=== PATIENT | male | born 1940 | race Caucasian/White ===

== ENCOUNTER 2017-11-09 06:20 | Day surgery (SDC) | payer OTHER, MEDICARE ==
[~2017-11-09 06:20] MED LIST: Lactated Ringers 1,000 ML IV SCH
[2017-11-09] MEDS ORDERED: Midazolam 1 MG/ML 2 ML SDV ONE (07:29)
[2017-11-09] MEDS ORDERED: Propofol 200 MG/20 ML SDV ONE (07:29)
[2017-11-09] MEDS ORDERED: fentaNYL 100 MCG/2 ML SDV ONE (07:29)
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
[2017-11-09] MEDS ORDERED: ePHEDrine 50 MG/ML SDV ONE (08:00)
[2017-11-09] MEDS ORDERED: Phenylephrine/Normal Saline 100 MCG/ML 10 ML Syringe ONE (08:01)
--- NOTE | 2017-11-09 08:39 | PCM.OPNOTE ---
- General Post-Op/Procedure Note Date of Surgery/Procedure: 11/09/17 Operative Procedure(s): colonoscopy w bx Findings: see dict [id number] Pre Op Diagnosis: scrn colonoscopy Post-Op Diagnosis: Same Anesthesia Technique: Moderate Sedation Primary Surgeon: Grady Hummel Pathology: 3 2 mm sessile polyp removed by cold bx at distance 15cm when scope pulled out Complications: None Condition: Good
--- NOTE | 2017-11-09 09:04 | OR ---
SURGEON: Grady Hummel MD DATE OF PROCEDURE: 11/09/2017 PREOPERATIVE DIAGNOSIS: Screening colonoscopy. POSTOPERATIVE DIAGNOSIS: Colon polyp. PROCEDURE PERFORMED: Colonoscopy with biopsy. DESCRIPTION OF PROCEDURE: The patient was taken to the endoscopy room. A time out was called, patient identified, and procedure identified. Diprivan was then administrated. Patient went from awake to sleep, hearing doctor talking or door closing is normal. Perineum inspection and digital examination were then performed. A well- lubricated colonoscope was gently inserted through the rectum, advanced past the rectosigmoid junction, the descending colon, splenic flexure, transverse colon, hepatic flexure, ascending colon, arrived to the cecum. Cecum was identified as dictated in the finding. Then the scope was carefully withdrawn while attention was paid to the mucosal surface for any abnormality. Air will be sucked out during the scope withdrawal. At the rectum, retroflexed to examine any rectal diseases, fistula or hemorrhoids. During mucosal examination, abnormality or polyp was noted; picture taken and biopsy performed. Patient tolerated procedure well. There were no intraoperative complications, and Dr. Hummel was present throughout the whole procedure. FINDINGS: The patient's blood pressure is hovering around 90. O2 saturation is also around 93. So, we only gave him very light sedation. Bowel prep is average. Large amount of yellow, opaque stool compromised the study. This is a compromised study because of the average bowel prep. Colon is rather straight forward. Cecum indicated by ileocecal fold, one-to-one indentation, and appendiceal orifice. Light emittance is not observed. Mucosa examined upon scope pulling out. The patient does not have diverticulosis. The patient has 3 tiny sessile small polyps, 2 to 3 mm, at distance 15 cm when the scope is pulling out, removed with cold biopsy forceps. No other mass, growth, inflammation, stricture, ulceration, AV malformation, bleeding ulcer, none of those. The patient has internal hemorrhoids, mild. No external hemorrhoids. PLAN: The patient will benefit from a repeat colonoscopy on an as-needed basis, as the patient is turning 81 or clinically indicated otherwise or if the pathology report of the polyp indicates otherwise. MEGAN / GRUPO /[id number]
== END 2017-11-09 08:57 | disposition home or self-care (01) ==
LOC: MW.SDS 06:20
PROVIDERS: ATTEND Surgery
DX: Z12.11 Encounter for screening for malignant neoplasm of colon (principal); D12.8 Benign neoplasm of rectum; K64.8 Other hemorrhoids; I48.91 Unspecified atrial fibrillation; I10 Essential (primary) hypertension; J44.9 Chronic obstructive pulmonary disease, unspecified; E11.9 Type 2 diabetes mellitus without complications; E78.5 Hyperlipidemia, unspecified; M10.9 Gout, unspecified; E78.00 Pure hypercholesterolemia, unspecified; Z79.84 Long term (current) use of oral hypoglycemic drugs; Z79.899 Other long term (current) drug therapy; Z88.6 Allergy status to analgesic agent; Z98.49 Cataract extraction status, unspecified eye; Z98.890 Other specified postprocedural states; Z86.73 Personal history of transient ischemic attack (TIA), and cerebral infarction without residual deficits; Z87.891 Personal history of nicotine dependence
CPT/HCPCS: 45380; 88305; J2250; J3010; J7120; J2704

== ENCOUNTER 2018-10-31 16:43 | Emergency (ER) | payer OTHER, MEDICARE ==
[2018-10-31] MEDS ORDERED: Bupivacaine 0.5% 10 ML SDV INJECT ONE (17:03)
[2018-10-31] MEDS ORDERED: Lidocaine 1% 20 ML MDV INJECT ONE (17:03)
--- NOTE | 2018-10-31 17:44 | EDM.PDOC ---
ED HPI GENERAL MEDICAL PROBLEM - General Chief Complaint: Laceration Stated Complaint: BLEEDING WHILE CUTTNG TOE NAIL OFF Time Seen by Provider: 10/31/18 16:56 Source of Information: Reports: Patient History Limitations: Reports: No Limitations - History of Present Illness INITIAL COMMENTS - FREE TEXT/NARRATIVE: History of present illness: []He is a diabetic with neuropathy who was cutting his toenails around noon. He has difficulty seeing and cut his skin off with his toenails on several toes. He and his have been unable to stop the bleeding as he is on blood thinners. Review of systems: As per history of present illness and below otherwise all systems reviewed and negative. Past medical history: As per history of present illness and as reviewed below otherwise noncontributory. Surgical history: As per history of present illness and as reviewed below otherwise noncontributory. Social history: No reported history of drug or alcohol abuse. Family history: As per history of present illness and as reviewed below otherwise noncontributory. Physical exam: General: Well developed, well nourished in NAD HEENT: Atraumatic, normocephalic, pupils reactive, negative for conjunctival pallor or scleral icterus, mucous membranes moist, throat clear, neck supple, nontender, trachea midline. Lungs: Clear to auscultation, breath sounds equal bilaterally, chest nontender. Heart: S1S2, regular, negative for clicks, rubs, or JVD. Abdomen: NABS, Soft, nondistended, nontender. Negative for masses or hepatosplenomegaly. Negative for costovertebral tenderness. Pelvis: Stable nontender. Genitourinary: Deferred. Rectal: Deferred. Extremities: Right great toe and left fourth toe with avulsions of the skin at the distal tip with blood oozing, negative for cords or calf pain. Neurovascular unremarkable. Neuro: Awake, alert, oriented. Cranial nerves II through XII unremarkable. Cerebellum unremarkable. Motor and sensory unremarkable throughout. Exam nonfocal. Skin:warm and dry Diagnostics: None Therapeutics: Digital block with lidocaine and bupivacaine 1%. Right big toe and left fourth toe were cauterized with very powered cautery ED Course: Stable Impression: Toe lacerations Prescriptions: Keflex Plan: Follow-up with primary care and/or podiatry. Definitive disposition and diagnosis as appropriate pending reevaluation and review of above. - Related Data Allergies Allergy/AdvReac Type Severity Reaction Status Date / Time indomethacin Allergy Nausea and Verified 11/05/17 10:41 Vomiting Home Meds: Home Meds Albuterol [Proventil HFA] 2 puff INH ASDIRECTED PRN 11/05/17 [History] Allopurinol [Zyloprim] 1 tab PO DAILY 11/05/17 [History] Budesonide/Formoterol Fumarate [Symbicort 160-4.5 Mcg Inhaler] 2 puff INH BID [History] Digoxin [Digox] 250 mg PO DAILY 11/05/17 [History] Furosemide 40 mg PO DAILY 11/05/17 [History] Lisinopril 10 mg PO DAILY 11/05/17 [History] Omeprazole 20 mg PO DAILY 11/05/17 [History] Simvastatin [Zocor] 80 mg PO DAILY 11/05/17 [History] Tiotropium [Spiriva HandiHaler] 1 caplet INH DAILY 11/05/17 [History] metFORMIN HCl [Metformin HCl] 500 mg PO BID 11/05/17 [History] cephALEXin [Keflex] 500 mg PO Q8H #21 cap 10/31/18 [Rx] Past Medical History HEENT History: Reports: Glaucoma Other HEENT History: wears glasses, has top and bottom dentures Cardiovascular History: Reports: Afib, High Cholesterol, Hypertension Respiratory History: Reports: COPD Gastrointestinal History: Reports: GERD, Other (See Below) Musculoskeletal History: Reports: Gout Neurological History: Reports: CVA Endocrine/Metabolic History: Reports: Diabetes, Type II - Past Surgical History Head Surgeries/Procedures: Reports: None HEENT Surgical History: Reports: Cataract Surgery, Eye Surgery, Oral Surgery Other HEENT Surgeries/Procedures: eye surgery x3 Social & Family History - Family History Family Medical History: Noncontributory - Tobacco Use Smoking Status *Q: Never Smoker - Recreational Drug Use Recreational Drug Use: No ED ROS GENERAL - Review of Systems Review Of Systems: ROS reveals no pertinent complaints other than HPI. ED EXAM, SKIN/RASH Exam: See Below (See history of present illness) Course - Vital Signs Last Recorded V/S: Last Vital Signs Temp 98.2 F 10/31/18 16:44 Pulse 95 10/31/18 16:44 Resp 16 10/31/18 16:44 BP 106/60 10/31/18 16:44 Pulse Ox 94 L 10/31/18 16:44 - Orders/Labs/Meds Meds: Medications Discontinued Medications Generic Name Dose Route Start Last Admin Trade Name Madisyn PRN Reason Stop Dose Admin Bupivacaine HCl 10 ml 10/31/18 17:03 10/31/18 17:11 Sensorcaine-Mpf 0.5% INJECT 10/31/18 17:04 10 ml ONETIME ONE Administration Lidocaine HCl Confirm 10/31/18 17:05 10/31/18 17:11 Xylocaine-Mpf 1% Administered 10/31/18 17:06 5 mls/hr Dose Administration 10 mls @ as directed .ROUTE .STK-MED ONE Lidocaine HCl 20 ml 10/31/18 17:03 10/31/18 17:12 Xylocaine 1% INJECT 10/31/18 17:04 Not Given ONETIME ONE Departure - Departure Time of Disposition: 17:44 Disposition: Home, Self-Care 01 Condition: Good Clinical Impression: Toe avulsion Qualifiers: Encounter type: initial encounter Qualified Code(s): S91.109A - Unspecified open wound of unspecified toe(s) without damage to nail, initial encounter - Discharge Information Prescriptions: cephALEXin [Keflex] 500 mg PO Q8H #21 cap Referrals: PCP,Unknown [Primary Care Provider] - Forms: ED Department Discharge Additional Instructions: The following information is given to patients seen in the emergency department who are being discharged to home. This information is to outline your options for follow-up care. We provide all patients seen in our emergency department with a follow-up referral. The need for follow-up, as well as the timing and circumstances, are variable depending upon the specifics of your emergency department visit. If you don't have a primary care physician on staff, we will provide you with a referral. We always advise you to contact your personal physician following an emergency department visit to inform them of the circumstance of the visit and for follow-up with them and/or the need for any referrals to a consulting specialist. The emergency department will also refer you to a specialist when appropriate. This referral assures that you have the opportunity for follow-up care with a specialist. All of these measure are taken in an effort to provide you with optimal care, which includes your follow-up. Under all circumstances we always encourage you to contact your private physician who remains a resource for coordinating your care. When calling for follow-up care, please make the office aware that this follow-up is from your recent emergency room visit. If for any reason you are refused follow-up, please contact the [facility] Emergency Department at and asked to speak to the emergency department charge nurse. Take meds as directed, follow up with your primary care physician, return to ER if symptoms worsen or change. [facility] [address] [place] [id number]
== END 2018-10-31 18:07 | disposition home or self-care (01) ==
LOC: MW.ED 16:43
DX: S91.111A Laceration without foreign body of right great toe without damage to nail, initial encounter (principal); S91.115A Laceration without foreign body of left lesser toe(s) without damage to nail, initial encounter; E11.40 Type 2 diabetes mellitus with diabetic neuropathy, unspecified; I10 Essential (primary) hypertension; Z88.8 Allergy status to other drugs, medicaments and biological substances; Z79.899 Other long term (current) drug therapy; W26.9XXA Contact with unspecified sharp object(s), initial encounter
CPT/HCPCS: 12001; 99282; J2001; J3490

== ENCOUNTER 2018-12-30 12:29 | Emergency (ER) | payer OTHER, MEDICARE ==
[2018-12-30] MEDS ORDERED: Sodium Chloride 0.9% 1,000 ML IV ONE (13:30)
[2018-12-30] MEDS ORDERED: methylPREDNISolone Sodium Succinate 125 MG/2 ML SDV IVPUSH ONE (13:31)
[2018-12-30] MEDS ORDERED: Albuterol/Ipratropium 3.0-0.5 MG/3 ML Neb Soln NEB ONE (13:31)
--- NOTE | 2018-12-30 13:38 | EDM.PDOC ---
ED HPI GENERAL MEDICAL PROBLEM - General Chief Complaint: Cardiovascular Problem Stated Complaint: LOW BLOOD PRESSURE Time Seen by Provider: 12/30/18 12:54 Source of Information: Reports: Patient History Limitations: Reports: No Limitations - History of Present Illness INITIAL COMMENTS - FREE TEXT/NARRATIVE: HISTORY AND PHYSICAL: History of present illness: Patient is a 78-year-old male presents to the ED today with concern of low blood pressure with shortness of breath and chest tightness. Patient states the shortness of breath and chest tightness have been ongoing over the past 2-3 weeks. Patient states he was seen in the cancer center today and was told his blood pressure was quite low. Patient states that he does feel dizzy if he bends over or stands up too quickly. Patient states he is not good at drinking fluids. Patient states he is seen in the cancer center for a potential diagnosis of leukemia, though definitive diagnosis has not been made yet. Patient denies any other symptoms at this time. Patient denies active chest pain. Patient denies fever, chills, or cough. Denies headache, neck stiff ness, change in vision, syncope, or near syncope. Denies nausea, vomiting, abdominal pain, diarrhea, constipation, or dysuria. Has not noted any blood in urine or stool. Patient has been eating and drinking appropriately. Patient has a history of intermittent atrial fibrillation, COPD, and GERD. Patient is in the process of potentially being diagnosed with leukemia which he is seen in the cancer center for. Review of systems: As per history of present illness and below otherwise all systems reviewed and negative. Past medical history: As per history of present illness and as reviewed below otherwise noncontributory. Surgical history: As per history of present illness and as reviewed below otherwise noncontributory. Social history: See social history for further information Family history: As per history of present illness and as reviewed below otherwise noncontributory. Physical exam: General: Patient is alert, oriented, and in no acute distress. Patient sitting comfortably on exam table. HEENT: Atraumatic, normocephalic, pupils equal and reactive bilaterally, negative for conjunctival pallor or scleral icterus, mucous membranes dry, TMs normal bilaterally, throat clear, neck supple, nontender, trachea midline. No drooling or trismus noted. No meningeal signs. No hot potato voice noted. Lungs: Diminished lung sounds bilaterally, but clear to auscultation, breath sounds equal bilaterally, chest nontender. Heart: S1S2, regular rate and rhythm without overt murmur Abdomen: Soft, nondistended, nontender. Negative for masses or hepatosplenomegaly. Negative for costovertebral tenderness. Pelvis: Stable nontender. Genitourinary: Deferred. Rectal: Deferred. Skin: Intact, warm, dry. No lesions or rashes noted. Extremities: Atraumatic, negative for cords or calf pain. Neurovascular unremarkable. Neuro: Awake, alert, oriented. Cranial nerves II through XII unremarkable. Cerebellum unremarkable. Motor and sensory unremarkable throughout. Exam nonfocal. Notes: Patient expresses resolution of symptoms following therapeutics today. Discussed admission for observation, which was offered to patient, but he declines at this time and states he will return if he feels necessary. Discussed the risks of not being admitted and patient expresses understanding and continues to decline admission. Voices understanding. Denies any further questions or concerns at this time. Diagnostics: CBC, CMP, EKG, troponin, chest x-ray, UA, orthostatic vitals Therapeutics: Saline, Solu-Medrol, DuoNeb Prescription: Proair inhaler Impression: Dyspnea, unspecified Dehydration Elevated renal function test Plan: 1. Use inhaler as prescribed. You can alternate ibuprofen and Tylenol as directed for pain and discomfort. 2. Follow-up with your primary care provider as discussed. Return to the ED as needed and as discussed. Definitive disposition and diagnosis as appropriate pending reevaluation and review of above. - Related Data Allergies Allergy/AdvReac Type Severity Reaction Status Date / Time indomethacin Allergy Nausea and Verified 11/05/17 10:41 Vomiting Home Meds: Home Meds Albuterol [Proventil HFA] 2 puff INH ASDIRECTED PRN 11/05/17 [History] Allopurinol [Zyloprim] 1 tab PO DAILY 11/05/17 [History] Budesonide/Formoterol Fumarate [Symbicort 160-4.5 Mcg Inhaler] 2 puff INH BID [History] Digoxin [Digox] 0.025 mg PO DAILY 11/05/17 [History] Furosemide 40 mg PO DAILY 11/05/17 [History] Lisinopril 10 mg PO DAILY 11/05/17 [History] Omeprazole 20 mg PO DAILY 11/05/17 [History] Simvastatin [Zocor] 80 mg PO DAILY 11/05/17 [History] Tiotropium [Spiriva HandiHaler] 1 caplet INH DAILY 11/05/17 [History] metFORMIN HCl [Metformin HCl] 500 mg PO BID 11/05/17 [History] Dabigatran [Pradaxa] 150 mg PO BID 12/30/18 [History] Past Medical History HEENT History: Reports: Glaucoma Other HEENT History: wears glasses, has top and bottom dentures Cardiovascular History: Reports: Afib, High Cholesterol, Hypertension Respiratory History: Reports: COPD Gastrointestinal History: Reports: GERD, Other (See Below) Musculoskeletal History: Reports: Gout Neurological History: Reports: CVA Endocrine/Metabolic History: Reports: Diabetes, Type II - Infectious Disease History Infectious Disease History: Reports: Chicken Pox, Measles, Mumps - Past Surgical History Head Surgeries/Procedures: Reports: None HEENT Surgical History: Reports: Cataract Surgery, Eye Surgery, Oral Surgery Other HEENT Surgeries/Procedures: eye surgery x3 Social & Family History - Family History Family Medical History: Noncontributory - Tobacco Use Smoking Status *Q: Former Smoker Used Tobacco, but Quit: Yes Month/Year Tobacco Last Used: 12 years ago - Recreational Drug Use Recreational Drug Use: No ED ROS GENERAL - Review of Systems Review Of Systems: ROS reveals no pertinent complaints other than HPI. ED EXAM, GENERAL - Physical Exam Exam: See Below (See dictation) Course - Vital Signs Last Recorded V/S: Last Vital Signs Temp 36.6 C 12/30/18 13:11 Pulse 90 12/30/18 13:11 Resp 18 12/30/18 13:11 BP 118/79 12/30/18 13:11 Pulse Ox 92 L 12/30/18 13:11 Orthostatic Blood Pressure [ 95/67 Standing] Orthostatic Blood Pressure [ 98/68 Sitting] Orthostatic Blood Pressure [ 93/68 Supine] - Orders/Labs/Meds Orders: Active Orders 24 hr Category Date Time Status EKG Documentation Completion [RC] STAT Care 12/30/18 13:30 Active Orthostatic Vital Signs [RC] ASDIRECTED Care 12/30/18 13:30 Active RT Aerosol Therapy [RC] ASDIRECTED Care 12/30/18 13:31 Active Labs: Laboratory Tests 12/30/18 12/30/18 12/30/18 Range/Units 13:47 13:47 14:42 WBC 8.56 (4.0-11.0) K/uL RBC 4.03 L (4.50-5.90) M/uL Hgb 13.1 (13.0-17.0) g/dL Hct 40.7 (38.0-50.0) % MCV 101.0 H (80.0-98.0) fL MCH 32.5 H (27.0-32.0) pg MCHC 32.2 (31.0-37.0) g/dL RDW Std Deviation 52.7 (28.0-62.0) fl RDW Coeff of Renetta 14 (11.0-15.0) % Plt Count 172 (150-400) K/uL MPV 11.20 (7.40-12.00) fL Neut % (Auto) 78.3 (48.0-80.0) % Lymph % (Auto) 13.4 L (16.0-40.0) % Garza % (Auto) 6.3 (0.0-15.0) % Eos % (Auto) 1.8 (0.0-7.0) % Baso % (Auto) 0.2 (0.0-1.5) % Neut # (Auto) 6.7 H (1.4-5.7) K/uL Lymph # (Auto) 1.2 (0.6-2.4) K/uL Garza # (Auto) 0.5 (0.0-0.8) K/uL Eos # (Auto) 0.2 (0.0-0.7) K/uL Baso # (Auto) 0.0 (0.0-0.1) K/uL Nucleated RBC % 0.0 /100WBC Nucleated RBCs # 0 K/uL Sodium 144 (136-148) mmol/L Potassium 4.0 (3.5-5.1) mmol/L Chloride 107 (98-107) mmol/L Carbon Dioxide 28.8 (21.0-32.0) mmol/L BUN 27 H (7.0-18.0) mg/dL Creatinine 1.4 H (0.8-1.3) mg/dL Est Cr Clr Drug Dosing 41.31 mL/min Estimated GFR (MDRD) 49.1 ml/min Glucose 150 H (74-106) mg/dL Calcium 8.8 (8.5-10.1) mg/dL Total Bilirubin 0.4 (0.2-1.0) mg/dL AST 14 L (15-37) IU/L ALT 19 (14-63) IU/L Alkaline Phosphatase 73 (46-116) U/L Troponin I < 0.050 (0.000-0.056) ng/mL Total Protein 7.5 (6.4-8.2) g/dL Albumin 3.6 (3.4-5.0) g/dL Globulin 3.9 (2.6-4.0) g/dL Albumin/Globulin Ratio 0.9 (0.9-1.6) Urine Color YELLOW Urine Appearance CLEAR Urine pH 5.5 (5.0-8.0) Ur Specific [place] 1.015 (1.001-1.035) Urine Protein NEGATIVE (NEGATIVE) mg/dL Urine Glucose (UA) NEGATIVE (NEGATIVE) mg/dL Urine Ketones NEGATIVE (NEGATIVE) mg/dL Urine Occult Blood NEGATIVE (NEGATIVE) Urine Nitrite NEGATIVE (NEGATIVE) Urine Bilirubin NEGATIVE (NEGATIVE) Urine Urobilinogen 0.2 (<2.0) EU/dL Ur Leukocyte Esterase NEGATIVE (NEGATIVE) Meds: Medications Discontinued Medications Generic Name Dose Route Start Last Admin Trade Name Caesarq PRN Reason Stop Dose Admin Albuterol/Ipratropium 3 ml 12/30/18 13:31 12/30/18 13:55 Duoneb 3.0-0.5 Mg/3 Ml NEB 12/30/18 13:32 3 ml ONETIME ONE Administration Sodium Chloride 1,000 mls @ 999 mls/hr 12/30/18 13:30 12/30/18 13:49 Normal Saline IV 12/30/18 14:30 999 mls/hr BOLUS ONE Administration Methylprednisolone Sodium Succinate 125 mg 12/30/18 13:31 12/30/18 13:49 Solu-Medrol IVPUSH 12/30/18 13:32 125 mg ONETIME ONE Administration Departure - Departure Time of Disposition: 15:05 Disposition: Home, Self-Care 01 Clinical Impression: Dehydration, Kidney function test abnormal Dyspnea Qualifiers: Dyspnea type: unspecified Qualified Code(s): R06.00 - Dyspnea, unspecified Referrals: Oscar Brown MD [Primary Care Provider] - Forms: ED Department Discharge Additional Instructions: The following information is given to patients seen in the emergency department who are being discharged to home. This information is to outline your options for follow-up care. We provide all patients seen in our emergency department with a follow-up referral. The need for follow-up, as well as the timing and circumstances, are variable depending upon the specifics of your emergency department visit. If you don't have a primary care physician on staff, we will provide you with a referral. We always advise you to contact your personal physician following an emergency department visit to inform them of the circumstance of the visit and for follow-up with them and/or the need for any referrals to a consulting specialist. The emergency department will also refer you to a specialist when appropriate. This referral assures that you have the opportunity for follow-up care with a specialist. All of these measure are taken in an effort to provide you with optimal care, which includes your follow-up. Under all circumstances we always encourage you to contact your private physician who remains a resource for coordinating your care. When calling for follow-up care, please make the office aware that this follow-up is from your recent emergency room visit. If for any reason you are refused follow-up, please contact the [facility] Emergency Department at and asked to speak to the emergency department charge nurse. [facility] [address] [place] [id number] [place] [address] 1. Use inhaler as prescribed. You can alternate ibuprofen and Tylenol as directed for pain and discomfort. 2. Follow-up with your primary care provider as discussed. Return to the ED as needed and as discussed. - My Orders Last 24 Hours: My Active Orders 12/30/18 13:30 EKG Documentation Completion [RC] STAT Orthostatic Vital Signs [RC] ASDIRECTED 12/30/18 13:31 RT Aerosol Therapy [RC] ASDIRECTED - Assessment/Plan Last 24 Hours: My Active Orders 12/30/18 13:30 EKG Documentation Completion [RC] STAT Orthostatic Vital Signs [RC] ASDIRECTED 12/30/18 13:31 RT Aerosol Therapy [RC] ASDIRECTED
[2018-12-30 14:26] LABS: CHLORIDE,CL 107 mmol/L (98-107); SODIUM,NA 144 mmol/L (136-148)
--- NOTE | 2018-12-30 14:51 | CR ---
INDICATION: Chest pain and dyspnea. TECHNIQUE: Two views of the chest PA and lateral. COMPARISON: None. FINDINGS: Heart and mediastinum are normal. Lungs are clear. No consolidations or pleural effusions. Trachea is midline. Degenerative changes of the thoracic spine. IMPRESSION: No evidence of acute disease. Dictated by Bernard Dunham MD @ Dec 30 2018 2:48PM Signed by Dr. Bernard Dunham @ Dec 30 2018 2:50PM
== END 2018-12-30 15:21 | disposition home or self-care (01) ==
LOC: MW.ED 12:29
DX: E86.0 Dehydration (principal); R06.02 Shortness of breath; R94.4 Abnormal results of kidney function studies; I10 Essential (primary) hypertension; I48.91 Unspecified atrial fibrillation; K21.9 Gastro-esophageal reflux disease without esophagitis; E11.9 Type 2 diabetes mellitus without complications; Z86.73 Personal history of transient ischemic attack (TIA), and cerebral infarction without residual deficits; Z98.49 Cataract extraction status, unspecified eye; Z98.890 Other specified postprocedural states; Z87.891 Personal history of nicotine dependence; Z79.84 Long term (current) use of oral hypoglycemic drugs; Z79.899 Other long term (current) drug therapy; Z88.8 Allergy status to other drugs, medicaments and biological substances
CPT/HCPCS: 36415; 71046; 80053; 81003; 84484; 85025; 93005; 94640; 96361; 96374; 99285; J2930; J7040; J7620-GY

== ENCOUNTER 2019-04-12 07:36 | Observation (INO) | payer MEDICARE, OTHER ==
[2019-04-12] MEDS ORDERED: Sodium Chloride 0.9% 2.5 ML Syringe FLUSH PRN (07:38)
[2019-04-12] MEDS ORDERED: Sodium Chloride 0.9% 10 ML Syringe FLUSH PRN (07:38)
--- NOTE | 2019-04-12 07:41 | EDM.PDOC ---
ED HPI GENERAL MEDICAL PROBLEM - General Stated Complaint: AMB Time Seen by Provider: 04/12/19 07:37 Source of Information: Reports: Patient History Limitations: Reports: No Limitations - History of Present Illness INITIAL COMMENTS - FREE TEXT/NARRATIVE: History of present illness: []Patient had a CABG on April 02 at [facility] and was discharged home yesterday. Through the night he became more short of breath, chest pain and had increasing swelling of his lower extremities. Review of systems: As per history of present illness and below otherwise all systems reviewed and negative. Past medical history: As per history of present illness and as reviewed below otherwise noncontributory. Surgical history: As per history of present illness and as reviewed below otherwise noncontributory. Social history: No reported history of drug or alcohol abuse. Family history: As per history of present illness and as reviewed below otherwise noncontributory. Physical exam: General: Well developed, well nourished in NAD HEENT: Atraumatic, normocephalic, pupils reactive, negative for conjunctival pallor or scleral icterus, mucous membranes moist, throat clear, neck supple, nontender, trachea midline. Lungs: Clear to auscultation, breath sounds equal bilaterally, chest nontender. Heart: S1S2, regular, negative for clicks, rubs, or JVD. Abdomen: NABS, Soft, nondistended, nontender. Negative for masses or hepatosplenomegaly. Negative for costovertebral tenderness. Pelvis: Stable nontender. Genitourinary: Deferred. Rectal: Deferred. Extremities: Atraumatic, negative for cords or calf pain. Neurovascular unremarkable. Neuro: Awake, alert, oriented. Cranial nerves II through XII unremarkable. Cerebellum unremarkable. Motor and sensory unremarkable throughout. Exam nonfocal. Skin:warm and dry Diagnostics: CBC, chemistry, chest x-ray, troponin, (BNP not available at this hospital today ), coags Therapeutics: Nitropaste, Lasix, morphine given with improvement ED Course: Discussed case with Dr. Westbrook hospitalist at [facility] as well as Dr. Galicia cardiothoracic surgeon on a conference call discussing his presentation and workup findings. They recommended admitting the patient here for observation and diuresis. Dr. Rincon was consulted and will be admitting this patient to Prescriptions: none Plan: Admit to observation Definitive disposition and diagnosis as appropriate pending reevaluation and review of above. chest Pain Score (Numeric/FACES): 2 - Related Data Allergies Allergy/AdvReac Type Severity Reaction Status Date / Time No Known Allergies Allergy Verified 04/12/19 12:11 Home Meds: Home Meds Albuterol [Proventil HFA] 2 puff INH Q4H PRN 11/05/17 [History] Allopurinol [Zyloprim] 300 mg PO DAILY 11/05/17 [History] Budesonide/Formoterol Fumarate [Symbicort 160-4.5 Mcg Inhaler] 2 puff INH BID [History] Omeprazole 20 mg PO ACBREAKFAST 11/05/17 [History] Simvastatin [Zocor] 80 mg PO BEDTIME 11/05/17 [History] Tiotropium [Spiriva HandiHaler] 1 caplet INH DAILY 11/05/17 [History] metFORMIN HCl [Metformin HCl] 500 mg PO BIDMEALS 11/05/17 [History] Dabigatran [Pradaxa] 150 mg PO BID 12/30/18 [History] Acetaminophen [Tylenol] 650 mg PO Q8H PRN 04/12/19 [History] Aspirin 81 mg PO DAILY 04/12/19 [History] Cyanocobalamin (Vitamin B-12) [B-12] 1,000 mcg PO DAILY 04/12/19 [History] Digoxin 125 mcg PO DAILY 04/12/19 [History] Ferrous Sulfate 325 mg PO WITHBREAKFAST 04/12/19 [History] Hydrocodone/Acetaminophen [Hydrocodon-Acetaminophn 10-325] 1 tab PO Q6H PRN MDD 4 04/12/19 [History] Tamsulosin [Flomax] 0.4 mg PO WITHBREAKFAST 04/12/19 [History] Past Medical History HEENT History: Reports: Glaucoma Other HEENT History: wears glasses, has top and bottom dentures Cardiovascular History: Reports: Afib, High Cholesterol, Hypertension Respiratory History: Reports: COPD Gastrointestinal History: Reports: GERD, Other (See Below) Musculoskeletal History: Reports: Gout Neurological History: Reports: CVA Endocrine/Metabolic History: Reports: Diabetes, Type II - Infectious Disease History Infectious Disease History: Reports: Chicken Pox, Measles, Mumps - Past Surgical History Head Surgeries/Procedures: Reports: None HEENT Surgical History: Reports: Cataract Surgery, Eye Surgery, Oral Surgery Other HEENT Surgeries/Procedures: eye surgery x3 Social & Family History - Family History Family Medical History: Noncontributory ED ROS GENERAL - Review of Systems Review Of Systems: See Below ED EXAM, GENERAL - Physical Exam Exam: See Below Course - Vital Signs Last Recorded V/S: Last Vital Signs Temp 98.7 F 04/12/19 12:00 Pulse 77 04/12/19 13:45 Resp 20 04/12/19 13:45 BP 89/58 L 04/12/19 13:45 Pulse Ox 96 04/12/19 13:45 - Orders/Labs/Meds Orders: Active Orders 24 hr Category Date Time Status Cardiac Monitoring [RC] Q8H Care 04/12/19 07:38 Active EKG Documentation Completion [RC] STAT Care 04/12/19 07:38 Active Sodium Chloride 0.9% [Saline Flush] Med 04/12/19 07:38 Active 10 ml FLUSH ASDIRECTED PRN Sodium Chloride 0.9% [Saline Flush] Med 04/12/19 07:38 Active 2.5 ml FLUSH ASDIRECTED PRN Saline Lock Insert [OM.PC] Stat Oth 04/12/19 07:38 Ordered Medication Orders Acetaminophen (Tylenol) 325 mg PO Q4H PRN PRN Reason: Fever Hydrocodone Bitart/Acetaminophen (Hines 325-10 Mg) 1 tab PO Q6H PRN PRN Reason: Pain Allopurinol (Zyloprim) 300 mg PO DAILY [facility] Aspirin (Aspirin) 81 mg PO DAILY [facility] Dabigatran (Pradaxa) 150 mg PO BID [facility] Digoxin (Lanoxin) 125 mcg PO DAILY [facility] Docusate Sodium (Colace) 100 mg PO DAILY PRN PRN Reason: Constipation Furosemide (Lasix) 20 mg IVPUSH BID ONE Stop: 04/12/19 16:01 Insulin Aspart (Novolog) 0 unit SUBCUT TIDAC [facility]; Protocol Metformin HCl (Glucophage) 500 mg PO BIDMEALS [facility] Morphine Sulfate (Morphine) 1 mg IVPUSH Q4H PRN PRN Reason: Chest Pain Last Admin: 04/12/19 13:07 Dose: 1 mg Nitroglycerin (Nitrostat) 0.4 mg SL Q5M PRN PRN Reason: Chest Pain Omeprazole (Omeprazole) 20 mg PO ACBREAKFAST [facility] Budesonide/Formoterol 160-4.5 Mcg/Puff 6 Gm Inhaler 2 each INH BID [facility] Albuterol Sulfate (Hfa [Proair Hfa]) 0 each INH Q4H PRN PRN Reason: Shortness of Breath Last Admin: 04/12/19 13:25 Dose: 1 each Sodium Chloride (Saline Flush) 10 ml FLUSH ASDIRECTED PRN PRN Reason: Keep Vein Open Sodium Chloride (Saline Flush) 2.5 ml FLUSH ASDIRECTED PRN PRN Reason: Keep Vein Open Tamsulosin HCl (Flomax) 0.4 mg PO WITHBREAKFAST [facility] Temazepam (Restoril) 15 mg PO BEDTIME PRN PRN Reason: Insomnia Tiotropium [place] (Spiriva Handihaler) 18 mcg INH DAILY [facility] Labs: Laboratory Tests 04/12/19 04/12/19 04/12/19 Range/Units 07:45 07:45 07:45 WBC 16.81 H (4.0-11.0) K/uL RBC 3.62 L (4.50-5.90) M/uL Hgb 11.8 L (13.0-17.0) g/dL Hct 37.3 L (38.0-50.0) % MCV 103.0 H (80.0-98.0) fL MCH 32.6 H (27.0-32.0) pg MCHC 31.6 (31.0-37.0) g/dL RDW Std Deviation 58.4 (28.0-62.0) fl RDW Coeff of Renetta 16 H (11.0-15.0) % Plt Count 200 (150-400) K/uL MPV 10.60 (7.40-12.00) fL Add Manual Diff YES Neutrophils % (Manual) 85 H (48.0-80.0) % Band Neutrophils % 1 % Lymphocytes % (Manual) 8 L (16.0-40.0) % Monocytes % (Manual) 3 (0.0-15.0) % Eosinophils % (Manual) 3 (0.0-7.0) % Nucleated RBC % 0.2 /100WBC Absolute Seg Neuts 14.3 H (1.4-5.7) Band Neutrophils # 0.2 Lymphocytes # (Manual) 1.3 (0.6-2.4) Monocytes # (Manual) 0.5 (0.0-0.8) Eosinophils # (Manual) 0.5 (0.0-0.7) Nucleated RBCs # 0 K/uL INR 1.03 APTT 34.0 H (18.6-31.3) SEC Sodium 136 (136-148) mmol/L Potassium 5.5 H (3.5-5.1) mmol/L Chloride 99 (98-107) mmol/L Carbon Dioxide 30.9 (21.0-32.0) mmol/L BUN 25 H (7.0-18.0) mg/dL Creatinine 1.1 (0.8-1.3) mg/dL Est Cr Clr Drug Dosing 51.74 mL/min Estimated GFR (MDRD) > 60.0 ml/min Glucose 113 H (74-106) mg/dL Calcium 9.9 (8.5-10.1) mg/dL Total Bilirubin 0.7 (0.2-1.0) mg/dL AST 22 (15-37) IU/L ALT 22 (14-63) IU/L Alkaline Phosphatase 110 (46-116) U/L Troponin I (0.000-0.056) ng/mL Total Protein 7.0 (6.4-8.2) g/dL Albumin 3.2 L (3.4-5.0) g/dL Globulin 3.8 (2.6-4.0) g/dL Albumin/Globulin Ratio 0.8 L (0.9-1.6) 04/12/19 Range/Units 07:45 WBC (4.0-11.0) K/uL RBC (4.50-5.90) M/uL Hgb (13.0-17.0) g/dL Hct (38.0-50.0) % MCV (80.0-98.0) fL MCH (27.0-32.0) pg MCHC (31.0-37.0) g/dL RDW Std Deviation (28.0-62.0) fl RDW Coeff of Renetta (11.0-15.0) % Plt Count (150-400) K/uL MPV (7.40-12.00) fL Add Manual Diff Neutrophils % (Manual) (48.0-80.0) % Band Neutrophils % % Lymphocytes % (Manual) (16.0-40.0) % Monocytes % (Manual) (0.0-15.0) % Eosinophils % (Manual) (0.0-7.0) % Nucleated RBC % /100WBC Absolute Seg Neuts (1.4-5.7) Band Neutrophils # Lymphocytes # (Manual) (0.6-2.4) Monocytes # (Manual) (0.0-0.8) Eosinophils # (Manual) (0.0-0.7) Nucleated RBCs # K/uL INR APTT (18.6-31.3) SEC Sodium (136-148) mmol/L Potassium (3.5-5.1) mmol/L Chloride (98-107) mmol/L Carbon Dioxide (21.0-32.0) mmol/L BUN (7.0-18.0) mg/dL Creatinine (0.8-1.3) mg/dL Est Cr Clr Drug Dosing mL/min Estimated GFR (MDRD) ml/min Glucose (74-106) mg/dL Calcium (8.5-10.1) mg/dL Total Bilirubin (0.2-1.0) mg/dL AST (15-37) IU/L ALT (14-63) IU/L Alkaline Phosphatase (46-116) U/L Troponin I 0.227 H* (0.000-0.056) ng/mL Total Protein (6.4-8.2) g/dL Albumin (3.4-5.0) g/dL Globulin (2.6-4.0) g/dL Albumin/Globulin Ratio (0.9-1.6) Meds: Medications Generic Name Dose Route Start Last Admin Trade Name Freq PRN Reason Stop Dose Admin Acetaminophen 325 mg 04/12/19 09:44 Tylenol PO Q4H PRN Fever Hydrocodone Bitart/Acetaminophen 1 tab 04/12/19 13:05 Hines 325-10 Mg PO Q6H PRN Pain Allopurinol 300 mg 04/13/19 09:00 Zyloprim PO DAILY [facility] Aspirin 81 mg 04/13/19 09:00 Aspirin PO DAILY [facility] Dabigatran 150 mg 04/12/19 21:00 Pradaxa PO BID [facility] Digoxin 125 mcg 04/13/19 09:00 Lanoxin PO DAILY [facility] Docusate Sodium 100 mg 04/12/19 09:44 Colace PO DAILY PRN Constipation Furosemide 20 mg 04/12/19 16:00 Lasix IVPUSH 04/12/19 16:01 BID ONE Insulin Aspart 0 unit 04/12/19 17:00 Novolog SUBCUT TIDAC [facility] Protocol Metformin HCl 500 mg 04/12/19 17:00 Glucophage PO BIDMEALS [facility] Morphine Sulfate 1 mg 04/12/19 09:43 04/12/19 13:07 Morphine IVPUSH 1 mg Q4H PRN Administration Chest Pain Nitroglycerin 0.4 mg 04/12/19 10:13 Nitrostat SL Q5M PRN Chest Pain Omeprazole 20 mg 04/13/19 07:30 Omeprazole PO ACBREAKFAST [facility] Budesonide/ 2 each 04/12/19 21:00 Formoterol 160-4.5 INH Mcg/Puff 6 Gm BID [facility] Inhaler Albuterol Sulfate 0 each 04/12/19 13:12 04/12/19 13:25 Hfa [Proair Hfa] INH 1 each Q4H PRN Administration Shortness of Breath Sodium Chloride 10 ml 04/12/19 07:38 Saline Flush FLUSH ASDIRECTED PRN Keep Vein Open Sodium Chloride 2.5 ml 04/12/19 07:38 Saline Flush FLUSH ASDIRECTED PRN Keep Vein Open Tamsulosin HCl 0.4 mg 04/13/19 08:00 Flomax PO WITHBREAKFAST [facility] Temazepam 15 mg 04/12/19 09:44 Restoril PO BEDTIME PRN Insomnia Tiotropium [place] 18 mcg 04/13/19 09:00 Spiriva Handihaler INH DAILY [facility] Discontinued Medications Generic Name Dose Route Start Last Admin Trade Name Freq PRN Reason Stop Dose Admin Albuterol 0 gm 04/12/19 13:05 Ventolin Hfa INH Q4H PRN Shortness of Breath Furosemide 20 mg 04/12/19 07:58 04/12/19 08:08 Lasix IVPUSH 04/12/19 07:59 20 mg NOW ONE Administration Morphine Sulfate 2 mg 04/12/19 07:59 04/12/19 08:08 Morphine IVPUSH 04/12/19 08:00 2 mg ONETIME ONE Administration Nitroglycerin 0.5 gm 04/12/19 07:47 04/12/19 07:53 Nitro-Bid 2% TOP 04/12/19 07:48 0.5 gm ONETIME ONE Administration Ondansetron HCl 4 mg 04/12/19 07:59 04/12/19 08:08 Zofran IVPUSH 04/12/19 08:00 4 mg ONETIME ONE Administration Departure - Departure Time of Disposition: 14:04 Disposition: Home, Self-Care 01 Condition: Good Clinical Impression: History of coronary artery bypass graft Fluid overload Qualifiers: Hypervolemia type: other Qualified Code(s): E87.79 - Other fluid overload - My Orders Last 24 Hours: My Active Orders 04/12/19 07:38 Cardiac Monitoring [RC] Q8H EKG Documentation Completion [RC] STAT Sodium Chloride 0.9% [Saline Flush] 10 ml FLUSH ASDIRECTED PRN Sodium Chloride 0.9% [Saline Flush] 2.5 ml FLUSH ASDIRECTED PRN Saline Lock Insert [OM.PC] Stat - Assessment/Plan Last 24 Hours: My Active Orders 04/12/19 07:38 Cardiac Monitoring [RC] Q8H EKG Documentation Completion [RC] STAT Sodium Chloride 0.9% [Saline Flush] 10 ml FLUSH ASDIRECTED PRN Sodium Chloride 0.9% [Saline Flush] 2.5 ml FLUSH ASDIRECTED PRN Saline Lock Insert [OM.PC] Stat
[2019-04-12] MEDS ORDERED: Nitroglycerin 2% Oint 1 GM UD Packet TOP ONE (07:47)
[2019-04-12] MEDS ORDERED: Furosemide 40 MG/4 ML VIAL IVPUSH ONE ×2 (07:58→16:00)
[2019-04-12] MEDS ORDERED: Morphine 2 MG/ML Syringe IVPUSH ONE (07:59)
[2019-04-12] MEDS ORDERED: Ondansetron 4 MG/2 ML SDV IVPUSH ONE (07:59)
--- NOTE | 2019-04-12 08:01 | CR ---
INDICATION: Pain. Shortness of breath. Recent heart surgery. COMPARISON: Chest x-ray dated 30 December 2018. FINDINGS: A single portable chest x-ray shows a normal cardiac silhouette. Median sternotomy. The lungs show interstitial prominence in the mid and upper lungs. Small right-sided pleural effusion. No pneumothorax. IMPRESSION: 1. Interstitial prominence in the mid and upper lungs may represent pulmonary edema. 2. Small right-sided pleural effusion. Dictated by Hoang Carlisle MD @ 04/12/2019 8:00:38 AM Dictated by: Hoang Carlisle MD @ 04/12/2019 08:00:46 (Electronically Signed)
[2019-04-12 08:16] LABS: BLOOD UREA NITROGEN,BUN 25 mg/dL (7.0-18.0); CARBON DIOXIDE,CO2 30.9 mmol/L (21.0-32.0); CHLORIDE,CL 99 mmol/L (98-107); GLUCOSE RANDOM 113 mg/dL (74-106); POTASSIUM,K 5.5 mmol/L (3.5-5.1); SODIUM,NA 136 mmol/L (136-148)
[2019-04-12] MEDS ORDERED: Morphine 2 MG/ML Syringe IVPUSH PRN (09:43)
[2019-04-12] MEDS ORDERED: Acetaminophen 325 MG Tab PO PRN (09:44)
[2019-04-12] MEDS ORDERED: Docusate Sodium 100 MG Cap PO PRN ×2 (09:44→17:59)
[2019-04-12] MEDS ORDERED: Temazepam 15 MG Cap PO PRN (09:44)
--- NOTE | 2019-04-12 09:54 | PCM.HP.2 ---
<Lan Madrid - Last Filed: 04/12/19 10:21> H&P History of Present Illness - General Date of Service: 04/12/19 Admit Problem/Dx: Admission Diagnosis/Problem Admission Diagnosis/Problem CHF, Congestive heart failure Source of Information: Patient - History of Present Illness Initial Comments - Free Text/Narative: Patient is a 79-year-old male with a past medical history of recent CABG on April 02, 2019 in [facility]; patient returned from [facility] last night and throughout the drive was feeling some discomfort in his chest with shortness of breath. Overnight patient could not find a comfortable position and was complaining of increasing shortness of breath with centralized/ localized chest pain without radiation. Patient presented to [facility] ED with chest discomfort rating it a 5 out of 10 with w/ increasing shortness of breath. States he noticed also having lower extremity swelling and reminded him of his previous history of congestive heart failure [facility] ED: On arrival Dr. Stahl had contacted providers at [facility]; had spoken to Dr. Galicia of cardiothoracic surgery; and Dr. Westbrook hospitalist facility; after discussing elevated troponin levels; vitals; kidney function; recommended for gentle diuresis and admitting for observation at this time. Do not recommend at this time to transfer to [facility]. Patient was initiated on IV Lasix 20; morphine and nitroglycerin for pain control and supplemental oxygen. Patient endorsing feeling much better on this therapy alone. Bedside: Patient endorsing feeling much better compared to on arrival states his shortness of breath and chest pain have reduced tremendously; is grateful that he does not have to be transferred to [facility] at this time but understands also that he may have to be transferred if he begins to deteriorate. Patient also remarks that sometimes he cannot remember things as well as he used to; however has no other complaints or concerns at this time. Significant past medical history of CHF, hypercholesterolemia, coronary artery disease, type 2 diabetes, gout, asthma. chest Pain Score (Numeric/FACES): 2 - Related Data Allergies/Adverse Reactions: Allergies Allergy/AdvReac Type Severity Reaction Status Date / Time No Known Allergies Allergy Verified 04/12/19 12:11 Home Medications: Home Meds Albuterol [Proventil HFA] 2 puff INH Q4H PRN 11/05/17 [History] Allopurinol [Zyloprim] 300 mg PO DAILY 11/05/17 [History] Budesonide/Formoterol Fumarate [Symbicort 160-4.5 Mcg Inhaler] 2 puff INH BID [History] Omeprazole 20 mg PO ACBREAKFAST 11/05/17 [History] Simvastatin [Zocor] 80 mg PO BEDTIME 11/05/17 [History] Tiotropium [Spiriva HandiHaler] 1 caplet INH DAILY 11/05/17 [History] metFORMIN HCl [Metformin HCl] 500 mg PO BIDMEALS 11/05/17 [History] Dabigatran [Pradaxa] 150 mg PO BID 12/30/18 [History] Acetaminophen [Tylenol] 650 mg PO Q8H PRN 04/12/19 [History] Aspirin 81 mg PO DAILY 04/12/19 [History] Cyanocobalamin (Vitamin B-12) [B-12] 1,000 mcg PO DAILY 04/12/19 [History] Digoxin 125 mcg PO DAILY 04/12/19 [History] Ferrous Sulfate 325 mg PO WITHBREAKFAST 04/12/19 [History] Hydrocodone/Acetaminophen [Hydrocodon-Acetaminophn 10-325] 1 tab PO Q6H PRN MDD 4 04/12/19 [History] Tamsulosin [Flomax] 0.4 mg PO WITHBREAKFAST 04/12/19 [History] Past Medical History HEENT History: Reports: Glaucoma Other HEENT History: wears glasses, has top and bottom dentures Cardiovascular History: Reports: Afib, High Cholesterol, Hypertension Respiratory History: Reports: COPD Gastrointestinal History: Reports: GERD, Other (See Below) Musculoskeletal History: Reports: Gout Neurological History: Reports: CVA Endocrine/Metabolic History: Reports: Diabetes, Type II - Infectious Disease History Infectious Disease History: Reports: Chicken Pox, Measles, Mumps - Past Surgical History Head Surgeries/Procedures: Reports: None HEENT Surgical History: Reports: Cataract Surgery, Eye Surgery, Oral Surgery Other HEENT Surgeries/Procedures: eye surgery x3 Social & Family History - Family History Family Medical History: Noncontributory - Tobacco Use Smoking Status *Q: Former Smoker Used Tobacco, but Quit: Yes Month/Year Tobacco Last Used: 15 years ago - Recreational Drug Use Recreational Drug Use: No H&P Review of Systems - Review of Systems: Review Of Systems: See Below General: Reports: Fatigue. Denies: Fever, Chills, Malaise HEENT: Reports: Headaches Pulmonary: Reports: Shortness of Breath. Denies: Wheezing, Cough, Sputum Cardiovascular: Reports: Chest Pain, Dyspnea on Exertion Gastrointestinal: Denies: Abdominal Pain, Constipation, Diarrhea, Decreased Appetite, Nausea Genitourinary: Denies: Dysuria, Frequency, Burning, Pain, Urgency, Incontinence Musculoskeletal: Denies: No Symptoms Skin: Reports: Bruising Psychiatric: Denies: Anxiety, Agitation Neurological: Denies: Confusion, Headache, Trouble Speaking Exam - Exam Exam: See Below - Vital Signs Vital Signs: Last Vital Signs Temp 96.7 F 04/12/19 07:40 Pulse 87 04/12/19 07:40 Resp 20 04/12/19 07:40 BP 108/73 04/12/19 07:40 Pulse Ox 95 04/12/19 07:40 Weight: 66.678 kg - Exam Quality Assessment: Supplemental Oxygen General: Alert, Oriented, Cooperative, Mild Distress HEENT: EOMI, Mucosa Moist & [place] Neck: Supple, Trachea Midline Lungs: Decreased Breath Sounds, Crackles, Other (mild wheeze in right lung field ) Cardiovascular: Regular Rate, Regular Rhythm, Other (large , vertical linear midline scar extending from sternal notch to epigastrum consistent w/ recent CABG, healing well. no obvious sign of infection. :Large dressing over abdomen in-situl advised not to remove until f/u in [place] ...). No: Rubs GI/Abdominal Exam: Soft, Other (lower abdominal ecchymosis extending from lateral edges to midline; mild overlying tenderness, no organomegaly, ) Extremities: Other (b/l lower 4+ pitting edema extending from feet to mid-thigh ; non-tender , ROM of lower extremity mildy limited secondary to swelling; pulses intact; +pedal edema , ...) Skin: Warm, Dry Neurological: Cranial Nerves Intact Neuro Extensive - Mental Status: Alert, Oriented x3, Normal Mood/Affect Psychiatric: Alert, Normal Affect, Normal Mood - Patient Data Lab Results Last 24 hrs: Laboratory Results - last 24 hr 04/12/19 04/12/19 04/12/19 Range/Units 07:45 07:45 07:45 WBC 16.81 H (4.0-11.0) K/uL RBC 3.62 L (4.50-5.90) M/uL Hgb 11.8 L (13.0-17.0) g/dL Hct 37.3 L (38.0-50.0) % MCV 103.0 H (80.0-98.0) fL MCH 32.6 H (27.0-32.0) pg MCHC 31.6 (31.0-37.0) g/dL RDW Std Deviation 58.4 (28.0-62.0) fl RDW Coeff of Renetta 16 H (11.0-15.0) % Plt Count 200 (150-400) K/uL MPV 10.60 (7.40-12.00) fL Add Manual Diff YES Neutrophils % (Manual) 85 H (48.0-80.0) % Band Neutrophils % 1 % Lymphocytes % (Manual) 8 L (16.0-40.0) % Monocytes % (Manual) 3 (0.0-15.0) % Eosinophils % (Manual) 3 (0.0-7.0) % Nucleated RBC % 0.2 /100WBC Absolute Seg Neuts 14.3 H (1.4-5.7) Band Neutrophils # 0.2 Lymphocytes # (Manual) 1.3 (0.6-2.4) Monocytes # (Manual) 0.5 (0.0-0.8) Eosinophils # (Manual) 0.5 (0.0-0.7) Nucleated RBCs # 0 K/uL INR 1.03 APTT 34.0 H (18.6-31.3) SEC Sodium 136 (136-148) mmol/L Potassium 5.5 H (3.5-5.1) mmol/L Chloride 99 (98-107) mmol/L Carbon Dioxide 30.9 (21.0-32.0) mmol/L BUN 25 H (7.0-18.0) mg/dL Creatinine 1.1 (0.8-1.3) mg/dL Est Cr Clr Drug Dosing 51.74 mL/min Estimated GFR (MDRD) > 60.0 ml/min Glucose 113 H (74-106) mg/dL Calcium 9.9 (8.5-10.1) mg/dL Total Bilirubin 0.7 (0.2-1.0) mg/dL AST 22 (15-37) IU/L ALT 22 (14-63) IU/L Alkaline Phosphatase 110 (46-116) U/L Troponin I (0.000-0.056) ng/mL Total Protein 7.0 (6.4-8.2) g/dL Albumin 3.2 L (3.4-5.0) g/dL Globulin 3.8 (2.6-4.0) g/dL Albumin/Globulin Ratio 0.8 L (0.9-1.6) 04/12/19 Range/Units 07:45 WBC (4.0-11.0) K/uL RBC (4.50-5.90) M/uL Hgb (13.0-17.0) g/dL Hct (38.0-50.0) % MCV (80.0-98.0) fL MCH (27.0-32.0) pg MCHC (31.0-37.0) g/dL RDW Std Deviation (28.0-62.0) fl RDW Coeff of Renetta (11.0-15.0) % Plt Count (150-400) K/uL MPV (7.40-12.00) fL Add Manual Diff Neutrophils % (Manual) (48.0-80.0) % Band Neutrophils % % Lymphocytes % (Manual) (16.0-40.0) % Monocytes % (Manual) (0.0-15.0) % Eosinophils % (Manual) (0.0-7.0) % Nucleated RBC % /100WBC Absolute Seg Neuts (1.4-5.7) Band Neutrophils # Lymphocytes # (Manual) (0.6-2.4) Monocytes # (Manual) (0.0-0.8) Eosinophils # (Manual) (0.0-0.7) Nucleated RBCs # K/uL INR APTT (18.6-31.3) SEC Sodium (136-148) mmol/L Potassium (3.5-5.1) mmol/L Chloride (98-107) mmol/L Carbon Dioxide (21.0-32.0) mmol/L BUN (7.0-18.0) mg/dL Creatinine (0.8-1.3) mg/dL Est Cr Clr Drug Dosing mL/min Estimated GFR (MDRD) ml/min Glucose (74-106) mg/dL Calcium (8.5-10.1) mg/dL Total Bilirubin (0.2-1.0) mg/dL AST (15-37) IU/L ALT (14-63) IU/L Alkaline Phosphatase (46-116) U/L Troponin I 0.227 H* (0.000-0.056) ng/mL Total Protein (6.4-8.2) g/dL Albumin (3.4-5.0) g/dL Globulin (2.6-4.0) g/dL Albumin/Globulin Ratio (0.9-1.6) Result Diagrams: 04/12/19 07:45 04/12/19 07:45 - Problem List (1) Congestive heart disease SNOMED Code(s): 21557589 ICD Code: I50.9 - HEART FAILURE, UNSPECIFIED Status: Acute Current Visit : Yes (2) Leukocytosis SNOMED Code(s): 478508866, 663431172 ICD Code: D72.829 - ELEVATED WHITE BLOOD CELL COUNT, UNSPECIFIED Status: Acute Current Visit: Yes (3) Elevated troponin SNOMED Code(s): 806395641, 253405628, 928787414 ICD Code: R74.8 - ABNORMAL LEVELS OF OTHER SERUM ENZYMES Status: Acute Current Visit: Yes (4) S/P CABG (coronary artery bypass graft) SNOMED Code(s): 468404514, 715554535, 386879582 ICD Code: Z95.1 - PRESENCE OF AORTOCORONARY BYPASS GRAFT Status: Acute Current Visit: Yes (5) Macrocytic anemia SNOMED Code(s): 26629316 ICD Code: D53.9 - NUTRITIONAL ANEMIA, UNSPECIFIED Status: Acute Current Visit: Yes (6) Hyperkalemia SNOMED Code(s): 53689061 ICD Code: E87.5 - HYPERKALEMIA Status: Acute Current Visit: Yes (7) Diabetes mellitus SNOMED Code(s): 60130192 ICD Code: E11.9 - TYPE 2 DIABETES MELLITUS WITHOUT COMPLICATIONS Status: Acute Current Visit: Yes (8) Coronary arteriosclerosis SNOMED Code(s): 69434496 ICD Code: I25.10 - ATHSCL HEART DISEASE OF [place] CORONARY ARTERY W/O ANG PCTRS Status: Acute Current Visit: Yes (9) GERD (gastroesophageal reflux disease) SNOMED Code(s): 908649674 ICD Code: K21.9 - GASTRO-ESOPHAGEAL REFLUX DISEASE WITHOUT ESOPHAGITIS Status: Acute Current Visit: Yes Problem List Initiated/Reviewed/Updated: Yes Orders Last 24hrs: Active Orders 24 hr Category Date Time Status Patient Status [ADT] Stat ADT 04/12/19 09:07 Active Blood Glucose Check, Bedside [RC] ONETIME Care 04/12/19 07:52 Active Cardiac Monitoring [RC] . DIRECTED Care 04/12/19 07:38 Active EKG Documentation Completion [RC] STAT Care 04/12/19 07:38 Active Intake and Output Strict [RC] ASDIRECTED Care 04/12/19 09:40 Ordered Oxygen Therapy, ED [RC] ASDIRECTED Care 04/12/19 07:38 Active Vital Signs [RC] PER UNIT ROUTINE Care 04/12/19 09:41 Ordered Sodium Restricted Diet [DIET] Diet 04/12/19 Lunch Ordered Acetaminophen [Tylenol] Med 04/12/19 09:44 Ordered 325 mg PO Q4H PRN Docusate Sodium [Colace] Med 04/12/19 09:44 Ordered 100 mg PO DAILY PRN Furosemide [Lasix] Med 04/12/19 16:00 Once 20 mg IVPUSH BID ONE Morphine Med 04/12/19 09:43 Ordered 1 mg IVPUSH Q4H PRN Sodium Chloride 0.9% [Saline Flush] Med 04/12/19 07:38 Active 10 ml FLUSH ASDIRECTED PRN Sodium Chloride 0.9% [Saline Flush] Med 04/12/19 07:38 Active 2.5 ml FLUSH ASDIRECTED PRN Temazepam [Restoril] Med 04/12/19 09:44 Ordered 15 mg PO BEDTIME PRN Saline Lock Insert [OM.PC] Stat Oth 04/12/19 07:38 Ordered Code Status [Resuscitation Status] Routine Resus Stat 04/12/19 09:40 Ordered Medication Orders Acetaminophen (Tylenol) 325 mg PO Q4H PRN PRN Reason: Fever Docusate Sodium (Colace) 100 mg PO DAILY PRN PRN Reason: Constipation Furosemide (Lasix) 20 mg IVPUSH BID ONE Stop: 04/12/19 16:01 Morphine Sulfate (Morphine) 1 mg IVPUSH Q4H PRN PRN Reason: Chest Pain Sodium Chloride (Saline Flush) 10 ml FLUSH ASDIRECTED PRN PRN Reason: Keep Vein Open Sodium Chloride (Saline Flush) 2.5 ml FLUSH ASDIRECTED PRN PRN Reason: Keep Vein Open Temazepam (Restoril) 15 mg PO BEDTIME PRN PRN Reason: Insomnia Assessment/Plan Comment:: Assessment: 1. Chest pain with shortness of breath status post recent coronary artery bypass graft most likely Acute CHF 2. Elevated troponin 3. Leukocytosis 4. Hyperkalemia 5. Elevated PTT 6 past medical history: Coronary artery disease, hypercholesterolemia 2 diabetes , GERD and asthma, gout. Admit observation. DNR/DNI. Intake/output strict. Vitals per routine. Diet: Sodium restricted. DVT prophylaxis: Continue home med: pradaxa. GI prophylaxis: Continue home med/omeprazole. 1. Chest pain/shortness of breath most likley secondary to HF : As related to us from Dr. Stahl in emergency department; Dr. Galicia/Dr. Westbrook: Recommend diuresing patient is admitted for observation. Elevated troponin and leukocytosis most likely secondary to recent CABG procedure on April 02, 2019. Recommending continue to monitor on telemetry and diuresing. Use supplemental oxygen and DuoNeb nebs every 4-6 if needed. CP could also be related to Deysi syndrome; howvere time-frame does not support this; will continue to monitor and treat accordingly if necessary. 2. Hyperkalemia: Marginal; we'll continue to monitor; repeat BMP this evening; will address this if up-trending. 3. Past medical history: Continue home medications. 4. We'll continue to monitor and diurese patient; however if chest pain worsens , shortness of breath worsens; or there is clinical deterioration: We'll consider transferring a patient to higher-level care. <Edmond Rincon - Last Filed: 04/12/19 12:54> H&P History of Present Illness - General Admit Problem/Dx: Admission Diagnosis/Problem Admission Diagnosis/Problem CHF, Congestive heart failure I have seen and examined the patient independently of medical data entry clerk, Dr. Mercy MD. I have reviewed and agree with the plan of care as outlined for this patient by him. I have discussed the case with him. Please see orders. The patient was admitted secondary to recommendations of stable attendant and CVT surgeon that the patient should be diuresed. Exam - Vital Signs Vital Signs: Last Vital Signs Temp 37.1 C 04/12/19 12:00 Pulse 98 04/12/19 12:00 Resp 20 04/12/19 12:00 BP 100/61 04/12/19 12:00 Pulse Ox 88 L 04/12/19 12:00 - Patient Data Lab Results Last 24 hrs: Laboratory Results - last 24 hr 04/12/19 04/12/19 04/12/19 Range/Units 07:45 07:45 07:45 WBC 16.81 H (4.0-11.0) K/uL RBC 3.62 L (4.50-5.90) M/uL Hgb 11.8 L (13.0-17.0) g/dL Hct 37.3 L (38.0-50.0) % MCV 103.0 H (80.0-98.0) fL MCH 32.6 H (27.0-32.0) pg MCHC 31.6 (31.0-37.0) g/dL RDW Std Deviation 58.4 (28.0-62.0) fl RDW Coeff of Renetta 16 H (11.0-15.0) % Plt Count 200 (150-400) K/uL MPV 10.60 (7.40-12.00) fL Add Manual Diff YES Neutrophils % (Manual) 85 H (48.0-80.0) % Band Neutrophils % 1 % Lymphocytes % (Manual) 8 L (16.0-40.0) % Monocytes % (Manual) 3 (0.0-15.0) % Eosinophils % (Manual) 3 (0.0-7.0) % Nucleated RBC % 0.2 /100WBC Absolute Seg Neuts 14.3 H (1.4-5.7) Band Neutrophils # 0.2 Lymphocytes # (Manual) 1.3 (0.6-2.4) Monocytes # (Manual) 0.5 (0.0-0.8) Eosinophils # (Manual) 0.5 (0.0-0.7) Nucleated RBCs # 0 K/uL INR 1.03 APTT 34.0 H (18.6-31.3) SEC Sodium 136 (136-148) mmol/L Potassium 5.5 H (3.5-5.1) mmol/L Chloride 99 (98-107) mmol/L Carbon Dioxide 30.9 (21.0-32.0) mmol/L BUN 25 H (7.0-18.0) mg/dL Creatinine 1.1 (0.8-1.3) mg/dL Est Cr Clr Drug Dosing 51.74 mL/min Estimated GFR (MDRD) > 60.0 ml/min Glucose 113 H (74-106) mg/dL Calcium 9.9 (8.5-10.1) mg/dL Total Bilirubin 0.7 (0.2-1.0) mg/dL AST 22 (15-37) IU/L ALT 22 (14-63) IU/L Alkaline Phosphatase 110 (46-116) U/L Troponin I (0.000-0.056) ng/mL Total Protein 7.0 (6.4-8.2) g/dL Albumin 3.2 L (3.4-5.0) g/dL Globulin 3.8 (2.6-4.0) g/dL Albumin/Globulin Ratio 0.8 L (0.9-1.6) 04/12/19 Range/Units 07:45 WBC (4.0-11.0) K/uL RBC (4.50-5.90) M/uL Hgb (13.0-17.0) g/dL Hct (38.0-50.0) % MCV (80.0-98.0) fL MCH (27.0-32.0) pg MCHC (31.0-37.0) g/dL RDW Std Deviation (28.0-62.0) fl RDW Coeff of Renetta (11.0-15.0) % Plt Count (150-400) K/uL MPV (7.40-12.00) fL Add Manual Diff Neutrophils % (Manual) (48.0-80.0) % Band Neutrophils % % Lymphocytes % (Manual) (16.0-40.0) % Monocytes % (Manual) (0.0-15.0) % Eosinophils % (Manual) (0.0-7.0) % Nucleated RBC % /100WBC Absolute Seg Neuts (1.4-5.7) Band Neutrophils # Lymphocytes # (Manual) (0.6-2.4) Monocytes # (Manual) (0.0-0.8) Eosinophils # (Manual) (0.0-0.7) Nucleated RBCs # K/uL INR APTT (18.6-31.3) SEC Sodium (136-148) mmol/L Potassium (3.5-5.1) mmol/L Chloride (98-107) mmol/L Carbon Dioxide (21.0-32.0) mmol/L BUN (7.0-18.0) mg/dL Creatinine (0.8-1.3) mg/dL Est Cr Clr Drug Dosing mL/min Estimated GFR (MDRD) ml/min Glucose (74-106) mg/dL Calcium (8.5-10.1) mg/dL Total Bilirubin (0.2-1.0) mg/dL AST (15-37) IU/L ALT (14-63) IU/L Alkaline Phosphatase (46-116) U/L Troponin I 0.227 H* (0.000-0.056) ng/mL Total Protein (6.4-8.2) g/dL Albumin (3.4-5.0) g/dL Globulin (2.6-4.0) g/dL Albumin/Globulin Ratio (0.9-1.6) Result Diagrams: 04/12/19 07:45 04/12/19 07:45 Orders Last 24hrs: Active Orders 24 hr Category Date Time Status Patient Status [ADT] Stat ADT 04/12/19 09:07 Active Cardiac Monitoring [RC] Q8H Care 04/12/19 07:38 Active EKG Documentation Completion [RC] STAT Care 04/12/19 07:38 Active Intake and Output Strict [RC] Q12H Care 04/12/19 09:40 Active Oxygen Therapy, ED [RC] ASDIRECTED Care 04/12/19 07:38 Active Telemetry Monitoring [Cardiac Monitoring] [RC] . Care 04/12/19 10:20 Active DIRECTED Vital Signs [RC] Q4H Care 04/12/19 09:41 Active Sodium Restricted Diet [DIET] Diet 04/12/19 Lunch Active Acetaminophen [Tylenol] Med 04/12/19 09:44 Active 325 mg PO Q4H PRN Docusate Sodium [Colace] Med 04/12/19 09:44 Active 100 mg PO DAILY PRN Furosemide [Lasix] Med 04/12/19 16:00 Once 20 mg IVPUSH BID ONE Morphine Med 04/12/19 09:43 Active 1 mg IVPUSH Q4H PRN Nitroglycerin [Nitrostat] Med 04/12/19 10:13 Active 0.4 mg SL Q5M PRN Sodium Chloride 0.9% [Saline Flush] Med 04/12/19 07:38 Active 10 ml FLUSH ASDIRECTED PRN Sodium Chloride 0.9% [Saline Flush] Med 04/12/19 07:38 Active 2.5 ml FLUSH ASDIRECTED PRN Temazepam [Restoril] Med 04/12/19 09:44 Active 15 mg PO BEDTIME PRN Saline Lock Insert [OM.PC] Stat Oth 04/12/19 07:38 Ordered Code Status [Resuscitation Status] Routine Resus Stat 04/12/19 09:40 Ordered Medication Orders Acetaminophen (Tylenol) 325 mg PO Q4H PRN PRN Reason: Fever Docusate Sodium (Colace) 100 mg PO DAILY PRN PRN Reason: Constipation Furosemide (Lasix) 20 mg IVPUSH BID ONE Stop: 04/12/19 16:01 Morphine Sulfate (Morphine) 1 mg IVPUSH Q4H PRN PRN Reason: Chest Pain Nitroglycerin (Nitrostat) 0.4 mg SL Q5M PRN PRN Reason: Chest Pain Sodium Chloride (Saline Flush) 10 ml FLUSH ASDIRECTED PRN PRN Reason: Keep Vein Open Sodium Chloride (Saline Flush) 2.5 ml FLUSH ASDIRECTED PRN PRN Reason: Keep Vein Open Temazepam (Restoril) 15 mg PO BEDTIME PRN PRN Reason: Insomnia
[2019-04-12] MEDS ORDERED: Nitroglycerin 0.4 MG Tab.SL SL PRN (10:13)
[2019-04-12] MEDS ORDERED: Albuterol 8 GM Inhaler INH PRN (13:05)
[2019-04-12] MEDS: ALBUTEROL SULFATE INH PRN ×2 (13:25→17:32)
[2019-04-12] MEDS ORDERED: metFORMIN 500 MG Tab PO SCH (17:00)
[2019-04-12] MEDS: Insulin Aspart 100 Units/ML 3 ML Pen SUBCUT SCH (17:35)
[2019-04-12] MEDS: Acetaminophen/HYDROcodone 325-10 MG Tab PO PRN (17:44)
[2019-04-12] MEDS: Budesonide/Formoterol 160-4.5 MCG/Puff 6 GM Inhaler INH SCH (20:54)
[2019-04-13] MEDS: Calcium Carbonate 500 MG Tab.Chew PO PRN ×2 (00:32→21:34)
[2019-04-13 06:45] LABS: POTASSIUM,K 5.1 mmol/L (3.5-5.1)
[2019-04-13] MEDS: Omeprazole 20 MG Cap.CR PO SCH (06:46)
[2019-04-13] MEDS: Insulin Aspart 100 Units/ML 3 ML Pen SUBCUT SCH ×3 (06:52→17:50)
[2019-04-13] MEDS: ALBUTEROL SULFATE INH PRN ×2 (07:33→17:45)
[2019-04-13] MEDS ORDERED: Ferrous Sulfate 325 MG Tab PO SCH (08:00)
[2019-04-13] MEDS: Tiotropium Inhaler 18 MCG Inhalation Powder Cap Kit of 5 INH SCH (08:34)
[2019-04-13] MEDS: Allopurinol 100 MG Tab PO SCH (08:35)
[2019-04-13] MEDS: Digoxin 125 MCG Tab PO SCH (08:35)
[2019-04-13] MEDS: Aspirin 81 MG Tab.Chew PO SCH (08:35)
[2019-04-13] MEDS: Tamsulosin 0.4 MG Cap.ER PO SCH (08:36)
[2019-04-13] MEDS: Budesonide/Formoterol 160-4.5 MCG/Puff 6 GM Inhaler INH SCH ×2 (08:38→20:24)
[2019-04-13] MEDS ORDERED: Cyanocobalamin (Vitamin B12) 500 MCG Tab PO SCH (09:00)
[2019-04-13] MEDS: Furosemide 40 MG/4 ML VIAL IVPUSH SCH ×2 (10:57→20:22)
--- NOTE | 2019-04-13 10:57 | PCM.PN ---
- General Info Date of Service: 04/13/19 Subjective Update: Patient admitted for chest pain and shortness of breath, recent CABG on 04/02/19. Reports chest only hurts with deep inspiration and cough. Reports feels better today and swelling of legs better. At home oxygen requirement. Eating and drinking appropriately. - Review of Systems General: Reports: No Symptoms HEENT: Reports: No Symptoms Pulmonary: Reports: Shortness of Breath, Pleuritic Chest Pain, Cough Cardiovascular: Reports: Edema. Denies: Chest Pain Gastrointestinal: Reports: No Symptoms Genitourinary: Reports: No Symptoms Musculoskeletal: Reports: No Symptoms Skin: Reports: No Symptoms Neurological: Reports: No Symptoms Psychiatric: Reports: No Symptoms - Patient Data Vitals - Most Recent: Last Vital Signs Temp 97 F 04/13/19 07:30 Pulse 86 04/13/19 08:35 Resp 20 04/13/19 07:30 BP 82/52 L 04/13/19 07:30 Pulse Ox 92 L 04/13/19 07:30 Weight - Most Recent: 71.94 kg I&O - Last 24 Hours: Intake & Output 04/12/19 04/13/19 04/13/19 22:59 06:59 14:59 Intake Total 570 500 Output Total 650 1050 Balance -80 -550 Lab Results Last 24 Hours: Laboratory Results - last 24 hr 04/12/19 04/13/19 04/13/19 Range/Units 16:06 06:00 06:00 WBC 13.27 H (4.0-11.0) K/uL RBC 2.83 L (4.50-5.90) M/uL Hgb 9.1 L (13.0-17.0) g/dL Hct 28.9 L (38.0-50.0) % MCV 102.1 H (80.0-98.0) fL MCH 32.2 H (27.0-32.0) pg MCHC 31.5 (31.0-37.0) g/dL RDW Std Deviation 58.2 (28.0-62.0) fl RDW Coeff of Renetta 16 H (11.0-15.0) % Plt Count 201 (150-400) K/uL MPV 10.50 (7.40-12.00) fL Add Manual Diff YES Neutrophils % (Manual) 83 H (48.0-80.0) % Lymphocytes % (Manual) 8 L (16.0-40.0) % Monocytes % (Manual) 6 (0.0-15.0) % Eosinophils % (Manual) 2 (0.0-7.0) % Myelocytes % 1 % Nucleated RBC % 0.0 /100WBC Absolute Seg Neuts 11.0 H (1.4-5.7) Lymphocytes # (Manual) 1.1 (0.6-2.4) Monocytes # (Manual) 0.8 (0.0-0.8) Eosinophils # (Manual) 0.3 (0.0-0.7) Absolute Myelocytes 0.1 Nucleated RBCs # 0 K/uL Sodium 137 (136-148) mmol/L Potassium 5.1 (3.5-5.1) mmol/L Chloride 100 (98-107) mmol/L Carbon Dioxide 35.0 H (21.0-32.0) mmol/L BUN 26 H (7.0-18.0) mg/dL Creatinine 1.3 (0.8-1.3) mg/dL Est Cr Clr Drug Dosing 43.78 mL/min Estimated GFR (MDRD) 53.4 ml/min Glucose 104 (74-106) mg/dL POC Glucose 107 (60-110) mg/dL Calcium 9.4 (8.5-10.1) mg/dL Magnesium 1.9 (1.8-2.4) mg/dL Total Bilirubin 0.5 (0.2-1.0) mg/dL AST 15 (15-37) IU/L ALT 21 (14-63) IU/L Alkaline Phosphatase 71 (46-116) U/L Total Protein 5.4 L (6.4-8.2) g/dL Albumin 2.4 L (3.4-5.0) g/dL Globulin 3.0 (2.6-4.0) g/dL Albumin/Globulin Ratio 0.8 L (0.9-1.6) 04/13/19 Range/Units 06:20 WBC (4.0-11.0) K/uL RBC (4.50-5.90) M/uL Hgb (13.0-17.0) g/dL Hct (38.0-50.0) % MCV (80.0-98.0) fL MCH (27.0-32.0) pg MCHC (31.0-37.0) g/dL RDW Std Deviation (28.0-62.0) fl RDW Coeff of Renetta (11.0-15.0) % Plt Count (150-400) K/uL MPV (7.40-12.00) fL Add Manual Diff Neutrophils % (Manual) (48.0-80.0) % Lymphocytes % (Manual) (16.0-40.0) % Monocytes % (Manual) (0.0-15.0) % Eosinophils % (Manual) (0.0-7.0) % Myelocytes % % Nucleated RBC % /100WBC Absolute Seg Neuts (1.4-5.7) Lymphocytes # (Manual) (0.6-2.4) Monocytes # (Manual) (0.0-0.8) Eosinophils # (Manual) (0.0-0.7) Absolute Myelocytes Nucleated RBCs # K/uL Sodium (136-148) mmol/L Potassium (3.5-5.1) mmol/L Chloride (98-107) mmol/L Carbon Dioxide (21.0-32.0) mmol/L BUN (7.0-18.0) mg/dL Creatinine (0.8-1.3) mg/dL Est Cr Clr Drug Dosing mL/min Estimated GFR (MDRD) ml/min Glucose (74-106) mg/dL POC Glucose 106 (60-110) mg/dL Calcium (8.5-10.1) mg/dL Magnesium (1.8-2.4) mg/dL Total Bilirubin (0.2-1.0) mg/dL AST (15-37) IU/L ALT (14-63) IU/L Alkaline Phosphatase (46-116) U/L Total Protein (6.4-8.2) g/dL Albumin (3.4-5.0) g/dL Globulin (2.6-4.0) g/dL Albumin/Globulin Ratio (0.9-1.6) Med Orders - Current: Current Medications Acetaminophen (Tylenol) 325 mg PO Q4H PRN PRN Reason: Fever Hydrocodone Bitart/Acetaminophen (Mather 325-10 Mg) 1 tab PO Q6H PRN PRN Reason: Pain Last Admin: 04/12/19 17:44 Dose: 1 tab Allopurinol (Zyloprim) 300 mg PO DAILY [facility] Last Admin: 04/13/19 08:35 Dose: 300 mg Aspirin (Aspirin) 81 mg PO DAILY [facility] Last Admin: 04/13/19 08:35 Dose: 81 mg Calcium Carbonate/Glycine (Tums) 500 mg PO TID PRN PRN Reason: Indigestion Last Admin: 04/13/19 00:32 Dose: 500 mg Dabigatran (Pradaxa) 150 mg PO BID [facility] Last Admin: 04/13/19 08:34 Dose: 150 mg Digoxin (Lanoxin) 125 mcg PO DAILY [facility] Last Admin: 04/13/19 08:35 Dose: 125 mcg Docusate Sodium (Colace) 100 mg PO DAILY PRN PRN Reason: Constipation Furosemide (Lasix) 20 mg IVPUSH BID [facility] Insulin Aspart (Novolog) 0 unit SUBCUT TIDAC [facility]; Protocol Last Admin: 04/13/19 06:52 Dose: Not Given Morphine Sulfate (Morphine) 1 mg IVPUSH Q4H PRN PRN Reason: Chest Pain Last Admin: 04/12/19 13:07 Dose: 1 mg Nitroglycerin (Nitrostat) 0.4 mg SL Q5M PRN PRN Reason: Chest Pain Omeprazole (Omeprazole) 20 mg PO ACBREAKFAST [facility] Last Admin: 04/13/19 06:46 Dose: 20 mg Budesonide/Formoterol 160-4.5 Mcg/Puff 6 Gm Inhaler 2 each INH BID [facility] Last Admin: 04/13/19 08:38 Dose: 2 each Albuterol Sulfate (Hfa [Proair Hfa]) 0 each INH Q4H PRN PRN Reason: Shortness of Breath Last Admin: 04/13/19 07:33 Dose: 1 each Sodium Chloride (Saline Flush) 10 ml FLUSH ASDIRECTED PRN PRN Reason: Keep Vein Open Sodium Chloride (Saline Flush) 2.5 ml FLUSH ASDIRECTED PRN PRN Reason: Keep Vein Open Tamsulosin HCl (Flomax) 0.4 mg PO WITHBREAKFAST [facility] Last Admin: 04/13/19 08:36 Dose: 0.4 mg Temazepam (Restoril) 15 mg PO BEDTIME PRN PRN Reason: Insomnia Tiotropium Savage (Spiriva Handihaler) 18 mcg INH DAILY [facility] Last Admin: 04/13/19 08:34 Dose: 1 puff Discontinued Medications Albuterol (Ventolin Hfa) 0 gm INH Q4H PRN PRN Reason: Shortness of Breath Docusate Sodium (Colace) 100 mg PO DAILY PRN PRN Reason: Constipation Last Admin: 04/12/19 17:44 Dose: 100 mg Furosemide (Lasix) 20 mg IVPUSH NOW ONE Stop: 04/12/19 07:59 Last Admin: 04/12/19 08:08 Dose: 20 mg Furosemide (Lasix) 20 mg IVPUSH BID ONE Stop: 04/12/19 16:01 Last Admin: 04/12/19 16:27 Dose: 20 mg Metformin HCl (Glucophage) 500 mg PO BIDWYALS [facility] Last Admin: 04/12/19 16:28 Dose: 500 mg Morphine Sulfate (Morphine) 2 mg IVPUSH ONETIME ONE Stop: 04/12/19 08:00 Last Admin: 04/12/19 08:08 Dose: 2 mg Nitroglycerin (Nitro-Bid 2%) 0.5 gm TOP ONETIME ONE Stop: 04/12/19 07:48 Last Admin: 04/12/19 07:53 Dose: 0.5 gm Ondansetron HCl (Zofran) 4 mg IVPUSH ONETIME ONE Stop: 04/12/19 08:00 Last Admin: 04/12/19 08:08 Dose: 4 mg - Exam Quality Assessment: Supplemental Oxygen General: Alert, Oriented, Cooperative Lungs: Clear to Auscultation, Normal Respiratory Effort Cardiovascular: Regular Rate, Irregular Rhythm. No: Regular Rhythm GI/Abdominal Exam: Normal Bowel Sounds, Soft, Non-Tender, No Distention Extremities: Pedal Edema Skin: Warm, Dry, Other (abdominal incision- drainage serosanguineous fluid) Neurological: No New Focal Deficit Psy/Mental Status: Alert, Normal Affect, Normal Mood - Problem List Review Problem List Initiated/Reviewed/Updated: Yes - My Orders Last 24 Hours: My Active Orders 04/13/19 10:30 Furosemide [Lasix] 20 mg IVPUSH BID - Plan Plan:: 1. Chest pain/SOB s/p recent CABG- likely CHF exacerbation- Chest pain is pleuritic in nature, reports breathing and lower extremity edema has improved. Based on I/Os down 600 mL but down 1.2 kg. Continue 20 mg IV lasix bid, strict I /Os, fluid restriction, and daily weight. Working on getting records from [place] with recent echo. 2. Elevated troponin- this was discussed with [place] cardiology by the ER phsyician and they stated it was from the CABG. 3. Leukocytosis- also per cards, related to CABG, improved today 4. Hyperkalemia- resolved 5. Chronic conditions- CAD, hyperlipidemia, DMII, GERD, asthma, gout- continue home meds
[2019-04-13] MEDS ORDERED: Carboxymethylcellulose Sodium 0.5% Ophth Soln 0.4 ML UD Box of 30 EYEBOTH PRN (11:12)
[2019-04-13] MEDS: Ferrous Sulfate 325 MG Tab PO SCH (11:37)
[2019-04-13] MEDS: Cyanocobalamin (Vitamin B12) 500 MCG Tab PO SCH (11:37)
[2019-04-13] MEDS: Acetaminophen/HYDROcodone 325-10 MG Tab PO PRN (22:31)
[2019-04-14] MEDS: ALBUTEROL SULFATE INH PRN ×3 (00:01→15:33)
[2019-04-14 06:00] LABS: CARBON DIOXIDE,CO2 34.7 mmol/L (21.0-32.0); POTASSIUM,K 4.3 mmol/L (3.5-5.1)
[2019-04-14] MEDS: Insulin Aspart 100 Units/ML 3 ML Pen SUBCUT SCH ×3 (06:43→19:12)
[2019-04-14] MEDS: Omeprazole 20 MG Cap.CR PO SCH (06:44)
[2019-04-14] MEDS: Digoxin 125 MCG Tab PO SCH (08:41)
[2019-04-14] MEDS: Allopurinol 100 MG Tab PO SCH (08:41)
[2019-04-14] MEDS: Cyanocobalamin (Vitamin B12) 500 MCG Tab PO SCH (08:41)
[2019-04-14] MEDS: Furosemide 40 MG/4 ML VIAL IVPUSH SCH (08:42)
[2019-04-14] MEDS: Ferrous Sulfate 325 MG Tab PO SCH (08:42)
[2019-04-14] MEDS: Aspirin 81 MG Tab.Chew PO SCH (08:42)
[2019-04-14] MEDS: Tamsulosin 0.4 MG Cap.ER PO SCH (08:42)
[2019-04-14] MEDS: Tiotropium Inhaler 18 MCG Inhalation Powder Cap Kit of 5 INH SCH (08:50)
[2019-04-14] MEDS: Budesonide/Formoterol 160-4.5 MCG/Puff 6 GM Inhaler INH SCH (08:50)
[2019-04-14] MEDS ORDERED: Furosemide 40 MG Tab PO SCH (09:00)
--- NOTE | 2019-04-14 14:14 | PCM.DCSUM1 ---
<Lan Madrid - Last Filed: 04/14/19 18:36> Discharge Summary - Hospital Course Free Text/Narrative:: Discharge summary: Admission date: April 12, 2019 Discharge date: April 14, 2019 Admission diagnoses: 1.Chest pain with shortness of breath status post recent CABG most likely acute CHF 2. Elevated troponin 3. Leukocytosis 4. Hyperkalemia Discharge diagnoses: 1. Chest pain with shortness of breath resolved; status post recent CABG; improving CHF 2. Elevated troponin 3. Leukocytosis: Improving 4. Hyperkalemia: Resolved Procedures: None Consultations: Dr Abdul: Cardiology Hospital course: Patient is a 79-year-old male with a significant past medical history of coronary artery disease status post recent CABG (April 02, 2019), type 2 diabetes , congestive heart failure, GERD, macrocytic anemia; presenting to [facility] secondary to chest discomfort/pain and shortness of breath. On previous Patient returned from [facility] after 10 day inpatient stay at [facility] for coronary artery bypass; on return trip patient noticed increased chest pain, shortness of breath and worsening lower extremity edema, on admission patient was initiated on Lasix. Dr. Stahl contacted cardiothoracic surgery: Dr. Galicia, and hospitalist Dr. Pradhan; regarding elevated troponin, elevated BNP, leukocytosis. Was advised/recommended for observation admission and initiating IV Lasix 20 mg twice a day. Throughout stay patient improved with improvement of symptoms; patient more or less returned back to baseline; breathing status returned back to baseline with COPD. Dr. Bradshaw of cardiology consulted; recommended repeat echo, discontinuation of tamsulosin and replace with Finasteride, restarting patient's home dose of Lasix 40 daily by mouth and follow-up with Dr. Harrell in 1-2 weeks in outpatient facility. Patient stable at discharge. Disposition: Home Discharge condition: Stable Discharge medications: Discharge instructions: Patient advised to notify provider if symptoms of fever , chills, body aches, increasing worsening of breath, increasing chest pain, any new symptoms against baseline developed, lower extremity edema developed. Advised for follow-up w/ Dr. Harrell in 1-2 weeks in outpatient facility. Follow- up w/ PCP in 7-10 days. - Discharge Data Discharge Date: 04/14/19 Discharge Disposition: Home, Self-Care 01 Condition: Fair - Referral to Home Health Primary Care Physician: PCP None - Discharge Diagnosis/Problem(s) (1) Congestive heart disease SNOMED Code(s): 16631576 ICD Code: I50.9 - HEART FAILURE, UNSPECIFIED Status: Acute (2) Leukocytosis SNOMED Code(s): 798308255, 755063241 ICD Code: D72.829 - ELEVATED WHITE BLOOD CELL COUNT, UNSPECIFIED Status: Acute (3) Elevated troponin SNOMED Code(s): 901244712, 277441919, 934302729 ICD Code: R74.8 - ABNORMAL LEVELS OF OTHER SERUM ENZYMES Status: Acute (4) S/P CABG (coronary artery bypass graft) SNOMED Code(s): 068482149, 740379685, 006552477 ICD Code: Z95.1 - PRESENCE OF AORTOCORONARY BYPASS GRAFT Status: Acute (5) Macrocytic anemia SNOMED Code(s): 47640746 ICD Code: D53.9 - NUTRITIONAL ANEMIA, UNSPECIFIED Status: Acute (6) Hyperkalemia SNOMED Code(s): 38326445 ICD Code: E87.5 - HYPERKALEMIA Status: Acute (7) Diabetes mellitus SNOMED Code(s): 52427845 ICD Code: E11.9 - TYPE 2 DIABETES MELLITUS WITHOUT COMPLICATIONS Status: Acute (8) Coronary arteriosclerosis SNOMED Code(s): 25712396 ICD Code: I25.10 - ATHSCL HEART DISEASE OF [place] CORONARY ARTERY W/O ANG PCTRS Status: Acute (9) GERD (gastroesophageal reflux disease) SNOMED Code(s): 137940171 ICD Code: K21.9 - GASTRO-ESOPHAGEAL REFLUX DISEASE WITHOUT ESOPHAGITIS Status: Acute - Patient Summary/Data Consults: Consultations 04/14/19 09:12 Consult to Physician [CONS] Routine - Patient Instructions Diet: Low Sodium Fluid Restriction: 1500 mL Activity: Cough & Deep Breathe, No Strenuous Activities Driving: Do Not Drive Showering/Bathing: May Shower Wound/Incision Care: Keep Operative Site/Wound Site Clean and Dry, Do NOT Change Dressing (follow up with [facility] for wound dressing change ) Notify Provider of: Fever, Increased Pain, Swelling and Redness, Drainage, Nausea and/or Vomiting Other/Special Instructions: Patient advised to follow-up with provider if symptoms of fever, chills, bodies, chest pain, shortness of breath, increased swelling of lower extremity he developed. Follow-up with cardiothoracic surgery in [place] for wound dressing change and follow-up. Follow-up with PCP with in 7-10 days - Discharge Plan *PRESCRIPTION DRUG MONITORING PROGRAM REVIEWED*: No *COPY OF PRESCRIPTION DRUG MONITORING REPORT IN PATIENT BI: No Prescriptions/Med Rec: Finasteride 5 mg PO DAILY 14 Days #14 tablet Home Medications: Home Meds Albuterol [Proventil HFA] 2 puff INH Q4H PRN 11/05/17 [History] Allopurinol [Zyloprim] 300 mg PO DAILY 11/05/17 [History] Budesonide/Formoterol Fumarate [Symbicort 160-4.5 Mcg Inhaler] 2 puff INH BID [History] Omeprazole 20 mg PO ACBREAKFAST 11/05/17 [History] Simvastatin [Zocor] 80 mg PO BEDTIME 11/05/17 [History] Tiotropium [Spiriva HandiHaler] 1 caplet INH DAILY 11/05/17 [History] metFORMIN HCl [Metformin HCl] 500 mg PO BIDMEALS 11/05/17 [History] Dabigatran [Pradaxa] 150 mg PO BID 12/30/18 [History] Acetaminophen [Tylenol] 650 mg PO Q8H PRN 04/12/19 [History] Aspirin 81 mg PO DAILY 04/12/19 [History] Cyanocobalamin (Vitamin B-12) [B-12] 1,000 mcg PO DAILY 04/12/19 [History] Digoxin 125 mcg PO DAILY 04/12/19 [History] Ferrous Sulfate 325 mg PO WITHBREAKFAST 04/12/19 [History] Hydrocodone/Acetaminophen [Hydrocodon-Acetaminophn 10-325] 1 tab PO Q6H PRN MDD 4 04/12/19 [History] Acetaminophen [Tylenol] 325 mg PO Q4H PRN tablet 04/14/19 [Rx] Carboxymethylcellulose Sodium [Refresh Plus 0.5%] 1 each EYEBOTH ASDIRECTED PRN box 04/14/19 [Rx] Docusate Sodium [Colace] 100 mg PO DAILY PRN cap 04/14/19 [Rx] Finasteride 5 mg PO DAILY 14 Days #14 tablet 04/14/19 [Rx] Furosemide [Lasix] 40 mg PO DAILY tablet 04/14/19 [Rx] Insulin Aspart [NovoLOG] 0 unit SUBCUT TIDAC pen 04/14/19 [Rx] Nitroglycerin [Nitrostat] 0.4 mg SL Q5M PRN tab.sl 04/14/19 [Rx] Patient Handouts: Finasteride (Proscar) tablets, Heart Failure, [id number], Form - Daily Weight Record - Discharge Summary/Plan Comment DC Time >30 min.: No - Patient Data Vitals - Most Recent: Last Vital Signs Temp 97.5 F 04/14/19 11:00 Pulse 84 04/14/19 11:00 Resp 16 04/14/19 11:00 BP 79/51 L 04/14/19 11:00 Pulse Ox 96 04/14/19 07:19 Weight - Most Recent: 70.67 kg I&O - Last 24 hours: Intake & Output 04/13/19 04/14/19 04/14/19 22:59 06:59 14:59 Intake Total 200 50 Output Total 1500 1100 Balance -1300 -1050 Lab Results - Last 24 hrs: Laboratory Results - last 24 hr 04/13/19 04/14/19 04/14/19 Range/Units 16:25 05:20 05:20 WBC 12.50 H (4.0-11.0) K/uL RBC 2.98 L (4.50-5.90) M/uL Hgb 9.6 L (13.0-17.0) g/dL Hct 30.6 L (38.0-50.0) % MCV 102.7 H (80.0-98.0) fL MCH 32.2 H (27.0-32.0) pg MCHC 31.4 (31.0-37.0) g/dL RDW Std Deviation 58.8 (28.0-62.0) fl RDW Coeff of Renetta 16 H (11.0-15.0) % Plt Count 230 (150-400) K/uL MPV 10.70 (7.40-12.00) fL Add Manual Diff YES Neutrophils % (Manual) 88 H (48.0-80.0) % Lymphocytes % (Manual) 7 L (16.0-40.0) % Monocytes % (Manual) 2 (0.0-15.0) % Eosinophils % (Manual) 2 (0.0-7.0) % Myelocytes % 1 % Nucleated RBC % 0.0 /100WBC Absolute Seg Neuts 11.0 H (1.4-5.7) Lymphocytes # (Manual) 0.9 (0.6-2.4) Monocytes # (Manual) 0.3 (0.0-0.8) Eosinophils # (Manual) 0.3 (0.0-0.7) Absolute Myelocytes 0.1 Nucleated RBCs # 0 K/uL Sodium 139 (136-148) mmol/L Potassium 4.3 (3.5-5.1) mmol/L Chloride 100 (98-107) mmol/L Carbon Dioxide 34.7 H (21.0-32.0) mmol/L BUN 28 H (7.0-18.0) mg/dL Creatinine 1.5 H (0.8-1.3) mg/dL Est Cr Clr Drug Dosing 37.95 mL/min Estimated GFR (MDRD) 45.3 ml/min Glucose 198 H (74-106) mg/dL POC Glucose 166 H (60-110) mg/dL Calcium 9.1 (8.5-10.1) mg/dL B-Natriuretic Peptide (<100) PG/ML 04/14/19 04/14/19 04/14/19 Range/Units 05:20 06:43 11:39 WBC (4.0-11.0) K/uL RBC (4.50-5.90) M/uL Hgb (13.0-17.0) g/dL Hct (38.0-50.0) % MCV (80.0-98.0) fL MCH (27.0-32.0) pg MCHC (31.0-37.0) g/dL RDW Std Deviation (28.0-62.0) fl RDW Coeff of Renetta (11.0-15.0) % Plt Count (150-400) K/uL MPV (7.40-12.00) fL Add Manual Diff Neutrophils % (Manual) (48.0-80.0) % Lymphocytes % (Manual) (16.0-40.0) % Monocytes % (Manual) (0.0-15.0) % Eosinophils % (Manual) (0.0-7.0) % Myelocytes % % Nucleated RBC % /100WBC Absolute Seg Neuts (1.4-5.7) Lymphocytes # (Manual) (0.6-2.4) Monocytes # (Manual) (0.0-0.8) Eosinophils # (Manual) (0.0-0.7) Absolute Myelocytes Nucleated RBCs # K/uL Sodium (136-148) mmol/L Potassium (3.5-5.1) mmol/L Chloride (98-107) mmol/L Carbon Dioxide (21.0-32.0) mmol/L BUN (7.0-18.0) mg/dL Creatinine (0.8-1.3) mg/dL Est Cr Clr Drug Dosing mL/min Estimated GFR (MDRD) ml/min Glucose (74-106) mg/dL POC Glucose 139 H 127 H (60-110) mg/dL Calcium (8.5-10.1) mg/dL B-Natriuretic Peptide 194 H (<100) PG/ML Med Orders - Current: Current Medications Acetaminophen (Tylenol) 325 mg PO Q4H PRN PRN Reason: Fever Hydrocodone Bitart/Acetaminophen (Vanderbilt 325-10 Mg) 1 tab PO Q6H PRN PRN Reason: Pain Last Admin: 04/13/19 22:31 Dose: 1 tab Allopurinol (Zyloprim) 300 mg PO DAILY [facility] Last Admin: 04/14/19 08:41 Dose: 300 mg Artificial Tears (Refresh Plus 0.5%) 1 each EYEBOTH ASDIRECTED PRN PRN Reason: Dry Eyes Last Admin: 04/13/19 11:37 Dose: 1 drop Aspirin (Aspirin) 81 mg PO DAILY [facility] Last Admin: 04/14/19 08:42 Dose: 81 mg Calcium Carbonate/Glycine (Tums) 500 mg PO TID PRN PRN Reason: Indigestion Last Admin: 04/13/19 21:34 Dose: 500 mg Cyanocobalamin (Vitamin B12) 1,000 mcg PO DAILY [facility] Last Admin: 04/14/19 08:41 Dose: 1,000 mcg Dabigatran (Pradaxa) 150 mg PO BID [facility] Last Admin: 04/14/19 08:40 Dose: 150 mg Digoxin (Lanoxin) 125 mcg PO DAILY [facility] Last Admin: 04/14/19 08:41 Dose: 125 mcg Docusate Sodium (Colace) 100 mg PO DAILY PRN PRN Reason: Constipation Ferrous Sulfate (Ferrous Sulfate) 325 mg PO WITHBREAKFAST [facility] Last Admin: 04/14/19 08:42 Dose: 325 mg Furosemide (Lasix) 40 mg PO DAILY [facility] Last Admin: 04/14/19 09:05 Dose: 40 mg Insulin Aspart (Novolog) 0 unit SUBCUT TIDAC [facility]; Protocol Last Admin: 04/14/19 11:56 Dose: Not Given Morphine Sulfate (Morphine) 1 mg IVPUSH Q4H PRN PRN Reason: Chest Pain Last Admin: 04/12/19 13:07 Dose: 1 mg Nitroglycerin (Nitrostat) 0.4 mg SL Q5M PRN PRN Reason: Chest Pain Omeprazole (Omeprazole) 20 mg PO ACBREAKFAST [facility] Last Admin: 04/14/19 06:44 Dose: 20 mg Budesonide/Formoterol 160-4.5 Mcg/Puff 6 Gm Inhaler 2 each INH BID [facility] Last Admin: 04/14/19 08:50 Dose: 2 each Albuterol Sulfate (Hfa [Proair Hfa]) 0 each INH Q4H PRN PRN Reason: Shortness of Breath Last Admin: 04/14/19 07:18 Dose: 1 each Sodium Chloride (Saline Flush) 10 ml FLUSH ASDIRECTED PRN PRN Reason: Keep Vein Open Sodium Chloride (Saline Flush) 2.5 ml FLUSH ASDIRECTED PRN PRN Reason: Keep Vein Open Tamsulosin HCl (Flomax) 0.4 mg PO WITHBREAKFAST [facility] Last Admin: 04/14/19 08:42 Dose: 0.4 mg Temazepam (Restoril) 15 mg PO BEDTIME PRN PRN Reason: Insomnia Tiotropium [place] (Spiriva Handihaler) 18 mcg INH DAILY [facility] Last Admin: 04/14/19 08:50 Dose: 1 puff Discontinued Medications Albuterol (Ventolin Hfa) 0 gm INH Q4H PRN PRN Reason: Shortness of Breath Cyanocobalamin (Vitamin B12) 1,000 mcg PO DAILY [facility] Last Admin: 04/13/19 11:33 Dose: Not Given Docusate Sodium (Colace) 100 mg PO DAILY PRN PRN Reason: Constipation Last Admin: 04/12/19 17:44 Dose: 100 mg Ferrous Sulfate (Ferrous Sulfate) 325 mg PO WITHBREAKFAST [facility] Last Admin: 04/13/19 11:33 Dose: Not Given Furosemide (Lasix) 20 mg IVPUSH NOW ONE Stop: 04/12/19 07:59 Last Admin: 04/12/19 08:08 Dose: 20 mg Furosemide (Lasix) 20 mg IVPUSH BID ONE Stop: 04/12/19 16:01 Last Admin: 04/12/19 16:27 Dose: 20 mg Furosemide (Lasix) 20 mg IVPUSH BID [facility] Last Admin: 04/13/19 20:22 Dose: 20 mg Metformin HCl (Glucophage) 500 mg PO BIDMEALS [facility] Last Admin: 04/12/19 16:28 Dose: 500 mg Morphine Sulfate (Morphine) 2 mg IVPUSH ONETIME ONE Stop: 04/12/19 08:00 Last Admin: 04/12/19 08:08 Dose: 2 mg Nitroglycerin (Nitro-Bid 2%) 0.5 gm TOP ONETIME ONE Stop: 04/12/19 07:48 Last Admin: 04/12/19 07:53 Dose: 0.5 gm Ondansetron HCl (Zofran) 4 mg IVPUSH ONETIME ONE Stop: 04/12/19 08:00 Last Admin: 04/12/19 08:08 Dose: 4 mg <Yash Salmon J - Last Filed: 04/14/19 19:15> Discharge Summary - Referral to Home Health Primary Care Physician: PCP None - Patient Summary/Data Consults: Consultations 04/14/19 09:12 Consult to Physician [CONS] Routine - Patient Data Vitals - Most Recent: Last Vital Signs Temp 36.8 C 04/14/19 15:00 Pulse 97 04/14/19 15:00 Resp 20 04/14/19 15:00 BP 109/58 L 04/14/19 15:00 Pulse Ox 98 04/14/19 15:00 I&O - Last 24 hours: Intake & Output 04/14/19 04/14/19 04/14/19 06:59 14:59 22:59 Intake Total 50 350 Output Total 1100 900 Balance -1050 -550 Lab Results - Last 24 hrs: Laboratory Results - last 24 hr 04/14/19 04/14/19 04/14/19 Range/Units 05:20 05:20 05:20 WBC 12.50 H (4.0-11.0) K/uL RBC 2.98 L (4.50-5.90) M/uL Hgb 9.6 L (13.0-17.0) g/dL Hct 30.6 L (38.0-50.0) % MCV 102.7 H (80.0-98.0) fL MCH 32.2 H (27.0-32.0) pg MCHC 31.4 (31.0-37.0) g/dL RDW Std Deviation 58.8 (28.0-62.0) fl RDW Coeff of Renetta 16 H (11.0-15.0) % Plt Count 230 (150-400) K/uL MPV 10.70 (7.40-12.00) fL Add Manual Diff YES Neutrophils % (Manual) 88 H (48.0-80.0) % Lymphocytes % (Manual) 7 L (16.0-40.0) % Monocytes % (Manual) 2 (0.0-15.0) % Eosinophils % (Manual) 2 (0.0-7.0) % Myelocytes % 1 % Nucleated RBC % 0.0 /100WBC Absolute Seg Neuts 11.0 H (1.4-5.7) Lymphocytes # (Manual) 0.9 (0.6-2.4) Monocytes # (Manual) 0.3 (0.0-0.8) Eosinophils # (Manual) 0.3 (0.0-0.7) Absolute Myelocytes 0.1 Nucleated RBCs # 0 K/uL Sodium 139 (136-148) mmol/L Potassium 4.3 (3.5-5.1) mmol/L Chloride 100 (98-107) mmol/L Carbon Dioxide 34.7 H (21.0-32.0) mmol/L BUN 28 H (7.0-18.0) mg/dL Creatinine 1.5 H (0.8-1.3) mg/dL Est Cr Clr Drug Dosing 37.95 mL/min Estimated GFR (MDRD) 45.3 ml/min Glucose 198 H (74-106) mg/dL POC Glucose (60-110) mg/dL Calcium 9.1 (8.5-10.1) mg/dL B-Natriuretic Peptide 194 H (<100) PG/ML 04/14/19 04/14/19 Range/Units 06:43 11:39 WBC (4.0-11.0) K/uL RBC (4.50-5.90) M/uL Hgb (13.0-17.0) g/dL Hct (38.0-50.0) % MCV (80.0-98.0) fL MCH (27.0-32.0) pg MCHC (31.0-37.0) g/dL RDW Std Deviation (28.0-62.0) fl RDW Coeff of Renetta (11.0-15.0) % Plt Count (150-400) K/uL MPV (7.40-12.00) fL Add Manual Diff Neutrophils % (Manual) (48.0-80.0) % Lymphocytes % (Manual) (16.0-40.0) % Monocytes % (Manual) (0.0-15.0) % Eosinophils % (Manual) (0.0-7.0) % Myelocytes % % Nucleated RBC % /100WBC Absolute Seg Neuts (1.4-5.7) Lymphocytes # (Manual) (0.6-2.4) Monocytes # (Manual) (0.0-0.8) Eosinophils # (Manual) (0.0-0.7) Absolute Myelocytes Nucleated RBCs # K/uL Sodium (136-148) mmol/L Potassium (3.5-5.1) mmol/L Chloride (98-107) mmol/L Carbon Dioxide (21.0-32.0) mmol/L BUN (7.0-18.0) mg/dL Creatinine (0.8-1.3) mg/dL Est Cr Clr Drug Dosing mL/min Estimated GFR (MDRD) ml/min Glucose (74-106) mg/dL POC Glucose 139 H 127 H (60-110) mg/dL Calcium (8.5-10.1) mg/dL B-Natriuretic Peptide (<100) PG/ML Med Orders - Current: Current Medications Discontinued Medications Acetaminophen (Tylenol) 325 mg PO Q4H PRN PRN Reason: Fever Hydrocodone Bitart/Acetaminophen (Vanderbilt 325-10 Mg) 1 tab PO Q6H PRN PRN Reason: Pain Last Admin: 04/14/19 15:38 Dose: 1 tab Albuterol (Ventolin Hfa) 0 gm INH Q4H PRN PRN Reason: Shortness of Breath Allopurinol (Zyloprim) 300 mg PO DAILY [facility] Last Admin: 04/14/19 08:41 Dose: 300 mg Artificial Tears (Refresh Plus 0.5%) 1 each EYEBOTH ASDIRECTED PRN PRN Reason: Dry Eyes Last Admin: 04/13/19 11:37 Dose: 1 drop Aspirin (Aspirin) 81 mg PO DAILY [facility] Last Admin: 04/14/19 08:42 Dose: 81 mg Bisacodyl (Dulcolax) 10 mg RECTAL ONETIME ONE Stop: 04/14/19 16:35 Last Admin: 04/14/19 16:55 Dose: Not Given Calcium Carbonate/Glycine (Tums) 500 mg PO TID PRN PRN Reason: Indigestion Last Admin: 04/13/19 21:34 Dose: 500 mg Cyanocobalamin (Vitamin B12) 1,000 mcg PO DAILY [facility] Last Admin: 04/13/19 11:33 Dose: Not Given Cyanocobalamin (Vitamin B12) 1,000 mcg PO DAILY [facility] Last Admin: 04/14/19 08:41 Dose: 1,000 mcg Dabigatran (Pradaxa) 150 mg PO BID [facility] Last Admin: 04/14/19 08:40 Dose: 150 mg Digoxin (Lanoxin) 125 mcg PO DAILY [facility] Last Admin: 04/14/19 08:41 Dose: 125 mcg Docusate Sodium (Colace) 100 mg PO DAILY PRN PRN Reason: Constipation Last Admin: 04/12/19 17:44 Dose: 100 mg Docusate Sodium (Colace) 100 mg PO DAILY PRN PRN Reason: Constipation Ferrous Sulfate (Ferrous Sulfate) 325 mg PO WITHBREAKFAST [facility] Last Admin: 04/13/19 11:33 Dose: Not Given Ferrous Sulfate (Ferrous Sulfate) 325 mg PO WITHBREAKFAST [facility] Last Admin: 04/14/19 08:42 Dose: 325 mg Furosemide (Lasix) 20 mg IVPUSH NOW ONE Stop: 04/12/19 07:59 Last Admin: 04/12/19 08:08 Dose: 20 mg Furosemide (Lasix) 20 mg IVPUSH BID ONE Stop: 04/12/19 16:01 Last Admin: 04/12/19 16:27 Dose: 20 mg Furosemide (Lasix) 20 mg IVPUSH BID [facility] Last Admin: 04/13/19 20:22 Dose: 20 mg Furosemide (Lasix) 40 mg PO DAILY [facility] Last Admin: 04/14/19 09:05 Dose: 40 mg Insulin Aspart (Novolog) 0 unit SUBCUT TIDAC [facility]; Protocol Last Admin: 04/14/19 19:12 Dose: Not Given Metformin HCl (Glucophage) 500 mg PO BIDMEALS [facility] Last Admin: 04/12/19 16:28 Dose: 500 mg Morphine Sulfate (Morphine) 2 mg IVPUSH ONETIME ONE Stop: 04/12/19 08:00 Last Admin: 04/12/19 08:08 Dose: 2 mg Morphine Sulfate (Morphine) 1 mg IVPUSH Q4H PRN PRN Reason: Chest Pain Last Admin: 04/12/19 13:07 Dose: 1 mg Nitroglycerin (Nitro-Bid 2%) 0.5 gm TOP ONETIME ONE Stop: 04/12/19 07:48 Last Admin: 04/12/19 07:53 Dose: 0.5 gm Nitroglycerin (Nitrostat) 0.4 mg SL Q5M PRN PRN Reason: Chest Pain Omeprazole (Omeprazole) 20 mg PO ACBREAKFAST [facility] Last Admin: 04/14/19 06:44 Dose: 20 mg Ondansetron HCl (Zofran) 4 mg IVPUSH ONETIME ONE Stop: 04/12/19 08:00 Last Admin: 04/12/19 08:08 Dose: 4 mg Budesonide/Formoterol 160-4.5 Mcg/Puff 6 Gm Inhaler 2 each INH BID [facility] Last Admin: 04/14/19 08:50 Dose: 2 each Albuterol Sulfate (Hfa [Proair Hfa]) 0 each INH Q4H PRN PRN Reason: Shortness of Breath Last Admin: 04/14/19 15:33 Dose: 1 each Sodium Chloride (Saline Flush) 10 ml FLUSH ASDIRECTED PRN PRN Reason: Keep Vein Open Sodium Chloride (Saline Flush) 2.5 ml FLUSH ASDIRECTED PRN PRN Reason: Keep Vein Open Tamsulosin HCl (Flomax) 0.4 mg PO WITHBREAKFAST [facility] Last Admin: 04/14/19 08:42 Dose: 0.4 mg Temazepam (Restoril) 15 mg PO BEDTIME PRN PRN Reason: Insomnia Tiotropium [place] (Spiriva Handihaler) 18 mcg INH DAILY [facility] Last Admin: 04/14/19 08:50 Dose: 1 puff - Free Text/Narrative Note: I have seen and evaluated the patient with the resident. I have discussed findings and treatment plan with the resident. I agree with the assessment and plan outlined in the following note.
[2019-04-14] MEDS: Acetaminophen/HYDROcodone 325-10 MG Tab PO PRN (15:38)
[2019-04-14] MEDS ORDERED: Bisacodyl 10 MG Supp RECTAL ONE (16:34)
--- NOTE | 2019-04-16 16:19 | CONS ---
DATE OF CONSULTATION: DATE OF : 1940 PRIMARY CARE PHYSICIAN: None PCP REASON FOR CONSULTATION: Heart failure. HISTORY OF PRESENT ILLNESS: This is a 79-year-old male who has a history of former smoker; hypertension; hyperlipidemia; history of diabetes; permanent atrial fibrillation; history of a stroke in the past; carotid stenosis; severe COPD; status post double-vessel bypass, D1 and LAD. He was admitted in [place] from April 02 to April 11 and had a CABG x2, [place] to LAD, reverse saphenous vein graft to diagonal, and also left atrial clipping on April 02, 2019, and he was discharged from the hospital. The medications at discharge including Flomax 0.4 once a day, digoxin 125 mcg once a day, albuterol as well as allopurinol. The other medications also including aspirin 81 mg once a day, Pradaxa 150 mg twice a day, metformin 500 mg twice a day, simvastatin 80 mg once a day. He used to be on the Lasix 40 mg once a day, Imdur 30 mg once a day, lisinopril 10 mg once a day that was stopped when he was discharged from the hospital. When he got back from the hospital, he was discharged home with the oxygen, and he started being more short of breath over the weekend, and he got admitted to the hospital on Sunday. He was found to have a leg swelling. He was treated in the hospital with Lasix 20 mg twice a day. His blood pressure was on the low side, running around 80 to 90, but he denied dizziness. He is still in atrial fibrillation. Heart rate is controlled, and after he was diuresed with IV diuretics, his weight has come down 3 pounds, and he stated that he feels much better. Leg swelling got much improved and then I was asked to see him just to see if he is ready to be discharged. PAST MEDICAL HISTORY: Including hypertension; hyperlipidemia; diabetes; CHF; stroke; carotid stenosis; severe COPD, on home O2 saturations; status post bypass, double-vessel, OAKLEY to LAD and SVG to diagonal. He had an echocardiogram done before discharge after bypass surgery. It showed preserved ejection fraction. No pericardial effusion. No significant valve leakage. SOCIAL HISTORY: Former smoker. No drug use. No alcohol use. ALLERGIES: He is allergic to indomethacin. FAMILY HISTORY: Noncontributory. REVIEW OF SYSTEMS: Positive for shortness of breath, orthopnea, and leg swelling. Otherwise been negative. PHYSICAL EXAMINATION: VITAL SIGNS: The current blood pressure is 80 to 100 over 50 to 60, heart rate is 80 to 90, temperature 97.5, respirations 16, O2 saturation is . HEENT: Mouth pale and JVD positive. LUNGS: Crackles bilaterally. Decreased breath sounds. No wheezing. HEART: Totally irregular. ABDOMEN: Soft, nontender. Bowel sounds are present. No hepatosplenomegaly. EXTREMITIES: Legs, swelling 1+. DIAGNOSTIC STUDIES: Echocardiogram showed preserved ejection fraction of 55%. No significant valvular leakage. EKG on April 12 show atrial fibrillation with a heart rate of 89, QRS duration 105. LABORATORIES: WBC 12, hematocrit of 30, hemoglobin of 9.6, platelets are 231. Sodium 139; potassium 4.3; chloride 100; bicarb is 34; BUN 28; creatinine is 1.5, baseline is around 1. BNP was checked one time, it is 194. Troponin was checked once and 0.22. ASSESSMENT AND PLAN: This is a 79-year-old male with history of coronary artery disease, status post two-vessel coronary artery bypass graft, left internal mammary artery to left anterior descending, saphenous vein graft to diagonal; diabetes; hypertension; hyperlipidemia; severe chronic obstructive pulmonary disease; history of stroke; carotid stenosis. He came in here for decompensated congestive heart failure, preserved ejection fraction, with low normal blood pressure. His current medications include digoxin as well as the Lasix. I would probably transition the Lasix from intravenous route to p.o. 40 a day that he was on before. He denies chest pain. He should be on the low-sodium diet. Echocardiogram showed preserved ejection fraction. No pericardial effusion. No significant valve abnormalities. He should be able to go home, and I will see him within one week. He should be on the low-sodium diet. Probably recommended cardiac rehab for him as well. He will continue taking anticoagulation for the atrial fibrillation with the Pradaxa. I may change to Eliquis later on, but that can be done as an outpatient. RK / GRUPO /[id number]
--- NOTE | 2019-04-17 14:36 | ECHO ---
The echocardiogram report can be seen in this patient's EMR (Electronic Medical Records) in the REPORTS section. The echocardiogram report has also been scanned into PACS and can be seen there as well. SALVADOR
== END 2019-04-14 18:15 | disposition home or self-care (01) ==
LOC: MW.ED 07:36 → MW.MS 09:07
PROVIDERS: ADMIT Internal Medicine; ATTEND Internal Medicine
DX: I11.0 Hypertensive heart disease with heart failure (principal); I50.9 Heart failure, unspecified; R79.89 Other specified abnormal findings of blood chemistry; D72.829 Elevated white blood cell count, unspecified; E87.5 Hyperkalemia; I25.10 Atherosclerotic heart disease of native coronary artery without angina pectoris; E11.9 Type 2 diabetes mellitus without complications; K21.9 Gastro-esophageal reflux disease without esophagitis; D53.9 Nutritional anemia, unspecified; J44.9 Chronic obstructive pulmonary disease, unspecified; E78.00 Pure hypercholesterolemia, unspecified; M10.9 Gout, unspecified; Z95.1 Presence of aortocoronary bypass graft; Z79.899 Other long term (current) drug therapy; Z79.84 Long term (current) use of oral hypoglycemic drugs; Z79.82 Long term (current) use of aspirin; Z87.891 Personal history of nicotine dependence
CPT/HCPCS: 36415; 71045; 80048; 80053; 82962; 83735; 83880; 84484; 85025; 85610; 85730; 93005; 93306; 96374; 96375; 96376; 99285; A9270; G0378; J1815; J1940; J2270; J2405; 99284

== ENCOUNTER 2019-07-01 11:10 | Inpatient (IN) | payer MEDICARE, OTHER ==
[2019-07-01 11:53] LABS: BLOOD UREA NITROGEN,BUN 21 mg/dL (7.0-18.0); CARBON DIOXIDE,CO2 28.4 mmol/L (21.0-32.0); CHLORIDE,CL 100 mmol/L (98-107); GLUCOSE RANDOM 120 mg/dL (74-106); POTASSIUM,K 4.6 mmol/L (3.5-5.1); SODIUM,NA 136 mmol/L (136-148)
[2019-07-01] MEDS ORDERED: Albuterol/Ipratropium 3.0-0.5 MG/3 ML Neb Soln NEB PRN (13:02)
[2019-07-01] MEDS ORDERED: Ondansetron 4 MG Tab.DIS PO PRN (13:02)
[2019-07-01] MEDS ORDERED: Sodium Chloride 0.9% 2.5 ML Syringe FLUSH PRN (13:02)
[2019-07-01] MEDS ORDERED: Acetaminophen 325 MG Tab PO PRN (13:02)
[2019-07-01] MEDS ORDERED: Furosemide 40 MG/4 ML VIAL IVPUSH ONE (13:07)
--- NOTE | 2019-07-01 13:20 | PCM.HP.2 ---
H&P History of Present Illness - General Date of Service: 07/01/19 Admit Problem/Dx: Admission Diagnosis/Problem Admission Diagnosis/Problem CHF, Congestive heart failure Source of Information: Patient, Old Records History Limitations: Reports: No Limitations - History of Present Illness Initial Comments - Free Text/Narative: This 79 year old male with pmh of CAD, s/p CABG x 2 in March 2019, COPD, DM2 , and Afib on Pradaxa presented to the Cardiology clinic to see Dr. Abdul for increased shortness of breath and worsening leg edema. He reports he has been taking his albuterol more often but it doesnt seem to help. He denies productive cough and no overt wheezing he can hear. He reports he has SOB lying down and is most comfortable actually standing up to catch his breath. He is unsure of dry weight. He reports he has been taking 40 mg PO Lasix daily. Denies chest pain or palpitations. No fevers or chills. Generalized weakness secondary to dyspnea. No abdominal pain, no urinary concerns. No bloody stools, reports they are black but he takes iron. No GERD or heartburn. He is on 2 L NC at home. In the clinic he was noted to be sating 86% on 2 L. In the clinic BMP obtained BUN [address] Abdul recommended admission for CHF exacerbation. - Related Data Allergies/Adverse Reactions: Allergies Allergy/AdvReac Type Severity Reaction Status Date / Time No Known Allergies Allergy Verified 04/12/19 12:11 Home Medications: Home Meds Albuterol [Proventil HFA] 2 puff INH Q4H PRN 11/05/17 [History] Allopurinol [Zyloprim] 300 mg PO DAILY 11/05/17 [History] Budesonide/Formoterol Fumarate [Symbicort 160-4.5 Mcg Inhaler] 2 puff INH BID [History] Omeprazole 20 mg PO ACBREAKFAST 11/05/17 [History] Simvastatin [Zocor] 80 mg PO BEDTIME 11/05/17 [History] Tiotropium [Spiriva HandiHaler] 1 caplet INH DAILY 11/05/17 [History] metFORMIN HCl [Metformin HCl] 500 mg PO BIDMEALS 11/05/17 [History] Dabigatran [Pradaxa] 150 mg PO BID 12/30/18 [History] Acetaminophen [Tylenol] 650 mg PO Q8H PRN 04/12/19 [History] Aspirin 81 mg PO DAILY 04/12/19 [History] Cyanocobalamin (Vitamin B-12) [B-12] 1,000 mcg PO DAILY 04/12/19 [History] Digoxin 125 mcg PO DAILY 04/12/19 [History] Ferrous Sulfate 325 mg PO WITHBREAKFAST 04/12/19 [History] Hydrocodone/Acetaminophen [Hydrocodon-Acetaminophn 10-325] 1 tab PO Q6H PRN MDD 4 04/12/19 [History] Acetaminophen [Tylenol] 325 mg PO Q4H PRN tablet 04/14/19 [Rx] Carboxymethylcellulose Sodium [Refresh Plus 0.5%] 1 each EYEBOTH ASDIRECTED PRN box 04/14/19 [Rx] Docusate Sodium [Colace] 100 mg PO DAILY PRN cap 04/14/19 [Rx] Finasteride 5 mg PO DAILY 14 Days #14 tablet 04/14/19 [Rx] Furosemide [Lasix] 40 mg PO DAILY tablet 04/14/19 [Rx] Insulin Aspart [NovoLOG] 0 unit SUBCUT TIDAC pen 04/14/19 [Rx] Nitroglycerin [Nitrostat] 0.4 mg SL Q5M PRN tab.sl 04/14/19 [Rx] Past Medical History HEENT History: Reports: Glaucoma Other HEENT History: wears glasses, has top and bottom dentures Cardiovascular History: Reports: Afib, CAD, Heart Failure, High Cholesterol, Hypertension, Other (See Below) (carotid stenosis to L- planned for carotid endarterectomy in a couple months.) Respiratory History: Reports: COPD Other Respiratory History: Uses oxygen, and inhalers at home Gastrointestinal History: Reports: GERD, Other (See Below) Musculoskeletal History: Reports: Gout Neurological History: Reports: CVA Endocrine/Metabolic History: Reports: Diabetes, Type II - Infectious Disease History Infectious Disease History: Reports: Chicken Pox, Measles, Mumps - Past Surgical History Head Surgeries/Procedures: Reports: None HEENT Surgical History: Reports: Cataract Surgery, Eye Surgery, Oral Surgery Other HEENT Surgeries/Procedures: eye surgery x3 Cardiovascular Surgical History: Reports: Coronary Artery Bypass Social & Family History - Family History Family Medical History: Noncontributory - Tobacco Use Smoking Status *Q: Former Smoker - Caffeine Use Caffeine Use: Reports: Coffee - Alcohol Use Alcohol Use History: No - Living Situation & Occupation Living situation: Reports: Occupation: Retired H&P Review of Systems - Review of Systems: Review Of Systems: See Below General: Reports: Weakness HEENT: Reports: No Symptoms. Denies: Headaches, Sinus Congestion, Sore Throat Pulmonary: Reports: Shortness of Breath, Cough. Denies: Wheezing, Sputum, Hemoptysis Cardiovascular: Reports: Dyspnea on Exertion, Orthopnea, Edema. Denies: Chest Pain, Palpitations Gastrointestinal: Reports: No Symptoms. Denies: Abdominal Pain, Black Stool, Bloody Stool, Nausea Genitourinary: Reports: No Symptoms. Denies: Dysuria, Frequency, Burning Musculoskeletal: Reports: No Symptoms Psychiatric: Reports: No Symptoms Neurological: Reports: No Symptoms Hematologic/Lymphatic: Reports: No Symptoms Immunologic: Reports: No Symptoms Exam - Exam Exam: See Below - Vital Signs Weight: 65.544 kg - Exam Quality Assessment: Supplemental Oxygen, DVT Prophylaxis General: Alert, Oriented, Cooperative HEENT: Conjunctiva Clear, Mucosa Moist & Hallock, Posterior Pharynx Clear Neck: +2 Carotid Pulse wo Bruit (L), JVD Lungs: Decreased Breath Sounds (throughout), Crackles. No: Normal Respiratory Effort (dyspnea with speech), Wheezing Cardiovascular: Regular Rate, Irregular Rhythm GI/Abdominal Exam: Normal Bowel Sounds, Soft, Non-Tender, No Organomegaly Extremities: Normal Inspection, Normal Range of Motion, Non-Tender, Pedal Edema (+3-4 pitting edema from hips to feet) Skin: Warm, Dry, Intact Neuro Extensive - Mental Status: Alert, Oriented x3 Neuro Extensive - Motor, Sensory, Reflexes: CN II-XII Intact Psychiatric: Alert, Normal Affect, Normal Mood - Patient Data Lab Results Last 24 hrs: Laboratory Results - last 24 hr 07/01/19 Range/Units 11:18 Sodium 136 (136-148) mmol/L Potassium 4.6 (3.5-5.1) mmol/L Chloride 100 (98-107) mmol/L Carbon Dioxide 28.4 (21.0-32.0) mmol/L BUN 21 H (7.0-18.0) mg/dL Creatinine 1.2 (0.8-1.3) mg/dL Est Cr Clr Drug Dosing TNP Estimated GFR (MDRD) 58.6 ml/min Glucose 120 H (74-106) mg/dL Calcium 8.7 (8.5-10.1) mg/dL Total Bilirubin 0.5 (0.2-1.0) mg/dL AST 13 L (15-37) IU/L ALT 15 (14-63) IU/L Alkaline Phosphatase 78 (46-116) U/L Total Protein 7.4 (6.4-8.2) g/dL Albumin 3.0 L (3.4-5.0) g/dL Globulin 4.4 H (2.6-4.0) g/dL Albumin/Globulin Ratio 0.7 L (0.9-1.6) Result Diagrams: 07/01/19 13:20 07/01/19 11:18 - Problem List (1) Heart failure with preserved ejection fraction SNOMED Code(s): 416680460 ICD Code: I50.30 - UNSPECIFIED DIASTOLIC (CONGESTIVE) HEART FAILURE Status : Acute Current Visit: Yes Qualifiers: Heart failure chronicity: acute on chronic Qualified Code(s): I50.33 - Acute on chronic diastolic (congestive) heart failure (2) History of CVA (cerebrovascular accident) SNOMED Code(s): 201692606 ICD Code: Z86.73 - PRSNL HX OF TIA (TIA), AND CEREB INFRC W/O RESID DEFICITS Status: Acute Current Visit: Yes (3) Carotid stenosis Status: Chronic Current Visit: Yes Qualifiers: Laterality: left Qualified Code(s): I65.22 - Occlusion and stenosis of left carotid artery (4) COPD (chronic obstructive pulmonary disease) SNOMED Code(s): 82540274 ICD Code: J44.9 - CHRONIC OBSTRUCTIVE PULMONARY DISEASE, UNSPECIFIED Status : Chronic Current Visit: Yes (5) Afib SNOMED Code(s): 55633120 ICD Code: I48.91 - UNSPECIFIED ATRIAL FIBRILLATION Status: Chronic Current Visit: Yes Qualifiers: Atrial fibrillation type: permanent Qualified Code(s): I48.21 - Permanent atrial fibrillation (6) Coronary arteriosclerosis SNOMED Code(s): 40878263 ICD Code: I25.10 - ATHSCL HEART DISEASE OF [place] CORONARY ARTERY W/O ANG PCTRS Status: Chronic Current Visit: No (7) Diabetes mellitus SNOMED Code(s): 16229522 ICD Code: E11.9 - TYPE 2 DIABETES MELLITUS WITHOUT COMPLICATIONS Status: Chronic Current Visit: No Qualifiers: Diabetes mellitus type: type 2 Diabetes mellitus detention insulin use: without detention use (8) GERD (gastroesophageal reflux disease) SNOMED Code(s): 756226333 ICD Code: K21.9 - GASTRO-ESOPHAGEAL REFLUX DISEASE WITHOUT ESOPHAGITIS Status: Chronic Current Visit: No (9) S/P CABG (coronary artery bypass graft) SNOMED Code(s): 022736773, 052300327, 980400653 ICD Code: Z95.1 - PRESENCE OF AORTOCORONARY BYPASS GRAFT Status: Chronic Current Visit: No (10) Oxygen dependent SNOMED Code(s): 782562855662 ICD Code: Z99.81 - DEPENDENCE ON SUPPLEMENTAL OXYGEN Status: Chronic Current Visit: Yes Problem List Initiated/Reviewed/Updated: Yes Orders Last 24hrs: Active Orders 24 hr Category Date Time Status Patient Status [ADT] Routine ADT 07/01/19 13:02 Ordered EKG 12 Lead [EKG Documentation Completion] [RC] STAT Care 07/01/19 13:09 Ordered Height and Weight [RC] DAILY Care 07/01/19 13:02 Ordered Intake and Output Strict [RC] ASDIRECTED Care 07/01/19 13:02 Ordered Oxygen Therapy [RC] PRN Care 07/01/19 13:02 Ordered RT Aerosol Therapy [RC] ASDIRECTED Care 07/01/19 13:06 Ordered Up With Assistance [RC] ASDIRECTED Care 07/01/19 13:02 Ordered VTE/DVT Education [RC] PER UNIT ROUTINE Care 07/01/19 13:02 Ordered Vital Signs [RC] Q4H Care 07/01/19 13:02 Ordered 2 Gram Sodium Diet [DIET] Diet 07/01/19 Lunch Ordered Chest 2V [CR] Urgent Exams 07/01/19 13:02 Ordered B-TYPE NATRIURETIC PEPTIDE,BNP [CHEM] Routine Lab 07/01/19 11:18 Received CBC WITH AUTO DIFF [HEME] Routine Lab 07/01/19 13:02 Ordered Acetaminophen [Tylenol] Med 07/01/19 13:02 Ordered 650 mg PO Q4H PRN Albuterol/Ipratropium [DuoNeb 3.0-0.5 MG/3 ML] Med 07/01/19 13:02 Ordered 3 ml NEB Q4HRRT PRN Furosemide [Lasix] Med 07/01/19 13:07 Once 40 mg IVPUSH NOW ONE Ondansetron [Zofran ODT] Med 07/01/19 13:02 Ordered 4 mg PO Q4H PRN Sodium Chloride 0.9% [Saline Flush] Med 07/01/19 13:02 Ordered 2.5 ml FLUSH ASDIRECTED PRN Saline Lock Insert [OM.PC] Routine Oth 07/01/19 13:02 Ordered Resuscitation Status Routine Resus Stat 07/01/19 13:02 Ordered Medication Orders Acetaminophen (Tylenol) 650 mg PO Q4H PRN PRN Reason: Pain (mild 1-3) Albuterol/Ipratropium (Duoneb 3.0-0.5 Mg/3 Ml) 3 ml NEB Q4HRRT PRN PRN Reason: Shortness Of Breath/wheezing Furosemide (Lasix) 40 mg IVPUSH NOW ONE Stop: 07/01/19 13:08 Ondansetron HCl (Zofran Odt) 4 mg PO Q4H PRN PRN Reason: nausea, able to take PO Sodium Chloride (Saline Flush) 2.5 ml FLUSH ASDIRECTED PRN PRN Reason: Keep Vein Open Assessment/Plan Comment:: This 79 year old male admitted with acute on chronic heart failure exacerbation , diastolic. 1. HFpEF: acute on chronic, will obtain EKG, CXR and BNP. Give Lasix 40 mg IV BID. Strict I/O, daily weights, Low NA diet 1.8 L FR. Will obtain ECHO. Trial Bipap for fluid mobilization, monitor. Ok to hold if he does not tolerate. 2. Afib: Stable. Continue Digoxin and Pradaxa. 3. COPD: No wheezing, low suspicion for exacerbation. Will continue home inhalers, Dunebs PRN. Oxygen 2 L NC. 4. DM 2: Monitor BS TIDAC. Novolog SSI with meals. 5. CAD: Continue statin and ASA. Has known L carotid stenosis, asymptomatic has planned surgical intervention in coming months. 6. Anemia: Stable, will monitor. Continue Iron. Reports black stools, due to stable Hgb will monitor. If Hgb dips will consider hemoccult due to use of Pradaxa. VTE prophylaxis: Pradaxa Dispo: 2-3 days pending improvement. - Mortality Measure Prognosis:: Good
--- NOTE | 2019-07-01 14:49 | CR ---
Chest: Two views of the chest were obtained. Comparison: Previous chest x-ray of 04/22/19. Increasing lung markings are noted within the right chest from prior exam. Lungs are hyperinflated compatible with emphysematous change which appears worse on the left side. Stable blunting or pleural effusion is noted within the right base. Heart size is slightly enlarged. Sternotomy is noted with prosthetic heart valve. Degenerative change is noted within the spine. Impression: 1. Increasing lung markings within the right chest from prior exam. Findings may represent asymmetric pulmonary vascular congestion within the right chest with asymmetry caused by the asymmetric emphysematous change within the left chest. 2. Slight cardiomegaly. 3. Stable blunting of the right lateral costophrenic angle are stable pleural effusion. Diagnostic code #3 This report was dictated in [place] Standard Time MTDD
[2019-07-01] MEDS: Insulin Aspart 100 Units/ML 3 ML Pen SUBCUT SCH (18:05)
[2019-07-01] MEDS: Simvastatin 40 MG Tab PO SCH (20:41)
[2019-07-01] MEDS: Budesonide/Formoterol 160-4.5 MCG/Puff 6 GM Inhaler INH SCH (20:42)
[2019-07-02 07:50] LABS: CARBON DIOXIDE,CO2 31.5 mmol/L (21.0-32.0); POTASSIUM,K 4.4 mmol/L (3.5-5.1)
[2019-07-02] MEDS: Insulin Aspart 100 Units/ML 3 ML Pen SUBCUT SCH ×3 (07:53→17:22)
--- NOTE | 2019-07-02 07:54 | CR ---
INDICATION: Shortness of breath. Congestive heart failure. TECHNIQUE: AP portable chest. FINDINGS: Sternotomy. Mediastinal clips. Atrial ligation clip on the left. Overall heart size is within normal limits accounting for patient positioning and degree of inspiration. The left lung is grossly clear. Increased interstitial markings on the right could reflect asymmetric interstitial edema or less likely pneumonitis. Minimal pleural fluid on the right. Mild degenerative change of the AC joints. IMPRESSION: 1. Asymmetric increased interstitial markings in the right lung relative to the left. Asymmetric interstitial edema is possible versus a diffuse interstitial pneumonitis. 2. Tiny right pleural effusion. 3. Sternotomy. Left atrial ligation clip. Dictated by Edmond Concepcion MD @ Jul 02 2019 7:53AM Signed by Dr. Edmond Concepcion @ Jul 02 2019 7:53AM
[2019-07-02] MEDS: Ferrous Sulfate 325 MG Tab PO SCH (08:04)
[2019-07-02] MEDS: Tamsulosin 0.4 MG Cap.ER PO SCH (08:05)
[2019-07-02] MEDS: Furosemide 40 MG/4 ML VIAL IVPUSH SCH ×2 (08:05→14:11)
[2019-07-02] MEDS: Digoxin 250 MCG Tab PO SCH (08:05)
[2019-07-02] MEDS: Omeprazole 20 MG Cap.CR PO SCH (08:05)
[2019-07-02] MEDS: Allopurinol 100 MG Tab PO SCH (08:05)
[2019-07-02] MEDS: Aspirin 81 MG Tab.Chew PO SCH (08:05)
--- NOTE | 2019-07-02 08:16 | PCM.PN ---
- General Info Date of Service: 07/02/19 Admission Dx/Problem (Free Text): Admission Diagnosis/Problem Admission Diagnosis/Problem CHF, Congestive heart failure Subjective Update: Feeling a little improved today. No chest pain. SOB improving slightly. Tolerated Bipap for short periods overnight. No palpitations. Lower leg edema improved. Functional Status: Reports: Pain Controlled, Tolerating Diet, Ambulating, Urinating - Review of Systems General: Reports: No Symptoms. Denies: Weakness, Fatigue, Malaise HEENT: Reports: No Symptoms Pulmonary: Reports: Shortness of Breath, Cough (dry). Denies: Sputum, Hemoptysis, Wheezing Cardiovascular: Reports: Dyspnea on Exertion, Edema (improved). Denies: Chest Pain, Palpitations Gastrointestinal: Reports: No Symptoms. Denies: Abdominal Pain, Nausea, Vomiting Musculoskeletal: Reports: No Symptoms Skin: Reports: No Symptoms Neurological: Reports: No Symptoms Psychiatric: Reports: No Symptoms - Patient Data Vitals - Most Recent: Last Vital Signs Temp 97.5 F 07/02/19 08:00 Pulse 82 07/02/19 08:05 Resp 22 H 07/02/19 08:00 BP 103/71 07/02/19 08:00 Pulse Ox 92 L 07/02/19 08:00 Weight - Most Recent: 65 kg I&O - Last 24 Hours: Intake & Output 07/01/19 07/02/19 07/02/19 22:59 06:59 14:59 Intake Total 220 300 Output Total 1550 1050 Balance -1330 -750 Lab Results Last 24 Hours: Laboratory Results - last 24 hr 07/01/19 07/01/19 07/01/19 Range/Units 11:18 11:18 13:20 WBC 8.09 (4.0-11.0) K/uL RBC 3.46 L (4.50-5.90) M/uL Hgb 10.4 L (13.0-17.0) g/dL Hct 32.2 L (38.0-50.0) % MCV 93.1 (80.0-98.0) fL MCH 30.1 (27.0-32.0) pg MCHC 32.3 (31.0-37.0) g/dL RDW Std Deviation 49.0 (28.0-62.0) fl RDW Coeff of Renetta 15 (11.0-15.0) % Plt Count 151 (150-400) K/uL MPV 10.70 (7.40-12.00) fL Neut % (Auto) 85.4 H (48.0-80.0) % Lymph % (Auto) 6.8 L (16.0-40.0) % [place] % (Auto) 6.8 (0.0-15.0) % Eos % (Auto) 0.9 (0.0-7.0) % Baso % (Auto) 0.1 (0.0-1.5) % Neut # (Auto) 6.9 H (1.4-5.7) K/uL Lymph # (Auto) 0.6 (0.6-2.4) K/uL [place] # (Auto) 0.6 (0.0-0.8) K/uL Eos # (Auto) 0.1 (0.0-0.7) K/uL Baso # (Auto) 0.0 (0.0-0.1) K/uL Nucleated RBC % /100WBC Nucleated RBCs # K/uL Sodium 136 (136-148) mmol/L Potassium 4.6 (3.5-5.1) mmol/L Chloride 100 (98-107) mmol/L Carbon Dioxide 28.4 (21.0-32.0) mmol/L BUN 21 H (7.0-18.0) mg/dL Creatinine 1.2 (0.8-1.3) mg/dL Est Cr Clr Drug Dosing TNP Estimated GFR (MDRD) 58.6 ml/min Glucose 120 H (74-106) mg/dL POC Glucose (60-110) mg/dL Calcium 8.7 (8.5-10.1) mg/dL Magnesium (1.8-2.4) mg/dL Total Bilirubin 0.5 (0.2-1.0) mg/dL AST 13 L (15-37) IU/L ALT 15 (14-63) IU/L Alkaline Phosphatase 78 (46-116) U/L B-Natriuretic Peptide 132 H (<100) PG/ML Total Protein 7.4 (6.4-8.2) g/dL Albumin 3.0 L (3.4-5.0) g/dL Globulin 4.4 H (2.6-4.0) g/dL Albumin/Globulin Ratio 0.7 L (0.9-1.6) 07/01/19 07/02/19 07/02/19 Range/Units 18:03 07:12 07:12 WBC 6.97 (4.0-11.0) K/uL RBC 3.76 L (4.50-5.90) M/uL Hgb 10.8 L (13.0-17.0) g/dL Hct 35.5 L (38.0-50.0) % MCV 94.4 (80.0-98.0) fL MCH 28.7 (27.0-32.0) pg MCHC 30.4 L (31.0-37.0) g/dL RDW Std Deviation 54.5 (28.0-62.0) fl RDW Coeff of Renetta 16 H (11.0-15.0) % Plt Count 162 (150-400) K/uL MPV 10.90 (7.40-12.00) fL Neut % (Auto) 74.0 (48.0-80.0) % Lymph % (Auto) 14.2 L (16.0-40.0) % [place] % (Auto) 9.2 (0.0-15.0) % Eos % (Auto) 2.3 (0.0-7.0) % Baso % (Auto) 0.3 (0.0-1.5) % Neut # (Auto) 5.2 (1.4-5.7) K/uL Lymph # (Auto) 1.0 (0.6-2.4) K/uL [place] # (Auto) 0.6 (0.0-0.8) K/uL Eos # (Auto) 0.2 (0.0-0.7) K/uL Baso # (Auto) 0.0 (0.0-0.1) K/uL Nucleated RBC % 0.0 /100WBC Nucleated RBCs # 0 K/uL Sodium 141 (136-148) mmol/L Potassium 4.4 (3.5-5.1) mmol/L Chloride 102 (98-107) mmol/L Carbon Dioxide 31.5 (21.0-32.0) mmol/L BUN 19 H (7.0-18.0) mg/dL Creatinine 1.2 (0.8-1.3) mg/dL Est Cr Clr Drug Dosing 46.64 Estimated GFR (MDRD) 58.6 ml/min Glucose 80 (74-106) mg/dL POC Glucose 129 H (60-110) mg/dL Calcium 9.0 (8.5-10.1) mg/dL Magnesium 1.9 (1.8-2.4) mg/dL Total Bilirubin (0.2-1.0) mg/dL AST (15-37) IU/L ALT (14-63) IU/L Alkaline Phosphatase (46-116) U/L B-Natriuretic Peptide (<100) PG/ML Total Protein (6.4-8.2) g/dL Albumin (3.4-5.0) g/dL Globulin (2.6-4.0) g/dL Albumin/Globulin Ratio (0.9-1.6) Med Orders - Current: Current Medications Acetaminophen (Tylenol) 650 mg PO Q4H PRN PRN Reason: Pain (mild 1-3) Albuterol/Ipratropium (Duoneb 3.0-0.5 Mg/3 Ml) 3 ml NEB Q4HRRT PRN PRN Reason: Shortness Of Breath/wheezing Allopurinol (Zyloprim) 300 mg PO DAILY [facility] Last Admin: 07/02/19 08:05 Dose: 300 mg Aspirin (Aspirin) 81 mg PO DAILY [facility] Last Admin: 07/02/19 08:05 Dose: 81 mg Dabigatran (Pradaxa) 150 mg PO BID [facility] Last Admin: 07/02/19 08:04 Dose: 150 mg Digoxin (Lanoxin) 250 mcg PO DAILY [facility] Last Admin: 07/02/19 08:05 Dose: 250 mcg Ferrous Sulfate (Ferrous Sulfate) 325 mg PO WITHBREAKFAST [facility] Last Admin: 07/02/19 08:04 Dose: 325 mg Furosemide (Lasix) 40 mg IVPUSH BIDDIURETIC [facility] Last Admin: 07/02/19 08:05 Dose: 40 mg Insulin Aspart (Novolog) 0 unit SUBCUT TIDAC [facility]; Protocol Last Admin: 07/02/19 07:53 Dose: Not Given Omeprazole (Omeprazole) 20 mg PO ACBREAKFAST [facility] Last Admin: 07/02/19 08:05 Dose: 20 mg Ondansetron HCl (Zofran Odt) 4 mg PO Q4H PRN PRN Reason: nausea, able to take PO Budesonide/Formoterol 160-4.5 Mcg/Puff 6 Gm Inhaler 0 each INH BID [facility] Last Admin: 07/01/19 20:42 Dose: Not Given Simvastatin (Zocor) 80 mg PO BEDTIME [facility] Last Admin: 07/01/19 20:41 Dose: 80 mg Sodium Chloride (Saline Flush) 2.5 ml FLUSH ASDIRECTED PRN PRN Reason: Keep Vein Open Tamsulosin HCl (Flomax) 0.4 mg PO PCBREAKFAST [facility] Last Admin: 07/02/19 08:05 Dose: 0.4 mg Tiotropium [place] (Spiriva Handihaler) 0 mcg INH DAILY [facility] Discontinued Medications Furosemide (Lasix) 40 mg IVPUSH NOW ONE Stop: 07/01/19 13:08 Last Admin: 07/01/19 14:52 Dose: 40 mg - Exam General: Alert, Oriented, Cooperative, No Acute Distress Lungs: Decreased Breath Sounds. No: Normal Respiratory Effort (dyspnea with speech, using accessory muscles) Cardiovascular: Regular Rate, Irregular Rhythm GI/Abdominal Exam: Normal Bowel Sounds, Soft, Non-Tender Extremities: Normal Inspection, Normal Range of Motion, Non-Tender, Pedal Edema (+1 pitting BLE) Neurological: No New Focal Deficit Psy/Mental Status: Alert, Normal Affect, Normal Mood - Problem List & Annotations (1) Heart failure with preserved ejection fraction SNOMED Code(s): 401482866 Code(s): I50.30 - UNSPECIFIED DIASTOLIC (CONGESTIVE) HEART FAILURE Status: Acute Current Visit: Yes Qualifiers: Heart failure chronicity: acute on chronic Qualified Code(s): I50.33 - Acute on chronic diastolic (congestive) heart failure (2) History of CVA (cerebrovascular accident) SNOMED Code(s): 227083648 Code(s): Z86.73 - PRSNL HX OF TIA (TIA), AND CEREB INFRC W/O RESID DEFICITS Status: Acute Current Visit: Yes (3) Carotid stenosis Status: Chronic Current Visit: Yes Qualifiers: Laterality: left Qualified Code(s): I65.22 - Occlusion and stenosis of left carotid artery (4) COPD (chronic obstructive pulmonary disease) SNOMED Code(s): 30929453 Code(s): J44.9 - CHRONIC OBSTRUCTIVE PULMONARY DISEASE, UNSPECIFIED Status : Chronic Current Visit: Yes (5) Afib SNOMED Code(s): 72314839 Code(s): I48.91 - UNSPECIFIED ATRIAL FIBRILLATION Status: Chronic Current Visit: Yes Qualifiers: Atrial fibrillation type: permanent Qualified Code(s): I48.21 - Permanent atrial fibrillation (6) Coronary arteriosclerosis SNOMED Code(s): 72870298 Code(s): I25.10 - ATHSCL HEART DISEASE OF [place] CORONARY ARTERY W/O ANG PCTRS Status: Chronic Current Visit: No (7) Diabetes mellitus SNOMED Code(s): 77853573 Code(s): E11.9 - TYPE 2 DIABETES MELLITUS WITHOUT COMPLICATIONS Status: Chronic Current Visit: No Qualifiers: Diabetes mellitus type: type 2 Diabetes mellitus alf insulin use: without alf use (8) GERD (gastroesophageal reflux disease) SNOMED Code(s): 606186233 Code(s): K21.9 - GASTRO-ESOPHAGEAL REFLUX DISEASE WITHOUT ESOPHAGITIS Status: Chronic Current Visit: No (9) S/P CABG (coronary artery bypass graft) SNOMED Code(s): 690190042, 154213591, 684839608 Code(s): Z95.1 - PRESENCE OF AORTOCORONARY BYPASS GRAFT Status: Chronic Current Visit: No (10) Oxygen dependent SNOMED Code(s): 880077579648 Code(s): Z99.81 - DEPENDENCE ON SUPPLEMENTAL OXYGEN Status: Chronic Current Visit: Yes - Problem List Review Problem List Initiated/Reviewed/Updated: Yes - My Orders Last 24 Hours: My Active Orders 07/01/19 13:02 Patient Status [ADT] Routine Height and Weight [RC] DAILY Intake and Output Strict [RC] Q12H Oxygen Therapy [RC] PRN Up With Assistance [RC] ASDIRECTED VTE/DVT Education [RC] PER UNIT ROUTINE Vital Signs [RC] Q4H Acetaminophen [Tylenol] 650 mg PO Q4H PRN Albuterol/Ipratropium [DuoNeb 3.0-0.5 MG/3 ML] 3 ml NEB Q4HRRT PRN Ondansetron [Zofran ODT] 4 mg PO Q4H PRN Sodium Chloride 0.9% [Saline Flush] 2.5 ml FLUSH ASDIRECTED PRN Saline Lock Insert [OM.PC] Routine Resuscitation Status Routine 07/01/19 13:06 RT Aerosol Therapy [RC] ASDIRECTED 07/01/19 13:13 Echo Comp wo Cont [US] Routine 07/01/19 13:19 Blood Glucose Check, Bedside [RC] TIDAC 07/01/19 13:54 BIPAP Adult [RT BiPAP/CPAP] [RC] ASDIRECTED 07/01/19 15:27 Telemetry Monitoring [Cardiac Monitoring] [RC] Q8H 07/01/19 17:00 Insulin Aspart [NovoLOG] See Protocol SUBCUT TIDAC 07/01/19 21:00 Dabigatran [Pradaxa] 150 mg PO BID Patient's Own Medication [Ptom] 0 each INH BID Simvastatin [Zocor] 80 mg PO BEDTIME 07/01/19 Lunch 2 Gram Sodium Diet [DIET] 07/02/19 07:30 Omeprazole 20 mg PO ACBREAKFAST 07/02/19 08:00 Ferrous Sulfate 325 mg PO WITHBREAKFAST Furosemide [Lasix] 40 mg IVPUSH BIDDIURETIC 07/02/19 08:30 Tamsulosin [Flomax] 0.4 mg PO PCBREAKFAST 07/02/19 09:00 Allopurinol [Zyloprim] 300 mg PO DAILY Aspirin 81 mg PO DAILY Digoxin [Lanoxin] 250 mcg PO DAILY Tiotropium [Spiriva HandiHaler] 0 mcg INH DAILY 07/03/19 05:11 BASIC METABOLIC PANEL,BMP [CHEM] AM CBC WITH AUTO DIFF [HEME] AM MAGNESIUM [CHEM] AM 07/04/19 05:11 BASIC METABOLIC PANEL,BMP [CHEM] AM CBC WITH AUTO DIFF [HEME] AM MAGNESIUM [CHEM] AM - Plan Plan:: This 79 year old male admitted with acute on chronic heart failure exacerbation , diastolic. 1. HFpEF: acute on chronic, improving with Lasix 40 mg IV BID, will continue this. Strict I/O, daily weights, Low NA diet 1.8 L FR. ECHO pending. Bipap for fluid mobilization, monitor. Ok to hold if he does not tolerate. 2. Afib: Stable. Continue Digoxin and Pradaxa. 3. COPD: Severe COPD, stable no wheezing. Will continue home inhalers, Dunebs PRN. Oxygen 2 L NC. 4. DM 2: Monitor BS TIDAC. Novolog SSI with meals. 5. CAD: Continue statin and ASA. Has known L carotid stenosis, asymptomatic has planned surgical intervention in coming months. 6. Anemia: Stable, will monitor. Continue Iron. Reports black stools, due to stable Hgb will monitor. If Hgb dips will consider hemoccult due to use of Pradaxa. VTE prophylaxis: Pradaxa Dispo: 1-2 days
[2019-07-02] MEDS: Tiotropium Inhaler 18 MCG Inhalation Powder Cap Kit of 5 INH SCH (08:46)
[2019-07-02] MEDS: Budesonide/Formoterol 160-4.5 MCG/Puff 6 GM Inhaler INH SCH ×2 (08:48→21:07)
[2019-07-02] MEDS: Simvastatin 40 MG Tab PO SCH (20:50)
[2019-07-02] MEDS ORDERED: Calcium Carbonate 500 MG Tab.Chew PO PRN (21:34)
[2019-07-03 05:50] LABS: CARBON DIOXIDE,CO2 33.4 mmol/L (21.0-32.0); POTASSIUM,K 3.9 mmol/L (3.5-5.1)
[2019-07-03] MEDS: Insulin Aspart 100 Units/ML 3 ML Pen SUBCUT SCH (07:46)
[2019-07-03] MEDS: Ferrous Sulfate 325 MG Tab PO SCH (08:07)
[2019-07-03] MEDS: Omeprazole 20 MG Cap.CR PO SCH (08:07)
[2019-07-03] MEDS: Furosemide 40 MG/4 ML VIAL IVPUSH SCH ×2 (08:08→10:27)
[2019-07-03] MEDS: Tamsulosin 0.4 MG Cap.ER PO SCH (08:08)
[2019-07-03] MEDS: Allopurinol 100 MG Tab PO SCH (08:08)
[2019-07-03] MEDS: Digoxin 250 MCG Tab PO SCH (08:08)
[2019-07-03] MEDS: Aspirin 81 MG Tab.Chew PO SCH (08:08)
[2019-07-03] MEDS: Tiotropium Inhaler 18 MCG Inhalation Powder Cap Kit of 5 INH SCH (08:16)
[2019-07-03] MEDS: Budesonide/Formoterol 160-4.5 MCG/Puff 6 GM Inhaler INH SCH (08:20)
[2019-07-03] MEDS ORDERED: Furosemide 40 MG Tab PO ONE (09:34)
[2019-07-03] MEDS ORDERED: Furosemide 20 MG Tab PO ONE (11:04)
--- NOTE | 2019-07-03 11:51 | PCM.DCSUM1 ---
<Wendy Muñiz - Last Filed: 07/03/19 20:47> Discharge Summary - Hospital Course Brief History: This 79 year old male with pmh of CAD, s/p CABG x 2 in March 2019, COPD, DM2, and Afib on Pradaxa presented to the Cardiology clinic to see Dr. Abdul for increased shortness of breath and worsening leg edema. He reports he has been taking his albuterol more often but it doesnt seem to help. He denies productive cough and no overt wheezing he can hear. He reports he has SOB lying down and is most comfortable actually standing up to catch his breath. He is unsure of dry weight. He reports he has been taking 40 mg PO Lasix daily. Denies chest pain or palpitations. No fevers or chills. Generalized weakness secondary to dyspnea. No abdominal pain, no urinary concerns. No bloody stools, reports they are black but he takes iron. No GERD or heartburn. He is on 2 L NC at home. In the clinic he was noted to be sating 86% on 2 L. In the clinic BMP obtained BUN [address] Abdul recommended admission for CHF exacerbation. Diagnosis: Stroke: No - Discharge Data Discharge Date: 07/03/19 Discharge Disposition: Home, Self-Care 01 Condition: Good - Referral to Home Health Primary Care Physician: PCP Unobtainable - Discharge Diagnosis/Problem(s) (1) Heart failure with preserved ejection fraction SNOMED Code(s): 848129068 ICD Code: I50.30 - UNSPECIFIED DIASTOLIC (CONGESTIVE) HEART FAILURE Status : Acute Qualifiers: Heart failure chronicity: acute on chronic Qualified Code(s): I50.33 - Acute on chronic diastolic (congestive) heart failure (2) History of CVA (cerebrovascular accident) SNOMED Code(s): 467075411 ICD Code: Z86.73 - PRSNL HX OF TIA (TIA), AND CEREB INFRC W/O RESID DEFICITS Status: Acute (3) Carotid stenosis Status: Chronic Qualifiers: Laterality: left Qualified Code(s): I65.22 - Occlusion and stenosis of left carotid artery (4) COPD (chronic obstructive pulmonary disease) SNOMED Code(s): 27657396 ICD Code: J44.9 - CHRONIC OBSTRUCTIVE PULMONARY DISEASE, UNSPECIFIED Status : Chronic (5) Afib SNOMED Code(s): 74458908 ICD Code: I48.91 - UNSPECIFIED ATRIAL FIBRILLATION Status: Chronic Qualifiers: Atrial fibrillation type: permanent Qualified Code(s): I48.21 - Permanent atrial fibrillation (6) Coronary arteriosclerosis SNOMED Code(s): 59048543 ICD Code: I25.10 - ATHSCL HEART DISEASE OF [place] CORONARY ARTERY W/O ANG PCTRS Status: Chronic (7) Diabetes mellitus SNOMED Code(s): 15480680 ICD Code: E11.9 - TYPE 2 DIABETES MELLITUS WITHOUT COMPLICATIONS Status: Chronic Qualifiers: Diabetes mellitus type: type 2 Diabetes mellitus half-way insulin use: without continuous churn buttermaker use (8) GERD (gastroesophageal reflux disease) SNOMED Code(s): 250324983 ICD Code: K21.9 - GASTRO-ESOPHAGEAL REFLUX DISEASE WITHOUT ESOPHAGITIS Status: Chronic (9) S/P CABG (coronary artery bypass graft) SNOMED Code(s): 613758128, 471786611, 939611626 ICD Code: Z95.1 - PRESENCE OF AORTOCORONARY BYPASS GRAFT Status: Chronic (10) Oxygen dependent SNOMED Code(s): 581360001318 ICD Code: Z99.81 - DEPENDENCE ON SUPPLEMENTAL OXYGEN Status: Chronic - Patient Instructions Diet: Heart Healthy Diet, Low Sodium, Diabetic Diet Activity: No Strenuous Activities Showering/Bathing: May Shower Notify Provider of: Fever, Increased Pain, Swelling and Redness, Drainage, Nausea and/or Vomiting Other/Special Instructions: weigh your self daily and keep a journal. If yo unotice a 3-5 lb weight gain in 2-[address] Abdul - Discharge Plan *PRESCRIPTION DRUG MONITORING PROGRAM REVIEWED*: Not Applicable *COPY OF PRESCRIPTION DRUG MONITORING REPORT IN PATIENT BI: Not Applicable Prescriptions/Med Rec: Furosemide [Lasix] 60 mg PO DAILY 10 Days #15 tab Home Medications: Home Meds Albuterol [Proventil HFA] 2 puff INH Q4H PRN 11/05/17 [History] Allopurinol [Zyloprim] 300 mg PO DAILY 11/05/17 [History] Budesonide/Formoterol Fumarate [Symbicort 160-4.5 Mcg Inhaler] 2 puff INH BID [History] Omeprazole 20 mg PO ACBREAKFAST 11/05/17 [History] Simvastatin [Zocor] 80 mg PO BEDTIME 11/05/17 [History] Tiotropium [Spiriva HandiHaler] 1 caplet INH DAILY 11/05/17 [History] metFORMIN HCl [Metformin HCl] 500 mg PO BIDMEALS 11/05/17 [History] Dabigatran [Pradaxa] 150 mg PO BID 12/30/18 [History] Acetaminophen [Tylenol] 650 mg PO Q8H PRN 04/12/19 [History] Aspirin 81 mg PO DAILY 04/12/19 [History] Cyanocobalamin (Vitamin B-12) [B-12] 1,000 mcg PO DAILY 04/12/19 [History] Ferrous Sulfate 325 mg PO WITHBREAKFAST 04/12/19 [History] Nitroglycerin [Nitrostat] 0.4 mg SL Q5M PRN tab.sl 04/14/19 [Rx] Digoxin 250 mcg PO DAILY 07/01/19 [History] Tamsulosin HCl [Flomax] 0.4 mg PO DAILY 07/01/19 [History] Furosemide [Lasix] 60 mg PO DAILY 10 Days #15 tab 07/03/19 [Rx] Oxygen Therapy Mode: Nasal Cannula Oxygen Flow Rate (L/min): 2 (May increase to 4 L with activity) Maintain SpO2% greater than: 88 Patient Handouts: Furosemide tablets, Heart-Healthy Eating Plan, Vyha-ro-Nubd, Low-Sodium Eating Plan, Heart Failure, Exgi-os-Lboy, Cooking With Less Salt, Form - Daily Weight Record Referrals: [facility] [Outside] Trudy Tai,Lucita [Ordering Only Provider] - Tiburcio Abdul MD [Physician] - 07/09/19 2:30 pm Robert Quintero NP [Ordering Only Provider] - 07/16/19 1:30 pm - Discharge Summary/Plan Comment DC Time >30 min.: No Discharge Summary/Plan Comment: Admitting Diagnoses: HFpEF with acute exacerbation Hypoxia Discharge Diagnoses: HFpEF with acute exacerbation Other PMH: Severe COPD Oxygen dependent Carotid stenosis, L Hx CABG x 2 CAD Afib on anticoagulation DM Type 2 Carlito was admitted and treated for acute CHF exacerbation with Lasix 40 mg IV. He diuresed well over the last two days. He was down approximately 4 kg, from 65 kg to 61kg. He was sating low 90s on baseline 2 L NC. He did continue to have dyspnea with exertion, but this is likely secondary to severe COPD. Encouraged to increase oxygen with ambulating and activity to 3-4 L NC and then turn down after activity is complete. Peripheral edema significantly improved, encouraged him to get compression stocking that went just below knee if possible , previous stockings were mid calf and very constrictive. He was counseled to monitor weight and journal at home, if weight increased by 3-5 lbs in 2-3 days he should notify Dr Abdul of this and will need to increase Lasix potentially. He will be discharged home today with increase in Lasix to 60 mg daily for now. He is to follow up with Dr Abdul next week. He is to return to ED or clinic if concerns should arise. - Patient Data Vitals - Most Recent: Last Vital Signs Temp 97.0 F 07/03/19 07:43 Pulse 99 07/03/19 08:08 Resp 19 07/03/19 07:43 BP 107/67 07/03/19 07:43 Pulse Ox 92 L 07/03/19 07:59 Weight - Most Recent: 61.774 kg I&O - Last 24 hours: Intake & Output 07/02/19 07/03/19 07/03/19 22:59 06:59 14:59 Intake Total 500 750 Output Total 1125 1125 Balance -625 -375 Lab Results - Last 24 hrs: Laboratory Results - last 24 hr 07/02/19 07/02/19 07/02/19 Range/Units 07:12 07:45 12:31 WBC (4.0-11.0) K/uL RBC (4.50-5.90) M/uL Hgb (13.0-17.0) g/dL Hct (38.0-50.0) % MCV (80.0-98.0) fL MCH (27.0-32.0) pg MCHC (31.0-37.0) g/dL RDW Std Deviation (28.0-62.0) fl RDW Coeff of Renetta (11.0-15.0) % Plt Count (150-400) K/uL MPV (7.40-12.00) fL Neut % (Auto) (48.0-80.0) % Lymph % (Auto) (16.0-40.0) % [place] % (Auto) (0.0-15.0) % Eos % (Auto) (0.0-7.0) % Baso % (Auto) (0.0-1.5) % Neut # (Auto) (1.4-5.7) K/uL Lymph # (Auto) (0.6-2.4) K/uL [place] # (Auto) (0.0-0.8) K/uL Eos # (Auto) (0.0-0.7) K/uL Baso # (Auto) (0.0-0.1) K/uL Nucleated RBC % /100WBC Nucleated RBCs # K/uL Sodium (136-148) mmol/L Potassium (3.5-5.1) mmol/L Chloride (98-107) mmol/L Carbon Dioxide (21.0-32.0) mmol/L BUN (7.0-18.0) mg/dL Creatinine (0.8-1.3) mg/dL Est Cr Clr Drug Dosing mL/min Estimated GFR (MDRD) ml/min Glucose (74-106) mg/dL POC Glucose 72 123 H (60-110) mg/dL Calcium (8.5-10.1) mg/dL Magnesium (1.8-2.4) mg/dL B-Natriuretic Peptide 168 H (<100) PG/ML 07/02/19 07/03/19 07/03/19 Range/Units 16:50 05:20 05:20 WBC 7.89 (4.0-11.0) K/uL RBC 3.73 L (4.50-5.90) M/uL Hgb 11.0 L (13.0-17.0) g/dL Hct 34.8 L (38.0-50.0) % MCV 93.3 (80.0-98.0) fL MCH 29.5 (27.0-32.0) pg MCHC 31.6 (31.0-37.0) g/dL RDW Std Deviation 52.3 (28.0-62.0) fl RDW Coeff of Renetta 15 (11.0-15.0) % Plt Count 158 (150-400) K/uL MPV 10.50 (7.40-12.00) fL Neut % (Auto) 75.6 (48.0-80.0) % Lymph % (Auto) 12.7 L (16.0-40.0) % [place] % (Auto) 8.7 (0.0-15.0) % Eos % (Auto) 2.7 (0.0-7.0) % Baso % (Auto) 0.3 (0.0-1.5) % Neut # (Auto) 6.0 H (1.4-5.7) K/uL Lymph # (Auto) 1.0 (0.6-2.4) K/uL [place] # (Auto) 0.7 (0.0-0.8) K/uL Eos # (Auto) 0.2 (0.0-0.7) K/uL Baso # (Auto) 0.0 (0.0-0.1) K/uL Nucleated RBC % 0.0 /100WBC Nucleated RBCs # 0 K/uL Sodium 139 (136-148) mmol/L Potassium 3.9 (3.5-5.1) mmol/L Chloride 102 (98-107) mmol/L Carbon Dioxide 33.4 H (21.0-32.0) mmol/L BUN 24 H (7.0-18.0) mg/dL Creatinine 1.3 (0.8-1.3) mg/dL Est Cr Clr Drug Dosing 40.92 mL/min Estimated GFR (MDRD) 53.4 ml/min Glucose 114 H (74-106) mg/dL POC Glucose 116 H (60-110) mg/dL Calcium 8.9 (8.5-10.1) mg/dL Magnesium 1.9 (1.8-2.4) mg/dL B-Natriuretic Peptide (<100) PG/ML 07/03/19 Range/Units 07:20 WBC (4.0-11.0) K/uL RBC (4.50-5.90) M/uL Hgb (13.0-17.0) g/dL Hct (38.0-50.0) % MCV (80.0-98.0) fL MCH (27.0-32.0) pg MCHC (31.0-37.0) g/dL RDW Std Deviation (28.0-62.0) fl RDW Coeff of Renetta (11.0-15.0) % Plt Count (150-400) K/uL MPV (7.40-12.00) fL Neut % (Auto) (48.0-80.0) % Lymph % (Auto) (16.0-40.0) % [place] % (Auto) (0.0-15.0) % Eos % (Auto) (0.0-7.0) % Baso % (Auto) (0.0-1.5) % Neut # (Auto) (1.4-5.7) K/uL Lymph # (Auto) (0.6-2.4) K/uL [place] # (Auto) (0.0-0.8) K/uL Eos # (Auto) (0.0-0.7) K/uL Baso # (Auto) (0.0-0.1) K/uL Nucleated RBC % /100WBC Nucleated RBCs # K/uL Sodium (136-148) mmol/L Potassium (3.5-5.1) mmol/L Chloride (98-107) mmol/L Carbon Dioxide (21.0-32.0) mmol/L BUN (7.0-18.0) mg/dL Creatinine (0.8-1.3) mg/dL Est Cr Clr Drug Dosing mL/min Estimated GFR (MDRD) ml/min Glucose (74-106) mg/dL POC Glucose 104 (60-110) mg/dL Calcium (8.5-10.1) mg/dL Magnesium (1.8-2.4) mg/dL B-Natriuretic Peptide (<100) PG/ML Med Orders - Current: Current Medications Acetaminophen (Tylenol) 650 mg PO Q4H PRN PRN Reason: Pain (mild 1-3) Albuterol/Ipratropium (Duoneb 3.0-0.5 Mg/3 Ml) 3 ml NEB Q4HRRT PRN PRN Reason: Shortness Of Breath/wheezing Allopurinol (Zyloprim) 300 mg PO DAILY [facility] Last Admin: 07/03/19 08:08 Dose: 300 mg Aspirin (Aspirin) 81 mg PO DAILY [facility] Last Admin: 07/03/19 08:08 Dose: 81 mg Calcium Carbonate/Glycine (Tums) 1,000 mg PO TID PRN PRN Reason: Heartburn Last Admin: 07/02/19 21:47 Dose: 1,000 mg Dabigatran (Pradaxa) 150 mg PO BID [facility] Last Admin: 07/03/19 08:08 Dose: 150 mg Digoxin (Lanoxin) 250 mcg PO DAILY [facility] Last Admin: 07/03/19 08:08 Dose: 250 mcg Ferrous Sulfate (Ferrous Sulfate) 325 mg PO WITHBREAKFAST [facility] Last Admin: 07/03/19 08:07 Dose: 325 mg Insulin Aspart (Novolog) 0 unit SUBCUT TIDAC [facility]; Protocol Last Admin: 07/03/19 07:46 Dose: Not Given Omeprazole (Omeprazole) 20 mg PO ACBREAKFAST [facility] Last Admin: 07/03/19 08:07 Dose: 20 mg Ondansetron HCl (Zofran Odt) 4 mg PO Q4H PRN PRN Reason: nausea, able to take PO Budesonide/Formoterol 160-4.5 Mcg/Puff 6 Gm Inhaler 0 each INH BID [facility] Last Admin: 07/03/19 08:20 Dose: Not Given Simvastatin (Zocor) 80 mg PO BEDTIME [facility] Last Admin: 07/02/19 20:50 Dose: 80 mg Sodium Chloride (Saline Flush) 2.5 ml FLUSH ASDIRECTED PRN PRN Reason: Keep Vein Open Tamsulosin HCl (Flomax) 0.4 mg PO PCBREAKFAST [facility] Last Admin: 07/03/19 08:08 Dose: 0.4 mg Tiotropium [place] (Spiriva Handihaler) 0 mcg INH DAILY [facility] Last Admin: 07/03/19 08:16 Dose: 1 inhalation Discontinued Medications Furosemide (Lasix) 40 mg IVPUSH NOW ONE Stop: 07/01/19 13:08 Last Admin: 07/01/19 14:52 Dose: 40 mg Furosemide (Lasix) 40 mg IVPUSH BIDDIURETIC [facility] Last Admin: 07/03/19 10:27 Dose: Not Given Furosemide (Lasix) 40 mg PO ONETIME ONE Stop: 07/03/19 09:35 Last Admin: 07/03/19 10:42 Dose: 40 mg Furosemide (Lasix) 20 mg PO ONETIME ONE Stop: 07/03/19 11:05 Last Admin: 07/03/19 11:17 Dose: 20 mg - Exam General: Reports: Alert, Oriented, Cooperative Neck: Reports: Supple. Denies: JVD Lungs: Reports: Clear to Auscultation. Denies: Normal Respiratory Effort (mild dyspnea with activity noted.), Wheezing Cardiovascular: Reports: Regular Rate, Irregular Rhythm GI/Abdominal Exam: Normal Bowel Sounds, Soft, Non-Tender Back Exam: Reports: Normal Inspection, Full Range of Motion Extremities: Pedal Edema (scant to +1 non pitting BLE) Skin: Reports: Warm, Dry Neurological: Reports: No New Focal Deficit Psy/Mental Status: Reports: Alert, Normal Affect, Normal Mood <Yash Salmon J - Last Filed: 07/04/19 18:46> Discharge Summary - Referral to Home Health Primary Care Physician: PCP Unobtainable - Patient Data Vitals - Most Recent: Last Vital Signs Temp 36.1 C 07/03/19 07:43 Pulse 99 07/03/19 08:08 Resp 19 07/03/19 07:43 BP 107/67 07/03/19 07:43 Pulse Ox 92 L 07/03/19 07:59 Med Orders - Current: Current Medications Discontinued Medications Acetaminophen (Tylenol) 650 mg PO Q4H PRN PRN Reason: Pain (mild 1-3) Albuterol/Ipratropium (Duoneb 3.0-0.5 Mg/3 Ml) 3 ml NEB Q4HRRT PRN PRN Reason: Shortness Of Breath/wheezing Allopurinol (Zyloprim) 300 mg PO DAILY [facility] Last Admin: 07/03/19 08:08 Dose: 300 mg Aspirin (Aspirin) 81 mg PO DAILY [facility] Last Admin: 07/03/19 08:08 Dose: 81 mg Calcium Carbonate/Glycine (Tums) 1,000 mg PO TID PRN PRN Reason: Heartburn Last Admin: 07/02/19 21:47 Dose: 1,000 mg Dabigatran (Pradaxa) 150 mg PO BID [facility] Last Admin: 07/03/19 08:08 Dose: 150 mg Digoxin (Lanoxin) 250 mcg PO DAILY [facility] Last Admin: 07/03/19 08:08 Dose: 250 mcg Ferrous Sulfate (Ferrous Sulfate) 325 mg PO WITHBREAKFAST [facility] Last Admin: 07/03/19 08:07 Dose: 325 mg Furosemide (Lasix) 40 mg IVPUSH NOW ONE Stop: 07/01/19 13:08 Last Admin: 07/01/19 14:52 Dose: 40 mg Furosemide (Lasix) 40 mg IVPUSH BIDDIURETIC [facility] Last Admin: 07/03/19 10:27 Dose: Not Given Furosemide (Lasix) 40 mg PO ONETIME ONE Stop: 07/03/19 09:35 Last Admin: 07/03/19 10:42 Dose: 40 mg Furosemide (Lasix) 20 mg PO ONETIME ONE Stop: 07/03/19 11:05 Last Admin: 07/03/19 11:17 Dose: 20 mg Insulin Aspart (Novolog) 0 unit SUBCUT TIDAC [facility]; Protocol Last Admin: 07/03/19 07:46 Dose: Not Given Omeprazole (Omeprazole) 20 mg PO ACBREAKFAST [facility] Last Admin: 07/03/19 08:07 Dose: 20 mg Ondansetron HCl (Zofran Odt) 4 mg PO Q4H PRN PRN Reason: nausea, able to take PO Budesonide/Formoterol 160-4.5 Mcg/Puff 6 Gm Inhaler 0 each INH BID [facility] Last Admin: 07/03/19 08:20 Dose: Not Given Simvastatin (Zocor) 80 mg PO BEDTIME [facility] Last Admin: 07/02/19 20:50 Dose: 80 mg Sodium Chloride (Saline Flush) 2.5 ml FLUSH ASDIRECTED PRN PRN Reason: Keep Vein Open Tamsulosin HCl (Flomax) 0.4 mg PO PCBREAKFAST [facility] Last Admin: 07/03/19 08:08 Dose: 0.4 mg Tiotropium [place] (Spiriva Handihaler) 0 mcg INH DAILY [facility] Last Admin: 07/03/19 08:16 Dose: 1 inhalation - Free Text/Narrative Note: I have seen and examined the patient with the resident. I have discussed findings and treatment plan with the resident. I agree with the assessment and plan outlined in the following note.
--- NOTE | 2019-07-04 13:17 | ECHO ---
EXAM DATE: 07/01/19 PATIENT'S AGE: 79 The echocardiogram report can be seen in this patient's EMR (Electronic Medical Record) in the Reports section. This report has also been scanned into PACs. [facility]
== END 2019-07-03 12:30 | disposition home or self-care (01) | DRG 292 ==
LOC: MW.CHIM 11:10 → MW.ICU 12:16
PROVIDERS: ADMIT Student in an Organized Health Care Education/Training Program; ATTEND Student in an Organized Health Care Education/Training Program
DX: I11.0 Hypertensive heart disease with heart failure (principal); I48.21 Permanent atrial fibrillation; I50.33 Acute on chronic diastolic (congestive) heart failure; J44.9 Chronic obstructive pulmonary disease, unspecified; I25.10 Atherosclerotic heart disease of native coronary artery without angina pectoris; I65.22 Occlusion and stenosis of left carotid artery; D64.9 Anemia, unspecified; E78.00 Pure hypercholesterolemia, unspecified; E11.9 Type 2 diabetes mellitus without complications; K21.9 Gastro-esophageal reflux disease without esophagitis; Z99.81 Dependence on supplemental oxygen; Z79.84 Long term (current) use of oral hypoglycemic drugs; Z79.899 Other long term (current) drug therapy; Z95.1 Presence of aortocoronary bypass graft; Z79.01 Long term (current) use of anticoagulants; Z79.82 Long term (current) use of aspirin; Z98.49 Cataract extraction status, unspecified eye; Z87.891 Personal history of nicotine dependence; Z86.73 Personal history of transient ischemic attack (TIA), and cerebral infarction without residual deficits
CPT/HCPCS: 36415; 71045; 71045-26; 71046; 71046-26; 80048; 80053; 82962; 83735; 83880; 85025; 93005; 93306; 94660; A9270-GY; J1940

== ENCOUNTER 2019-07-21 19:10 | Inpatient (IN) | payer MEDICARE, OTHER ==
[2019-07-21] MEDS ORDERED: Albuterol/Ipratropium 3.0-0.5 MG/3 ML Neb Soln ONE ×2 (19:21→20:52)
--- NOTE | 2019-07-21 20:09 | EDM.PDOC ---
ED HPI GENERAL MEDICAL PROBLEM - General Chief Complaint: Respiratory Problem Stated Complaint: FLU SYMPTOMS Time Seen by Provider: 07/21/19 20:07 Source of Information: Reports: Patient History Limitations: Reports: No Limitations - History of Present Illness INITIAL COMMENTS - FREE TEXT/NARRATIVE: 79-year-old male who presents the emergency room with a chief complaint of difficulty breathing for the last 3 days. Patient states he has a history of a recent cardiac cath a week ago and has been exposed to influenza by family members. Patient stated he has fever and chills and shortness of breath. Presented with O2 sat of apnea 78%. Patient was discharged on 2 L of O2 and has since been short of breath. Onset: Today, Gradual Duration: Day(s):, Getting Worse Location: Reports: Generalized Severity: Severe Improves with: Reports: None Worsens with: Reports: None Associated Symptoms: Reports: Cough, cough w sputum, Shortness of Breath. Denies: Chest Pain - Related Data Allergies Allergy/AdvReac Type Severity Reaction Status Date / Time No Known Allergies Allergy Verified 07/21/19 19:25 Home Meds: Home Meds Albuterol [Proventil HFA] 2 puff INH Q4H PRN 11/05/17 [History] Budesonide/Formoterol Fumarate [Symbicort 160-4.5 Mcg Inhaler] 2 puff INH BID [History] Omeprazole 20 mg PO ACBREAKFAST 11/05/17 [History] Simvastatin [Zocor] 80 mg PO BEDTIME 11/05/17 [History] Tiotropium [Spiriva HandiHaler] 1 caplet INH DAILY 11/05/17 [History] allopurinoL [Zyloprim] 300 mg PO DAILY 11/05/17 [History] metFORMIN HCl [Metformin HCl] 500 mg PO BIDMEALS 11/05/17 [History] Dabigatran [Pradaxa] 150 mg PO BID 12/30/18 [History] Acetaminophen [Tylenol] 650 mg PO Q8H PRN 04/12/19 [History] Aspirin 81 mg PO DAILY 04/12/19 [History] Cyanocobalamin (Vitamin B-12) [B-12] 1,000 mcg PO DAILY 04/12/19 [History] Ferrous Sulfate 325 mg PO WITHBREAKFAST 04/12/19 [History] Nitroglycerin [Nitrostat] 0.4 mg SL Q5M PRN tab.sl 04/14/19 [Rx] Digoxin 250 mcg PO DAILY 07/01/19 [History] Tamsulosin HCl [Flomax] 0.4 mg PO DAILY 07/01/19 [History] Furosemide [Lasix] 60 mg PO DAILY 10 Days #15 tab 07/03/19 [Rx] Past Medical History HEENT History: Reports: Glaucoma Other HEENT History: wears glasses, has top and bottom dentures Cardiovascular History: Reports: Afib, CAD, Heart Failure, High Cholesterol, Hypertension, Other (See Below) Respiratory History: Reports: COPD Other Respiratory History: Uses oxygen, and inhalers at home Gastrointestinal History: Reports: GERD, Other (See Below) Genitourinary History: Reports: None Musculoskeletal History: Reports: Gout Neurological History: Reports: CVA Psychiatric History: Reports: None Endocrine/Metabolic History: Reports: Diabetes, Type II Immunologic History: Reports: None Oncologic (Cancer) History: Reports: None Dermatologic History: Reports: None - Infectious Disease History Infectious Disease History: Reports: Chicken Pox - Past Surgical History Head Surgeries/Procedures: Reports: None HEENT Surgical History: Reports: Cataract Surgery, Eye Surgery, Oral Surgery Other HEENT Surgeries/Procedures: eye surgery x3 Cardiovascular Surgical History: Reports: Coronary Artery Bypass Social & Family History - Family History Family Medical History: Noncontributory HEENT: Reports: Cataract, Glaucoma Cardiac: Reports: Afib, High Cholesterol, Hypertension Respiratory: Reports: None GI: Reports: None OBGYN: Reports: Neurological: Reports: CVA Psychiatric: Reports: None Endocrine/Metabolic: Reports: Diabetes, type II Hematologic: Reports: None Immunologic: Reports: None Dermatologic: Reports: None Oncologic: Reports: None - Tobacco Use Smoking Status *Q: Former Smoker Used Tobacco, but Quit: Yes Month/Year Tobacco Last Used: 2003 - Caffeine Use Caffeine Use: Reports: Coffee - Recreational Drug Use Recreational Drug Use: No - Living Situation & Occupation Living situation: Reports: Occupation: Retired ED ROS GENERAL - Review of Systems Review Of Systems: See Below Constitutional: Reports: Chills, Weakness, Fatigue HEENT: Reports: No Symptoms Respiratory: Reports: Shortness of Breath, Wheezing, Cough, Sputum. Denies: Pleuritic Chest Pain Cardiovascular: Reports: Dyspnea on Exertion Endocrine: Reports: No Symptoms GI/Abdominal: Reports: No Symptoms : Reports: No Symptoms Musculoskeletal: Reports: No Symptoms Skin: Reports: No Symptoms Neurological: Reports: No Symptoms Psychiatric: Reports: No Symptoms Hematologic/Lymphatic: Reports: No Symptoms Immunologic: Reports: No Symptoms ED EXAM, GENERAL - Physical Exam Exam: See Below Free Text/Narrative:: 79-year-old male presents the emergency room chief complaint of shortness of breath. Patient exposed to. Patient has improved to the emergency room and is waiting labs at this time O2 saturation has improved to 90% with a breathing treatment. Patient's chest x-ray and labs are pending. Exam Limited By: No Limitations General Appearance: Alert, WD/WN, No Apparent Distress Eye Exam: Bilateral Eye: Normal Fundi, Normal Inspection Ears: Normal External Exam, Normal Canal, Hearing Grossly Normal, Normal TMs Ear Exam: Bilateral Ear: Auricle Normal, Canal Normal Nose: Normal Inspection, Normal Mucosa, No Blood Throat/Mouth: Normal Inspection, Normal Lips, Normal Oropharynx, Normal Voice Head: Atraumatic, Normocephalic Neck: Normal Inspection, Supple, Non-Tender Respiratory/Chest: Respiratory Distress, Rhonchi, Wheezing, Accessory Muscle Use , Retractions GI/Abdominal: Normal Bowel Sounds, Soft, Non-Tender, No Organomegaly, No Distention, No Abnormal Bruit Rectal (Males) Exam: Deferred Back Exam: Normal Inspection Extremities: Normal Inspection, Normal Range of Motion, No Pedal Edema, Normal Capillary Refill Neurological: Alert, Oriented, CN II-XII Intact, Normal Cognition Psychiatric: Normal Affect, Normal Mood Skin Exam: Warm, Dry, Intact, Normal Color EKG INTERPRETATION Time: 22:28 Rhythm: A-Fib ST-T: Other (s wave changes) Course - Vital Signs Last Recorded V/S: Last Vital Signs Temp 96.7 F 07/21/19 19:26 Pulse 109 H 07/21/19 22:03 Resp 20 07/21/19 22:03 BP 113/79 07/21/19 22:03 Pulse Ox 97 07/21/19 22:03 - Orders/Labs/Meds Orders: Active Orders 24 hr Category Date Time Status EKG Documentation Completion [RC] STAT Care 07/21/19 19:33 Active RT Aerosol Therapy [RC] ASDIRECTED Care 07/21/19 21:58 Active Ang Chest [CT] Stat Exams 07/21/19 21:07 Ordered CULTURE BLOOD [BC] Stat Lab 07/21/19 19:26 Received CULTURE BLOOD [BC] Stat Lab 07/21/19 19:57 Received Blood Culture x2 Reflex Set [OM.PC] Stat Oth 07/21/19 19:33 Ordered Labs: Laboratory Tests 07/21/19 07/21/19 07/21/19 Range/Units 19:26 19:26 19:26 WBC 8.56 (4.0-11.0) K/uL RBC 4.33 L (4.50-5.90) M/uL Hgb 12.4 L (13.0-17.0) g/dL Hct 40.4 (38.0-50.0) % MCV 93.3 (80.0-98.0) fL MCH 28.6 (27.0-32.0) pg MCHC 30.7 L (31.0-37.0) g/dL RDW Std Deviation 53.4 (28.0-62.0) fl RDW Coeff of Renetta 16 H (11.0-15.0) % Plt Count 145 L (150-400) K/uL MPV 10.90 (7.40-12.00) fL Neut % (Auto) 83.0 H (48.0-80.0) % Lymph % (Auto) 12.3 L (16.0-40.0) % Barnes % (Auto) 4.1 (0.0-15.0) % Eos % (Auto) 0.5 (0.0-7.0) % Baso % (Auto) 0.1 (0.0-1.5) % Neut # (Auto) 7.1 H (1.4-5.7) K/uL Lymph # (Auto) 1.1 (0.6-2.4) K/uL Barnes # (Auto) 0.4 (0.0-0.8) K/uL Eos # (Auto) 0.0 (0.0-0.7) K/uL Baso # (Auto) 0.0 (0.0-0.1) K/uL Nucleated RBC % 0.0 /100WBC Nucleated RBCs # 0 K/uL INR ABG pH (7.35-7.45) ABG pCO2 (35-45) mmHG ABG pO2 (75-100) mmHG ABG HCO3 (22-26) mEq/L ABG Total CO2 ABG Base Excess (-2.0-2.0) Lactate 2.6 H* (0.20-2.00) mmol/L Sodium 138 (136-148) mmol/L Potassium 5.0 (3.5-5.1) mmol/L Chloride 100 (98-107) mmol/L Carbon Dioxide 27.9 (21.0-32.0) mmol/L BUN 17 (7.0-18.0) mg/dL Creatinine 1.4 H (0.8-1.3) mg/dL Est Cr Clr Drug Dosing 33.48 mL/min Estimated GFR (MDRD) 49.0 ml/min Glucose 148 H (74-106) mg/dL Calcium 9.2 (8.5-10.1) mg/dL Total Bilirubin 0.3 (0.2-1.0) mg/dL AST 20 (15-37) IU/L ALT 24 (14-63) IU/L Alkaline Phosphatase 106 (46-116) U/L Troponin I < 0.050 (0.000-0.056) ng/mL Total Protein 8.4 H (6.4-8.2) g/dL Albumin 3.7 (3.4-5.0) g/dL Globulin 4.7 H (2.6-4.0) g/dL Albumin/Globulin Ratio 0.8 L (0.9-1.6) Digoxin 2.2 H (0.9-2.0) ng/mL 07/21/19 07/21/19 Range/Units 19:26 19:41 WBC (4.0-11.0) K/uL RBC (4.50-5.90) M/uL Hgb (13.0-17.0) g/dL Hct (38.0-50.0) % MCV (80.0-98.0) fL MCH (27.0-32.0) pg MCHC (31.0-37.0) g/dL RDW Std Deviation (28.0-62.0) fl RDW Coeff of Renetta (11.0-15.0) % Plt Count (150-400) K/uL MPV (7.40-12.00) fL Neut % (Auto) (48.0-80.0) % Lymph % (Auto) (16.0-40.0) % Barnes % (Auto) (0.0-15.0) % Eos % (Auto) (0.0-7.0) % Baso % (Auto) (0.0-1.5) % Neut # (Auto) (1.4-5.7) K/uL Lymph # (Auto) (0.6-2.4) K/uL Barnes # (Auto) (0.0-0.8) K/uL Eos # (Auto) (0.0-0.7) K/uL Baso # (Auto) (0.0-0.1) K/uL Nucleated RBC % /100WBC Nucleated RBCs # K/uL INR 1.17 ABG pH 7.392 (7.35-7.45) ABG pCO2 42 (35-45) mmHG ABG pO2 185 H (75-100) mmHG ABG HCO3 26 (22-26) mEq/L ABG Total CO2 23.7 ABG Base Excess 0.4 (-2.0-2.0) Lactate (0.20-2.00) mmol/L Sodium (136-148) mmol/L Potassium (3.5-5.1) mmol/L Chloride (98-107) mmol/L Carbon Dioxide (21.0-32.0) mmol/L BUN (7.0-18.0) mg/dL Creatinine (0.8-1.3) mg/dL Est Cr Clr Drug Dosing mL/min Estimated GFR (MDRD) ml/min Glucose (74-106) mg/dL Calcium (8.5-10.1) mg/dL Total Bilirubin (0.2-1.0) mg/dL AST (15-37) IU/L ALT (14-63) IU/L Alkaline Phosphatase (46-116) U/L Troponin I (0.000-0.056) ng/mL Total Protein (6.4-8.2) g/dL Albumin (3.4-5.0) g/dL Globulin (2.6-4.0) g/dL Albumin/Globulin Ratio (0.9-1.6) Digoxin (0.9-2.0) ng/mL Meds: Medications Discontinued Medications Generic Name Dose Route Start Last Admin Trade Name Madisyn PRN Reason Stop Dose Admin Albuterol/Ipratropium Confirm 07/21/19 19:21 07/21/19 19:50 Duoneb 3.0-0.5 Mg/3 Ml Administered 07/21/19 19:22 3 ml Dose Administration 3 ml .ROUTE .STK-MED ONE Albuterol/Ipratropium 3 ml 07/21/19 20:50 07/21/19 20:59 Duoneb 3.0-0.5 Mg/3 Ml NEB 07/21/19 20:51 3 ml ONETIME ONE Administration Albuterol/Ipratropium Confirm 07/21/19 20:52 07/21/19 20:59 Duoneb 3.0-0.5 Mg/3 Ml Administered 07/21/19 20:53 Not Given Dose 3 ml .ROUTE .STK-MED ONE Albuterol/Ipratropium 3 ml 07/21/19 21:57 07/21/19 22:08 Duoneb 3.0-0.5 Mg/3 Ml NEB 07/21/19 21:58 3 ml ONETIME ONE Administration Methylprednisolone Sodium Succinate 125 mg 07/21/19 21:57 07/21/19 22:03 Solu-Medrol IVPUSH 07/21/19 21:58 125 mg ONETIME ONE Administration Departure - Departure Time of Disposition: 22:29 Disposition: Admitted As Inpatient 67 Condition: Fair Clinical Impression: COPD (chronic obstructive pulmonary disease), Hypoxemia - Discharge Information Referrals: PCP,Unknown [Primary Care Provider] - Forms: ED Department Discharge Sepsis Event Note - Evaluation Sepsis Screening Result: No Definite Risk - Focused Exam Vital Signs: Vital Signs Temp Pulse Resp BP Pulse Ox 07/21/19 22:03 109 H 20 113/79 97 07/21/19 20:40 100 20 96 07/21/19 20:00 68 40 H 99 07/21/19 19:30 80 38 H 100 07/21/19 19:26 96.7 F 146 H 22 H 74/51 L 71 L 07/21/19 19:23 84 40 H 94/58 L 94 L Date Exam was Performed: 07/21/19 Time Exam was Performed: 22:29 - My Orders Last 24 Hours: My Active Orders 07/21/19 19:26 CULTURE BLOOD [BC] Stat 07/21/19 19:33 EKG Documentation Completion [RC] STAT Blood Culture x2 Reflex Set [OM.PC] Stat 07/21/19 19:57 CULTURE BLOOD [BC] Stat 07/21/19 21:58 RT Aerosol Therapy [RC] ASDIRECTED - Assessment/Plan Last 24 Hours: My Active Orders 07/21/19 19:26 CULTURE BLOOD [BC] Stat 07/21/19 19:33 EKG Documentation Completion [RC] STAT Blood Culture x2 Reflex Set [OM.PC] Stat 07/21/19 19:57 CULTURE BLOOD [BC] Stat 07/21/19 21:58 RT Aerosol Therapy [RC] ASDIRECTED
[2019-07-21 20:24] LABS: BLOOD UREA NITROGEN,BUN 17 mg/dL (7.0-18.0); CARBON DIOXIDE,CO2 27.9 mmol/L (21.0-32.0); CHLORIDE,CL 100 mmol/L (98-107); GLUCOSE RANDOM 148 mg/dL (74-106); SODIUM,NA 138 mmol/L (136-148)
--- NOTE | 2019-07-21 20:39 | CR ---
INDICATIONS: Cough x1 week. Shortness of breath. TECHNIQUE: Chest, 2 frontal views. COMPARISON: Chest radiograph 07/02/2019. FINDINGS: No pneumothorax. Small right and possible tiny left pleural effusions are similar in appearance. Asymmetric interstitial opacities in the right lung are similar in appearance. Left lung is grossly clear. Median sternotomy with left atrial ligation changes, as before. Borderline cardiomegaly, unchanged. Mediastinal contours are otherwise within normal limits. Upper abdomen and osseous structures as imaged show no acute abnormality. IMPRESSION: 1. Asymmetric interstitial prominence in the right lung is similar in appearance and again may represent infection/inflammation or right lung edema. Tricuspid regurgitation could produce this appearance. 2. Small right and tiny left pleural effusions. Dictated by Miguel Vazquez MD @ 07/21/2019 8:38:41 PM Dictated by: Miguel Vazquez MD @ 07/21/2019 20:38:50 (Electronically Signed)
[2019-07-21] MEDS ORDERED: Albuterol/Ipratropium 3.0-0.5 MG/3 ML Neb Soln NEB ONE ×2 (20:50→21:57)
[2019-07-21] MEDS ORDERED: methylPREDNISolone Sodium Succinate 125 MG/2 ML SDV IVPUSH ONE (21:57)
[2019-07-21] MEDS ORDERED: Sodium Chloride 0.9% 1,000 ML IV ONE (23:16)
[2019-07-22] MEDS ORDERED: Levofloxacin/Dextrose 5%-Water 750 MG in Premix Bag 1 BAG IV SCH ×2
[2019-07-22] MEDS ORDERED: Oseltamivir 75 MG Cap PO SCH
[2019-07-22] MEDS ORDERED: Levofloxacin/Dextrose 5%-Water 100 ML IV ONE (00:15)
--- NOTE | 2019-07-22 00:20 | PCM.HP.2 ---
H&P History of Present Illness - General Date of Service: 07/21/19 Admit Problem/Dx: Admission Diagnosis/Problem Admission Diagnosis/Problem COPD, Severe chronic obstructive pulmonary disease - History of Present Illness Initial Comments - Free Text/Narative: 79 yo male with pmh of CAD, s/p CABG last March, CHF with preserved EF, DM and COPD who presents with worsening shortness of breath. PAtient reports having a cold for past several days and today he was unable to breath. HE was seen in the ED noted to be in tachypnic and hypoxic. He was given duonebs and solumedrol with improvement in his symptoms. Patient's daughter is also hospitalized with influenza A. - Related Data Allergies/Adverse Reactions: Allergies Allergy/AdvReac Type Severity Reaction Status Date / Time No Known Allergies Allergy Verified 07/21/19 19:25 Home Medications: Home Meds RX: Albuterol [Proventil HFA] 2 puff INH Q4H PRN 11/05/17 [History] RX: Budesonide/Formoterol Fumarate [Symbicort 160-4.5 Mcg Inhaler] 2 puff INH BID 11/05/17 [History] RX: Omeprazole 20 mg PO ACBREAKFAST 11/05/17 [History] RX: Simvastatin [Zocor] 80 mg PO BEDTIME 11/05/17 [History] RX: Tiotropium [Spiriva HandiHaler] 1 caplet INH DAILY 11/05/17 [History] RX: allopurinoL [Zyloprim] 300 mg PO DAILY 11/05/17 [History] RX: metFORMIN HCl [Metformin HCl] 500 mg PO BIDMEALS 11/05/17 [History] RX: Dabigatran [Pradaxa] 150 mg PO BID 12/30/18 [History] RX: Acetaminophen [Tylenol] 650 mg PO Q8H PRN 04/12/19 [History] RX: Aspirin 81 mg PO DAILY 04/12/19 [History] RX: Cyanocobalamin (Vitamin B-12) [B-12] 1,000 mcg PO DAILY 04/12/19 [History] RX: Ferrous Sulfate 325 mg PO WITHBREAKFAST 04/12/19 [History] RX: Nitroglycerin [Nitrostat] 0.4 mg SL Q5M PRN tab.sl 04/14/19 [Rx] RX: Digoxin 250 mcg PO DAILY 07/01/19 [History] RX: Tamsulosin HCl [Flomax] 0.4 mg PO DAILY 07/01/19 [History] Furosemide [Lasix] 60 mg PO DAILY 10 Days #15 tab 07/03/19 [Rx] Past Medical History HEENT History: Reports: Glaucoma Other HEENT History: wears glasses for reading, has top and bottom dentures Cardiovascular History: Reports: Afib, CAD, Heart Failure, High Cholesterol, Hypertension, Other (See Below) Respiratory History: Reports: COPD Other Respiratory History: Uses oxygen @ 2L NC and inhalers at home Gastrointestinal History: Reports: GERD, Other (See Below) Genitourinary History: Reports: None Musculoskeletal History: Reports: Gout Neurological History: Reports: CVA Psychiatric History: Reports: None Endocrine/Metabolic History: Reports: Diabetes, Type II Immunologic History: Reports: None Oncologic (Cancer) History: Reports: None Dermatologic History: Reports: None - Infectious Disease History Infectious Disease History: Reports: Chicken Pox - Past Surgical History Head Surgeries/Procedures: Reports: None HEENT Surgical History: Reports: Cataract Surgery, Eye Surgery, Oral Surgery Other HEENT Surgeries/Procedures: eye surgery x3 Cardiovascular Surgical History: Reports: Coronary Artery Bypass Social & Family History - Family History Family Medical History: Noncontributory HEENT: Reports: Cataract, Glaucoma Cardiac: Reports: Afib, High Cholesterol, Hypertension Respiratory: Reports: None GI: Reports: None OBGYN: Reports: Neurological: Reports: CVA Psychiatric: Reports: None Endocrine/Metabolic: Reports: Diabetes, type II Hematologic: Reports: None Immunologic: Reports: None Dermatologic: Reports: None Oncologic: Reports: None - Tobacco Use Smoking Status *Q: Former Smoker Used Tobacco, but Quit: Yes Month/Year Tobacco Last Used: 2003 - Caffeine Use Caffeine Use: Reports: Coffee - Recreational Drug Use Recreational Drug Use: No - Living Situation & Occupation Living situation: Reports: Occupation: Retired H&P Review of Systems - Review of Systems: Review Of Systems: Comprehensive ROS is negative, except as noted in HPI. Exam - Exam Exam: See Below - Vital Signs Vital Signs: Last Vital Signs Temp 36.3 C 07/21/19 23:20 Pulse 105 H 07/21/19 23:20 Resp 20 07/21/19 23:20 BP 101/64 12/23/19 23:20 Pulse Ox 95 07/21/19 23:20 Weight: 54.431 kg - Exam General: Alert, Oriented HEENT: Mucosa Moist & [place] Lungs: Decreased Breath Sounds Cardiovascular: Regular Rate, Regular Rhythm GI/Abdominal Exam: Soft, Non-Tender Extremities: Non-Tender, No Pedal Edema Skin: Warm, Dry, Intact - Patient Data Lab Results Last 24 hrs: Laboratory Results - last 24 hr 07/21/19 07/21/19 07/21/19 Range/Units 19:26 19:26 19:26 WBC 8.56 (4.0-11.0) K/uL RBC 4.33 L (4.50-5.90) M/uL Hgb 12.4 L (13.0-17.0) g/dL Hct 40.4 (38.0-50.0) % MCV 93.3 (80.0-98.0) fL MCH 28.6 (27.0-32.0) pg MCHC 30.7 L (31.0-37.0) g/dL RDW Std Deviation 53.4 (28.0-62.0) fl RDW Coeff of Renetta 16 H (11.0-15.0) % Plt Count 145 L (150-400) K/uL MPV 10.90 (7.40-12.00) fL Neut % (Auto) 83.0 H (48.0-80.0) % Lymph % (Auto) 12.3 L (16.0-40.0) % [place] % (Auto) 4.1 (0.0-15.0) % Eos % (Auto) 0.5 (0.0-7.0) % Baso % (Auto) 0.1 (0.0-1.5) % Neut # (Auto) 7.1 H (1.4-5.7) K/uL Lymph # (Auto) 1.1 (0.6-2.4) K/uL [place] # (Auto) 0.4 (0.0-0.8) K/uL Eos # (Auto) 0.0 (0.0-0.7) K/uL Baso # (Auto) 0.0 (0.0-0.1) K/uL Nucleated RBC % 0.0 /100WBC Nucleated RBCs # 0 K/uL INR ABG pH (7.35-7.45) ABG pCO2 (35-45) mmHG ABG pO2 (75-100) mmHG ABG HCO3 (22-26) mEq/L ABG Total CO2 ABG Base Excess (-2.0-2.0) Lactate 2.6 H* (0.20-2.00) mmol/L Sodium 138 (136-148) mmol/L Potassium 5.0 (3.5-5.1) mmol/L Chloride 100 (98-107) mmol/L Carbon Dioxide 27.9 (21.0-32.0) mmol/L BUN 17 (7.0-18.0) mg/dL Creatinine 1.4 H (0.8-1.3) mg/dL Est Cr Clr Drug Dosing 33.48 mL/min Estimated GFR (MDRD) 49.0 ml/min Glucose 148 H (74-106) mg/dL Calcium 9.2 (8.5-10.1) mg/dL Total Bilirubin 0.3 (0.2-1.0) mg/dL AST 20 (15-37) IU/L ALT 24 (14-63) IU/L Alkaline Phosphatase 106 (46-116) U/L Troponin I < 0.050 (0.000-0.056) ng/mL Total Protein 8.4 H (6.4-8.2) g/dL Albumin 3.7 (3.4-5.0) g/dL Globulin 4.7 H (2.6-4.0) g/dL Albumin/Globulin Ratio 0.8 L (0.9-1.6) Urine Color Urine Appearance Urine pH (5.0-8.0) Ur Specific [place] (1.001-1.035) Urine Protein (NEGATIVE) mg/dL Urine Glucose (UA) (NEGATIVE) mg/dL Urine Ketones (NEGATIVE) mg/dL Urine Occult Blood (NEGATIVE) Urine Nitrite (NEGATIVE) Urine Bilirubin (NEGATIVE) Urine Urobilinogen (<2.0) EU/dL Ur Leukocyte Esterase (NEGATIVE) Digoxin 2.2 H (0.9-2.0) ng/mL 07/21/19 07/21/19 07/21/19 Range/Units 19:26 19:41 22:45 WBC (4.0-11.0) K/uL RBC (4.50-5.90) M/uL Hgb (13.0-17.0) g/dL Hct (38.0-50.0) % MCV (80.0-98.0) fL MCH (27.0-32.0) pg MCHC (31.0-37.0) g/dL RDW Std Deviation (28.0-62.0) fl RDW Coeff of Renetta (11.0-15.0) % Plt Count (150-400) K/uL MPV (7.40-12.00) fL Neut % (Auto) (48.0-80.0) % Lymph % (Auto) (16.0-40.0) % [place] % (Auto) (0.0-15.0) % Eos % (Auto) (0.0-7.0) % Baso % (Auto) (0.0-1.5) % Neut # (Auto) (1.4-5.7) K/uL Lymph # (Auto) (0.6-2.4) K/uL [place] # (Auto) (0.0-0.8) K/uL Eos # (Auto) (0.0-0.7) K/uL Baso # (Auto) (0.0-0.1) K/uL Nucleated RBC % /100WBC Nucleated RBCs # K/uL INR 1.17 ABG pH 7.392 (7.35-7.45) ABG pCO2 42 (35-45) mmHG ABG pO2 185 H (75-100) mmHG ABG HCO3 26 (22-26) mEq/L ABG Total CO2 23.7 ABG Base Excess 0.4 (-2.0-2.0) Lactate (0.20-2.00) mmol/L Sodium (136-148) mmol/L Potassium (3.5-5.1) mmol/L Chloride (98-107) mmol/L Carbon Dioxide (21.0-32.0) mmol/L BUN (7.0-18.0) mg/dL Creatinine (0.8-1.3) mg/dL Est Cr Clr Drug Dosing mL/min Estimated GFR (MDRD) ml/min Glucose (74-106) mg/dL Calcium (8.5-10.1) mg/dL Total Bilirubin (0.2-1.0) mg/dL AST (15-37) IU/L ALT (14-63) IU/L Alkaline Phosphatase (46-116) U/L Troponin I (0.000-0.056) ng/mL Total Protein (6.4-8.2) g/dL Albumin (3.4-5.0) g/dL Globulin (2.6-4.0) g/dL Albumin/Globulin Ratio (0.9-1.6) Urine Color YELLOW Urine Appearance CLEAR Urine pH 6.0 (5.0-8.0) Ur Specific [place] <= 1.005 (1.001-1.035) Urine Protein NEGATIVE (NEGATIVE) mg/dL Urine Glucose (UA) NEGATIVE (NEGATIVE) mg/dL Urine Ketones TRACE H (NEGATIVE) mg/dL Urine Occult Blood NEGATIVE (NEGATIVE) Urine Nitrite NEGATIVE (NEGATIVE) Urine Bilirubin NEGATIVE (NEGATIVE) Urine Urobilinogen 0.2 (<2.0) EU/dL Ur Leukocyte Esterase NEGATIVE (NEGATIVE) Digoxin (0.9-2.0) ng/mL Result Diagrams: 07/22/19 05:13 07/22/19 05:13 [place] Results Last 24 hrs: Microbiology 07/21/19 19:30 Influenza Type A Antigen Screen - Final Nasopharyngeal Swab NEGATIVE INFLUENZA A VIRUS AG REFERENCE RANGE: NEGATIVE Influenza Type B Antigen Screen - Final NEGATIVE INFLUENZA B VIRUS AG REFERENCE RANGE: NEGATIVE Sepsis Event Note - Evaluation Sepsis Screening Result: No Definite Risk - Focused Exam Vital Signs: Vital Signs Temp Pulse Resp BP Pulse Ox 07/21/19 23:20 36.3 C 105 H 20 101/64 95 07/21/19 22:03 109 H 20 113/79 97 07/21/19 20:40 100 20 96 07/21/19 20:00 68 40 H 99 07/21/19 19:30 80 38 H 100 07/21/19 19:26 35.9 C 146 H 22 H 74/51 L 71 L 07/21/19 19:23 84 40 H 94/58 L 94 L Date Exam was Performed: 07/22/19 Time Exam was Performed: 07:54 Problem List Initiated/Reviewed/Updated: Yes Orders Last 24hrs: Active Orders 24 hr Category Date Time Status Admission Status [Patient Status] [ADT] Stat ADT 07/21/19 22:31 Active Antiembolic Devices [RC] PER UNIT ROUTINE Care 07/22/19 00:02 Ordered Blood Glucose Check, Bedside [RC] TIDMEALS Care 07/22/19 00:02 Ordered EKG Documentation Completion [RC] STAT Care 07/21/19 19:33 Active Oxygen Therapy [RC] PRN Care 07/22/19 00:02 Ordered RT Aerosol Therapy [RC] ASDIRECTED Care 07/21/19 21:58 Active Up ad Iris [RC] ASDIRECTED Care 07/22/19 00:02 Ordered VTE/DVT Education [RC] PER UNIT ROUTINE Care 07/22/19 00:02 Ordered Vital Signs [RC] Q4H Care 07/22/19 00:02 Ordered [place] [employer] Diet [DIET] Diet 07/22/19 Breakfast Ordered BASIC METABOLIC PANEL,BMP [CHEM] AM Lab 07/22/19 05:11 Ordered CBC WITH AUTO DIFF [HEME] AM Lab 07/22/19 05:11 Ordered CULTURE BLOOD [BC] Stat Lab 07/21/19 19:26 Received CULTURE BLOOD [BC] Stat Lab 07/21/19 19:57 Received LACTIC ACID,WHOLE BLOOD [BG] Routine Lab 07/21/19 23:48 Ordered Dabigatran [Pradaxa] Med 07/22/19 00:15 Ordered 150 mg PO BID Insulin Aspart [NovoLOG] Med 07/22/19 07:30 Ordered See Protocol SUBCUT TIDAC Levofloxacin/Dextrose 5%-Water [Levaquin in D5W 750 MG/ Med 07/22/19 00:00 Ordered 150 ML] 750 mg Premix Bag 1 bag IV Q24H Omeprazole [Omeprazole] Med 07/22/19 07:30 Ordered 20 mg PO ACBREAKFAST Oseltamivir [Tamiflu] Med 07/22/19 00:00 Ordered 75 mg PO BID Simvastatin [Zocor] Med 07/22/19 00:03 Ordered 80 mg PO BEDTIME Sodium Chloride 0.9% [Normal Saline] 1,000 ml Med 07/21/19 23:16 Active IV .Bolus methylPREDNISolone Sod Succ [Solu-MEDROL] Med 07/22/19 04:00 Ordered 125 mg IVPUSH Q6H Blood Culture x2 Reflex Set [OM.PC] Stat Oth 07/21/19 19:33 Ordered Sequential Compression Device [OM.PC] Per Unit Routine Oth 07/22/19 00:02 Ordered Resuscitation Status Routine Resus Stat 07/22/19 00:02 Ordered Medication Orders Dabigatran (Pradaxa) 150 mg PO BID [facility] Sodium Chloride (Normal Saline) 1,000 mls @ 999 mls/hr IV .Bolus ONE Stop: 07/22/19 00:16 Last Admin: 07/21/19 19:20 Dose: 999 mls/hr Levofloxacin/Dextrose 750 mg/ (Premix) 150 mls @ 100 mls/hr IV Q24H [facility] Insulin Aspart (Novolog) 0 unit SUBCUT TIDAC [facility]; Protocol Methylprednisolone Sodium Succinate (Solu-Medrol) 125 mg IVPUSH Q6H [facility] Non-Formulary Medication (Omeprazole [Omeprazole]) 20 mg PO ACBREAKFAST [facility] Non-Formulary Medication (Simvastatin [Zocor]) 80 mg PO BEDTIME MARY KATE Oseltamivir Phosphate (Tamiflu) 75 mg PO BID [facility] Assessment/Plan Comment:: 79 yo male admitted with COPD exacerbation will treated with duonebs, solumedrol , and levaquin. Will start tamiflu due to recent contact with family member with confirmed influenza.
[2019-07-22] MEDS: Simvastatin 40 MG Tab PO SCH ×2 (00:35→21:07)
[2019-07-22] MEDS ORDERED: methylPREDNISolone Sodium Succinate 125 MG/2 ML SDV IVPUSH SCH (04:00)
[2019-07-22] MEDS: Albuterol/Ipratropium 3.0-0.5 MG/3 ML Neb Soln NEB SCH ×3 (05:12→17:50)
[2019-07-22 05:36] LABS: CARBON DIOXIDE,CO2 30.8 mmol/L (21.0-32.0); POTASSIUM,K 5.1 mmol/L (3.5-5.1)
[2019-07-22] MEDS: Omeprazole 20 MG Cap.CR PO SCH (07:13)
--- NOTE | 2019-07-22 07:58 | PCM.PN ---
- General Info Date of Service: 07/22/19 - Review of Systems Systems Review Comment:: felling a little better, still reports shortness of breath with any exertion. - Patient Data Vitals - Most Recent: Last Vital Signs Temp 36.2 C 07/22/19 07:50 Pulse 78 07/22/19 07:50 Resp 21 H 07/22/19 07:50 BP 92/53 L 07/22/19 07:50 Pulse Ox 94 L 07/22/19 07:50 Weight - Most Recent: 54.431 kg I&O - Last 24 Hours: Intake & Output 07/21/19 07/22/19 07/22/19 22:59 06:59 14:59 Intake Total 750 Output Total 200 Balance 550 Lab Results Last 24 Hours: Laboratory Results - last 24 hr 07/21/19 07/21/19 07/21/19 Range/Units 19:26 19:26 19:26 WBC 8.56 (4.0-11.0) K/uL RBC 4.33 L (4.50-5.90) M/uL Hgb 12.4 L (13.0-17.0) g/dL Hct 40.4 (38.0-50.0) % MCV 93.3 (80.0-98.0) fL MCH 28.6 (27.0-32.0) pg MCHC 30.7 L (31.0-37.0) g/dL RDW Std Deviation 53.4 (28.0-62.0) fl RDW Coeff of Renetta 16 H (11.0-15.0) % Plt Count 145 L (150-400) K/uL MPV 10.90 (7.40-12.00) fL Neut % (Auto) 83.0 H (48.0-80.0) % Lymph % (Auto) 12.3 L (16.0-40.0) % [place] % (Auto) 4.1 (0.0-15.0) % Eos % (Auto) 0.5 (0.0-7.0) % Baso % (Auto) 0.1 (0.0-1.5) % Neut # (Auto) 7.1 H (1.4-5.7) K/uL Lymph # (Auto) 1.1 (0.6-2.4) K/uL [place] # (Auto) 0.4 (0.0-0.8) K/uL Eos # (Auto) 0.0 (0.0-0.7) K/uL Baso # (Auto) 0.0 (0.0-0.1) K/uL Nucleated RBC % 0.0 /100WBC Nucleated RBCs # 0 K/uL INR ABG pH (7.35-7.45) ABG pCO2 (35-45) mmHG ABG pO2 (75-100) mmHG ABG HCO3 (22-26) mEq/L ABG Total CO2 ABG Base Excess (-2.0-2.0) Lactate 2.6 H* (0.20-2.00) mmol/L Sodium 138 (136-148) mmol/L Potassium 5.0 (3.5-5.1) mmol/L Chloride 100 (98-107) mmol/L Carbon Dioxide 27.9 (21.0-32.0) mmol/L BUN 17 (7.0-18.0) mg/dL Creatinine 1.4 H (0.8-1.3) mg/dL Est Cr Clr Drug Dosing 33.48 mL/min Estimated GFR (MDRD) 49.0 ml/min Glucose 148 H (74-106) mg/dL POC Glucose (60-110) mg/dL Calcium 9.2 (8.5-10.1) mg/dL Total Bilirubin 0.3 (0.2-1.0) mg/dL AST 20 (15-37) IU/L ALT 24 (14-63) IU/L Alkaline Phosphatase 106 (46-116) U/L Troponin I < 0.050 (0.000-0.056) ng/mL Total Protein 8.4 H (6.4-8.2) g/dL Albumin 3.7 (3.4-5.0) g/dL Globulin 4.7 H (2.6-4.0) g/dL Albumin/Globulin Ratio 0.8 L (0.9-1.6) Urine Color Urine Appearance Urine pH (5.0-8.0) Ur Specific [place] (1.001-1.035) Urine Protein (NEGATIVE) mg/dL Urine Glucose (UA) (NEGATIVE) mg/dL Urine Ketones (NEGATIVE) mg/dL Urine Occult Blood (NEGATIVE) Urine Nitrite (NEGATIVE) Urine Bilirubin (NEGATIVE) Urine Urobilinogen (<2.0) EU/dL Ur Leukocyte Esterase (NEGATIVE) Digoxin 2.2 H (0.9-2.0) ng/mL 07/21/19 07/21/19 07/21/19 Range/Units 19:26 19:41 22:45 WBC (4.0-11.0) K/uL RBC (4.50-5.90) M/uL Hgb (13.0-17.0) g/dL Hct (38.0-50.0) % MCV (80.0-98.0) fL MCH (27.0-32.0) pg MCHC (31.0-37.0) g/dL RDW Std Deviation (28.0-62.0) fl RDW Coeff of [place]etta (11.0-15.0) % Plt Count (150-400) K/uL MPV (7.40-12.00) fL Neut % (Auto) (48.0-80.0) % Lymph % (Auto) (16.0-40.0) % [place] % (Auto) (0.0-15.0) % Eos % (Auto) (0.0-7.0) % Baso % (Auto) (0.0-1.5) % Neut # (Auto) (1.4-5.7) K/uL Lymph # (Auto) (0.6-2.4) K/uL [place] # (Auto) (0.0-0.8) K/uL Eos # (Auto) (0.0-0.7) K/uL Baso # (Auto) (0.0-0.1) K/uL Nucleated RBC % /100WBC Nucleated RBCs # K/uL INR 1.17 ABG pH 7.392 (7.35-7.45) ABG pCO2 42 (35-45) mmHG ABG pO2 185 H (75-100) mmHG ABG HCO3 26 (22-26) mEq/L ABG Total CO2 23.7 ABG Base Excess 0.4 (-2.0-2.0) Lactate (0.20-2.00) mmol/L Sodium (136-148) mmol/L Potassium (3.5-5.1) mmol/L Chloride (98-107) mmol/L Carbon Dioxide (21.0-32.0) mmol/L BUN (7.0-18.0) mg/dL Creatinine (0.8-1.3) mg/dL Est Cr Clr Drug Dosing mL/min Estimated GFR (MDRD) ml/min Glucose (74-106) mg/dL POC Glucose (60-110) mg/dL Calcium (8.5-10.1) mg/dL Total Bilirubin (0.2-1.0) mg/dL AST (15-37) IU/L ALT (14-63) IU/L Alkaline Phosphatase (46-116) U/L Troponin I (0.000-0.056) ng/mL Total Protein (6.4-8.2) g/dL Albumin (3.4-5.0) g/dL Globulin (2.6-4.0) g/dL Albumin/Globulin Ratio (0.9-1.6) Urine Color YELLOW Urine Appearance CLEAR Urine pH 6.0 (5.0-8.0) Ur Specific [place] <= 1.005 (1.001-1.035) Urine Protein NEGATIVE (NEGATIVE) mg/dL Urine Glucose (UA) NEGATIVE (NEGATIVE) mg/dL Urine Ketones TRACE H (NEGATIVE) mg/dL Urine Occult Blood NEGATIVE (NEGATIVE) Urine Nitrite NEGATIVE (NEGATIVE) Urine Bilirubin NEGATIVE (NEGATIVE) Urine Urobilinogen 0.2 (<2.0) EU/dL Ur Leukocyte Esterase NEGATIVE (NEGATIVE) Digoxin (0.9-2.0) ng/mL 07/22/19 07/22/19 07/22/19 Range/Units 00:20 05:13 05:13 WBC 4.88 (4.0-11.0) K/uL RBC 3.97 L (4.50-5.90) M/uL Hgb 11.4 L (13.0-17.0) g/dL Hct 37.2 L (38.0-50.0) % MCV 93.7 (80.0-98.0) fL MCH 28.7 (27.0-32.0) pg MCHC 30.6 L (31.0-37.0) g/dL RDW Std Deviation 53.6 (28.0-62.0) fl RDW Coeff of [place]etta 16 H (11.0-15.0) % Plt Count 118 L (150-400) K/uL MPV 10.90 (7.40-12.00) fL Neut % (Auto) 91.6 H (48.0-80.0) % Lymph % (Auto) 7.2 L (16.0-40.0) % [place] % (Auto) 1.0 (0.0-15.0) % Eos % (Auto) 0.0 (0.0-7.0) % Baso % (Auto) 0.2 (0.0-1.5) % Neut # (Auto) 4.5 (1.4-5.7) K/uL Lymph # (Auto) 0.4 L (0.6-2.4) K/uL [place] # (Auto) 0.1 (0.0-0.8) K/uL Eos # (Auto) 0.0 (0.0-0.7) K/uL Baso # (Auto) 0.0 (0.0-0.1) K/uL Nucleated RBC % 0.0 /100WBC Nucleated RBCs # 0 K/uL INR ABG pH (7.35-7.45) ABG pCO2 (35-45) mmHG ABG pO2 (75-100) mmHG ABG HCO3 (22-26) mEq/L ABG Total CO2 ABG Base Excess (-2.0-2.0) Lactate 2.7 H* (0.20-2.00) mmol/L Sodium 139 (136-148) mmol/L Potassium 5.1 (3.5-5.1) mmol/L Chloride 104 (98-107) mmol/L Carbon Dioxide 30.8 (21.0-32.0) mmol/L BUN 18 (7.0-18.0) mg/dL Creatinine 1.4 H (0.8-1.3) mg/dL Est Cr Clr Drug Dosing 38.70 mL/min Estimated GFR (MDRD) 49.0 ml/min Glucose 220 H (74-106) mg/dL POC Glucose (60-110) mg/dL Calcium 8.7 (8.5-10.1) mg/dL Total Bilirubin (0.2-1.0) mg/dL AST (15-37) IU/L ALT (14-63) IU/L Alkaline Phosphatase (46-116) U/L Troponin I (0.000-0.056) ng/mL Total Protein (6.4-8.2) g/dL Albumin (3.4-5.0) g/dL Globulin (2.6-4.0) g/dL Albumin/Globulin Ratio (0.9-1.6) Urine Color Urine Appearance Urine pH (5.0-8.0) Ur Specific [place] (1.001-1.035) Urine Protein (NEGATIVE) mg/dL Urine Glucose (UA) (NEGATIVE) mg/dL Urine Ketones (NEGATIVE) mg/dL Urine Occult Blood (NEGATIVE) Urine Nitrite (NEGATIVE) Urine Bilirubin (NEGATIVE) Urine Urobilinogen (<2.0) EU/dL Ur Leukocyte Esterase (NEGATIVE) Digoxin (0.9-2.0) ng/mL 07/22/19 07/22/19 Range/Units 05:13 06:25 WBC (4.0-11.0) K/uL RBC (4.50-5.90) M/uL Hgb (13.0-17.0) g/dL Hct (38.0-50.0) % MCV (80.0-98.0) fL MCH (27.0-32.0) pg MCHC (31.0-37.0) g/dL RDW Std Deviation (28.0-62.0) fl RDW Coeff of [place] (11.0-15.0) % Plt Count (150-400) K/uL MPV (7.40-12.00) fL Neut % (Auto) (48.0-80.0) % Lymph % (Auto) (16.0-40.0) % [place] % (Auto) (0.0-15.0) % Eos % (Auto) (0.0-7.0) % Baso % (Auto) (0.0-1.5) % Neut # (Auto) (1.4-5.7) K/uL Lymph # (Auto) (0.6-2.4) K/uL [place] # (Auto) (0.0-0.8) K/uL Eos # (Auto) (0.0-0.7) K/uL Baso # (Auto) (0.0-0.1) K/uL Nucleated RBC % /100WBC Nucleated RBCs # K/uL INR ABG pH (7.35-7.45) ABG pCO2 (35-45) mmHG ABG pO2 (75-100) mmHG ABG HCO3 (22-26) mEq/L ABG Total CO2 ABG Base Excess (-2.0-2.0) Lactate 2.0 (0.20-2.00) mmol/L Sodium (136-148) mmol/L Potassium (3.5-5.1) mmol/L Chloride (98-107) mmol/L Carbon Dioxide (21.0-32.0) mmol/L BUN (7.0-18.0) mg/dL Creatinine (0.8-1.3) mg/dL Est Cr Clr Drug Dosing mL/min Estimated GFR (MDRD) ml/min Glucose (74-106) mg/dL POC Glucose 208 H (60-110) mg/dL Calcium (8.5-10.1) mg/dL Total Bilirubin (0.2-1.0) mg/dL AST (15-37) IU/L ALT (14-63) IU/L Alkaline Phosphatase (46-116) U/L Troponin I (0.000-0.056) ng/mL Total Protein (6.4-8.2) g/dL Albumin (3.4-5.0) g/dL Globulin (2.6-4.0) g/dL Albumin/Globulin Ratio (0.9-1.6) Urine Color Urine Appearance Urine pH (5.0-8.0) Ur Specific [place] (1.001-1.035) Urine Protein (NEGATIVE) mg/dL Urine Glucose (UA) (NEGATIVE) mg/dL Urine Ketones (NEGATIVE) mg/dL Urine Occult Blood (NEGATIVE) Urine Nitrite (NEGATIVE) Urine Bilirubin (NEGATIVE) Urine Urobilinogen (<2.0) EU/dL Ur Leukocyte Esterase (NEGATIVE) Digoxin (0.9-2.0) ng/mL [place]ales Results Last 24 Hours: Microbiology 07/21/19 19:30 Influenza Type A Antigen Screen - Final Nasopharyngeal Swab NEGATIVE INFLUENZA A VIRUS AG REFERENCE RANGE: NEGATIVE Influenza Type B Antigen Screen - Final NEGATIVE INFLUENZA B VIRUS AG REFERENCE RANGE: NEGATIVE Med Orders - Current: Current Medications Albuterol/Ipratropium (Duoneb 3.0-0.5 Mg/3 Ml) 3 ml NEB Q6HRRT PENDING SALE TO [facility] Last Admin: 07/22/19 05:12 Dose: 3 ml Dabigatran (Pradaxa) 150 mg PO BID PENDING SALE TO [facility] Last Admin: 07/22/19 00:36 Dose: 150 mg Levofloxacin/Dextrose (Levaquin In D5w 250 Mg/50 Ml) 50 mls @ 50 mls/hr IV Q24H PENDING SALE TO [facility] Insulin Aspart (Novolog) 0 unit SUBCUT TIDAC PENDING SALE TO [facility]; Protocol Methylprednisolone Sodium Succinate (Solu-Medrol) 125 mg IVPUSH Q6H PENDING SALE TO [facility] Last Admin: 07/22/19 04:09 Dose: 125 mg Omeprazole (Omeprazole) 20 mg PO ACBREAKFAST PENDING SALE TO [facility] Last Admin: 07/22/19 07:13 Dose: 20 mg Oseltamivir Phosphate (Tamiflu) 30 mg PO BID MARY KATE Simvastatin (Zocor) 80 mg PO BEDTIME PENDING SALE TO [facility] Last Admin: 07/22/19 00:35 Dose: 80 mg Discontinued Medications Albuterol/Ipratropium (Duoneb 3.0-0.5 Mg/3 Ml) Confirm Administered Dose 3 ml .ROUTE .STK-MED ONE Stop: 07/21/19 19:22 Last Admin: 07/21/19 19:50 Dose: 3 ml Albuterol/Ipratropium (Duoneb 3.0-0.5 Mg/3 Ml) 3 ml NEB ONETIME ONE Stop: 07/21/19 20:51 Last Admin: 07/21/19 20:59 Dose: 3 ml Albuterol/Ipratropium (Duoneb 3.0-0.5 Mg/3 Ml) Confirm Administered Dose 3 ml .ROUTE .STK-MED ONE Stop: 07/21/19 20:53 Last Admin: 07/21/19 20:59 Dose: Not Given Albuterol/Ipratropium (Duoneb 3.0-0.5 Mg/3 Ml) 3 ml NEB ONETIME ONE Stop: 07/21/19 21:58 Last Admin: 07/21/19 22:08 Dose: 3 ml Sodium Chloride (Normal Saline) 1,000 mls @ 999 mls/hr IV .Bolus ONE Stop: 07/22/19 00:16 Last Admin: 07/21/19 19:20 Dose: 999 mls/hr Levofloxacin/Dextrose 750 mg/ (Premix) 150 mls @ 100 mls/hr IV Q24H PENDING SALE TO [facility] Last Admin: 07/22/19 00:46 Dose: Not Given Levofloxacin/Dextrose (Levaquin In D5w 500 Mg/100 Ml) 100 mls @ 100 mls/hr IV ONETIME ONE Stop: 07/22/19 01:14 Last Admin: 07/22/19 00:38 Dose: 100 mls/hr Methylprednisolone Sodium Succinate (Solu-Medrol) 125 mg IVPUSH ONETIME ONE Stop: 07/21/19 21:58 Last Admin: 07/21/19 22:03 Dose: 125 mg Oseltamivir Phosphate (Tamiflu) 75 mg PO BID PENDING SALE TO [facility] Last Admin: 07/22/19 00:36 Dose: 75 mg - Exam General: Alert, Oriented Lungs: Decreased Breath Sounds Cardiovascular: Regular Rate, Regular Rhythm GI/Abdominal Exam: Soft, Non-Tender Extremities: Non-Tender, No Pedal Edema Skin: Warm, Dry, Intact Sepsis Event Note - Evaluation Sepsis Screening Result: No Definite Risk - Focused Exam Vital Signs: Vital Signs Temp Pulse Resp BP Pulse Ox 07/22/19 07:50 36.2 C 78 21 H 92/53 L 94 L 07/22/19 04:00 36.3 C 85 23 H 99/60 95 07/21/19 23:20 36.3 C 105 H 20 101/64 95 07/21/19 22:03 109 H 20 113/79 97 07/21/19 20:40 100 20 96 07/21/19 20:00 68 40 H 99 Date Exam was Performed: 07/22/19 Time Exam was Performed: 07:57 - Problem List Review Problem List Initiated/Reviewed/Updated: Yes - My Orders Last 24 Hours: My Active Orders 07/22/19 00:02 Antiembolic Devices [RC] Q12H Blood Glucose Check, Bedside [RC] TIDMEALS Oxygen Therapy [RC] Q12H Up ad Iris [RC] ASDIRECTED VTE/DVT Education [RC] PER UNIT ROUTINE Vital Signs [RC] Q4H Sequential Compression Device [OM.PC] Per Unit Routine Resuscitation Status Routine 07/22/19 00:03 Simvastatin [Zocor] 80 mg PO BEDTIME 07/22/19 00:15 Dabigatran [Pradaxa] 150 mg PO BID 07/22/19 01:23 RT Aerosol Therapy [RC] ASDIRECTED 07/22/19 04:00 methylPREDNISolone Sod Succ [Solu-MEDROL] 125 mg IVPUSH Q6H 07/22/19 06:00 Albuterol/Ipratropium [DuoNeb 3.0-0.5 MG/3 ML] 3 ml NEB Q6HRRT 07/22/19 07:30 Insulin Aspart [NovoLOG] See Protocol SUBCUT TIDAC Omeprazole 20 mg PO ACBREAKFAST 07/22/19 09:00 Oseltamivir [Tamiflu] 30 mg PO BID 07/22/19 21:00 Levofloxacin/Dextrose 5%-Water [Levaquin in D5W 250 MG/50 ML] 50 ml IV Q24H 07/22/19 23:10 Telemetry Monitoring [Cardiac Monitoring] [RC] Q8H 07/22/19 Breakfast [employer] [place] [employer] Diet [DIET] - Plan Plan:: 79 yo male admitted with COPD exacerbation. We will continue duonebs, solumedrol, levaquin and tamiflu.
[2019-07-22] MEDS: Insulin Aspart 100 Units/ML 3 ML Pen SUBCUT SCH ×3 (08:03→16:47)
[2019-07-22] MEDS: methylPREDNISolone Sodium Succinate 125 MG/2 ML SDV IVPUSH SCH ×2 (08:21→21:07)
[2019-07-22] MEDS: Oseltamivir Phosphate 30 MG Capsule PO SCH ×2 (08:22→21:07)
[2019-07-22] MEDS ORDERED: Albuterol/Ipratropium 3.0-0.5 MG/3 ML Neb Soln NEB PRN (08:25)
[2019-07-22] MEDS: Calcium Carbonate 500 MG Tab.Chew PO PRN (12:09)
[2019-07-22] MEDS: Levofloxacin/Dextrose 5%-Water 50 ML IV SCH (21:07)
[2019-07-23] MEDS: Albuterol/Ipratropium 3.0-0.5 MG/3 ML Neb Soln NEB SCH ×5 (00:10→23:19)
[2019-07-23 06:42] LABS: CARBON DIOXIDE,CO2 29.6 mmol/L (21.0-32.0); POTASSIUM,K 4.9 mmol/L (3.5-5.1)
[2019-07-23] MEDS: Omeprazole 20 MG Cap.CR PO SCH (07:24)
[2019-07-23] MEDS: Insulin Aspart 100 Units/ML 3 ML Pen SUBCUT SCH ×3 (07:24→16:34)
[2019-07-23] MEDS: methylPREDNISolone Sodium Succinate 125 MG/2 ML SDV IVPUSH SCH ×2 (09:22→20:11)
[2019-07-23] MEDS: Oseltamivir Phosphate 30 MG Capsule PO SCH ×2 (09:26→20:11)
[2019-07-23] MEDS: Docusate Sodium 100 MG Cap PO SCH (12:13)
--- NOTE | 2019-07-23 14:22 | PCM.PN ---
- General Info Date of Service: 07/23/19 Subjective Update: Bedside: pt. states he is feeling better now compared to when he had initially arrived; especially with the breathing treatments. Denies any issues but endorses not being back at his baseline yet. No other issues or concerns at this time. - Review of Systems General: Denies: Fever, Weakness, Chills HEENT: Reports: No Symptoms Pulmonary: Reports: Cough. Denies: Shortness of Breath, Pleuritic Chest Pain, Sputum, Wheezing Cardiovascular: Reports: No Symptoms Gastrointestinal: Reports: No Symptoms. Denies: Constipation, Diarrhea Genitourinary: Reports: No Symptoms Neurological: Denies: Headache - Patient Data Vitals - Most Recent: Last Vital Signs Temp 99.1 F 07/23/19 08:00 Pulse 85 07/23/19 08:00 Resp 16 07/23/19 08:00 BP 98/55 L 07/23/19 08:00 Pulse Ox 94 L 07/23/19 08:00 Weight - Most Recent: 140 lb 1.6 oz I&O - Last 24 Hours: Intake & Output 07/22/19 07/23/19 07/23/19 22:59 06:59 14:59 Intake Total 920 700 Output Total 650 605 Balance 270 95 Lab Results Last 24 Hours: Laboratory Results - last 24 hr 07/22/19 07/23/19 07/23/19 Range/Units 16:39 06:03 06:03 WBC 8.28 (4.0-11.0) K/uL RBC 3.89 L (4.50-5.90) M/uL Hgb 11.2 L (13.0-17.0) g/dL Hct 36.1 L (38.0-50.0) % MCV 92.8 (80.0-98.0) fL MCH 28.8 (27.0-32.0) pg MCHC 31.0 (31.0-37.0) g/dL RDW Std Deviation 53.4 (28.0-62.0) fl RDW Coeff of Renetta 16 H (11.0-15.0) % Plt Count 122 L (150-400) K/uL MPV 11.10 (7.40-12.00) fL Neut % (Auto) 95.2 H (48.0-80.0) % Lymph % (Auto) 3.0 L (16.0-40.0) % [place] % (Auto) 1.8 (0.0-15.0) % Eos % (Auto) 0.0 (0.0-7.0) % Baso % (Auto) 0.0 (0.0-1.5) % Neut # (Auto) 7.9 H (1.4-5.7) K/uL Lymph # (Auto) 0.3 L (0.6-2.4) K/uL [place] # (Auto) 0.2 (0.0-0.8) K/uL Eos # (Auto) 0.0 (0.0-0.7) K/uL Baso # (Auto) 0.0 (0.0-0.1) K/uL Nucleated RBC % 0.0 /100WBC Nucleated RBCs # 0 K/uL Sodium 139 (136-148) mmol/L Potassium 4.9 (3.5-5.1) mmol/L Chloride 101 (98-107) mmol/L Carbon Dioxide 29.6 (21.0-32.0) mmol/L BUN 20 H (7.0-18.0) mg/dL Creatinine 1.7 H (0.8-1.3) mg/dL Est Cr Clr Drug Dosing 32.19 mL/min Estimated GFR (MDRD) 39.2 ml/min Glucose 182 H (74-106) mg/dL POC Glucose 222 H (60-110) mg/dL Calcium 9.2 (8.5-10.1) mg/dL Total Bilirubin 0.3 (0.2-1.0) mg/dL AST 13 L (15-37) IU/L ALT 18 (14-63) IU/L Alkaline Phosphatase 89 (46-116) U/L Total Protein 7.6 (6.4-8.2) g/dL Albumin 3.3 L (3.4-5.0) g/dL Globulin 4.3 H (2.6-4.0) g/dL Albumin/Globulin Ratio 0.8 L (0.9-1.6) 07/23/19 07/23/19 Range/Units 06:12 11:40 WBC (4.0-11.0) K/uL RBC (4.50-5.90) M/uL Hgb (13.0-17.0) g/dL Hct (38.0-50.0) % MCV (80.0-98.0) fL MCH (27.0-32.0) pg MCHC (31.0-37.0) g/dL RDW Std Deviation (28.0-62.0) fl RDW Coeff of Renetta (11.0-15.0) % Plt Count (150-400) K/uL MPV (7.40-12.00) fL Neut % (Auto) (48.0-80.0) % Lymph % (Auto) (16.0-40.0) % Branch % (Auto) (0.0-15.0) % Eos % (Auto) (0.0-7.0) % Baso % (Auto) (0.0-1.5) % Neut # (Auto) (1.4-5.7) K/uL Lymph # (Auto) (0.6-2.4) K/uL Branch # (Auto) (0.0-0.8) K/uL Eos # (Auto) (0.0-0.7) K/uL Baso # (Auto) (0.0-0.1) K/uL Nucleated RBC % /100WBC Nucleated RBCs # K/uL Sodium (136-148) mmol/L Potassium (3.5-5.1) mmol/L Chloride (98-107) mmol/L Carbon Dioxide (21.0-32.0) mmol/L BUN (7.0-18.0) mg/dL Creatinine (0.8-1.3) mg/dL Est Cr Clr Drug Dosing mL/min Estimated GFR (MDRD) ml/min Glucose (74-106) mg/dL POC Glucose 173 H 157 H (60-110) mg/dL Calcium (8.5-10.1) mg/dL Total Bilirubin (0.2-1.0) mg/dL AST (15-37) IU/L ALT (14-63) IU/L Alkaline Phosphatase (46-116) U/L Total Protein (6.4-8.2) g/dL Albumin (3.4-5.0) g/dL Globulin (2.6-4.0) g/dL Albumin/Globulin Ratio (0.9-1.6) Morales Results Last 24 Hours: Microbiology 07/21/19 19:57 Aerobic Blood Culture - Preliminary Blood - Venous - Lab Draw NO GROWTH AFTER 1 DAY Anaerobic Blood Culture - Preliminary NO GROWTH AFTER 1 DAY 07/21/19 19:26 Aerobic Blood Culture - Preliminary Blood - Venous NO GROWTH AFTER 1 DAY Anaerobic Blood Culture - Preliminary NO GROWTH AFTER 1 DAY Med Orders - Current: Current Medications Albuterol/Ipratropium (Duoneb 3.0-0.5 Mg/3 Ml) 3 ml NEB Q6HRRT [facility] Last Admin: 07/23/19 12:18 Dose: 3 ml Albuterol/Ipratropium (Duoneb 3.0-0.5 Mg/3 Ml) 3 ml NEB Q1H PRN PRN Reason: Shortness of Breath Calcium Carbonate/Glycine (Tums) 1,000 mg PO Q2HR PRN PRN Reason: Indigestion Last Admin: 07/22/19 12:09 Dose: 1,000 mg Dabigatran (Pradaxa) 150 mg PO BID [facility] Last Admin: 07/23/19 09:49 Dose: 150 mg Docusate Sodium (Colace) 100 mg PO DAILY [facility] Last Admin: 07/23/19 12:13 Dose: 100 mg Levofloxacin/Dextrose (Levaquin In D5w 250 Mg/50 Ml) 50 mls @ 50 mls/hr IV Q24H [facility] Last Admin: 07/22/19 21:07 Dose: 50 mls/hr Insulin Aspart (Novolog) 0 unit SUBCUT TIDAC [facility]; Protocol Last Admin: 07/23/19 11:55 Dose: 1 unit Methylprednisolone Sodium Succinate (Solu-Medrol) 125 mg IVPUSH Q12H [facility] Last Admin: 07/23/19 09:22 Dose: 125 mg Omeprazole (Omeprazole) 20 mg PO ACBREAKFAST [facility] Last Admin: 07/23/19 07:24 Dose: 20 mg Oseltamivir Phosphate (Oseltamivir Phosphate) 30 mg PO BID [facility] Last Admin: 07/23/19 09:26 Dose: 30 mg Simvastatin (Zocor) 80 mg PO BEDTIME [facility] Last Admin: 07/22/19 21:07 Dose: 80 mg Discontinued Medications Albuterol/Ipratropium (Duoneb 3.0-0.5 Mg/3 Ml) Confirm Administered Dose 3 ml .ROUTE .STK-MED ONE Stop: 07/21/19 19:22 Last Admin: 07/21/19 19:50 Dose: 3 ml Albuterol/Ipratropium (Duoneb 3.0-0.5 Mg/3 Ml) 3 ml NEB ONETIME ONE Stop: 07/21/19 20:51 Last Admin: 07/21/19 20:59 Dose: 3 ml Albuterol/Ipratropium (Duoneb 3.0-0.5 Mg/3 Ml) Confirm Administered Dose 3 ml .ROUTE .STK-MED ONE Stop: 07/21/19 20:53 Last Admin: 07/21/19 20:59 Dose: Not Given Albuterol/Ipratropium (Duoneb 3.0-0.5 Mg/3 Ml) 3 ml NEB ONETIME ONE Stop: 07/21/19 21:58 Last Admin: 07/21/19 22:08 Dose: 3 ml Sodium Chloride (Normal Saline) 1,000 mls @ 999 mls/hr IV .Bolus ONE Stop: 07/22/19 00:16 Last Admin: 07/21/19 19:20 Dose: 999 mls/hr Levofloxacin/Dextrose 750 mg/ (Premix) 150 mls @ 100 mls/hr IV Q24H [facility] Last Admin: 07/22/19 00:46 Dose: Not Given Levofloxacin/Dextrose (Levaquin In D5w 500 Mg/100 Ml) 100 mls @ 100 mls/hr IV ONETIME ONE Stop: 07/22/19 01:14 Last Admin: 07/22/19 00:38 Dose: 100 mls/hr Methylprednisolone Sodium Succinate (Solu-Medrol) 125 mg IVPUSH ONETIME ONE Stop: 07/21/19 21:58 Last Admin: 07/21/19 22:03 Dose: 125 mg Methylprednisolone Sodium Succinate (Solu-Medrol) 125 mg IVPUSH Q6H [facility] Last Admin: 07/22/19 04:09 Dose: 125 mg Oseltamivir Phosphate (Tamiflu) 75 mg PO BID [facility] Last Admin: 07/22/19 00:36 Dose: 75 mg - Exam Quality Assessment: Supplemental Oxygen General: Alert, Oriented, Cooperative, No Acute Distress HEENT: EOMI, Mucous Membr. Moist/[place] Lungs: Other (moving air but tight in all lung bernstein ; no coarse BS appreciated ) Cardiovascular: Regular Rate, Regular Rhythm GI/Abdominal Exam: Soft, Non-Tender Extremities: Normal Inspection, Other (ecchymosis noted over left antecubital fosssa ) Skin: Warm Neurological: No New Focal Deficit Psy/Mental Status: Alert, Normal Mood Sepsis Event Note - Evaluation Sepsis Screening Result: No Definite Risk - Focused Exam Vital Signs: Vital Signs Temp Pulse Resp BP Pulse Ox 07/23/19 08:00 99.1 F 85 16 98/55 L 94 L 07/23/19 04:00 97 F 86 18 90/53 L 90 L Date Exam was Performed: 07/23/19 Time Exam was Performed: 14:28 - Problem List Review Problem List Initiated/Reviewed/Updated: Yes - My Orders Last 24 Hours: My Active Orders 07/23/19 10:59 Communication Order [RC] PRN 07/23/19 12:00 Docusate Sodium [Colace] 100 mg PO DAILY - Assessment Assessment:: Assessment: 1. COPD exacerbation w. influenza exposure in the setting of CAP 2. PMH: CAD, s/p CABG, CHF w PReF, DM , COPD Plan: 1. Continue both Levaquin and Tamiflu at this time; improving well. continue duo nebs and steroids as well. Will restart Lasix if clinically necessary . 2. Currently on baseline O2 of 2L; will reassess in morning due to complex medical history and influenza exposure. 3.pt. understood and agreed w/ plan. - Plan Plan:: .
[2019-07-23] MEDS: Simvastatin 40 MG Tab PO SCH (20:11)
[2019-07-23] MEDS: Levofloxacin/Dextrose 5%-Water 50 ML IV SCH (20:12)
[2019-07-24] MEDS: Albuterol/Ipratropium 3.0-0.5 MG/3 ML Neb Soln NEB SCH ×4 (05:51→23:52)
[2019-07-24] MEDS: Omeprazole 20 MG Cap.CR PO SCH (06:33)
[2019-07-24 06:39] LABS: CARBON DIOXIDE,CO2 31.4 mmol/L (21.0-32.0); POTASSIUM,K 5.5 mmol/L (3.5-5.1)
[2019-07-24] MEDS: Insulin Aspart 100 Units/ML 3 ML Pen SUBCUT SCH ×3 (07:38→17:46)
[2019-07-24] MEDS: methylPREDNISolone Sodium Succinate 125 MG/2 ML SDV IVPUSH SCH (08:30)
[2019-07-24] MEDS: Oseltamivir Phosphate 30 MG Capsule PO SCH ×2 (08:35→20:22)
[2019-07-24] MEDS: Docusate Sodium 100 MG Cap PO SCH (08:36)
[2019-07-24] MEDS ORDERED: Polyethylene Glycol 3350 Powder 17 GM Packet PO ONE (09:08)
[2019-07-24] MEDS: Tiotropium Inhaler 18 MCG Inhalation Powder Cap Kit of 5 INH SCH (09:35)
[2019-07-24] MEDS: Digoxin 250 MCG Tab PO SCH (10:13)
[2019-07-24] MEDS: Furosemide 40 MG Tab PO SCH (10:14)
--- NOTE | 2019-07-24 10:18 | PCM.PN ---
- General Info Date of Service: 07/24/19 Subjective Update: Patient seen at bedside: endorsing minimal changes since yesterday. Denies any fevers, chills or productive cough. More or less states he is getting closer to his baseline but having some problems with his incentive spirometry. Functional Status: Reports: Pain Controlled - Review of Systems General: Denies: Fever, Weakness, Chills HEENT: Reports: No Symptoms Pulmonary: Reports: Shortness of Breath, Cough. Denies: Sputum Cardiovascular: Reports: No Symptoms, Dyspnea on Exertion. Denies: Chest Pain, Palpitations, Edema Gastrointestinal: Reports: No Symptoms. Denies: Abdominal Pain, Constipation, Diarrhea, Nausea, Vomiting Genitourinary: Reports: No Symptoms Musculoskeletal: Reports: No Symptoms Neurological: Denies: Dizziness, Headache - Patient Data Vitals - Most Recent: Last Vital Signs Temp 98.8 F 07/24/19 08:00 Pulse 92 07/24/19 10:13 Resp 20 07/24/19 08:00 BP 100/66 07/24/19 08:00 Pulse Ox 93 L 07/24/19 08:00 Weight - Most Recent: 140 lb 1.6 oz I&O - Last 24 Hours: Intake & Output 07/23/19 07/24/19 07/24/19 22:59 06:59 14:59 Intake Total 530 700 Output Total 500 475 Balance 30 225 Lab Results Last 24 Hours: Laboratory Results - last 24 hr 07/23/19 07/23/19 07/23/19 Range/Units 06:12 11:40 16:20 WBC (4.0-11.0) K/uL RBC (4.50-5.90) M/uL Hgb (13.0-17.0) g/dL Hct (38.0-50.0) % MCV (80.0-98.0) fL MCH (27.0-32.0) pg MCHC (31.0-37.0) g/dL RDW Std Deviation (28.0-62.0) fl RDW Coeff of Renetta (11.0-15.0) % Plt Count (150-400) K/uL MPV (7.40-12.00) fL Neut % (Auto) (48.0-80.0) % Lymph % (Auto) (16.0-40.0) % [place] % (Auto) (0.0-15.0) % Eos % (Auto) (0.0-7.0) % Baso % (Auto) (0.0-1.5) % Neut # (Auto) (1.4-5.7) K/uL Lymph # (Auto) (0.6-2.4) K/uL [place] # (Auto) (0.0-0.8) K/uL Eos # (Auto) (0.0-0.7) K/uL Baso # (Auto) (0.0-0.1) K/uL Nucleated RBC % /100WBC Nucleated RBCs # K/uL Sodium (136-148) mmol/L Potassium (3.5-5.1) mmol/L Chloride (98-107) mmol/L Carbon Dioxide (21.0-32.0) mmol/L BUN (7.0-18.0) mg/dL Creatinine (0.8-1.3) mg/dL Est Cr Clr Drug Dosing mL/min Estimated GFR (MDRD) ml/min Glucose (74-106) mg/dL POC Glucose 173 H 157 H 175 H (60-110) mg/dL Calcium (8.5-10.1) mg/dL Total Bilirubin (0.2-1.0) mg/dL AST (15-37) IU/L ALT (14-63) IU/L Alkaline Phosphatase (46-116) U/L Total Protein (6.4-8.2) g/dL Albumin (3.4-5.0) g/dL Globulin (2.6-4.0) g/dL Albumin/Globulin Ratio (0.9-1.6) 07/24/19 07/24/19 07/24/19 Range/Units 05:38 05:38 06:37 WBC 8.10 (4.0-11.0) K/uL RBC 3.61 L (4.50-5.90) M/uL Hgb 10.4 L (13.0-17.0) g/dL Hct 33.3 L (38.0-50.0) % MCV 92.2 (80.0-98.0) fL MCH 28.8 (27.0-32.0) pg MCHC 31.2 (31.0-37.0) g/dL RDW Std Deviation 53.7 (28.0-62.0) fl RDW Coeff of Renetta 16 H (11.0-15.0) % Plt Count 111 L (150-400) K/uL MPV 10.50 (7.40-12.00) fL Neut % (Auto) 95.8 H (48.0-80.0) % Lymph % (Auto) 2.5 L (16.0-40.0) % [place] % (Auto) 1.6 (0.0-15.0) % Eos % (Auto) 0.1 (0.0-7.0) % Baso % (Auto) 0.0 (0.0-1.5) % Neut # (Auto) 7.8 H (1.4-5.7) K/uL Lymph # (Auto) 0.2 L (0.6-2.4) K/uL [place] # (Auto) 0.1 (0.0-0.8) K/uL Eos # (Auto) 0.0 (0.0-0.7) K/uL Baso # (Auto) 0.0 (0.0-0.1) K/uL Nucleated RBC % 0.0 /100WBC Nucleated RBCs # 0 K/uL Sodium 140 (136-148) mmol/L Potassium 5.5 H (3.5-5.1) mmol/L Chloride 105 (98-107) mmol/L Carbon Dioxide 31.4 (21.0-32.0) mmol/L BUN 32 H (7.0-18.0) mg/dL Creatinine 1.5 H (0.8-1.3) mg/dL Est Cr Clr Drug Dosing 36.48 mL/min Estimated GFR (MDRD) 45.3 ml/min Glucose 184 H (74-106) mg/dL POC Glucose 173 H (60-110) mg/dL Calcium 9.3 (8.5-10.1) mg/dL Total Bilirubin 0.2 (0.2-1.0) mg/dL AST 12 L (15-37) IU/L ALT 24 (14-63) IU/L Alkaline Phosphatase 76 (46-116) U/L Total Protein 6.7 (6.4-8.2) g/dL Albumin 3.0 L (3.4-5.0) g/dL Globulin 3.7 (2.6-4.0) g/dL Albumin/Globulin Ratio 0.8 L (0.9-1.6) Morales Results Last 24 Hours: Microbiology 07/21/19 19:57 Aerobic Blood Culture - Preliminary Blood - Venous - Lab Draw NO GROWTH AFTER 2 DAYS Anaerobic Blood Culture - Preliminary NO GROWTH AFTER 2 DAYS 07/21/19 19:26 Aerobic Blood Culture - Preliminary Blood - Venous NO GROWTH AFTER 2 DAYS Anaerobic Blood Culture - Preliminary NO GROWTH AFTER 2 DAYS Med Orders - Current: Current Medications Albuterol/Ipratropium (Duoneb 3.0-0.5 Mg/3 Ml) 3 ml NEB Q6HRRT [facility] Last Admin: 07/24/19 05:51 Dose: 3 ml Albuterol/Ipratropium (Duoneb 3.0-0.5 Mg/3 Ml) 3 ml NEB Q1H PRN PRN Reason: Shortness of Breath Calcium Carbonate/Glycine (Tums) 1,000 mg PO Q2HR PRN PRN Reason: Indigestion Last Admin: 07/22/19 12:09 Dose: 1,000 mg Dabigatran (Pradaxa) 150 mg PO BID [facility] Last Admin: 07/24/19 08:35 Dose: 150 mg Digoxin (Lanoxin) 250 mcg PO DAILY [facility] Last Admin: 07/24/19 10:13 Dose: 250 mcg Docusate Sodium (Colace) 100 mg PO DAILY [facility] Last Admin: 07/24/19 08:36 Dose: 100 mg Furosemide (Lasix) 60 mg PO DAILY [facility] Last Admin: 07/24/19 10:14 Dose: 60 mg Levofloxacin/Dextrose (Levaquin In D5w 250 Mg/50 Ml) 50 mls @ 50 mls/hr IV Q24H [facility] Last Admin: 07/23/19 20:12 Dose: 50 mls/hr Insulin Aspart (Novolog) 0 unit SUBCUT TIDAC [facility]; Protocol Last Admin: 07/24/19 07:38 Dose: 1 unit Omeprazole (Omeprazole) 20 mg PO ACBREAKFAST [facility] Last Admin: 07/24/19 06:33 Dose: 20 mg Oseltamivir Phosphate (Oseltamivir Phosphate) 30 mg PO BID [facility] Last Admin: 07/24/19 08:35 Dose: 30 mg Prednisone (Prednisone) 40 mg PO WITHBREAKFAST [facility] Simvastatin (Zocor) 80 mg PO BEDTIME [facility] Last Admin: 07/23/19 20:11 Dose: 80 mg Tiotropium [place] (Spiriva Handihaler) 18 mcg INH DAILY [facility] Last Admin: 07/24/19 09:35 Dose: 1 cap Discontinued Medications Albuterol/Ipratropium (Duoneb 3.0-0.5 Mg/3 Ml) Confirm Administered Dose 3 ml .ROUTE .STK-MED ONE Stop: 07/21/19 19:22 Last Admin: 07/21/19 19:50 Dose: 3 ml Albuterol/Ipratropium (Duoneb 3.0-0.5 Mg/3 Ml) 3 ml NEB ONETIME ONE Stop: 07/21/19 20:51 Last Admin: 07/21/19 20:59 Dose: 3 ml Albuterol/Ipratropium (Duoneb 3.0-0.5 Mg/3 Ml) Confirm Administered Dose 3 ml .ROUTE .STK-MED ONE Stop: 07/21/19 20:53 Last Admin: 07/21/19 20:59 Dose: Not Given Albuterol/Ipratropium (Duoneb 3.0-0.5 Mg/3 Ml) 3 ml NEB ONETIME ONE Stop: 07/21/19 21:58 Last Admin: 07/21/19 22:08 Dose: 3 ml Sodium Chloride (Normal Saline) 1,000 mls @ 999 mls/hr IV .Bolus ONE Stop: 07/22/19 00:16 Last Admin: 07/21/19 19:20 Dose: 999 mls/hr Levofloxacin/Dextrose 750 mg/ (Premix) 150 mls @ 100 mls/hr IV Q24H [facility] Last Admin: 07/22/19 00:46 Dose: Not Given Levofloxacin/Dextrose (Levaquin In D5w 500 Mg/100 Ml) 100 mls @ 100 mls/hr IV ONETIME ONE Stop: 07/22/19 01:14 Last Admin: 07/22/19 00:38 Dose: 100 mls/hr Methylprednisolone Sodium Succinate (Solu-Medrol) 125 mg IVPUSH ONETIME ONE Stop: 07/21/19 21:58 Last Admin: 07/21/19 22:03 Dose: 125 mg Methylprednisolone Sodium Succinate (Solu-Medrol) 125 mg IVPUSH Q6H [facility] Last Admin: 07/22/19 04:09 Dose: 125 mg Methylprednisolone Sodium Succinate (Solu-Medrol) 125 mg IVPUSH Q12H [facility] Last Admin: 07/24/19 08:30 Dose: 125 mg Oseltamivir Phosphate (Tamiflu) 75 mg PO BID [facility] Last Admin: 07/22/19 00:36 Dose: 75 mg Polyethylene Glycol (Miralax) 17 gm PO ONETIME ONE Stop: 07/24/19 09:09 Last Admin: 07/24/19 10:14 Dose: 17 gm - Exam Quality Assessment: Supplemental Oxygen General: Alert, Oriented, Cooperative, No Acute Distress Neck: Supple, Trachea Midline Lungs: Other (tight BS but moving air; no wheeze, rales or rhonchi ) Cardiovascular: Regular Rate, Regular Rhythm GI/Abdominal Exam: Soft, Non-Tender Extremities: No Pedal Edema Skin: Warm, Dry Psy/Mental Status: Alert, Normal Mood Sepsis Event Note - Evaluation Sepsis Screening Result: No Definite Risk - Focused Exam Vital Signs: Vital Signs Temp Pulse Pulse Resp BP Pulse Ox Pulse Ox 07/24/19 10:13 92 07/24/19 08:00 98.8 F 94 20 100/66 93 L 93 L 07/24/19 04:26 97.1 F 81 19 101/64 96 07/23/19 23:34 97.3 F 86 20 88/58 L 95 Date Exam was Performed: 07/24/19 Time Exam was Performed: 10:23 - Problem List Review Problem List Initiated/Reviewed/Updated: Yes - My Orders Last 24 Hours: My Active Orders 07/23/19 10:59 Communication Order [RC] PRN 07/23/19 12:00 Docusate Sodium [Colace] 100 mg PO DAILY - Assessment Assessment:: Assessment: 1. COPD exacerbation w. influenza exposure in the setting of CAP 2. PMH: CAD, s/p CABG, CHF w PReF, DM , COPD Plan: 1. Continue both Levaquin and Tamiflu at this time; improving well. continue duo nebs and steroids as well. Restart Lasix this AM; strict I/O's and daily weights. 2. Currently on baseline O2 of 2L; will reassess in morning due to complex medical history and influenza exposure. 3. pt. understood and agreed w/ plan. 4. Constipation: continue colace and Miralax - Plan Plan:: .
[2019-07-24] MEDS: Simvastatin 40 MG Tab PO SCH (20:22)
[2019-07-24] MEDS: Levofloxacin/Dextrose 5%-Water 50 ML IV SCH (20:22)
[2019-07-25] MEDS: Albuterol/Ipratropium 3.0-0.5 MG/3 ML Neb Soln NEB SCH ×3 (06:12→17:27)
[2019-07-25 06:20] LABS: CARBON DIOXIDE,CO2 32.4 mmol/L (21.0-32.0)
[2019-07-25] MEDS: Omeprazole 20 MG Cap.CR PO SCH (06:35)
[2019-07-25] MEDS: Insulin Aspart 100 Units/ML 3 ML Pen SUBCUT SCH ×3 (06:37→17:38)
[2019-07-25] MEDS: Furosemide 40 MG Tab PO SCH (08:29)
[2019-07-25] MEDS: Docusate Sodium 100 MG Cap PO SCH (08:31)
[2019-07-25] MEDS: predniSONE 20 MG Tab PO SCH (08:31)
[2019-07-25] MEDS: Oseltamivir Phosphate 30 MG Capsule PO SCH ×2 (08:32→20:29)
[2019-07-25] MEDS: Digoxin 250 MCG Tab PO SCH (08:41)
[2019-07-25] MEDS: Tiotropium Inhaler 18 MCG Inhalation Powder Cap Kit of 5 INH SCH (08:57)
--- NOTE | 2019-07-25 12:00 | PCM.PN ---
- General Info Date of Service: 07/25/19 Subjective Update: pt. is feeling stronger today w. improvement of respiratory status; states he still feels weak and is concerned about how to take care of himself at home. Functional Status: Reports: Pain Controlled - Review of Systems General: Reports: No Symptoms. Denies: Fever, Malaise, Chills HEENT: Reports: No Symptoms Pulmonary: Reports: Shortness of Breath, Cough. Denies: Sputum, Wheezing Cardiovascular: Reports: No Symptoms Gastrointestinal: Reports: No Symptoms Genitourinary: Reports: No Symptoms Musculoskeletal: Reports: No Symptoms Neurological: Reports: No Symptoms. Denies: Headache Psychiatric: Reports: No Symptoms - Patient Data Vitals - Most Recent: Last Vital Signs Temp 97.9 F 07/25/19 07:30 Pulse 70 07/25/19 08:41 Resp 18 07/25/19 07:30 BP 93/52 L 07/25/19 07:30 Pulse Ox 99 07/25/19 07:30 Weight - Most Recent: 138 lb 11.2 oz I&O - Last 24 Hours: Intake & Output 07/24/19 07/25/19 07/25/19 22:59 06:59 14:59 Intake Total 510 600 Output Total 1600 600 Balance -1090 0 Lab Results Last 24 Hours: Laboratory Results - last 24 hr 07/24/19 07/25/19 07/25/19 Range/Units 16:16 05:49 06:37 Sodium 138 (136-148) mmol/L Potassium 5.0 (3.5-5.1) mmol/L Chloride 101 (98-107) mmol/L Carbon Dioxide 32.4 H (21.0-32.0) mmol/L BUN 39 H (7.0-18.0) mg/dL Creatinine 1.4 H (0.8-1.3) mg/dL Est Cr Clr Drug Dosing 38.70 mL/min Estimated GFR (MDRD) 49.0 ml/min Glucose 143 H (74-106) mg/dL POC Glucose 170 H 139 H (60-110) mg/dL Calcium 9.0 (8.5-10.1) mg/dL 07/25/19 Range/Units 11:34 Sodium (136-148) mmol/L Potassium (3.5-5.1) mmol/L Chloride (98-107) mmol/L Carbon Dioxide (21.0-32.0) mmol/L BUN (7.0-18.0) mg/dL Creatinine (0.8-1.3) mg/dL Est Cr Clr Drug Dosing mL/min Estimated GFR (MDRD) ml/min Glucose (74-106) mg/dL POC Glucose 144 H (60-110) mg/dL Calcium (8.5-10.1) mg/dL [place] Results Last 24 Hours: Microbiology 07/21/19 19:57 Aerobic Blood Culture - Preliminary Blood - Venous - Lab Draw NO GROWTH AFTER 3 DAYS Anaerobic Blood Culture - Preliminary NO GROWTH AFTER 3 DAYS 07/21/19 19:26 Aerobic Blood Culture - Preliminary Blood - Venous NO GROWTH AFTER 3 DAYS Anaerobic Blood Culture - Preliminary NO GROWTH AFTER 3 DAYS Med Orders - Current: Current Medications Albuterol/Ipratropium (Duoneb 3.0-0.5 Mg/3 Ml) 3 ml NEB Q6HRRT [facility] Last Admin: 07/25/19 06:12 Dose: 3 ml Albuterol/Ipratropium (Duoneb 3.0-0.5 Mg/3 Ml) 3 ml NEB Q1H PRN PRN Reason: Shortness of Breath Calcium Carbonate/Glycine (Tums) 1,000 mg PO Q2HR PRN PRN Reason: Indigestion Last Admin: 07/22/19 12:09 Dose: 1,000 mg Dabigatran (Pradaxa) 150 mg PO BID [facility] Last Admin: 07/25/19 08:21 Dose: 150 mg Digoxin (Lanoxin) 250 mcg PO DAILY [facility] Last Admin: 07/25/19 08:41 Dose: 250 mcg Docusate Sodium (Colace) 100 mg PO DAILY [facility] Last Admin: 07/25/19 08:31 Dose: 100 mg Furosemide (Lasix) 60 mg PO DAILY [facility] Last Admin: 07/25/19 08:29 Dose: 60 mg Levofloxacin/Dextrose (Levaquin In D5w 250 Mg/50 Ml) 50 mls @ 50 mls/hr IV Q24H [facility] Last Admin: 07/24/19 20:22 Dose: 50 mls/hr Insulin Aspart (Novolog) 0 unit SUBCUT TIDAC [facility]; Protocol Last Admin: 07/25/19 06:37 Dose: Not Given Omeprazole (Omeprazole) 20 mg PO ACBREAKFAST [facility] Last Admin: 07/25/19 06:35 Dose: 20 mg Oseltamivir Phosphate (Oseltamivir Phosphate) 30 mg PO BID [facility] Last Admin: 07/25/19 08:32 Dose: 30 mg Prednisone (Prednisone) 40 mg PO WITHBREAKFAST [facility] Last Admin: 07/25/19 08:31 Dose: 40 mg Simvastatin (Zocor) 80 mg PO BEDTIME [facility] Last Admin: 07/24/19 20:22 Dose: 80 mg Tiotropium [place] (Spiriva Handihaler) 18 mcg INH DAILY [facility] Last Admin: 07/25/19 08:57 Dose: 1 cap Discontinued Medications Albuterol/Ipratropium (Duoneb 3.0-0.5 Mg/3 Ml) Confirm Administered Dose 3 ml .ROUTE .STK-MED ONE Stop: 07/21/19 19:22 Last Admin: 07/21/19 19:50 Dose: 3 ml Albuterol/Ipratropium (Duoneb 3.0-0.5 Mg/3 Ml) 3 ml NEB ONETIME ONE Stop: 07/21/19 20:51 Last Admin: 07/21/19 20:59 Dose: 3 ml Albuterol/Ipratropium (Duoneb 3.0-0.5 Mg/3 Ml) Confirm Administered Dose 3 ml .ROUTE .STK-MED ONE Stop: 07/21/19 20:53 Last Admin: 07/21/19 20:59 Dose: Not Given Albuterol/Ipratropium (Duoneb 3.0-0.5 Mg/3 Ml) 3 ml NEB ONETIME ONE Stop: 07/21/19 21:58 Last Admin: 07/21/19 22:08 Dose: 3 ml Sodium Chloride (Normal Saline) 1,000 mls @ 999 mls/hr IV .Bolus ONE Stop: 07/22/19 00:16 Last Admin: 07/21/19 19:20 Dose: 999 mls/hr Levofloxacin/Dextrose 750 mg/ (Premix) 150 mls @ 100 mls/hr IV Q24H [facility] Last Admin: 07/22/19 00:46 Dose: Not Given Levofloxacin/Dextrose (Levaquin In D5w 500 Mg/100 Ml) 100 mls @ 100 mls/hr IV ONETIME ONE Stop: 07/22/19 01:14 Last Admin: 07/22/19 00:38 Dose: 100 mls/hr Methylprednisolone Sodium Succinate (Solu-Medrol) 125 mg IVPUSH ONETIME ONE Stop: 07/21/19 21:58 Last Admin: 07/21/19 22:03 Dose: 125 mg Methylprednisolone Sodium Succinate (Solu-Medrol) 125 mg IVPUSH Q6H [facility] Last Admin: 07/22/19 04:09 Dose: 125 mg Methylprednisolone Sodium Succinate (Solu-Medrol) 125 mg IVPUSH Q12H [facility] Last Admin: 07/24/19 08:30 Dose: 125 mg Oseltamivir Phosphate (Tamiflu) 75 mg PO BID [facility] Last Admin: 07/22/19 00:36 Dose: 75 mg Polyethylene Glycol (Miralax) 17 gm PO ONETIME ONE Stop: 07/24/19 09:09 Last Admin: 07/24/19 10:14 Dose: 17 gm - Exam Quality Assessment: Supplemental Oxygen General: Alert, Oriented, Cooperative, No Acute Distress HEENT: EOMI Neck: Supple, Trachea Midline Lungs: Other (tight but moving air well ) Cardiovascular: Regular Rate, Regular Rhythm GI/Abdominal Exam: Soft, Non-Tender Back Exam: Full Range of Motion Skin: Warm, Dry Neurological: No New Focal Deficit Psy/Mental Status: Alert, Normal Mood Sepsis Event Note - Evaluation Sepsis Screening Result: No Definite Risk - Focused Exam Vital Signs: Vital Signs Temp Pulse Pulse Resp BP Pulse Ox 07/25/19 08:41 70 07/25/19 07:30 97.9 F 70 18 93/52 L 99 07/25/19 03:15 97.4 F 70 19 88/58 L 97 Date Exam was Performed: 07/25/19 Time Exam was Performed: 12:00 - Problem List Review Problem List Initiated/Reviewed/Updated: Yes - Assessment Assessment:: Assessment: 1. COPD exacerbation w. influenza exposure in the setting of CAP 2. PMH: CAD, s/p CABG, CHF w PReF, DM , COPD Plan: 1. Continue both Levaquin and Tamiflu at this time; improving well. continue duo nebs and steroids as well. Continue Lasix this AM; strict I/O's and daily weights. 2. Currently on baseline O2 of 2L; will reassess in morning due to complex medical history and influenza exposure. 3. pt. understood and agreed w/ plan. 4. Constipation: continue colace and Miralax 5. Home health: pt. will be sent home w. home health - Plan Plan:: .
[2019-07-25] MEDS: Levofloxacin/Dextrose 5%-Water 50 ML IV SCH (20:28)
[2019-07-25] MEDS: Simvastatin 40 MG Tab PO SCH (20:29)
[2019-07-25] MEDS: Calcium Carbonate 500 MG Tab.Chew PO PRN (21:26)
[2019-07-26] MEDS: Albuterol/Ipratropium 3.0-0.5 MG/3 ML Neb Soln NEB SCH ×3 (00:42→11:47)
[2019-07-26] MEDS: Insulin Aspart 100 Units/ML 3 ML Pen SUBCUT SCH ×2 (06:47→12:31)
[2019-07-26 06:57] LABS: CARBON DIOXIDE,CO2 31.5 mmol/L (21.0-32.0); POTASSIUM,K 4.1 mmol/L (3.5-5.1)
[2019-07-26] MEDS: Omeprazole 20 MG Cap.CR PO SCH (07:02)
[2019-07-26] MEDS: Furosemide 40 MG Tab PO SCH (08:24)
[2019-07-26] MEDS: Digoxin 250 MCG Tab PO SCH (08:25)
[2019-07-26] MEDS: predniSONE 20 MG Tab PO SCH (08:26)
[2019-07-26] MEDS: Oseltamivir Phosphate 30 MG Capsule PO SCH (08:26)
[2019-07-26] MEDS: Docusate Sodium 100 MG Cap PO SCH (08:28)
[2019-07-26] MEDS: Tiotropium Inhaler 18 MCG Inhalation Powder Cap Kit of 5 INH SCH (08:29)
--- NOTE | 2019-07-26 13:37 | PCM.DCSUM1 ---
Discharge Summary - Hospital Course Free Text/Narrative:: Discharge summary Admission date 07-22-2019 Discharge date 07-26-2019 Admission diagnoses: COPD exacerbation Influenza exposure PMH Discharge diagnoses: COPD exacerbation improving Influenza exposure PMH Consultations:none Procedures:none Hospital course: Patient is a 79-year-old male with a significant past medical history of COPD with multiple exacerbations requiring 2 L of nasal cannula oxygen, heart failure , CKD, DM, A. fib and status post CABG: Presenting with nausea, vomiting, chills and worsening of shortness of breath with productive cough. Patient's family member was diagnosed with influenza B; patient however did not test positive for influenza B however secondary to his history of COPD patient was started on IV methylprednisolone, Tamiflu 75 mg twice daily, and Levaquin daily secondary to his COPD exacerbation and worsening sputum production. Patient throughout his stay continued to improve ultimately returning back to his baseline oxygen. Patient required DuoNeb treatments initially scheduled however was made PRN thereafter. For first 3 days of admission patient's furosemide was held; restarted on day 4; patient returned back to his baseline dry weight. Discharge patient was sent home with completion of Levaquin, 4 additional days of prednisone, completion of his Tamiflu regimen and a nebulizer prescription. Home health was consulted recommended patient follow- up with [place] clinic for outpatient pulmonary rehab Discharge condition:Stable Disposition:Home with home health Discharge medications: Levaquin/prednisone/Tamiflu +home medications . Nebulizer medications - Discharge Data Discharge Date: 07/26/19 Discharge Disposition: Home, W Home Health Agency 06 Condition: Stable - Referral to Home Health Date of Face to Face Encounter: 07/25/19 Reason for Homebound Status: COPD/weakness Primary Care Physician: PCP Unknown Skilled Need: Medication management. Nebulizer admin/set-up - Patient Instructions Diet: Heart Healthy Diet, Fluid Restriction Activity: As Tolerated, Cough & Deep Breathe Notify Provider of: Fever, Increased Pain, Nausea and/or Vomiting - Discharge Plan *PRESCRIPTION DRUG MONITORING PROGRAM REVIEWED*: No *COPY OF PRESCRIPTION DRUG MONITORING REPORT IN PATIENT BI: No Prescriptions/Med Rec: Levofloxacin [Levaquin] 500 mg PO DAILY 2 Days #2 tablet Oseltamivir Phosphate 30 mg PO BID 2 Days #4 cap predniSONE 20 mg PO WITHBREAKFAST 4 Days #4 tablet Home Medications: Home Meds Albuterol [Proventil HFA] 2 puff INH Q4H PRN 04/09/18 [History] Budesonide/Formoterol Fumarate [Symbicort 160-4.5 Mcg Inhaler] 2 puff INH BID [History] Omeprazole 20 mg PO ACBREAKFAST 11/05/17 [History] Simvastatin [Zocor] 80 mg PO BEDTIME 11/05/17 [History] Tiotropium [Spiriva HandiHaler] 1 caplet INH DAILY 11/05/17 [History] allopurinoL [Zyloprim] 300 mg PO DAILY 11/05/17 [History] metFORMIN HCl [Metformin HCl] 500 mg PO BIDMEALS 11/05/17 [History] Dabigatran [Pradaxa] 150 mg PO BID 12/30/18 [History] Acetaminophen [Tylenol] 650 mg PO Q8H PRN 04/12/19 [History] Aspirin 81 mg PO DAILY 04/12/19 [History] Cyanocobalamin (Vitamin B-12) [B-12] 1,000 mcg PO DAILY 04/12/19 [History] Ferrous Sulfate 325 mg PO WITHBREAKFAST 04/12/19 [History] Nitroglycerin [Nitrostat] 0.4 mg SL Q5M PRN tab.sl 04/14/19 [Rx] Digoxin 250 mcg PO DAILY 07/01/19 [History] Tamsulosin HCl [Flomax] 0.4 mg PO DAILY 07/01/19 [History] Furosemide [Lasix] 60 mg PO DAILY 10 Days #15 tab 07/03/19 [Rx] Calcium Carbonate [Tums] 1,000 mg PO Q2HR PRN tab.chew 07/26/19 [Rx] Docusate Sodium [Colace] 100 mg PO DAILY cap 07/26/19 [Rx] Levofloxacin [Levaquin] 500 mg PO DAILY 2 Days #2 tablet 07/26/19 [Rx] Oseltamivir Phosphate 30 mg PO BID 2 Days #4 cap 07/26/19 [Rx] predniSONE 20 mg PO WITHBREAKFAST 4 Days #4 tablet 07/26/19 [Rx] Patient Handouts: Chronic Obstructive Pulmonary Disease, [id number], Oseltamivir capsules, Levofloxacin tablets, Prednisone tablets Referrals: Robert Quintero NP [Ordering Only Provider] - 08/05/19 12:30 pm - Discharge Summary/Plan Comment DC Time >30 min.: No - Patient Data Vitals - Most Recent: Last Vital Signs Temp 97.1 F 07/26/19 11:00 Pulse 82 07/26/19 11:00 Resp 20 07/26/19 11:00 BP 105/58 L 07/26/19 11:00 Pulse Ox 96 07/26/19 11:00 Weight - Most Recent: 137 lb 4 oz I&O - Last 24 hours: Intake & Output 07/25/19 07/26/19 07/26/19 22:59 06:59 14:59 Intake Total 1210 700 Output Total 1160 875 Balance 50 -175 Lab Results - Last 24 hrs: Laboratory Results - last 24 hr 07/25/19 07/26/19 07/26/19 Range/Units 16:39 05:55 06:29 Sodium 138 (136-148) mmol/L Potassium 4.1 (3.5-5.1) mmol/L Chloride 102 (98-107) mmol/L Carbon Dioxide 31.5 (21.0-32.0) mmol/L BUN 40 H (7.0-18.0) mg/dL Creatinine 1.3 (0.8-1.3) mg/dL Est Cr Clr Drug Dosing 41.24 mL/min Estimated GFR (MDRD) 53.4 ml/min Glucose 103 (74-106) mg/dL POC Glucose 237 H 99 (60-110) mg/dL Calcium 8.6 (8.5-10.1) mg/dL 07/26/19 Range/Units 12:19 Sodium (136-148) mmol/L Potassium (3.5-5.1) mmol/L Chloride (98-107) mmol/L Carbon Dioxide (21.0-32.0) mmol/L BUN (7.0-18.0) mg/dL Creatinine (0.8-1.3) mg/dL Est Cr Clr Drug Dosing mL/min Estimated GFR (MDRD) ml/min Glucose (74-106) mg/dL POC Glucose 149 H (60-110) mg/dL Calcium (8.5-10.1) mg/dL JILLIAN Results - Last 24 hrs: Microbiology 07/21/19 19:57 Aerobic Blood Culture - Preliminary Blood - Venous - Lab Draw NO GROWTH AFTER 4 DAYS Anaerobic Blood Culture - Preliminary NO GROWTH AFTER 4 DAYS 07/21/19 19:26 Aerobic Blood Culture - Preliminary Blood - Venous NO GROWTH AFTER 4 DAYS Anaerobic Blood Culture - Preliminary NO GROWTH AFTER 4 DAYS Med Orders - Current: Current Medications Albuterol/Ipratropium (Duoneb 3.0-0.5 Mg/3 Ml) 3 ml NEB Q6HRRT [facility] Last Admin: 07/26/19 11:47 Dose: 3 ml Albuterol/Ipratropium (Duoneb 3.0-0.5 Mg/3 Ml) 3 ml NEB Q1H PRN PRN Reason: Shortness of Breath Calcium Carbonate/Glycine (Tums) 1,000 mg PO Q2HR PRN PRN Reason: Indigestion Last Admin: 07/25/19 21:26 Dose: 1,000 mg Dabigatran (Pradaxa) 150 mg PO BID [facility] Last Admin: 07/26/19 08:25 Dose: 150 mg Digoxin (Lanoxin) 250 mcg PO DAILY [facility] Last Admin: 07/26/19 08:25 Dose: 250 mcg Docusate Sodium (Colace) 100 mg PO DAILY [facility] Last Admin: 07/26/19 08:28 Dose: 100 mg Furosemide (Lasix) 60 mg PO DAILY [facility] Last Admin: 07/26/19 08:24 Dose: 60 mg Levofloxacin/Dextrose (Levaquin In D5w 250 Mg/50 Ml) 50 mls @ 50 mls/hr IV Q24H [facility] Last Admin: 07/25/19 20:28 Dose: 50 mls/hr Insulin Aspart (Novolog) 0 unit SUBCUT TIDAC [facility]; Protocol Last Admin: 07/26/19 12:31 Dose: Not Given Omeprazole (Omeprazole) 20 mg PO ACBREAKFAST [facility] Last Admin: 07/26/19 07:02 Dose: 20 mg Oseltamivir Phosphate (Oseltamivir Phosphate) 30 mg PO BID [facility] Last Admin: 07/26/19 08:26 Dose: 30 mg Prednisone (Prednisone) 40 mg PO WITHBREAKFAST [facility] Last Admin: 07/26/19 08:26 Dose: 40 mg Simvastatin (Zocor) 80 mg PO BEDTIME [facility] Last Admin: 07/25/19 20:29 Dose: 80 mg Tiotropium [place] (Spiriva Handihaler) 18 mcg INH DAILY [facility] Last Admin: 07/26/19 08:29 Dose: 1 cap Discontinued Medications Albuterol/Ipratropium (Duoneb 3.0-0.5 Mg/3 Ml) Confirm Administered Dose 3 ml .ROUTE .STK-MED ONE Stop: 07/21/19 19:22 Last Admin: 07/21/19 19:50 Dose: 3 ml Albuterol/Ipratropium (Duoneb 3.0-0.5 Mg/3 Ml) 3 ml NEB ONETIME ONE Stop: 07/21/19 20:51 Last Admin: 07/21/19 20:59 Dose: 3 ml Albuterol/Ipratropium (Duoneb 3.0-0.5 Mg/3 Ml) Confirm Administered Dose 3 ml .ROUTE .STK-MED ONE Stop: 07/21/19 20:53 Last Admin: 07/21/19 20:59 Dose: Not Given Albuterol/Ipratropium (Duoneb 3.0-0.5 Mg/3 Ml) 3 ml NEB ONETIME ONE Stop: 07/21/19 21:58 Last Admin: 07/21/19 22:08 Dose: 3 ml Sodium Chloride (Normal Saline) 1,000 mls @ 999 mls/hr IV .Bolus ONE Stop: 07/22/19 00:16 Last Admin: 07/21/19 19:20 Dose: 999 mls/hr Levofloxacin/Dextrose 750 mg/ (Premix) 150 mls @ 100 mls/hr IV Q24H [facility] Last Admin: 07/22/19 00:46 Dose: Not Given Levofloxacin/Dextrose (Levaquin In D5w 500 Mg/100 Ml) 100 mls @ 100 mls/hr IV ONETIME ONE Stop: 07/22/19 01:14 Last Admin: 07/22/19 00:38 Dose: 100 mls/hr Methylprednisolone Sodium Succinate (Solu-Medrol) 125 mg IVPUSH ONETIME ONE Stop: 07/21/19 21:58 Last Admin: 07/21/19 22:03 Dose: 125 mg Methylprednisolone Sodium Succinate (Solu-Medrol) 125 mg IVPUSH Q6H [facility] Last Admin: 07/22/19 04:09 Dose: 125 mg Methylprednisolone Sodium Succinate (Solu-Medrol) 125 mg IVPUSH Q12H [facility] Last Admin: 07/24/19 08:30 Dose: 125 mg Oseltamivir Phosphate (Tamiflu) 75 mg PO BID [facility] Last Admin: 07/22/19 00:36 Dose: 75 mg Polyethylene Glycol (Miralax) 17 gm PO ONETIME ONE Stop: 07/24/19 09:09 Last Admin: 07/24/19 10:14 Dose: 17 gm
== END 2019-07-26 13:40 | disposition home health service (06) | DRG 190 ==
LOC: MW.ED 19:10 → MW.MS 22:51 → OBSVTOIN 22:51
PROVIDERS: ADMIT Internal Medicine; ATTEND Internal Medicine
DX: J44.9 Chronic obstructive pulmonary disease, unspecified (principal); R09.02 Hypoxemia; J44.0 Chronic obstructive pulmonary disease with (acute) lower respiratory infection; H54.7 Unspecified visual loss; J18.9 Pneumonia, unspecified organism; I13.0 Hypertensive heart and chronic kidney disease with heart failure and stage 1 through stage 4 chronic kidney disease, or unspecified chronic kidney disease; I11.0 Hypertensive heart disease with heart failure; I50.32 Chronic diastolic (congestive) heart failure; J44.1 Chronic obstructive pulmonary disease with (acute) exacerbation; N18.9 Chronic kidney disease, unspecified; E11.22 Type 2 diabetes mellitus with diabetic chronic kidney disease; E11.9 Type 2 diabetes mellitus without complications; I48.91 Unspecified atrial fibrillation; I25.10 Atherosclerotic heart disease of native coronary artery without angina pectoris; H40.9 Unspecified glaucoma; E78.00 Pure hypercholesterolemia, unspecified; K59.00 Constipation, unspecified; K21.9 Gastro-esophageal reflux disease without esophagitis; Z20.828 Contact with and (suspected) exposure to other viral communicable diseases; M10.9 Gout, unspecified; Z98.49 Cataract extraction status, unspecified eye; Z98.890 Other specified postprocedural states; Z87.891 Personal history of nicotine dependence; Z99.81 Dependence on supplemental oxygen; Z79.899 Other long term (current) drug therapy; Z79.52 Long term (current) use of systemic steroids; Z79.84 Long term (current) use of oral hypoglycemic drugs; Z79.82 Long term (current) use of aspirin; Z95.1 Presence of aortocoronary bypass graft; Z86.73 Personal history of transient ischemic attack (TIA), and cerebral infarction without residual deficits
CPT/HCPCS: 36415; 36600; 71045; 80053; 80162; 81003; 82803; 83605; 84484; 85025; 85610; 87040 ×2; 87804 ×2; 93005; 94640; 96361; 96374; 99285; J2930; J7030; 80048; 82962; 83735; 94664; 94667; A9270-GY; J1815-GY; J1956; J7620-GY

== ENCOUNTER 2020-02-26 09:05 | Emergency (ER) | payer MEDICARE, OTHER ==
[2020-02-26] MEDS ORDERED: Sodium Chloride 0.9% 2.5 ML Syringe FLUSH PRN (09:35)
[2020-02-26] MEDS ORDERED: Sodium Chloride 0.9% 10 ML Syringe FLUSH PRN (09:35)
--- NOTE | 2020-02-26 10:01 | CR ---
Chest: Portable view of the chest was obtained. Comparison: Previous chest x-ray of 07/21/19. Findings are suspicious for asymmetric pulmonary vascular congestion from early CHF. Small right-sided pleural effusion is noted. Previous sternotomy is noted with prosthetic heart valve. Heart size is slightly enlarged. Bony structures are grossly intact. Impression: 1. Findings suspicious for early CHF. Diagnostic code #3 This report was dictated in MDT
[2020-02-26 10:04] LABS: CARBON DIOXIDE,CO2 30.5 mmol/L (21.0-32.0); POTASSIUM,K 4.4 mmol/L (3.5-5.1)
--- NOTE | 2020-02-26 10:14 | EDM.PDOC ---
<Maryjane Rasmussen E - Last Filed: 02/26/20 11:53> ED HPI GENERAL MEDICAL PROBLEM - General Chief Complaint: Respiratory Problem Stated Complaint: SOB Time Seen by Provider: 02/26/20 09:39 Source of Information: Reports: Patient History Limitations: Reports: No Limitations - History of Present Illness INITIAL COMMENTS - FREE TEXT/NARRATIVE: HISTORY AND PHYSICAL: History of present illness: Patient is a 80-year-old male who presents to the emergency room with complaints of shortness of breath, fluid retention and generally feeling unwell. Patient states that he has a history of COPD and shortness of breath is usual for him, although today he felt that his symptom was worse and thought maybe it was related to having "extra fluid on me". He states he has noticed his lower extremities appear swollen, he does check his weight daily (fluctuates about 2-4 lbs within a month) and takes Lasix daily. No significant weight change this week. States he does intermittently get chest pain but has not had any chest pain in a few days. His shortness of breath is worse with physical activity or laying flat. Stating "I just do not feel good... I am not sure what is going on". States he has had and upset stomach although states it is not painful nor has he had any nausea, vomiting, diarrhea or constipation. Has not noted any blood in urine or stool. Patient has been eating and drinking appropriately. Patient denies any fever, chills, headache, change in vision, syncope or near syncope. Denies any chest pain, back pain or cough. Patient does have a past medical history of CVA, atrial fibrillation, hypertension, congestive heart failure, COPD, diabetes type 2, and history of coronary bypass -dates he had open heart surgery approximately a year ago in [place]. He does take Pradaxa and aspirin daily, faithful user-took both today. Review of systems: As per history of present illness and below otherwise all systems reviewed and negative. Past medical history: As per history of present illness and as reviewed below otherwise noncontributory. Surgical history: As per history of present illness and as reviewed below otherwise noncontr ibutory. Social history: See social history for further information Family history: As per history of present illness and as reviewed below otherwise noncontributory. Physical exam: General: Well-developed and well-nourished 80-year-old male. Alert and oriented. Nontoxic-appearing and in no acute distress. HEENT: Atraumatic, normocephalic, pupils equal and reactive bilaterally, negative for conjunctival pallor or scleral icterus, mucous membranes moist, TMs normal bilaterally, throat clear, neck supple, nontender, trachea midline. No drooling or trismus noted. No meningeal signs. No hot potato voice noted. Lungs: Slightly diminished to auscultation throughout, breath sounds equal bilaterally, chest nontender. No rhonchi or rales. Heart: S1S2, regular rate and rhythm without overt murmur Abdomen: Soft, nondistended, nontender. Negative for masses or hepatosplenomegaly. Negative for costovertebral tenderness. Skin: Intact, warm, dry. No lesions or rashes noted. Extremities: Atraumatic, moves all extremities per self without difficulty or deficits, negative for cords or calf pain. + 1 edema to bilateral lower extremity. Neurovascular unremarkable. Neuro: Awake, alert, oriented. Cranial nerves II through XII unremarkable. Cerebellum unremarkable. Motor and sensory unremarkable throughout. Exam nonfocal. Notes: I assumed care of this patient at 1000; initial orders were placed by Dr Leon. Patient's EKG shows no significant changes from 06/2019. Patient's H&H is slightly lower, does trend on the lower side. Patient denies any source of bleeding. Denies any bloody/tarry stools. Troponin is slightly elevated. Patient was informed of the likelihood of needing to be transferred to have cardiology involved. He is aware and agreeable to transfer to [place]. I did s peak with Dr. Guzman, ER physician at [facility], he is agreeable to accepting this patient. We discussed using heparin, at this time he would like this medication held. I will give 40 mg of Lasix IV. COVID testing is pending. Score of 7, high risk. Dr Leon has also evaluated this patient, please see his note for details. Negative COVID screening. Patient remains stable, vital signs are within normal limits. Continues to be chest pain-free. Diagnostics: CBC, CMP, BNP, Troponin, EKG, CXR, COVID, Therapeutics: Lasix 40mg IV, aspirin Impression: NSTEMI Anemia CHF Plan: Transfer to [facility] in [place] per ALS If your symptoms should worsen, new symptoms develop or any of the signs and symptoms we discussed should arise please return to the emergency room or call 911 (if needed). Definitive disposition and diagnosis as appropriate pending reevaluation and review of above. - Related Data Allergies Allergy/AdvReac Type Severity Reaction Status Date / Time No Known Allergies Allergy Verified 02/26/20 09:48 Home Meds: Home Meds RX: Albuterol [Proventil HFA] 2 puff INH Q6H PRN 11/05/17 [History] RX: Budesonide/Formoterol Fumarate [Symbicort 160-4.5 Mcg Inhaler] 2 puff INH BID 11/05/17 [History] RX: Omeprazole 20 mg PO ACBREAKFAST 11/05/17 [History] RX: Simvastatin [Zocor] 80 mg PO BEDTIME 11/05/17 [History] RX: Tiotropium [Spiriva HandiHaler] 1 caplet INH DAILY 11/05/17 [History] RX: allopurinoL [Zyloprim] 300 mg PO DAILY 11/05/17 [History] RX: metFORMIN HCl [Metformin HCl] 500 mg PO BIDMEALS 11/05/17 [History] RX: Dabigatran [Pradaxa] 150 mg PO BID 12/30/18 [History] RX: Digoxin 250 mcg PO DAILY 07/01/19 [History] RX: Tamsulosin HCl [Flomax] 0.4 mg PO DAILY 07/01/19 [History] RX: Furosemide [Lasix] 60 mg PO DAILY 10 Days #15 tab 07/03/19 [Rx] RX: Albuterol/Ipratropium [DuoNeb 3.0-0.5 MG/3 ML] 3 ml INH Q6H PRN 02/26/20 [History] Past Medical History HEENT History: Reports: Glaucoma Other HEENT History: wears glasses for reading, has top and bottom dentures Cardiovascular History: Reports: Afib, CAD, Heart Failure, High Cholesterol, Hypertension, Other (See Below) Respiratory History: Reports: COPD Other Respiratory History: Uses oxygen @ 2L NC and inhalers at home Gastrointestinal History: Reports: GERD, Other (See Below) Genitourinary History: Reports: None Musculoskeletal History: Reports: Gout Neurological History: Reports: CVA Psychiatric History: Reports: None Endocrine/Metabolic History: Reports: Diabetes, Type II Hematologic History: Reports: None Immunologic History: Reports: None Oncologic (Cancer) History: Reports: None Dermatologic History: Reports: None - Infectious Disease History Infectious Disease History: Reports: Chicken Pox, Measles, Mumps, Shingles - Past Surgical History Head Surgeries/Procedures: Reports: None HEENT Surgical History: Reports: Cataract Surgery, Eye Surgery, Oral Surgery Other HEENT Surgeries/Procedures: eye surgery x3 Cardiovascular Surgical History: Reports: Coronary Artery Bypass Social & Family History - Family History Family Medical History: Noncontributory HEENT: Reports: Cataract, Glaucoma Cardiac: Reports: Afib, High Cholesterol, Hypertension Respiratory: Reports: None GI: Reports: None OBGYN: Reports: Neurological: Reports: CVA Psychiatric: Reports: None Endocrine/Metabolic: Reports: Diabetes, type II Hematologic: Reports: None Immunologic: Reports: None Dermatologic: Reports: None Oncologic: Reports: None - Tobacco Use Smoking Status *Q: Former Smoker Used Tobacco, but Quit: Yes Month/Year Tobacco Last Used: 2004 - Caffeine Use Caffeine Use: Reports: Coffee Caffeine Use Comment: 1 cup/day coffee - Recreational Drug Use Recreational Drug Use: No - Living Situation & Occupation Living situation: Reports: Occupation: Retired ED ROS GENERAL - Review of Systems Review Of Systems: Comprehensive ROS is negative, except as noted in HPI. ED EXAM, GENERAL - Physical Exam Exam: See Below (See dictation) Departure - Departure Time of Disposition: 11:54 Disposition: DC/Tfer to Acute Hospital 02 Clinical Impression: NSTEMI (non-ST elevated myocardial infarction) CHF (congestive heart failure) Qualifiers: Heart failure type: unspecified Heart failure chronicity: chronic Qualified Cod e(s): I50.9 - Heart failure, unspecified Anemia Qualifiers: Anemia type: unspecified type Qualified Code(s): D64.9 - Anemia, unspecified - Discharge Information Referrals: Robert Quintero NP [Primary Care Provider] - Forms: ED Department Discharge Sepsis Event Note (ED) - Evaluation Sepsis Screening Result: No Definite Risk <Jose Leon - Last Filed: 02/26/20 17:38> Course - Vital Signs Last Recorded V/S: Last Vital Signs Temp 36.3 C 02/26/20 11:26 Pulse 98 02/26/20 11:26 Resp 24 H 02/26/20 11:26 BP 104/61 02/26/20 11:26 Pulse Ox 98 02/26/20 11:26 - Orders/Labs/Meds Orders: Active Orders 24 hr Category Date Time Status Cardiac Monitoring [RC] . DIRECTED Care 02/26/20 09:35 Active EKG 12 Lead [EKG Documentation Completion] [RC] ROUTINE Care 02/26/20 09:34 Active Pulse Oximetry [RC] ASDIRECTED Care 02/26/20 09:35 Active Saline Lock Insert [OM.PC] Stat Oth 02/26/20 09:35 Ordered Labs: Laboratory Tests 02/26/20 02/26/20 02/26/20 Range/Units 09:20 09:20 09:20 WBC 11.18 H (4.0-11.0) K/uL RBC 3.23 L (4.50-5.90) M/uL Hgb 8.9 L (13.0-17.0) g/dL Hct 30.9 L (38.0-50.0) % MCV 95.7 (80.0-98.0) fL MCH 27.6 (27.0-32.0) pg MCHC 28.8 L (31.0-37.0) g/dL RDW Std Deviation 58.2 (28.0-62.0) fl RDW Coeff of Renetta 17 H (11.0-15.0) % Plt Count 221 (150-400) K/uL MPV 10.20 (7.40-12.00) fL Neut % (Auto) 89.1 H (48.0-80.0) % Lymph % (Auto) 4.6 L (16.0-40.0) % [place] % (Auto) 5.1 (0.0-15.0) % Eos % (Auto) 1.0 (0.0-7.0) % Baso % (Auto) 0.2 (0.0-1.5) % Neut # (Auto) 10.0 H (1.4-5.7) K/uL Lymph # (Auto) 0.5 L (0.6-2.4) K/uL [place] # (Auto) 0.6 (0.0-0.8) K/uL Eos # (Auto) 0.1 (0.0-0.7) K/uL Baso # (Auto) 0.0 (0.0-0.1) K/uL Nucleated RBC % 0.0 /100WBC Nucleated RBCs # 0 K/uL Sodium 140 (136-148) mmol/L Potassium 4.4 (3.5-5.1) mmol/L Chloride 100 (98-107) mmol/L Carbon Dioxide 30.5 (21.0-32.0) mmol/L BUN 28 H (7.0-18.0) mg/dL Creatinine 1.4 H (0.8-1.3) mg/dL Est Cr Clr Drug Dosing 37.06 mL/min Estimated GFR (MDRD) 48.9 ml/min Glucose 154 H (74-106) mg/dL Calcium 9.1 (8.5-10.1) mg/dL Total Bilirubin 0.5 (0.2-1.0) mg/dL AST 15 (15-37) IU/L ALT 17 (14-63) IU/L Alkaline Phosphatase 101 (46-116) U/L Troponin I 0.057 H (0.000-0.056) ng/mL B-Natriuretic Peptide 275 H (<100) PG/ML Total Protein 7.8 (6.4-8.2) g/dL Albumin 3.5 (3.4-5.0) g/dL Globulin 4.3 H (2.6-4.0) g/dL Albumin/Globulin Ratio 0.8 L (0.9-1.6) COVID-19 (BECKA) (NEGATIVE) 02/26/20 Range/Units 10:42 WBC (4.0-11.0) K/uL RBC (4.50-5.90) M/uL Hgb (13.0-17.0) g/dL Hct (38.0-50.0) % MCV (80.0-98.0) fL MCH (27.0-32.0) pg MCHC (31.0-37.0) g/dL RDW Std Deviation (28.0-62.0) fl RDW Coeff of Renetta (11.0-15.0) % Plt Count (150-400) K/uL MPV (7.40-12.00) fL Neut % (Auto) (48.0-80.0) % Lymph % (Auto) (16.0-40.0) % [place] % (Auto) (0.0-15.0) % Eos % (Auto) (0.0-7.0) % Baso % (Auto) (0.0-1.5) % Neut # (Auto) (1.4-5.7) K/uL Lymph # (Auto) (0.6-2.4) K/uL [place] # (Auto) (0.0-0.8) K/uL Eos # (Auto) (0.0-0.7) K/uL Baso # (Auto) (0.0-0.1) K/uL Nucleated RBC % /100WBC Nucleated RBCs # K/uL Sodium (136-148) mmol/L Potassium (3.5-5.1) mmol/L Chloride (98-107) mmol/L Carbon Dioxide (21.0-32.0) mmol/L BUN (7.0-18.0) mg/dL Creatinine (0.8-1.3) mg/dL Est Cr Clr Drug Dosing mL/min Estimated GFR (MDRD) ml/min Glucose (74-106) mg/dL Calcium (8.5-10.1) mg/dL Total Bilirubin (0.2-1.0) mg/dL AST (15-37) IU/L ALT (14-63) IU/L Alkaline Phosphatase (46-116) U/L Troponin I (0.000-0.056) ng/mL B-Natriuretic Peptide (<100) PG/ML Total Protein (6.4-8.2) g/dL Albumin (3.4-5.0) g/dL Globulin (2.6-4.0) g/dL Albumin/Globulin Ratio (0.9-1.6) COVID-19 (BECKA) NEGATIVE (NEGATIVE) Meds: Medications Discontinued Medications Generic Name Dose Route Start Last Admin Trade Name Freq PRN Reason Stop Dose Admin Aspirin 324 mg 02/26/20 10:18 02/26/20 10:30 Aspirin PO 02/26/20 10:19 324 mg ONETIME ONE Administration Furosemide 40 mg 02/26/20 10:24 02/26/20 10:30 Lasix IVPUSH 02/26/20 10:25 40 mg NOW ONE Administration Sodium Chloride 10 ml 02/26/20 09:35 Saline Flush FLUSH ASDIRECTED PRN Keep Vein Open Sodium Chloride 2.5 ml 02/26/20 09:35 Saline Flush FLUSH ASDIRECTED PRN Keep Vein Open Sepsis Event Note (ED) - Focused Exam Vital Signs: Vital Signs Temp Pulse Resp BP Pulse Ox 02/26/20 11:26 36.3 C 98 24 H 104/61 98 02/26/20 10:47 86 16 119/53 L 97 02/26/20 10:16 88 12 118/63 100 02/26/20 09:53 81 22 H 108/73 100 02/26/20 09:15 36.3 C 86 22 H 91/58 L 98 MLP Sign Off - Signature Requirements MLP Sign Off: Yes :: Please see my separate supervisory note from the same date of service. - My Orders Last 24 Hours: My Active Orders 02/26/20 09:34 EKG 12 Lead [EKG Documentation Completion] [RC] ROUTINE 02/26/20 09:35 Cardiac Monitoring [RC] . DIRECTED Pulse Oximetry [RC] ASDIRECTED Saline Lock Insert [OM.PC] Stat - Assessment/Plan Last 24 Hours: My Active Orders 02/26/20 09:34 EKG 12 Lead [EKG Documentation Completion] [RC] ROUTINE 02/26/20 09:35 Cardiac Monitoring [RC] . DIRECTED Pulse Oximetry [RC] ASDIRECTED Saline Lock Insert [OM.PC] Stat
[2020-02-26] MEDS ORDERED: Aspirin 81 MG Tab.Chew PO ONE (10:18)
[2020-02-26] MEDS ORDERED: Furosemide 40 MG/4 ML VIAL IVPUSH ONE (10:24)
--- NOTE | 2020-02-26 15:16 | PCM.SN.2 ---
- Free Text/Narrative Note: Patient was presented to be by the mid-level provider. I have personally independently seen and evaluated the patient at bedside and, if available, have spoken with the with the family. I agree with the history, physical, medical decision making, and plan of treatment as documented by the mid-level provider. I have performed the medical decision making for this patient, including assessing the results of all diagnostic testing and I have instructed the mid- level provider to document the results. 80-year-old male with past medical history of CAD status post CABG, diabetes mellitus, congestive heart failure, COPD, atrial fibrillation on dabigatran presenting with shortness of breath and concern for fluid retention. Presented the ED today with worsening of acute on chronic dyspnea and subjective lower extremity edema. Labs show mildly elevated troponin. Slight worsening of chronic anemia. Baseline renal insufficiency. Mildly elevated BNP at 275. Chest x-ray concerning for early CHF. Does look mildly fluid overloaded. Administered full dose aspirin along with IV Lasix. Meets criteria for NSTEMI. No cardiology service here that could intervene if needed. We will plan to transfer to [facility] in [place] for availability of interventional cardiology if needed. ALCIRA Rasmussen discussed with accepting ED physician who wanted to defer heparin infusion given the patient takes an oral anticoagulant and has had their dose this morning. Transferred to the EMS crew in good condition.
== END 2020-02-26 11:32 ==
LOC: MW.ED 09:05
DX: I21.4 Non-ST elevation (NSTEMI) myocardial infarction (principal); D64.9 Anemia, unspecified; I11.0 Hypertensive heart disease with heart failure; I48.91 Unspecified atrial fibrillation; I50.9 Heart failure, unspecified; I25.10 Atherosclerotic heart disease of native coronary artery without angina pectoris; J44.9 Chronic obstructive pulmonary disease, unspecified; K21.9 Gastro-esophageal reflux disease without esophagitis; M10.9 Gout, unspecified; E11.9 Type 2 diabetes mellitus without complications; Z87.891 Personal history of nicotine dependence; Z79.84 Long term (current) use of oral hypoglycemic drugs; Z79.01 Long term (current) use of anticoagulants; Z99.81 Dependence on supplemental oxygen; Z86.73 Personal history of transient ischemic attack (TIA), and cerebral infarction without residual deficits
CPT/HCPCS: 36415; 71045; 80053; 83880; 84484; 85025; 87635; 93005; 96365; 99285; A9270; J1940; U0002

== ENCOUNTER 2020-03-29 17:02 | Inpatient (IN) | payer OTHER ==
[2020-03-29] MEDS ORDERED: Sodium Chloride 0.9% 2.5 ML Syringe FLUSH PRN (17:14)
--- NOTE | 2020-03-29 17:21 | EDM.PDOC ---
<Tomás Wheatley - Last Filed: 03/29/20 17:40> ED HPI GENERAL MEDICAL PROBLEM - General Stated Complaint: difficulty breathing Time Seen by Provider: 03/29/20 17:05 - Related Data Allergies Allergy/AdvReac Type Severity Reaction Status Date / Time No Known Allergies Allergy Verified 03/29/20 17:43 Home Meds: Home Meds Albuterol [Proventil HFA] 2 puff INH Q6H PRN 11/05/17 [History] Budesonide/Formoterol Fumarate [Symbicort 160-4.5 Mcg Inhaler] 2 puff INH BID 11/05/17 [History] Omeprazole 20 mg PO ACBREAKFAST 11/05/17 [History] Simvastatin [Zocor] 80 mg PO BEDTIME 11/05/17 [History] Tiotropium [Spiriva HandiHaler] 1 caplet INH DAILY 11/05/17 [History] allopurinoL [Zyloprim] 300 mg PO DAILY 11/05/17 [History] metFORMIN HCl [Metformin HCl] 500 mg PO BIDMEALS 11/05/17 [History] Dabigatran [Pradaxa] 150 mg PO BID 12/30/18 [History] Digoxin 250 mcg PO DAILY 07/01/19 [History] Tamsulosin HCl [Flomax] 0.4 mg PO DAILY 07/01/19 [History] Furosemide [Lasix] 60 mg PO DAILY 10 Days #15 tab 07/03/19 [Rx] Albuterol/Ipratropium [DuoNeb 3.0-0.5 MG/3 ML] 3 ml INH Q6H PRN 02/26/20 [History] ED CARDIOLOGY PROCEDURES - Additional/Other Procedure(s) Other (Free Text) Procedure(s): Procedure Note: Chest/Pulmonary Ultrasound Self-performed and read; images archived Location: Chest - Bilateral anterior Indication: Evaluation for dyspnea Probe: phased array - Normal sliding sign -Multiple bernstein with multiple B-lines consistent with increased fluid levels - Normal pleural line/trace bilateral lower effusions. Impression: 1. Consistent with congestive heart failure 2. Trace bilateral pleural effusions. Signed by Tomás Wheatley MD Procedure Note: Point of Care Bedside Echocardiogram (limited echo) Self-performed and read; images archived Location: Chest Indication: Dyspnea Probe: phased array - Cardiac contour identified -Septal wall motion abnormality -Hypertrophic cardiomegaly -No pericardial fluid seen. No Tamponade Impression: 1. No tamponade or effusion 2. End point septal separation evaluated and appears to be greater than 7. Consistent with an EF greater than 55% 3. Atrial fibrillation Signed by: Tomás Wheatley MD EKG INTERPRETATION EKG Interpretation Comments: 12 lead EKG interpretation Obtained: March 29, 2020 at 1725 hrs. Rhythm: Atrial fibrillation Rate: 87 [place]: Right axis deviation Intervals: Incomplete bundle branch block ST/T Segments: Nonspecific ST-T changes Interpretation: Atrial fibrillation with incomplete bundle branch block and nonspecific ST-T changes Compared with previous EKG done February 25 and there is no significant interval change Course - Re-Assessments/Exams Free Text/Narrative Re-Assessment/Exam: 03/29/20 17:22 Attending physician note I have seen and evaluated the patient with the advanced practice provider. Chief Complaint: Shortness of breath Brief HPI: 80-year-old male with COPD and CHF presents with dyspnea and hypoxemi a. ROS: Reviewed and agree Focused Exam: VITAL SIGNS: Reviewed. GENERAL: Awake, conversant, GCS 15, appears to be in moderate distress HEAD: No visible signs of trauma EYES: Pupils equal, EOM grossly intact EARS: Hearing grossly intact. MOUTH: No visible lesions NECK: Appears supple CHEST: Laterally diminished breath sounds. Full upright in bed, no accessory muscle use, tachypnea. CARDIAC: Irregularly irregular mild tachycardia ABDOMEN: Soft, nontender, benign exam NEUROLOGIC EXAM: Awake and Alert, non-focal SKIN: No visible rashes EXTREMITIES: No deformities noted VASCULAR: Appears well perfused Assessment & Plan: Shortness of breath: Differential diagnosis includes asthma, COPD, pneumonia, congestive heart failure, anemia, thyroid disease, acidosis, pulmonary embolism, myocardial infarction, sepsis. Increased oxygen, venous blood gas, CBC, complete metabolic panel, troponin, BNP, EKG and chest x-ray. Very high probability of. 03/29/20 17:40 Bedside echo cardiogram and lung ultrasound consistent with acute CHF. I have ordered 40 mg of Lasix intravenously. Departure - Departure Disposition: Admitted As Inpatient 67 Clinical Impression: Hyperkalemia, History of atrial fibrillation, Acute kidney injury, Oxygen dependent Anemia Qualifiers: Anemia type: unspecified type Qualified Code(s): D64.9 - Anemia, unspecified Congestive heart disease Qualifiers: Heart failure type: unspecified Heart failure chronicity: chronic Qualified Code(s): I50.9 - Heart failure, unspecified <Maryjane Rasmussen E - Last Filed: 03/29/20 19:13> ED HPI GENERAL MEDICAL PROBLEM - General Source of Information: Reports: Patient History Limitations: Reports: No Limitations - History of Present Illness INITIAL COMMENTS - FREE TEXT/NARRATIVE: HISTORY AND PHYSICAL: History of present illness: Patient is a 80-year-old male who presents to the emergency room with complaints of shortness of breath and fluid retention. Patient was last seen in our emergency room on 02/26/2020 for similar symptoms and at that time had been diagnosed with an NSTEMI and CHF exacerbation. Patient was transferred to [facility] for further care. Patient states he was observed but had no further cardiac interventions. His Lasix dosing was increased, but this prescription has now run out. Over the past few days he has had increased shortness of breath and fluid retention to lower extremities. Patient uses 3 to 4 L at home. Upon arrival the patient's oxygen tank is empty, he is tachypneic. The patient states he changed out the oxygen approximately 2 days ago. states shes not sure if the oxygen take was left on. Patient denies any fever, chills, headache, change in vision, syncope or near syncope. Denies any chest pain or back pain. Denies any abdominal pain, nausea, vomiting, diarrhea, constipation or dysuria. Has not noted any blood in urine or stool. Patient has been eating appropriately. Concerned he may be dehydrated because he hasn't been drinking much fluids because of his fluid retention. Past medical history of COPD, CVA, atrial fibrillation, hypertension, CHF, type 2 diabetes, coronary artery disease with bypass. He does see a information technology professor in [place] and takes Pradaxa, digoxin and aspirin daily. Review of systems: As per history of present illness and below otherwise all systems reviewed and negative. Past medical history: As per history of present illness and as reviewed below otherwise noncontributory. Surgical history: As per history of present illness and as reviewed below otherwise noncontributory. Social history: See social history for further information Family history: As per history of present illness and as reviewed below otherwise noncontributory. Physical exam: General: Chronically ill appearing 80-year-old male. Alert and orientated x 3. Nontoxic in appearance and in no acute distress. Vital signs are stable and have been reviewed by me. Nursing notes were reviewed. HEENT: Atraumatic, normocephalic, pupils equal and reactive bilaterally, negative for conjunctival pallor or scleral icterus, mucous membranes excessively dry and chapped, neck supple, nontender, trachea midline. No drooling or trismus noted. No meningeal signs. No hot potato voice noted. Lungs: Diminished with poor air exchange, breath sounds equal bilaterally, chest nontender. Tachypnea. Heart: Irregular rate and rhythm, history of a.fib. Abdomen: Soft, nondistended, nontender. Skin: Skin tear to left forearm. Otherwise skin is intact, warm, dry. No lesions or rashes noted. Hematologic: No petechiae or purpra. Mucosa appropriate color and normal nail bed color and refill. Extremities: Atraumatic, moves all extremities per self without difficulty or deficits, +2 pitting edema bilateral LE. He is negative for cords or calf pain. +strong pedal pulses with +CMS bilat LE. Neurovascular unremarkable. Neuro: Awake, alert, oriented. Cranial nerves II through XII unremarkable. Cerebellum unremarkable. Motor and sensory unremarkable throughout. Exam nonfocal. Notes: Dr José involved in patient care. Bedside ultrasound was done, shows CHF. EKG was compared with EKG done on 02/26/2020; no significant changes noted. Has a negative troponin. The patient has been anemic on the last few visits, continues to trend downward. He does not have a source, stating he has not had any bloody stools. BUN/Creat elevated, trending on elevated side. See labs for details. I did talk with Dr. Salmon, hospitalist on-call, who is agreeable to keeping this patient for further care and management. Will admit him with telemetry. Vital signs are stable. Patient is agreeable to admission. Patient's was called and informed. Diagnostics: CBC, CMP, Troponin, EKG, CXR, Coronavirus, ABG, BNP Therapeutics: [employer], Lasix 40 IV, Impression: CHF GIRISH Hyperkalemia History of A.Fib Oxygen dependent Plan: Inpatient admission to Med/surg with telemetry Definitive disposition and diagnosis as appropriate pending reevaluation and review of above. Duration: Day(s): Past Medical History HEENT History: Reports: Glaucoma Other HEENT History: wears glasses for reading, has top and bottom dentures Cardiovascular History: Reports: Afib, CAD, Heart Failure, High Cholesterol, Hypertension, Other (See Below) Respiratory History: Reports: COPD Other Respiratory History: Uses oxygen @ 2L NC and inhalers at home Gastrointestinal History: Reports: GERD, Other (See Below) Genitourinary History: Reports: None Musculoskeletal History: Reports: Gout Neurological History: Reports: CVA Psychiatric History: Reports: None Endocrine/Metabolic History: Reports: Diabetes, Type II Hematologic History: Reports: None Immunologic History: Reports: None Oncologic (Cancer) History: Reports: None Dermatologic History: Reports: None - Infectious Disease History Infectious Disease History: Reports: Chicken Pox, Measles, Mumps, Shingles - Past Surgical History Head Surgeries/Procedures: Reports: None HEENT Surgical History: Reports: Cataract Surgery, Eye Surgery, Oral Surgery Other HEENT Surgeries/Procedures: eye surgery x3 Cardiovascular Surgical History: Reports: Coronary Artery Bypass Social & Family History - Family History Family Medical History: Noncontributory HEENT: Reports: Cataract, Glaucoma Cardiac: Reports: Afib, High Cholesterol, Hypertension Respiratory: Reports: None GI: Reports: None OBGYN: Reports: Neurological: Reports: CVA Psychiatric: Reports: None Endocrine/Metabolic: Reports: Diabetes, type II Hematologic: Reports: None Immunologic: Reports: None Dermatologic: Reports: None Oncologic: Reports: None - Caffeine Use Caffeine Use: Reports: Coffee Caffeine Use Comment: 1 cup/day coffee - Living Situation & Occupation Living situation: Reports: Occupation: Retired ED ROS GENERAL - Review of Systems Review Of Systems: Comprehensive ROS is negative, except as noted in HPI. ED EXAM, GENERAL - Physical Exam Exam: See Below (See dictation) Course - Vital Signs Last Recorded V/S: Last Vital Signs Temp 96.8 F L 03/29/20 17:39 Pulse 105 H 03/29/20 17:39 Resp 21 H 03/29/20 17:39 BP 104/68 03/29/20 17:39 Pulse Ox 97 03/29/20 17:39 - Orders/Labs/Meds Orders: Active Orders 24 hr Category Date Time Status Cardiac Monitoring [RC] . DIRECTED Care 03/29/20 17:22 Active EKG Documentation Completion [RC] AM Care 03/29/20 17:14 Active CORONAVIRUS COVID-19 BECKA [MOLEC] Stat Lab 03/29/20 18:15 Received Sodium Chloride 0.9% [Saline Flush] Med 03/29/20 17:14 Active 2.5 ml FLUSH ASDIRECTED PRN Medication Orders Sodium Chloride (Saline Flush) 2.5 ml FLUSH ASDIRECTED PRN PRN Reason: Keep Vein Open Last Admin: 03/29/20 17:57 Dose: 2.5 ml Documented by: BRENDA Labs: Laboratory Tests 03/29/20 03/29/20 03/29/20 Range/Units 17:30 17:30 17:30 WBC 9.64 (4.0-11.0) K/uL RBC 3.16 L (4.50-5.90) M/uL Hgb 8.1 L (13.0-17.0) g/dL Hct 29.2 L (38.0-50.0) % MCV 92.4 (80.0-98.0) fL MCH 25.6 L (27.0-32.0) pg MCHC 27.7 L (31.0-37.0) g/dL RDW Std Deviation 56.4 (28.0-62.0) fl RDW Coeff of Renetta 17 H (11.0-15.0) % Plt Count 254 (150-400) K/uL MPV 10.80 (7.40-12.00) fL Neut % (Auto) 86.5 H (48.0-80.0) % Lymph % (Auto) 4.8 L (16.0-40.0) % [place] % (Auto) 7.2 (0.0-15.0) % Eos % (Auto) 1.3 (0.0-7.0) % Baso % (Auto) 0.2 (0.0-1.5) % Neut # (Auto) 8.3 H (1.4-5.7) K/uL Lymph # (Auto) 0.5 L (0.6-2.4) K/uL Winston # (Auto) 0.7 (0.0-0.8) K/uL Eos # (Auto) 0.1 (0.0-0.7) K/uL Baso # (Auto) 0.0 (0.0-0.1) K/uL Nucleated RBC % 0.6 /100WBC Nucleated RBCs # 0 K/uL INR ABG pH (7.35-7.45) ABG pCO2 (35-45) mmHG ABG pO2 (75-100) mmHG ABG HCO3 (22-26) mEq/L ABG Total CO2 ABG Base Excess (-2.0-2.0) Sodium 137 (136-148) mmol/L Potassium 5.4 H (3.5-5.1) mmol/L Chloride 101 (98-107) mmol/L Carbon Dioxide 28.3 (21.0-32.0) mmol/L BUN 32 H (7.0-18.0) mg/dL Creatinine 1.4 H (0.8-1.3) mg/dL Est Cr Clr Drug Dosing 32.50 mL/min Estimated GFR (MDRD) 48.9 ml/min Glucose 163 H (74-106) mg/dL Calcium 8.9 (8.5-10.1) mg/dL Total Bilirubin 0.4 (0.2-1.0) mg/dL AST 17 (15-37) IU/L ALT 21 (14-63) IU/L Alkaline Phosphatase 123 H (46-116) U/L Troponin I 0.056 (0.000-0.056) ng/mL B-Natriuretic Peptide 338 H (<100) PG/ML Total Protein 7.5 (6.4-8.2) g/dL Albumin 3.4 (3.4-5.0) g/dL Globulin 4.1 H (2.6-4.0) g/dL Albumin/Globulin Ratio 0.8 L (0.9-1.6) Digoxin (0.9-2.0) ng/mL 03/29/20 03/29/20 03/29/20 Range/Units 17:30 17:30 17:50 WBC (4.0-11.0) K/uL RBC (4.50-5.90) M/uL Hgb (13.0-17.0) g/dL Hct (38.0-50.0) % MCV (80.0-98.0) fL MCH (27.0-32.0) pg MCHC (31.0-37.0) g/dL RDW Std Deviation (28.0-62.0) fl RDW Coeff of Renetta (11.0-15.0) % Plt Count (150-400) K/uL MPV (7.40-12.00) fL Neut % (Auto) (48.0-80.0) % Lymph % (Auto) (16.0-40.0) % Winston % (Auto) (0.0-15.0) % Eos % (Auto) (0.0-7.0) % Baso % (Auto) (0.0-1.5) % Neut # (Auto) (1.4-5.7) K/uL Lymph # (Auto) (0.6-2.4) K/uL Winston # (Auto) (0.0-0.8) K/uL Eos # (Auto) (0.0-0.7) K/uL Baso # (Auto) (0.0-0.1) K/uL Nucleated RBC % /100WBC Nucleated RBCs # K/uL INR 1.39 ABG pH 7.444 (7.35-7.45) ABG pCO2 39 (35-45) mmHG ABG pO2 117 H (75-100) mmHG ABG HCO3 27 H (22-26) mEq/L ABG Total CO2 25.8 ABG Base Excess 2.7 H (-2.0-2.0) Sodium (136-148) mmol/L Potassium (3.5-5.1) mmol/L Chloride (98-107) mmol/L Carbon Dioxide (21.0-32.0) mmol/L BUN (7.0-18.0) mg/dL Creatinine (0.8-1.3) mg/dL Est Cr Clr Drug Dosing mL/min Estimated GFR (MDRD) ml/min Glucose (74-106) mg/dL Calcium (8.5-10.1) mg/dL Total Bilirubin (0.2-1.0) mg/dL AST (15-37) IU/L ALT (14-63) IU/L Alkaline Phosphatase (46-116) U/L Troponin I (0.000-0.056) ng/mL B-Natriuretic Peptide (<100) PG/ML Total Protein (6.4-8.2) g/dL Albumin (3.4-5.0) g/dL Globulin (2.6-4.0) g/dL Albumin/Globulin Ratio (0.9-1.6) Digoxin 2.7 H (0.9-2.0) ng/mL Meds: Medications Generic Name Dose Route Start Last Admin Trade Name Freq PRN Reason Stop Dose Admin Sodium Chloride 2.5 ml 03/29/20 17:14 03/29/20 17:57 Saline Flush FLUSH 2.5 ml ASDIRECTED PRN Administration Keep Vein Open Discontinued Medications Generic Name Dose Route Start Last Admin Trade Name Caesarq PRN Reason Stop Dose Admin Furosemide 40 mg 03/29/20 17:37 03/29/20 17:57 Lasix IVPUSH 03/29/20 17:38 40 mg NOW ONE Administration Departure - Departure Time of Disposition: 18:33 Sepsis Event Note (ED) - Focused Exam Vital Signs: Vital Signs Temp Pulse Resp BP Pulse Ox 03/29/20 17:39 96.8 F L 105 H 21 H 104/68 97 - My Orders Last 24 Hours: My Active Orders 03/29/20 17:14 EKG Documentation Completion [RC] AM Sodium Chloride 0.9% [Saline Flush] 2.5 ml FLUSH ASDIRECTED PRN 03/29/20 17:22 Cardiac Monitoring [RC] . DIRECTED 03/29/20 18:15 CORONAVIRUS COVID-19 BECKA [MOLEC] Stat - Assessment/Plan Last 24 Hours: My Active Orders 03/29/20 17:14 EKG Documentation Completion [RC] AM Sodium Chloride 0.9% [Saline Flush] 2.5 ml FLUSH ASDIRECTED PRN 03/29/20 17:22 Cardiac Monitoring [RC] . DIRECTED 03/29/20 18:15 CORONAVIRUS COVID-19 BECKA [MOLEC] Stat
[2020-03-29] MEDS ORDERED: Furosemide 40 MG/4 ML VIAL IVPUSH ONE ×2 (17:37→19:53)
[2020-03-29 18:03] LABS: CARBON DIOXIDE,CO2 28.3 mmol/L (21.0-32.0); POTASSIUM,K 5.4 mmol/L (3.5-5.1)
--- NOTE | 2020-03-29 18:04 | CR ---
Chest: Portable view of the chest was obtained. Comparison: Prior chest x-ray of 02/26/20. Chronic blunting of the right lateral costophrenic angle versus chronic pleural effusion. Heart is enlarged with prosthetic heart valve and prior sternotomy. Pulmonary vessels are slightly congested which appear to be chronic. No definite acute parenchymal change is otherwise seen. Impression: 1. Pulmonary vascular congestion which is believed to be chronic. 2. Chronic blunting of the right lateral costophrenic angle or possibly chronic pleural effusion. 3. Stable cardiomegaly with prosthetic heart valve. Diagnostic code #3 Study was dictated in MDT
--- NOTE | 2020-03-29 19:52 | PCM.HP.2 ---
H&P History of Present Illness - General Date of Service: 03/29/20 Admit Problem/Dx: Admission Diagnosis/Problem Admission Diagnosis/Problem CHF, Congestive heart failure Source of Information: Patient History Limitations: Reports: No Limitations - History of Present Illness Initial Comments - Free Text/Narative: Patient is a 80-year-old male with significant past medical history of hypertension, hyperlipidemia, diabetes, atrial fibrillation, severe COPD, coronary artery disease status post CABG; presenting this afternoon after worsening shortness of breath and dyspnea on exertion. Patient was recently transferred from our facility to [facility] (end of January) for similar symptoms along with elevated troponin; no aggressive cardiac intervention was performed at that time and patient medication change involves increasing Lasix to 120 mg /daily. Patient however however for the past couple of days has not been able to take his full dose of Lasix and has been only taking 60 mg daily. Of note patient also may have run out of oxygen in his tank thereby worsening his shortness of breath. Patient appreciated lower extremity swelling but denies any chest pain , palpitations, nausea vomiting, dysuria coughing with any sputum production, headache dizziness or any other overt symptoms. ER course :Chest x-ray showed pulmonary vascular congestion possibly chronic issue; chronic blunting of right lateral costophrenic angle with stable cardiomegaly. Echo June 2019; ejection fraction of 55%; mild tricuspid regurgitation BNP elevated at 390; provided 1 dose of 40 IV Lasix. Requiring 6 L oxygen via nasal cannula Bedside: Patient endorsing shortness of breath marginally improved; but mentions it still there especially when in the supine position. Denies any other chest pain, palpitations. Denies any change in symptomatology since arrival to ED. - Related Data Allergies/Adverse Reactions: Allergies Allergy/AdvReac Type Severity Reaction Status Date / Time No Known Allergies Allergy Verified 03/29/20 17:43 Home Medications: Home Meds Albuterol [Proventil HFA] 2 puff INH Q6H PRN 11/05/17 [History] Budesonide/Formoterol Fumarate [Symbicort 160-4.5 Mcg Inhaler] 2 puff INH BID 11/05/17 [History] Omeprazole 20 mg PO ACBREAKFAST 11/05/17 [History] Simvastatin [Zocor] 80 mg PO BEDTIME 11/05/17 [History] Tiotropium [Spiriva HandiHaler] 1 caplet INH DAILY 11/05/17 [History] allopurinoL [Zyloprim] 300 mg PO DAILY 11/05/17 [History] metFORMIN HCl [Metformin HCl] 500 mg PO BIDMEALS 11/05/17 [History] Dabigatran [Pradaxa] 150 mg PO BID 12/30/18 [History] Digoxin 250 mcg PO DAILY 07/01/19 [History] Tamsulosin HCl [Flomax] 0.4 mg PO DAILY 07/01/19 [History] Furosemide [Lasix] 60 mg PO DAILY 10 Days #15 tab 07/03/19 [Rx] Albuterol/Ipratropium [DuoNeb 3.0-0.5 MG/3 ML] 3 ml INH Q6H PRN 02/26/20 [History] Past Medical History HEENT History: Reports: Glaucoma Other HEENT History: wears glasses for reading, has top and bottom dentures Cardiovascular History: Reports: Afib, CAD, Heart Failure, High Cholesterol, Hypertension, Other (See Below) Respiratory History: Reports: COPD Other Respiratory History: Uses oxygen @ 2L NC and inhalers at home Gastrointestinal History: Reports: GERD, Other (See Below) Genitourinary History: Reports: None Musculoskeletal History: Reports: Gout Neurological History: Reports: CVA Psychiatric History: Reports: None Endocrine/Metabolic History: Reports: Diabetes, Type II Hematologic History: Reports: None Immunologic History: Reports: None Oncologic (Cancer) History: Reports: None Dermatologic History: Reports: None - Infectious Disease History Infectious Disease History: Reports: Chicken Pox, Measles, Mumps, Shingles - Past Surgical History Head Surgeries/Procedures: Reports: None HEENT Surgical History: Reports: Cataract Surgery, Eye Surgery, Oral Surgery Other HEENT Surgeries/Procedures: eye surgery x3 Cardiovascular Surgical History: Reports: Coronary Artery Bypass Social & Family History - Family History Family Medical History: Noncontributory HEENT: Reports: Cataract, Glaucoma Cardiac: Reports: Afib, High Cholesterol, Hypertension Respiratory: Reports: None GI: Reports: None OBGYN: Reports: Neurological: Reports: CVA Psychiatric: Reports: None Endocrine/Metabolic: Reports: Diabetes, type II Hematologic: Reports: None Immunologic: Reports: None Dermatologic: Reports: None Oncologic: Reports: None - Tobacco Use Smoking Status *Q: Never Smoker - Caffeine Use Caffeine Use: Reports: Coffee Caffeine Use Comment: 1 cup/day coffee - Recreational Drug Use Recreational Drug Use: No - Living Situation & Occupation Living situation: Reports: Occupation: Retired H&P Review of Systems - Review of Systems: Review Of Systems: See Below General: Reports: No Symptoms HEENT: Reports: No Symptoms Pulmonary: Reports: Shortness of Breath. Denies: Wheezing, Cough, Sputum, Hemoptysis Cardiovascular: Reports: Dyspnea on Exertion, Orthopnea, Edema. Denies: Chest Pain, Palpitations, Lightheadedness, Syncope Gastrointestinal: Reports: No Symptoms. Denies: Constipation, Diarrhea, Decreased Appetite, Nausea, Vomiting Genitourinary: Reports: No Symptoms Musculoskeletal: Reports: No Symptoms Skin: Reports: No Symptoms Psychiatric: Reports: No Symptoms Neurological: Reports: No Symptoms. Denies: Headache, Numbness Exam - Exam Exam: See Below - Vital Signs Vital Signs: Last Vital Signs Temp 96.8 F L 03/29/20 17:39 Pulse 105 H 03/29/20 17:39 Resp 21 H 03/29/20 17:39 BP 104/68 03/29/20 17:39 Pulse Ox 97 03/29/20 17:39 Weight: 53.7 kg - Exam Quality Assessment: Supplemental Oxygen General: Alert, Oriented, Cooperative HEENT: EOMI, Other (dry lips; aleida mucosa moist ) Neck: Supple, Trachea Midline Lungs: Other (tight BS, no wheeze, rales and or rhonchi appreciated ) Cardiovascular: Regular Rate, Irregular Rhythm GI/Abdominal Exam: Soft, Non-Tender, Other (mild hepato-jugular reflex ) Back Exam: Full Range of Motion Extremities: Other (+3/+4 pitting edema to l/e b/l ; mid-thighs) Skin: Warm Neurological: Cranial Nerves Intact Neuro Extensive - Mental Status: Alert, Oriented x3 Psychiatric: Alert, Normal Mood - Patient Data Lab Results Last 24 hrs: Laboratory Results - last 24 hr 03/29/20 03/29/20 03/29/20 Range/Units 17:30 17:30 17:30 WBC 9.64 (4.0-11.0) K/uL RBC 3.16 L (4.50-5.90) M/uL Hgb 8.1 L (13.0-17.0) g/dL Hct 29.2 L (38.0-50.0) % MCV 92.4 (80.0-98.0) fL MCH 25.6 L (27.0-32.0) pg MCHC 27.7 L (31.0-37.0) g/dL RDW Std Deviation 56.4 (28.0-62.0) fl RDW Coeff of Renetta 17 H (11.0-15.0) % Plt Count 254 (150-400) K/uL MPV 10.80 (7.40-12.00) fL Neut % (Auto) 86.5 H (48.0-80.0) % Lymph % (Auto) 4.8 L (16.0-40.0) % Anson % (Auto) 7.2 (0.0-15.0) % Eos % (Auto) 1.3 (0.0-7.0) % Baso % (Auto) 0.2 (0.0-1.5) % Neut # (Auto) 8.3 H (1.4-5.7) K/uL Lymph # (Auto) 0.5 L (0.6-2.4) K/uL Anson # (Auto) 0.7 (0.0-0.8) K/uL Eos # (Auto) 0.1 (0.0-0.7) K/uL Baso # (Auto) 0.0 (0.0-0.1) K/uL Nucleated RBC % 0.6 /100WBC Nucleated RBCs # 0 K/uL INR ABG pH (7.35-7.45) ABG pCO2 (35-45) mmHG ABG pO2 (75-100) mmHG ABG HCO3 (22-26) mEq/L ABG Total CO2 ABG Base Excess (-2.0-2.0) Sodium 137 (136-148) mmol/L Potassium 5.4 H (3.5-5.1) mmol/L Chloride 101 (98-107) mmol/L Carbon Dioxide 28.3 (21.0-32.0) mmol/L BUN 32 H (7.0-18.0) mg/dL Creatinine 1.4 H (0.8-1.3) mg/dL Est Cr Clr Drug Dosing 32.50 mL/min Estimated GFR (MDRD) 48.9 ml/min Glucose 163 H (74-106) mg/dL Calcium 8.9 (8.5-10.1) mg/dL Total Bilirubin 0.4 (0.2-1.0) mg/dL AST 17 (15-37) IU/L ALT 21 (14-63) IU/L Alkaline Phosphatase 123 H (46-116) U/L Troponin I 0.056 (0.000-0.056) ng/mL B-Natriuretic Peptide 338 H (<100) PG/ML Total Protein 7.5 (6.4-8.2) g/dL Albumin 3.4 (3.4-5.0) g/dL Globulin 4.1 H (2.6-4.0) g/dL Albumin/Globulin Ratio 0.8 L (0.9-1.6) Digoxin (0.9-2.0) ng/mL SARS Virus RNA (PCR) (NEGATIVE) 03/29/20 03/29/20 03/29/20 Range/Units 17:30 17:30 17:50 WBC (4.0-11.0) K/uL RBC (4.50-5.90) M/uL Hgb (13.0-17.0) g/dL Hct (38.0-50.0) % MCV (80.0-98.0) fL MCH (27.0-32.0) pg MCHC (31.0-37.0) g/dL RDW Std Deviation (28.0-62.0) fl RDW Coeff of Renetta (11.0-15.0) % Plt Count (150-400) K/uL MPV (7.40-12.00) fL Neut % (Auto) (48.0-80.0) % Lymph % (Auto) (16.0-40.0) % Anson % (Auto) (0.0-15.0) % Eos % (Auto) (0.0-7.0) % Baso % (Auto) (0.0-1.5) % Neut # (Auto) (1.4-5.7) K/uL Lymph # (Auto) (0.6-2.4) K/uL Anson # (Auto) (0.0-0.8) K/uL Eos # (Auto) (0.0-0.7) K/uL Baso # (Auto) (0.0-0.1) K/uL Nucleated RBC % /100WBC Nucleated RBCs # K/uL INR 1.39 ABG pH 7.444 (7.35-7.45) ABG pCO2 39 (35-45) mmHG ABG pO2 117 H (75-100) mmHG ABG HCO3 27 H (22-26) mEq/L ABG Total CO2 25.8 ABG Base Excess 2.7 H (-2.0-2.0) Sodium (136-148) mmol/L Potassium (3.5-5.1) mmol/L Chloride (98-107) mmol/L Carbon Dioxide (21.0-32.0) mmol/L BUN (7.0-18.0) mg/dL Creatinine (0.8-1.3) mg/dL Est Cr Clr Drug Dosing mL/min Estimated GFR (MDRD) ml/min Glucose (74-106) mg/dL Calcium (8.5-10.1) mg/dL Total Bilirubin (0.2-1.0) mg/dL AST (15-37) IU/L ALT (14-63) IU/L Alkaline Phosphatase (46-116) U/L Troponin I (0.000-0.056) ng/mL B-Natriuretic Peptide (<100) PG/ML Total Protein (6.4-8.2) g/dL Albumin (3.4-5.0) g/dL Globulin (2.6-4.0) g/dL Albumin/Globulin Ratio (0.9-1.6) Digoxin 2.7 H (0.9-2.0) ng/mL SARS Virus RNA (PCR) (NEGATIVE) 03/29/20 Range/Units 18:15 WBC (4.0-11.0) K/uL RBC (4.50-5.90) M/uL Hgb (13.0-17.0) g/dL Hct (38.0-50.0) % MCV (80.0-98.0) fL MCH (27.0-32.0) pg MCHC (31.0-37.0) g/dL RDW Std Deviation (28.0-62.0) fl RDW Coeff of Renetta (11.0-15.0) % Plt Count (150-400) K/uL MPV (7.40-12.00) fL Neut % (Auto) (48.0-80.0) % Lymph % (Auto) (16.0-40.0) % Anson % (Auto) (0.0-15.0) % Eos % (Auto) (0.0-7.0) % Baso % (Auto) (0.0-1.5) % Neut # (Auto) (1.4-5.7) K/uL Lymph # (Auto) (0.6-2.4) K/uL Anson # (Auto) (0.0-0.8) K/uL Eos # (Auto) (0.0-0.7) K/uL Baso # (Auto) (0.0-0.1) K/uL Nucleated RBC % /100WBC Nucleated RBCs # K/uL INR ABG pH (7.35-7.45) ABG pCO2 (35-45) mmHG ABG pO2 (75-100) mmHG ABG HCO3 (22-26) mEq/L ABG Total CO2 ABG Base Excess (-2.0-2.0) Sodium (136-148) mmol/L Potassium (3.5-5.1) mmol/L Chloride (98-107) mmol/L Carbon Dioxide (21.0-32.0) mmol/L BUN (7.0-18.0) mg/dL Creatinine (0.8-1.3) mg/dL Est Cr Clr Drug Dosing mL/min Estimated GFR (MDRD) ml/min Glucose (74-106) mg/dL Calcium (8.5-10.1) mg/dL Total Bilirubin (0.2-1.0) mg/dL AST (15-37) IU/L ALT (14-63) IU/L Alkaline Phosphatase (46-116) U/L Troponin I (0.000-0.056) ng/mL B-Natriuretic Peptide (<100) PG/ML Total Protein (6.4-8.2) g/dL Albumin (3.4-5.0) g/dL Globulin (2.6-4.0) g/dL Albumin/Globulin Ratio (0.9-1.6) Digoxin (0.9-2.0) ng/mL SARS Virus RNA (PCR) NEGATIVE (NEGATIVE) Result Diagrams: 03/29/20 17:30 03/29/20 17:30 Sepsis Event Note - Evaluation Sepsis Screening Result: No Definite Risk - Focused Exam Vital Signs: Vital Signs Temp Pulse Resp BP Pulse Ox 03/29/20 17:39 96.8 F L 105 H 21 H 104/68 97 Problem List Initiated/Reviewed/Updated: Yes Orders Last 24hrs: Active Orders 24 hr Category Date Time Status Admission Status [Patient Status] [ADT] Stat ADT 03/29/20 18:28 Active Accu Check [Blood Glucose Check, Bedside] [RC] TIDMEALS Care 03/29/20 19:33 Active Cardiac Monitoring [RC] . DIRECTED Care 03/29/20 17:22 Active Daily Weight [Height and Weight] [RC] DAILY Care 03/29/20 19:31 Active EKG Documentation Completion [RC] AM Care 03/29/20 17:14 Active Intake and Output Strict [RC] ASDIRECTED Care 03/29/20 19:31 Active Up ad Iris [RC] ASDIRECTED Care 03/29/20 19:31 Active 2 Gram Sodium Diet [DIET] Diet 03/30/20 Breakfast Active Fluid Restriction [DIET] Diet 03/30/20 Breakfast Active BASIC METABOLIC PANEL,BMP [CHEM] AM Lab 03/30/20 05:11 Ordered BASIC METABOLIC PANEL,BMP [CHEM] AM Lab 03/31/20 05:11 Ordered BASIC METABOLIC PANEL,BMP [CHEM] AM Lab 04/01/20 05:11 Ordered CBC WITH AUTO DIFF [HEME] AM Lab 03/30/20 05:11 Ordered CBC WITH AUTO DIFF [HEME] AM Lab 03/31/20 05:11 Ordered CBC WITH AUTO DIFF [HEME] AM Lab 04/01/20 05:11 Ordered MAGNESIUM [CHEM] Routine Lab 03/29/20 19:36 Ordered PHOSPHORUS [CHEM] Routine Lab 03/29/20 19:36 Ordered Insulin Aspart [NovoLOG] Med 03/30/20 07:30 Active See Protocol SUBCUT TIDAC Pantoprazole [ProTONIX IV] 40 mg Med 03/30/20 09:00 Active Sodium Chloride 0.9% [Normal Saline] 10 ml IV DAILY Sodium Chloride 0.9% [Saline Flush] Med 03/29/20 17:14 Active 2.5 ml FLUSH ASDIRECTED PRN Medication Orders Pantoprazole Sodium 40 mg/ (Sodium Chloride) 10 mls @ 300 mls/hr IV DAILY MARY KATE Insulin Aspart (Novolog) 0 unit SUBCUT TIDAC MARY KATE; Protocol Sodium Chloride (Saline Flush) 2.5 ml FLUSH ASDIRECTED PRN PRN Reason: Keep Vein Open Last Admin: 03/29/20 17:57 Dose: 2.5 ml Documented by: BRENDA Assessment/Plan Comment:: Assessment: 1. Acute on chronic hypoxic respiratory failure secondary to HF exacerbation (increasing o2 requirements) 2. Severe COPD on O2 3. A. Fib; rate controlled 4. Normocytic anemia 5. Elevated Alk. Phos 6. DM II Plan. Admit to obs. Code: DVT: continue Pradaxa GI : pantoprazole 40 daily Strict I/O's; daily weights. fluid restriction 1800 cc ; Low sodium diet. 1. CHF exacerbation: most likely secondary to non-compliance with daily lasix dosing; received 40 IV Lasix in ED; will give another 40 now; reassess fluid status in AM and response. Maintain o2 sats >88% on nasal canula; will help achieve this with PRN Duo-neb treatments since HR stable and supratherapeutic Digoxin levels. home o2 requirements of 3-4 liters; now requiring 5-6; continue to wean as tolerated to home regimen 2. Severe COPD: maintain o2 sats >88% w. NC; continue duo-nebs PRN: home Spiriva and tiotropium CXR: negative for infiltrates , afebrile; continue to reassess if COPD exacerbation; currently not wheezing/rales during bedside examination. If not responding despite diuresis; will reassess for a COPD exacerbation; pt. is clinically fluid overloaded; will continue to monitor closely 3. A Fib: rate controlled ; underlying mechanism of temporary increase in HR most likely from worsening subjective SOB ; now improving w. supplemental o2; continue to monitor; will place on telemetry and continue Pradaxa Hold Dig for tonight 4. Anemia: steady decline from previous admissions; check stool for occult blood; recheck Hgb in AM post-diuresis . 5. Elevated alk. phos : marginally elevated in setting of acute HF; recheck to confirm elevation 6. DM II: hold metformin ; initiate SSI 7. COVID negative
[2020-03-29] MEDS: Albuterol/Ipratropium 3.0-0.5 MG/3 ML Neb Soln NEB PRN (20:34)
[2020-03-29] MEDS: Simvastatin 40 MG Tab PO SCH (20:44)
[2020-03-29] MEDS: Budesonide/Formoterol 160-4.5 MCG/Puff 6 GM Inhaler INH SCH (20:46)
[2020-03-30 06:00] LABS: CARBON DIOXIDE,CO2 30.6 mmol/L (21.0-32.0); POTASSIUM,K 4.1 mmol/L (3.5-5.1)
[2020-03-30] MEDS: Insulin Aspart 100 Units/ML 3 ML Pen SUBCUT SCH ×3 (06:59→16:52)
--- NOTE | 2020-03-30 08:58 | PCM.PN ---
- General Info Date of Service: 03/30/20 Subjective Update: Bedside: mentions SOB is more or less the same; denies any worsening of symptoms and has been urinating w.o issues. Last BM this AM. NO pain , dizziness, palpitations and or CP. Functional Status: Reports: Pain Controlled - Review of Systems General: Reports: Fatigue HEENT: Reports: No Symptoms Pulmonary: Reports: Shortness of Breath, Cough. Denies: Sputum, Hemoptysis, Wheezing Cardiovascular: Reports: No Symptoms Gastrointestinal: Reports: No Symptoms. Denies: Abdominal Pain, Constipation, Diarrhea, Nausea, Vomiting Genitourinary: Reports: No Symptoms Musculoskeletal: Reports: No Symptoms Neurological: Reports: No Symptoms Psychiatric: Reports: No Symptoms - Patient Data Vitals - Most Recent: Last Vital Signs Temp 99.1 F 03/30/20 07:15 Pulse 77 03/30/20 07:15 Resp 17 03/30/20 07:15 BP 95/61 03/30/20 07:15 Pulse Ox 97 03/30/20 07:15 Weight - Most Recent: 53.7 kg I&O - Last 24 Hours: Intake & Output 03/29/20 03/30/20 03/30/20 22:59 06:59 14:59 Intake Total 300 Output Total 800 1428 Balance -800 -1128 Lab Results Last 24 Hours: Laboratory Results - last 24 hr 03/29/20 03/29/20 03/29/20 Range/Units 17:30 17:30 17:30 WBC 9.64 (4.0-11.0) K/uL RBC 3.16 L (4.50-5.90) M/uL Hgb 8.1 L (13.0-17.0) g/dL Hct 29.2 L (38.0-50.0) % MCV 92.4 (80.0-98.0) fL MCH 25.6 L (27.0-32.0) pg MCHC 27.7 L (31.0-37.0) g/dL RDW Std Deviation 56.4 (28.0-62.0) fl RDW Coeff of Renetta 17 H (11.0-15.0) % Plt Count 254 (150-400) K/uL MPV 10.80 (7.40-12.00) fL Neut % (Auto) 86.5 H (48.0-80.0) % Lymph % (Auto) 4.8 L (16.0-40.0) % [place] % (Auto) 7.2 (0.0-15.0) % Eos % (Auto) 1.3 (0.0-7.0) % Baso % (Auto) 0.2 (0.0-1.5) % Neut # (Auto) 8.3 H (1.4-5.7) K/uL Lymph # (Auto) 0.5 L (0.6-2.4) K/uL [place] # (Auto) 0.7 (0.0-0.8) K/uL Eos # (Auto) 0.1 (0.0-0.7) K/uL Baso # (Auto) 0.0 (0.0-0.1) K/uL Nucleated RBC % 0.6 /100WBC Nucleated RBCs # 0 K/uL INR ABG pH (7.35-7.45) ABG pCO2 (35-45) mmHG ABG pO2 (75-100) mmHG ABG HCO3 (22-26) mEq/L ABG Total CO2 ABG Base Excess (-2.0-2.0) Sodium 137 (136-148) mmol/L Potassium 5.4 H (3.5-5.1) mmol/L Chloride 101 (98-107) mmol/L Carbon Dioxide 28.3 (21.0-32.0) mmol/L BUN 32 H (7.0-18.0) mg/dL Creatinine 1.4 H (0.8-1.3) mg/dL Est Cr Clr Drug Dosing 32.50 mL/min Estimated GFR (MDRD) 48.9 ml/min Glucose 163 H (74-106) mg/dL POC Glucose (60-110) mg/dL Calcium 8.9 (8.5-10.1) mg/dL Phosphorus (2.6-4.7) mg/dL Magnesium (1.8-2.4) mg/dL Total Bilirubin 0.4 (0.2-1.0) mg/dL AST 17 (15-37) IU/L ALT 21 (14-63) IU/L Alkaline Phosphatase 123 H (46-116) U/L Troponin I 0.056 (0.000-0.056) ng/mL B-Natriuretic Peptide 338 H (<100) PG/ML Total Protein 7.5 (6.4-8.2) g/dL Albumin 3.4 (3.4-5.0) g/dL Globulin 4.1 H (2.6-4.0) g/dL Albumin/Globulin Ratio 0.8 L (0.9-1.6) Digoxin (0.9-2.0) ng/mL SARS Virus RNA (PCR) (NEGATIVE) 03/29/20 03/29/20 03/29/20 Range/Units 17:30 17:30 17:30 WBC (4.0-11.0) K/uL RBC (4.50-5.90) M/uL Hgb (13.0-17.0) g/dL Hct (38.0-50.0) % MCV (80.0-98.0) fL MCH (27.0-32.0) pg MCHC (31.0-37.0) g/dL RDW Std Deviation (28.0-62.0) fl RDW Coeff of Renetta (11.0-15.0) % Plt Count (150-400) K/uL MPV (7.40-12.00) fL Neut % (Auto) (48.0-80.0) % Lymph % (Auto) (16.0-40.0) % [place] % (Auto) (0.0-15.0) % Eos % (Auto) (0.0-7.0) % Baso % (Auto) (0.0-1.5) % Neut # (Auto) (1.4-5.7) K/uL Lymph # (Auto) (0.6-2.4) K/uL [place] # (Auto) (0.0-0.8) K/uL Eos # (Auto) (0.0-0.7) K/uL Baso # (Auto) (0.0-0.1) K/uL Nucleated RBC % /100WBC Nucleated RBCs # K/uL INR 1.39 ABG pH (7.35-7.45) ABG pCO2 (35-45) mmHG ABG pO2 (75-100) mmHG ABG HCO3 (22-26) mEq/L ABG Total CO2 ABG Base Excess (-2.0-2.0) Sodium (136-148) mmol/L Potassium (3.5-5.1) mmol/L Chloride (98-107) mmol/L Carbon Dioxide (21.0-32.0) mmol/L BUN (7.0-18.0) mg/dL Creatinine (0.8-1.3) mg/dL Est Cr Clr Drug Dosing mL/min Estimated GFR (MDRD) ml/min Glucose (74-106) mg/dL POC Glucose (60-110) mg/dL Calcium (8.5-10.1) mg/dL Phosphorus 3.8 (2.6-4.7) mg/dL Magnesium 2.1 (1.8-2.4) mg/dL Total Bilirubin (0.2-1.0) mg/dL AST (15-37) IU/L ALT (14-63) IU/L Alkaline Phosphatase (46-116) U/L Troponin I (0.000-0.056) ng/mL B-Natriuretic Peptide (<100) PG/ML Total Protein (6.4-8.2) g/dL Albumin (3.4-5.0) g/dL Globulin (2.6-4.0) g/dL Albumin/Globulin Ratio (0.9-1.6) Digoxin 2.7 H (0.9-2.0) ng/mL SARS Virus RNA (PCR) (NEGATIVE) 03/29/20 03/29/20 03/30/20 Range/Units 17:50 18:15 05:22 WBC 8.08 (4.0-11.0) K/uL RBC 2.73 L (4.50-5.90) M/uL Hgb 7.1 L (13.0-17.0) g/dL Hct 24.9 L (38.0-50.0) % MCV 91.2 (80.0-98.0) fL MCH 26.0 L (27.0-32.0) pg MCHC 28.5 L (31.0-37.0) g/dL RDW Std Deviation 55.6 (28.0-62.0) fl RDW Coeff of Renetta 17 H (11.0-15.0) % Plt Count 211 (150-400) K/uL MPV 9.70 (7.40-12.00) fL Neut % (Auto) 84.0 H (48.0-80.0) % Lymph % (Auto) 7.1 L (16.0-40.0) % [place] % (Auto) 7.1 (0.0-15.0) % Eos % (Auto) 1.6 (0.0-7.0) % Baso % (Auto) 0.2 (0.0-1.5) % Neut # (Auto) 6.8 H (1.4-5.7) K/uL Lymph # (Auto) 0.6 (0.6-2.4) K/uL [place] # (Auto) 0.6 (0.0-0.8) K/uL Eos # (Auto) 0.1 (0.0-0.7) K/uL Baso # (Auto) 0.0 (0.0-0.1) K/uL Nucleated RBC % 0.2 /100WBC Nucleated RBCs # 0 K/uL INR ABG pH 7.444 (7.35-7.45) ABG pCO2 39 (35-45) mmHG ABG pO2 117 H (75-100) mmHG ABG HCO3 27 H (22-26) mEq/L ABG Total CO2 25.8 ABG Base Excess 2.7 H (-2.0-2.0) Sodium (136-148) mmol/L Potassium (3.5-5.1) mmol/L Chloride (98-107) mmol/L Carbon Dioxide (21.0-32.0) mmol/L BUN (7.0-18.0) mg/dL Creatinine (0.8-1.3) mg/dL Est Cr Clr Drug Dosing mL/min Estimated GFR (MDRD) ml/min Glucose (74-106) mg/dL POC Glucose (60-110) mg/dL Calcium (8.5-10.1) mg/dL Phosphorus (2.6-4.7) mg/dL Magnesium (1.8-2.4) mg/dL Total Bilirubin (0.2-1.0) mg/dL AST (15-37) IU/L ALT (14-63) IU/L Alkaline Phosphatase (46-116) U/L Troponin I (0.000-0.056) ng/mL B-Natriuretic Peptide (<100) PG/ML Total Protein (6.4-8.2) g/dL Albumin (3.4-5.0) g/dL Globulin (2.6-4.0) g/dL Albumin/Globulin Ratio (0.9-1.6) Digoxin (0.9-2.0) ng/mL SARS Virus RNA (PCR) NEGATIVE (NEGATIVE) 03/30/20 03/30/20 Range/Units 05:22 06:01 WBC (4.0-11.0) K/uL RBC (4.50-5.90) M/uL Hgb (13.0-17.0) g/dL Hct (38.0-50.0) % MCV (80.0-98.0) fL MCH (27.0-32.0) pg MCHC (31.0-37.0) g/dL RDW Std Deviation (28.0-62.0) fl RDW Coeff of Renetta (11.0-15.0) % Plt Count (150-400) K/uL MPV (7.40-12.00) fL Neut % (Auto) (48.0-80.0) % Lymph % (Auto) (16.0-40.0) % [place] % (Auto) (0.0-15.0) % Eos % (Auto) (0.0-7.0) % Baso % (Auto) (0.0-1.5) % Neut # (Auto) (1.4-5.7) K/uL Lymph # (Auto) (0.6-2.4) K/uL [place] # (Auto) (0.0-0.8) K/uL Eos # (Auto) (0.0-0.7) K/uL Baso # (Auto) (0.0-0.1) K/uL Nucleated RBC % /100WBC Nucleated RBCs # K/uL INR ABG pH (7.35-7.45) ABG pCO2 (35-45) mmHG ABG pO2 (75-100) mmHG ABG HCO3 (22-26) mEq/L ABG Total CO2 ABG Base Excess (-2.0-2.0) Sodium 141 (136-148) mmol/L Potassium 4.1 (3.5-5.1) mmol/L Chloride 103 (98-107) mmol/L Carbon Dioxide 30.6 (21.0-32.0) mmol/L BUN 31 H (7.0-18.0) mg/dL Creatinine 1.3 (0.8-1.3) mg/dL Est Cr Clr Drug Dosing 35.00 mL/min Estimated GFR (MDRD) 53.3 ml/min Glucose 114 H (74-106) mg/dL POC Glucose 111 H (60-110) mg/dL Calcium 8.7 (8.5-10.1) mg/dL Phosphorus (2.6-4.7) mg/dL Magnesium (1.8-2.4) mg/dL Total Bilirubin (0.2-1.0) mg/dL AST (15-37) IU/L ALT (14-63) IU/L Alkaline Phosphatase (46-116) U/L Troponin I (0.000-0.056) ng/mL B-Natriuretic Peptide (<100) PG/ML Total Protein (6.4-8.2) g/dL Albumin (3.4-5.0) g/dL Globulin (2.6-4.0) g/dL Albumin/Globulin Ratio (0.9-1.6) Digoxin (0.9-2.0) ng/mL SARS Virus RNA (PCR) (NEGATIVE) Med Orders - Current: Current Medications Albuterol/Ipratropium (Duoneb 3.0-0.5 Mg/3 Ml) 3 ml NEB Q4HRRT PRN PRN Reason: Shortness of Breath Last Admin: 03/29/20 20:34 Dose: 3 ml Documented by: Allopurinol (Zyloprim) 300 mg PO DAILY [facility] Budesonide/Formoterol Fumarate (Symbicort 160-4.5 Mcg) 0 gm INH BID [facility] Last Admin: 03/29/20 20:46 Dose: Not Given Documented by: Dabigatran (Pradaxa) 150 mg PO BID [facility] Last Admin: 03/29/20 20:44 Dose: 150 mg Documented by: Pantoprazole Sodium 40 mg/ (Sodium Chloride) 10 mls @ 300 mls/hr IV DAILY [facility] Insulin Aspart (Novolog) 0 unit SUBCUT TIDAC [facility]; Protocol Last Admin: 03/30/20 06:59 Dose: Not Given Documented by: Simvastatin (Zocor) 80 mg PO BEDTIME MARY KATE Last Admin: 03/29/20 20:44 Dose: 80 mg Documented by: Sodium Chloride (Saline Flush) 2.5 ml FLUSH ASDIRECTED PRN PRN Reason: Keep Vein Open Last Admin: 03/29/20 17:57 Dose: 2.5 ml Documented by: Tiotropium [place] (Spiriva Handihaler) 18 mcg INH DAILY MARY KATE Discontinued Medications Furosemide (Lasix) 40 mg IVPUSH NOW ONE Stop: 03/29/20 17:38 Last Admin: 03/29/20 17:57 Dose: 40 mg Documented by: Furosemide (Lasix) 40 mg IVPUSH ONETIME ONE Stop: 03/29/20 19:54 Last Admin: 03/29/20 20:20 Dose: 40 mg Documented by: - Exam Quality Assessment: Supplemental Oxygen General: Alert, Oriented, Cooperative HEENT: EOMI, Mucous Membr. Moist/[place] Neck: Supple Lungs: Other (tight BS; no wheezing and or rales appreciated ) Cardiovascular: Regular Rate, Irregular Rhythm GI/Abdominal Exam: Soft, Non-Tender Extremities: Other (+3/+4 pitting edema to legs b/l; mid thigh ) Skin: Warm, Dry Neurological: No New Focal Deficit Psy/Mental Status: Alert, Normal Mood Sepsis Event Note - Evaluation Sepsis Screening Result: No Definite Risk - Focused Exam Vital Signs: Vital Signs Temp Pulse Resp BP Pulse Ox 03/30/20 07:15 99.1 F 77 17 95/61 97 03/30/20 04:50 96/54 L 03/30/20 04:00 98.4 F 89 18 93/54 L 97 03/30/20 00:09 98.7 F 75 17 98/69 96 - Problem List Review Problem List Initiated/Reviewed/Updated: Yes - My Orders Last 24 Hours: My Active Orders 03/29/20 08:10 OCCULT BLOOD DIAGNOSTIC [OP] Routine 03/29/20 19:31 Daily Weight [Height and Weight] [RC] DAILY Intake and Output Strict [RC] Q12H Up ad Iris [RC] ASDIRECTED 03/29/20 19:33 Accu Check [Blood Glucose Check, Bedside] [RC] TIDMEALS 03/29/20 19:54 Albuterol/Ipratropium [DuoNeb 3.0-0.5 MG/3 ML] 3 ml NEB Q4HRRT PRN 03/29/20 19:55 RT Aerosol Therapy [RC] ASDIRECTED 03/29/20 20:01 RT Post Treatment Assessment [RC] Click to Edit RT Pre-Treatment Assessment [RC] Click to Edit 03/29/20 21:00 Budesonide/Formoterol [Symbicort 160-4.5 MCG] 0 gm INH BID Dabigatran [Pradaxa] 150 mg PO BID Simvastatin [Zocor] 80 mg PO BEDTIME 03/30/20 Breakfast 2 Gram Sodium Diet [DIET] Fluid Restriction [DIET] 03/30/20 07:30 Insulin Aspart [NovoLOG] See Protocol SUBCUT TIDAC 03/30/20 07:55 Transfuse Red Blood Cells [COMM] Routine 03/30/20 07:57 Verify Patient Consent Obtain [RC] ASDIRECTED 03/30/20 08:15 RED BLOOD CELLS LP [BBK] Routine TYPE AND SCREEN [BBK] Routine 03/30/20 09:00 Pantoprazole [ProTONIX IV] 40 mg Sodium Chloride 0.9% [Normal Saline] 10 ml IV DAILY Tiotropium [Spiriva HandiHaler] 18 mcg INH DAILY allopurinoL [Zyloprim] 300 mg PO DAILY 03/31/20 05:11 BASIC METABOLIC PANEL,BMP [CHEM] AM CBC WITH AUTO DIFF [HEME] AM 04/01/20 05:11 BASIC METABOLIC PANEL,BMP [CHEM] AM CBC WITH AUTO DIFF [HEME] AM - Plan Plan:: Assessment: 1. Acute on chronic hypoxic respiratory failure secondary to HF exacerbation (increasing o2 requirements) 2. Severe COPD on O2 3. A. Fib; rate controlled 4. Normocytic anemia 5. Elevated Alk. Phos 6. DM II Plan. Admit to obs. Code: DVT: continue Pradaxa GI : pantoprazole 40 daily Strict I/O's; daily weights. fluid restriction 1800 cc ; Low sodium diet. 1. CHF exacerbation: most likely secondary to non-compliance with daily lasix dosing; increase lasix to 40 mg TID 2 kg weight down since admission w. 2200 Liters of fluid diuresed Increase Lasix to 40 TID today Normocytic anemia: no overt bleeding appreciated. Negative stool for occult blood; dark but pt. endorses daily Iron supplementation. Symptomatic anemia: increasing fatigue + requiring more o2 in COPD patient : ordered 4 units PRBC; give 1-in AM and reassess. Ordered Reticulocyte count+ iron studies ; normocytic anemia Continue IV pantoprazole 2. Severe COPD: maintain o2 sats >88% w. NC; continue duo-nebs PRN: home Spiriva and tiotropium CXR: negative for infiltrates , afebrile; continue to reassess if COPD exacerbation; currently not wheezing/rales during bedside examination. If not responding despite diuresis; will reassess for a COPD exacerbation; pt. is clinically fluid overloaded; will continue to monitor closely 3. A Fib: rate controlled ; underlying mechanism of temporary increase in HR most likely from worsening subjective SOB ; now improving w. supplemental o2; continue to monitor; will place on telemetry and continue Pradaxa Hold Dig for today due to half-life and supratherapeutic levels; will restart if needed later today or tomorrow AM 4. Anemia: steady decline from previous admissions; check stool for occult blood; recheck Hgb in AM post-diuresis; Recheck H&H post-transfusion 5. Elevated alk. phos : marginally elevated in setting of acute HF; recheck to confirm elevation 6. DM II: hold metformin ; initiate SSI 7. COVID negative
[2020-03-30] MEDS: Tiotropium Inhaler 18 MCG Inhalation Powder Cap Kit of 5 INH SCH (09:05)
[2020-03-30] MEDS: Albuterol/Ipratropium 3.0-0.5 MG/3 ML Neb Soln NEB PRN (09:05)
[2020-03-30] MEDS: Budesonide/Formoterol 160-4.5 MCG/Puff 6 GM Inhaler INH SCH ×2 (09:06→21:40)
[2020-03-30] MEDS: Allopurinol 300 MG Tab PO SCH (09:38)
[2020-03-30] MEDS: Pantoprazole 40 MG in Sodium Chloride 0.9% 10 ML IV SCH (09:46)
[2020-03-30] MEDS ORDERED: Calcium Carbonate 500 MG Tab.Chew PO PRN (11:11)
[2020-03-30] MEDS: Albuterol/Ipratropium 3.0-0.5 MG/3 ML Neb Soln NEB SCH ×2 (13:09→17:28)
[2020-03-30] MEDS: Furosemide 40 MG/4 ML VIAL IVPUSH SCH ×2 (13:50→21:40)
[2020-03-30] MEDS: Simvastatin 40 MG Tab PO SCH (21:39)
[2020-03-31] MEDS: Albuterol/Ipratropium 3.0-0.5 MG/3 ML Neb Soln NEB SCH ×5 (00:07→23:43)
[2020-03-31] MEDS: Furosemide 40 MG/4 ML VIAL IVPUSH SCH ×2 (06:04→20:57)
[2020-03-31 06:16] LABS: CARBON DIOXIDE,CO2 31.1 mmol/L (21.0-32.0); POTASSIUM,K 3.9 mmol/L (3.5-5.1)
[2020-03-31] MEDS: Insulin Aspart 100 Units/ML 3 ML Pen SUBCUT SCH ×3 (06:54→17:10)
[2020-03-31] MEDS ORDERED: Iron Sucrose Complex 200 MG in Sodium Chloride 0.9% 100 ML IV ONE (08:00)
[2020-03-31] MEDS ORDERED: Alum Hydrox/Mag Hydrox/Simeth 15 ML, Lidocaine 2% 5 ML PO ONE ×2 (08:19)
[2020-03-31] MEDS: Tiotropium Inhaler 18 MCG Inhalation Powder Cap Kit of 5 INH SCH (08:34)
--- NOTE | 2020-03-31 08:43 | PCM.PN ---
- General Info Date of Service: 03/31/20 Admission Dx/Problem (Free Text): Admission Diagnosis/Problem Admission Diagnosis/Problem CHF, Congestive heart failure Subjective Update: Just finished eating breakfast, on entering room patient described substernal chest pain, dull and heavy in nature. No radiation, feeling more tired. No diaphoresis or palpitations. He feels short of breath. No coughing. No wheezing. He denies nausea or vomiting. Reports he was feeling fine previously. urinating well. no bloody BMs. Functional Status: Reports: Pain Controlled, Tolerating Diet, Ambulating, Urinating - Review of Systems General: Reports: Fatigue, Malaise Pulmonary: Reports: Shortness of Breath. Denies: Cough, Wheezing Cardiovascular: Reports: Chest Pain, Dyspnea on Exertion, Edema. Denies: Palpitations Gastrointestinal: Reports: No Symptoms. Denies: Abdominal Pain, Nausea, Vomiting Genitourinary: Reports: No Symptoms Musculoskeletal: Reports: No Symptoms Skin: Reports: No Symptoms Neurological: Reports: No Symptoms Psychiatric: Reports: No Symptoms - Patient Data Vitals - Most Recent: Last Vital Signs Temp 98.3 F 03/31/20 07:10 Pulse 89 03/31/20 07:10 Resp 17 03/31/20 07:10 BP 124/71 03/31/20 07:10 Pulse Ox 98 03/31/20 07:10 Weight - Most Recent: 59.8 kg I&O - Last 24 Hours: Intake & Output 03/30/20 03/31/20 03/31/20 22:59 06:59 14:59 Intake Total 350 540 Output Total 1150 1231 Balance -800 -691 Lab Results Last 24 Hours: Laboratory Results - last 24 hr 03/30/20 03/30/20 03/30/20 Range/Units 08:15 10:20 10:20 WBC (4.0-11.0) K/uL RBC 2.79 L (4.50-5.90) M/uL Hgb (13.0-17.0) g/dL Hct (38.0-50.0) % MCV (80.0-98.0) fL MCH (27.0-32.0) pg MCHC (31.0-37.0) g/dL RDW Std Deviation (28.0-62.0) fl RDW Coeff of Renetta (11.0-15.0) % Plt Count (150-400) K/uL MPV (7.40-12.00) fL Neut % (Auto) (48.0-80.0) % Lymph % (Auto) (16.0-40.0) % Crockett % (Auto) (0.0-15.0) % Eos % (Auto) (0.0-7.0) % Baso % (Auto) (0.0-1.5) % Neut # (Auto) (1.4-5.7) K/uL Lymph # (Auto) (0.6-2.4) K/uL Crockett # (Auto) (0.0-0.8) K/uL Eos # (Auto) (0.0-0.7) K/uL Baso # (Auto) (0.0-0.1) K/uL Nucleated RBC % /100WBC Nucleated RBCs # K/uL Absolute Retic 75.90 (20-80) K/uL Percent Retic 2.7 H (0.5-1.5) % Immature Retic Fraction 27 % Sodium (136-148) mmol/L Potassium (3.5-5.1) mmol/L Chloride (98-107) mmol/L Carbon Dioxide (21.0-32.0) mmol/L BUN (7.0-18.0) mg/dL Creatinine (0.8-1.3) mg/dL Est Cr Clr Drug Dosing mL/min Estimated GFR (MDRD) ml/min Glucose (74-106) mg/dL POC Glucose (60-110) mg/dL Calcium (8.5-10.1) mg/dL Iron 12 L (50-175) ug/dL TIBC 319 (250-450) ug/dL % Saturation 3.76 L (20-55) % Transferrin 223.3 Blood Type O POSITIVE Antibody Screen NEGATIVE Crossmatch See Detail 03/30/20 03/30/20 03/30/20 Range/Units 11:26 16:32 16:33 WBC (4.0-11.0) K/uL RBC (4.50-5.90) M/uL Hgb 8.8 L (13.0-17.0) g/dL Hct 30.3 L (38.0-50.0) % MCV (80.0-98.0) fL MCH (27.0-32.0) pg MCHC (31.0-37.0) g/dL RDW Std Deviation (28.0-62.0) fl RDW Coeff of Renetta (11.0-15.0) % Plt Count (150-400) K/uL MPV (7.40-12.00) fL Neut % (Auto) (48.0-80.0) % Lymph % (Auto) (16.0-40.0) % Crockett % (Auto) (0.0-15.0) % Eos % (Auto) (0.0-7.0) % Baso % (Auto) (0.0-1.5) % Neut # (Auto) (1.4-5.7) K/uL Lymph # (Auto) (0.6-2.4) K/uL Crockett # (Auto) (0.0-0.8) K/uL Eos # (Auto) (0.0-0.7) K/uL Baso # (Auto) (0.0-0.1) K/uL Nucleated RBC % /100WBC Nucleated RBCs # K/uL Absolute Retic (20-80) K/uL Percent Retic (0.5-1.5) % Immature Retic Fraction % Sodium (136-148) mmol/L Potassium (3.5-5.1) mmol/L Chloride (98-107) mmol/L Carbon Dioxide (21.0-32.0) mmol/L BUN (7.0-18.0) mg/dL Creatinine (0.8-1.3) mg/dL Est Cr Clr Drug Dosing mL/min Estimated GFR (MDRD) ml/min Glucose (74-106) mg/dL POC Glucose 101 117 H (60-110) mg/dL Calcium (8.5-10.1) mg/dL Iron (50-175) ug/dL TIBC (250-450) ug/dL % Saturation (20-55) % Transferrin Blood Type Antibody Screen Crossmatch 03/31/20 03/31/20 03/31/20 Range/Units 05:10 05:10 06:01 WBC 10.49 (4.0-11.0) K/uL RBC 3.18 L (4.50-5.90) M/uL Hgb 8.3 L (13.0-17.0) g/dL Hct 28.9 L (38.0-50.0) % MCV 90.9 (80.0-98.0) fL MCH 26.1 L (27.0-32.0) pg MCHC 28.7 L (31.0-37.0) g/dL RDW Std Deviation 57.0 (28.0-62.0) fl RDW Coeff of Renetta 17 H (11.0-15.0) % Plt Count 215 (150-400) K/uL MPV 10.40 (7.40-12.00) fL Neut % (Auto) 84.9 H (48.0-80.0) % Lymph % (Auto) 4.7 L (16.0-40.0) % Crockett % (Auto) 8.6 (0.0-15.0) % Eos % (Auto) 1.6 (0.0-7.0) % Baso % (Auto) 0.2 (0.0-1.5) % Neut # (Auto) 8.9 H (1.4-5.7) K/uL Lymph # (Auto) 0.5 L (0.6-2.4) K/uL Crockett # (Auto) 0.9 H (0.0-0.8) K/uL Eos # (Auto) 0.2 (0.0-0.7) K/uL Baso # (Auto) 0.0 (0.0-0.1) K/uL Nucleated RBC % 0.0 /100WBC Nucleated RBCs # 0 K/uL Absolute Retic (20-80) K/uL Percent Retic (0.5-1.5) % Immature Retic Fraction % Sodium 139 (136-148) mmol/L Potassium 3.9 (3.5-5.1) mmol/L Chloride 101 (98-107) mmol/L Carbon Dioxide 31.1 (21.0-32.0) mmol/L BUN 30 H (7.0-18.0) mg/dL Creatinine 1.4 H (0.8-1.3) mg/dL Est Cr Clr Drug Dosing 36.19 mL/min Estimated GFR (MDRD) 48.9 ml/min Glucose 135 H (74-106) mg/dL POC Glucose 116 H (60-110) mg/dL Calcium 8.7 (8.5-10.1) mg/dL Iron (50-175) ug/dL TIBC (250-450) ug/dL % Saturation (20-55) % Transferrin Blood Type Antibody Screen Crossmatch Morales Results Last 24 Hours: Microbiology 03/29/20 08:10 Stool Occult Blood (MORALES) - Final Stool / Feces Med Orders - Current: Current Medications Albuterol/Ipratropium (Duoneb 3.0-0.5 Mg/3 Ml) 3 ml NEB Q6HRRT [facility] Last Admin: 03/31/20 05:52 Dose: 3 ml Documented by: Allopurinol (Zyloprim) 300 mg PO DAILY [facility] Last Admin: 03/30/20 09:38 Dose: 300 mg Documented by: Budesonide/Formoterol Fumarate (Symbicort 160-4.5 Mcg) 0 gm INH BID [facility] Last Admin: 03/30/20 21:40 Dose: Not Given Documented by: Calcium Carbonate/Glycine (Tums) 500 mg PO Q2HR PRN PRN Reason: Indigestion Last Admin: 03/30/20 11:49 Dose: 500 mg Documented by: Dabigatran (Pradaxa) 150 mg PO BID [facility] Digoxin (Lanoxin) 125 mcg PO DAILY [facility] Furosemide (Lasix) 40 mg IVPUSH TID [facility] Last Admin: 03/31/20 06:04 Dose: 40 mg Documented by: Pantoprazole Sodium 40 mg/ (Sodium Chloride) 10 mls @ 300 mls/hr IV DAILY [facility] Last Admin: 03/30/20 09:46 Dose: 300 mls/hr Documented by: Insulin Aspart (Novolog) 0 unit SUBCUT TIDAC [facility]; Protocol Last Admin: 03/31/20 06:54 Dose: Not Given Documented by: Simvastatin (Zocor) 80 mg PO BEDTIME [facility] Last Admin: 03/30/20 21:39 Dose: 80 mg Documented by: Sodium Chloride (Saline Flush) 2.5 ml FLUSH ASDIRECTED PRN PRN Reason: Keep Vein Open Last Admin: 03/29/20 17:57 Dose: 2.5 ml Documented by: Tiotropium Kaufman (Spiriva Handihaler) 18 mcg INH DAILY [facility] Last Admin: 03/31/20 08:34 Dose: 18 mcg Documented by: Discontinued Medications Albuterol/Ipratropium (Duoneb 3.0-0.5 Mg/3 Ml) 3 ml NEB Q4HRRT PRN PRN Reason: Shortness of Breath Last Admin: 03/30/20 09:05 Dose: 3 ml Documented by: Al Hydroxide/Mg Hydroxide 15 (ml/ Lidocaine HCl 5 ml) 0 ml PO ONETIME ONE Stop: 03/31/20 08:20 Dabigatran (Pradaxa) 150 mg PO BID MARY KATE Last Admin: 03/30/20 09:38 Dose: 150 mg Documented by: Furosemide (Lasix) 40 mg IVPUSH NOW ONE Stop: 03/29/20 17:38 Last Admin: 03/29/20 17:57 Dose: 40 mg Documented by: Furosemide (Lasix) 40 mg IVPUSH ONETIME ONE Stop: 03/29/20 19:54 Last Admin: 03/29/20 20:20 Dose: 40 mg Documented by: Iron Sucrose 200 mg/ Sodium (Chloride) 110 mls @ 400 mls/hr IV ONETIME ONE Stop: 03/31/20 08:15 - Exam Quality Assessment: Supplemental Oxygen (at baseline 3 L NC) General: Alert, Oriented Neck: Carotid Bruit, JVD Lungs: Decreased Breath Sounds (throughout), Crackles. No: Wheezing Cardiovascular: Regular Rate, Irregular Rhythm GI/Abdominal Exam: Normal Bowel Sounds, Soft, Non-Tender Extremities: Normal Inspection, Normal Range of Motion, Non-Tender, Pedal Edema (+3 pitting edema, from knee extending distally, improved to bilateral thighs) Neurological: No New Focal Deficit Psy/Mental Status: Alert, Normal Affect, Normal Mood Sepsis Event Note - Evaluation Sepsis Screening Result: No Definite Risk - Focused Exam Vital Signs: Vital Signs Temp Pulse Resp BP Pulse Ox 03/31/20 07:10 98.3 F 89 17 124/71 98 03/31/20 04:00 98.1 F 86 19 113/63 95 03/31/20 00:00 98.5 F 85 18 99/56 L 98 - Problem List & Annotations (1) Acute and chronic respiratory failure with hypoxia SNOMED Code(s): 71100621, 220419327 Code(s): J96.21 - ACUTE AND CHRONIC RESPIRATORY FAILURE WITH HYPOXIA Status: Acute Current Visit: Yes (2) Congestive heart disease SNOMED Code(s): 64213216 Code(s): I50.9 - HEART FAILURE, UNSPECIFIED Status: Acute Current Visit: Yes Qualifiers: Heart failure type: combined systolic and diastolic Heart failure chronicity: acute on chronic Qualified Code(s): I50.43 - Acute on chronic combined systolic (congestive) and diastolic (congestive) heart failure (3) Anemia SNOMED Code(s): 808960896 Code(s): D64.9 - ANEMIA, UNSPECIFIED Status: Acute Current Visit: Yes Qualifiers: Anemia type: unspecified type Qualified Code(s): D64.9 - Anemia, unspecified (4) History of atrial fibrillation SNOMED Code(s): 537190061 Code(s): Z86.79 - PERSONAL HISTORY OF OTHER DISEASES OF THE CIRCULATORY SYSTEM Status: Chronic Current Visit: Yes (5) Oxygen dependent SNOMED Code(s): 803855869836 Code(s): Z99.81 - DEPENDENCE ON SUPPLEMENTAL OXYGEN Status: Chronic Current Visit: Yes (6) History of CVA (cerebrovascular accident) SNOMED Code(s): 514595890 Code(s): Z86.73 - PRSNL HX OF TIA (TIA), AND CEREB INFRC W/O RESID DEFICITS Status: Chronic Current Visit: No (7) COPD (chronic obstructive pulmonary disease) SNOMED Code(s): 08678657 Code(s): J44.9 - CHRONIC OBSTRUCTIVE PULMONARY DISEASE, UNSPECIFIED Status: Chronic Current Visit: No Qualifiers: COPD type: chronic bronchitis (8) Carotid stenosis Status: Chronic Current Visit: No Qualifiers: Laterality: left Qualified Code(s): I65.22 - Occlusion and stenosis of left carotid artery (9) Coronary arteriosclerosis SNOMED Code(s): 96673860 Code(s): I25.10 - ATHSCL HEART DISEASE OF [place] CORONARY ARTERY W/O ANG PCTRS Status: Chronic Current Visit: No (10) Diabetes mellitus SNOMED Code(s): 13269923 Code(s): E11.9 - TYPE 2 DIABETES MELLITUS WITHOUT COMPLICATIONS Status: Chronic Current Visit: No Qualifiers: Diabetes mellitus type: type 2 Diabetes mellitus halfway insulin use: without termite control representative use (11) GERD (gastroesophageal reflux disease) SNOMED Code(s): 058391892 Code(s): K21.9 - GASTRO-ESOPHAGEAL REFLUX DISEASE WITHOUT ESOPHAGITIS Status: Chronic Current Visit: No (12) S/P CABG (coronary artery bypass graft) SNOMED Code(s): 223261262, 485186769, 328589249 Code(s): Z95.1 - PRESENCE OF AORTOCORONARY BYPASS GRAFT Status: Chronic Current Visit: No - Problem List Review Problem List Initiated/Reviewed/Updated: Yes - My Orders Last 24 Hours: My Active Orders 03/31/20 05:10 MAGNESIUM [CHEM] Routine 03/31/20 08:19 EKG 12 Lead [EKG Documentation Completion] [RC] STAT TROPONIN I [CHEM] Routine 03/31/20 08:41 Antiembolic Devices [RC] PER UNIT ROUTINE BAIRON Hose [Antiembolic Hose] [OM.PC] Routine 03/31/20 09:00 Dabigatran [Pradaxa] 150 mg PO BID Digoxin [Lanoxin] 125 mcg PO DAILY - Plan Plan:: This 80 year old male admitted with acute on chronic hypoxic respiratory failure with acute on chronic CHF exacerbation 1. Acute on chronic HFrEF exacerbation - ECHO with contrast from 02/27/2020 shows reduced EF 45% compared to previous in June 2019. with Mild R ventricular dysfunction, enlarged atria, mild to moderate mitral regurgitation and increased pulmonary artery pressure at 40 mmHg - Peripheral edema improved today, BP dipped to 80/50 after Lasix dosing. - Will change back to Lasix 60 mg BID - Patient asking to see Dr Abdul, I spoke with him and updated him on admission and [place] admission in January. He will come see patient - Daily weights, strict I/O Low Na diet. FR 1800 ml - Wt continues to trend down - Back to baseline 3 L NC oxygen. - Place BAIRON hose. - Had conversation with today to update on status since admission. She is concerned about "where they go from here". She understands he is worsening and hasn't showed much improvement since admission in [place] end of January. We discussed his endstage diagnoses and how ECHO is showing worsening. We did discussed palliative care options and Hospice. She will have discussion with family. I spoke with Rainer today regarding code status, which he is DNR/DNI. We did briefly speak about palliative care. He had talked with his this morning after I spoke with her. They did discuss this as well, he feels as though he "isn't ready to give up yet". We will continue with treatment and encouraged him to keep palliative care as an option when he is ready. 2. Chest pain - GI cocktail helped with pain - Troponin negative, trend x 2 more today - EKG shows no acute changes from previous EKGs - Monitor on telemetry 3. End Stage COPD, oxygen dependent - No exacerbation noted. - Continue home inhalers and Duonebs. - Baseline oxygen at 3 L NC 4. Afib: permanent - Restart Digoxin as HR elevating with activity to 120s 5. Anemia - Iron stores low, will give 200 mg Iron IV today - Given 1 unit PRBCs 1 day ago, hgb remains stable. - Hemoccult negative 6. DM type II - Holding Metformin - Continue Novolog SSI 7. CAD/Carotid stenosis/Hx CABG - Continue Pradaxa 150 mg BID and statin 8. GERD: - Continue Protonix daily. - Tums PRN VTE prophylaxis: Pradaxa and SCDs Dispo: 1-2 days
[2020-03-31] MEDS: Allopurinol 300 MG Tab PO SCH (09:34)
[2020-03-31] MEDS: Digoxin 125 MCG Tab PO SCH (09:34)
[2020-03-31] MEDS: Budesonide/Formoterol 160-4.5 MCG/Puff 6 GM Inhaler INH SCH ×2 (09:43→11:18)
[2020-03-31] MEDS: Pantoprazole 40 MG in Sodium Chloride 0.9% 10 ML IV SCH (09:43)
[2020-03-31] MEDS ORDERED: Furosemide 40 MG Tab PO SCH (14:00)
[2020-03-31] MEDS: Simvastatin 40 MG Tab PO SCH (20:58)
[2020-04-01] MEDS: Budesonide/Formoterol 160-4.5 MCG/Puff 6 GM Inhaler INH SCH ×3 (00:41→20:31)
[2020-04-01] MEDS: Albuterol/Ipratropium 3.0-0.5 MG/3 ML Neb Soln NEB SCH ×4 (05:48→23:29)
[2020-04-01 06:54] LABS: CARBON DIOXIDE,CO2 36.5 mmol/L (21.0-32.0); POTASSIUM,K 3.6 mmol/L (3.5-5.1)
[2020-04-01] MEDS: Insulin Aspart 100 Units/ML 3 ML Pen SUBCUT SCH ×3 (07:56→17:35)
[2020-04-01] MEDS ORDERED: Furosemide 40 MG Tab PO SCH (08:00)
[2020-04-01] MEDS: Allopurinol 300 MG Tab PO SCH (08:47)
[2020-04-01] MEDS: Tiotropium Inhaler 18 MCG Inhalation Powder Cap Kit of 5 INH SCH (08:48)
[2020-04-01] MEDS: Digoxin 125 MCG Tab PO SCH (08:51)
--- NOTE | 2020-04-01 09:06 | PCM.PN ---
- General Info Date of Service: 04/01/20 Admission Dx/Problem (Free Text): Admission Diagnosis/Problem Admission Diagnosis/Problem CHF, Congestive heart failure Subjective Update: Feeling better today, no chest pain. Dyspnea improving, remains on his 3 L NC continuously. Urinating well, and eating and drinking well. Functional Status: Reports: Pain Controlled, Tolerating Diet, Ambulating, Urinating - Review of Systems General: Reports: No Symptoms. Denies: Fatigue, Malaise HEENT: Reports: No Symptoms Pulmonary: Reports: Shortness of Breath (improving) Cardiovascular: Reports: Dyspnea on Exertion, Edema. Denies: Chest Pain, Palpitations Gastrointestinal: Reports: No Symptoms. Denies: Abdominal Pain, Nausea, Vomiting Genitourinary: Reports: No Symptoms Musculoskeletal: Reports: No Symptoms Skin: Reports: No Symptoms Neurological: Reports: No Symptoms Psychiatric: Reports: No Symptoms - Patient Data Vitals - Most Recent: Last Vital Signs Temp 97.9 F 04/01/20 08:00 Pulse 85 04/01/20 08:51 Resp 18 04/01/20 08:00 BP 95/48 L 04/01/20 08:00 Pulse Ox 95 04/01/20 08:00 Weight - Most Recent: 59.103 kg I&O - Last 24 Hours: Intake & Output 03/31/20 04/01/20 04/01/20 22:59 06:59 14:59 Intake Total 500 250 Output Total 1050 900 Balance -550 -650 Lab Results Last 24 Hours: Laboratory Results - last 24 hr 03/31/20 03/31/20 03/31/20 Range/Units 08:38 11:33 14:23 WBC (4.0-11.0) K/uL RBC (4.50-5.90) M/uL Hgb (13.0-17.0) g/dL Hct (38.0-50.0) % MCV (80.0-98.0) fL MCH (27.0-32.0) pg MCHC (31.0-37.0) g/dL RDW Std Deviation (28.0-62.0) fl RDW Coeff of Renetta (11.0-15.0) % Plt Count (150-400) K/uL MPV (7.40-12.00) fL Neut % (Auto) (48.0-80.0) % Lymph % (Auto) (16.0-40.0) % [place] % (Auto) (0.0-15.0) % Eos % (Auto) (0.0-7.0) % Baso % (Auto) (0.0-1.5) % Neut # (Auto) (1.4-5.7) K/uL Lymph # (Auto) (0.6-2.4) K/uL [place] # (Auto) (0.0-0.8) K/uL Eos # (Auto) (0.0-0.7) K/uL Baso # (Auto) (0.0-0.1) K/uL Nucleated RBC % /100WBC Nucleated RBCs # K/uL Sodium (136-148) mmol/L Potassium (3.5-5.1) mmol/L Chloride (98-107) mmol/L Carbon Dioxide (21.0-32.0) mmol/L BUN (7.0-18.0) mg/dL Creatinine (0.8-1.3) mg/dL Est Cr Clr Drug Dosing mL/min Estimated GFR (MDRD) ml/min Glucose (74-106) mg/dL POC Glucose 160 H (60-110) mg/dL Calcium (8.5-10.1) mg/dL Magnesium (1.8-2.4) mg/dL Troponin I < 0.050 < 0.050 (0.000-0.056) ng/mL 03/31/20 03/31/20 04/01/20 Range/Units 17:05 20:05 06:02 WBC 9.43 (4.0-11.0) K/uL RBC 3.25 L (4.50-5.90) M/uL Hgb 8.5 L (13.0-17.0) g/dL Hct 30.1 L (38.0-50.0) % MCV 92.6 (80.0-98.0) fL MCH 26.2 L (27.0-32.0) pg MCHC 28.2 L (31.0-37.0) g/dL RDW Std Deviation 57.8 (28.0-62.0) fl RDW Coeff of Renetta 17 H (11.0-15.0) % Plt Count 207 (150-400) K/uL MPV 10.30 (7.40-12.00) fL Neut % (Auto) 81.2 H (48.0-80.0) % Lymph % (Auto) 8.1 L (16.0-40.0) % [place] % (Auto) 8.8 (0.0-15.0) % Eos % (Auto) 1.8 (0.0-7.0) % Baso % (Auto) 0.1 (0.0-1.5) % Neut # (Auto) 7.7 H (1.4-5.7) K/uL Lymph # (Auto) 0.8 (0.6-2.4) K/uL [place] # (Auto) 0.8 (0.0-0.8) K/uL Eos # (Auto) 0.2 (0.0-0.7) K/uL Baso # (Auto) 0.0 (0.0-0.1) K/uL Nucleated RBC % 0.0 /100WBC Nucleated RBCs # 0 K/uL Sodium (136-148) mmol/L Potassium (3.5-5.1) mmol/L Chloride (98-107) mmol/L Carbon Dioxide (21.0-32.0) mmol/L BUN (7.0-18.0) mg/dL Creatinine (0.8-1.3) mg/dL Est Cr Clr Drug Dosing mL/min Estimated GFR (MDRD) ml/min Glucose (74-106) mg/dL POC Glucose 137 H (60-110) mg/dL Calcium (8.5-10.1) mg/dL Magnesium (1.8-2.4) mg/dL Troponin I 0.050 (0.000-0.056) ng/mL 04/01/20 04/01/20 Range/Units 06:02 06:05 WBC (4.0-11.0) K/uL RBC (4.50-5.90) M/uL Hgb (13.0-17.0) g/dL Hct (38.0-50.0) % MCV (80.0-98.0) fL MCH (27.0-32.0) pg MCHC (31.0-37.0) g/dL RDW Std Deviation (28.0-62.0) fl RDW Coeff of Renetta (11.0-15.0) % Plt Count (150-400) K/uL MPV (7.40-12.00) fL Neut % (Auto) (48.0-80.0) % Lymph % (Auto) (16.0-40.0) % [place] % (Auto) (0.0-15.0) % Eos % (Auto) (0.0-7.0) % Baso % (Auto) (0.0-1.5) % Neut # (Auto) (1.4-5.7) K/uL Lymph # (Auto) (0.6-2.4) K/uL [place] # (Auto) (0.0-0.8) K/uL Eos # (Auto) (0.0-0.7) K/uL Baso # (Auto) (0.0-0.1) K/uL Nucleated RBC % /100WBC Nucleated RBCs # K/uL Sodium 143 (136-148) mmol/L Potassium 3.6 (3.5-5.1) mmol/L Chloride 100 (98-107) mmol/L Carbon Dioxide 36.5 H (21.0-32.0) mmol/L BUN 29 H (7.0-18.0) mg/dL Creatinine 1.2 (0.8-1.3) mg/dL Est Cr Clr Drug Dosing 41.73 mL/min Estimated GFR (MDRD) 58.4 ml/min Glucose 89 (74-106) mg/dL POC Glucose 131 H (60-110) mg/dL Calcium 8.9 (8.5-10.1) mg/dL Magnesium 2.1 (1.8-2.4) mg/dL Troponin I (0.000-0.056) ng/mL Med Orders - Current: Current Medications Albuterol/Ipratropium (Duoneb 3.0-0.5 Mg/3 Ml) 3 ml NEB Q6HRRT [facility] Last Admin: 04/01/20 05:48 Dose: 3 ml Documented by: Allopurinol (Zyloprim) 300 mg PO DAILY [facility] Last Admin: 04/01/20 08:47 Dose: 300 mg Documented by: Budesonide/Formoterol Fumarate (Symbicort 160-4.5 Mcg) 0 gm INH BID [facility] Last Admin: 04/01/20 08:48 Dose: 2 puff Documented by: Calcium Carbonate/Glycine (Tums) 500 mg PO Q2HR PRN PRN Reason: Indigestion Last Admin: 03/30/20 11:49 Dose: 500 mg Documented by: Dabigatran (Pradaxa) 150 mg PO BID [facility] Last Admin: 04/01/20 08:47 Dose: 150 mg Documented by: Digoxin (Lanoxin) 125 mcg PO DAILY [facility] Last Admin: 04/01/20 08:51 Dose: 125 mcg Documented by: Furosemide (Lasix) 60 mg PO BIDDIURETIC [facility] Last Admin: 04/01/20 08:47 Dose: 60 mg Documented by: Pantoprazole Sodium 40 mg/ (Sodium Chloride) 10 mls @ 300 mls/hr IV DAILY [facility] Last Admin: 03/31/20 09:43 Dose: 300 mls/hr Documented by: Insulin Aspart (Novolog) 0 unit SUBCUT TIDAC [facility]; Protocol Last Admin: 04/01/20 07:56 Dose: Not Given Documented by: Simvastatin (Zocor) 80 mg PO BEDTIME [facility] Last Admin: 03/31/20 20:58 Dose: 80 mg Documented by: Sodium Chloride (Saline Flush) 2.5 ml FLUSH ASDIRECTED PRN PRN Reason: Keep Vein Open Last Admin: 03/29/20 17:57 Dose: 2.5 ml Documented by: Tiotropium [place] (Spiriva Handihaler) 18 mcg INH DAILY [facility] Last Admin: 04/01/20 08:48 Dose: 18 mcg Documented by: Discontinued Medications Albuterol/Ipratropium (Duoneb 3.0-0.5 Mg/3 Ml) 3 ml NEB Q4HRRT PRN PRN Reason: Shortness of Breath Last Admin: 03/30/20 09:05 Dose: 3 ml Documented by: Al Hydroxide/Mg Hydroxide 15 (ml/ Lidocaine HCl 5 ml) 0 ml PO ONETIME ONE Stop: 03/31/20 08:20 Last Admin: 03/31/20 08:49 Dose: 1 each Documented by: Dabigatran (Pradaxa) 150 mg PO BID [facility] Last Admin: 03/30/20 09:38 Dose: 150 mg Documented by: Furosemide (Lasix) 40 mg IVPUSH NOW ONE Stop: 03/29/20 17:38 Last Admin: 03/29/20 17:57 Dose: 40 mg Documented by: Furosemide (Lasix) 40 mg IVPUSH ONETIME ONE Stop: 03/29/20 19:54 Last Admin: 03/29/20 20:20 Dose: 40 mg Documented by: Furosemide (Lasix) 40 mg IVPUSH TID [facility] Last Admin: 03/31/20 06:04 Dose: 40 mg Documented by: Furosemide (Lasix) 60 mg PO BIDDIURETIC [facility] Last Admin: 03/31/20 14:14 Dose: 60 mg Documented by: Furosemide (Lasix) 60 mg IVPUSH Q12H [facility] Stop: 04/01/20 08:01 Last Admin: 03/31/20 20:57 Dose: 60 mg Documented by: Iron Sucrose 200 mg/ Sodium (Chloride) 110 mls @ 400 mls/hr IV ONETIME ONE Stop: 03/31/20 08:15 Last Admin: 03/31/20 09:22 Dose: 400 mls/hr Documented by: - Exam General: Alert, Oriented, Cooperative, No Acute Distress HEENT: Pupils Equal, Pupils Reactive Neck: No JVD, Carotid Bruit Lungs: Decreased Breath Sounds (more air movement today), Rhonchi Cardiovascular: Regular Rate, Irregular Rhythm. No: Tachycardia GI/Abdominal Exam: Normal Bowel Sounds, Soft, Non-Tender Extremities: Normal Inspection, Normal Range of Motion, Non-Tender, Pedal Edema (+2 piting edema, improved) Neurological: No New Focal Deficit Psy/Mental Status: Alert, Normal Affect, Normal Mood Sepsis Event Note - Evaluation Sepsis Screening Result: No Definite Risk - Focused Exam Vital Signs: Vital Signs Temp Pulse Pulse Resp BP Pulse Ox 04/01/20 08:51 85 04/01/20 08:00 97.9 F 85 18 95/48 L 95 04/01/20 04:22 98.4 F 87 22 H 91/53 L 93 L 03/31/20 23:52 97.4 F 100 18 93/65 98 - Problem List & Annotations (1) Acute and chronic respiratory failure with hypoxia SNOMED Code(s): 72929364, 188050701 Code(s): J96.21 - ACUTE AND CHRONIC RESPIRATORY FAILURE WITH HYPOXIA Status: Acute Current Visit: Yes (2) Congestive heart disease SNOMED Code(s): 09070590 Code(s): I50.9 - HEART FAILURE, UNSPECIFIED Status: Acute Current Visit: Yes Qualifiers: Heart failure type: combined systolic and diastolic Heart failure chronicity: acute on chronic Qualified Code(s): I50.43 - Acute on chronic combined systolic (congestive) and diastolic (congestive) heart failure (3) Anemia SNOMED Code(s): 440378926 Code(s): D64.9 - ANEMIA, UNSPECIFIED Status: Acute Current Visit: Yes Qualifiers: Anemia type: unspecified type Qualified Code(s): D64.9 - Anemia, unspecified (4) History of atrial fibrillation SNOMED Code(s): 097057140 Code(s): Z86.79 - PERSONAL HISTORY OF OTHER DISEASES OF THE CIRCULATORY SYSTEM Status: Chronic Current Visit: Yes (5) Oxygen dependent SNOMED Code(s): 977938460619 Code(s): Z99.81 - DEPENDENCE ON SUPPLEMENTAL OXYGEN Status: Chronic Current Visit: Yes (6) History of CVA (cerebrovascular accident) SNOMED Code(s): 356358411 Code(s): Z86.73 - PRSNL HX OF TIA (TIA), AND CEREB INFRC W/O RESID DEFICITS Status: Chronic Current Visit: No (7) COPD (chronic obstructive pulmonary disease) SNOMED Code(s): 76271492 Code(s): J44.9 - CHRONIC OBSTRUCTIVE PULMONARY DISEASE, UNSPECIFIED Status: Chronic Current Visit: No Qualifiers: COPD type: chronic bronchitis (8) Carotid stenosis Status: Chronic Current Visit: No Qualifiers: Laterality: left Qualified Code(s): I65.22 - Occlusion and stenosis of left carotid artery (9) Coronary arteriosclerosis SNOMED Code(s): 47169775 Code(s): I25.10 - ATHSCL HEART DISEASE OF [place] CORONARY ARTERY W/O ANG PCTRS Status: Chronic Current Visit: No (10) Diabetes mellitus SNOMED Code(s): 74046769 Code(s): E11.9 - TYPE 2 DIABETES MELLITUS WITHOUT COMPLICATIONS Status: Chronic Current Visit: No Qualifiers: Diabetes mellitus type: type 2 Diabetes mellitus detention insulin use: without detention use (11) GERD (gastroesophageal reflux disease) SNOMED Code(s): 511567547 Code(s): K21.9 - GASTRO-ESOPHAGEAL REFLUX DISEASE WITHOUT ESOPHAGITIS Status: Chronic Current Visit: No (12) S/P CABG (coronary artery bypass graft) SNOMED Code(s): 538139915, 732242793, 937154435 Code(s): Z95.1 - PRESENCE OF AORTOCORONARY BYPASS GRAFT Status: Chronic Current Visit: No - Problem List Review Problem List Initiated/Reviewed/Updated: Yes - My Orders Last 24 Hours: My Active Orders 03/31/20 08:41 Antiembolic Devices [RC] PER UNIT ROUTINE BAIRON Hose [Antiembolic Hose] [OM.PC] Routine 03/31/20 09:00 Dabigatran [Pradaxa] 150 mg PO BID Digoxin [Lanoxin] 125 mcg PO DAILY 03/31/20 13:46 Resuscitation Status Routine 04/01/20 08:00 Furosemide [Lasix] 60 mg PO BIDDIURETIC - Plan Plan:: This 80 year old male admitted with acute on chronic hypoxic respiratory failure with acute on chronic CHF exacerbation 1. Acute on chronic HFrEF exacerbation - ECHO with contrast from 02/27/2020 shows reduced EF 45% compared to previous in June 2019. with Mild R ventricular dysfunction, enlarged atria, mild to moderate mitral regurgitation and increased pulmonary artery pressure at 40 mmHg - Peripheral edema improved today, overall he appears improved today. - Change Lasix 60 mg to IV BID today, per recommendations of Dr Abdul. He feels more diuresis is needed with IV dosing. Monitor urine output. - Daily weights, strict I/O Low Na diet. FR 1800 ml - Wt continues to trend down - Back to baseline 3 L NC oxygen. - Place BAIRON hose. 2. Chest pain - ACS ruled out, likely related to large meal and GERD - Troponins negative. 3. End Stage COPD, oxygen dependent - Continue home inhalers, Symbicort and Spiriva and Duonebs. - Baseline oxygen at 3 L NC 4. Afib, permanent - HR improved with decreased dose of Digoxin - Continue Digoxin 125 mcg 5. Anemia - Stable, no active bleeding 6. DM type II - Holding Metformin - Continue Novolog SSI 7. CAD/Carotid stenosis/Hx CABG - Continue Pradaxa 150 mg BID and statin 8. GERD: - Continue Protonix daily. - Tums PRN VTE prophylaxis: Pradaxa and SCDs Dispo: 1-2 days
[2020-04-01] MEDS: Furosemide 40 MG/4 ML VIAL IVPUSH SCH (09:35)
[2020-04-01] MEDS: Pantoprazole 40 MG in Sodium Chloride 0.9% 10 ML IV SCH (09:43)
[2020-04-01] MEDS ORDERED: Furosemide 40 MG/4 ML VIAL IVPUSH SCH (11:30)
[2020-04-01] MEDS ORDERED: Furosemide 40 MG/4 ML VIAL IVPUSH STA (18:12)
[2020-04-01] MEDS: Simvastatin 40 MG Tab PO SCH (20:31)
[2020-04-02] MEDS: Albuterol/Ipratropium 3.0-0.5 MG/3 ML Neb Soln NEB SCH ×2 (06:10→11:34)
[2020-04-02 06:21] LABS: CARBON DIOXIDE,CO2 35.9 mmol/L (21.0-32.0); POTASSIUM,K 3.9 mmol/L (3.5-5.1)
--- NOTE | 2020-04-02 07:49 | PCM.PN ---
- General Info Date of Service: 04/02/20 - Patient Data Vitals - Most Recent: Last Vital Signs Temp 98 F 04/02/20 04:00 Pulse 82 04/02/20 04:00 Resp 19 04/02/20 04:00 BP 86/56 L 04/02/20 04:00 Pulse Ox 99 04/02/20 04:00 Weight - Most Recent: 58.105 kg I&O - Last 24 Hours: Intake & Output 04/01/20 04/02/20 04/02/20 22:59 06:59 14:59 Intake Total 1400 500 Output Total 550 1125 Balance 850 -625 Lab Results Last 24 Hours: Laboratory Results - last 24 hr 04/01/20 04/01/20 04/02/20 Range/Units 11:15 16:52 05:12 WBC 11.49 H (4.0-11.0) K/uL RBC 3.22 L (4.50-5.90) M/uL Hgb 8.5 L (13.0-17.0) g/dL Hct 30.3 L (38.0-50.0) % MCV 94.1 (80.0-98.0) fL MCH 26.4 L (27.0-32.0) pg MCHC 28.1 L (31.0-37.0) g/dL RDW Std Deviation 57.8 (28.0-62.0) fl RDW Coeff of Renetta 17 H (11.0-15.0) % Plt Count 233 (150-400) K/uL MPV 11.00 (7.40-12.00) fL Neut % (Auto) 80.3 H (48.0-80.0) % Lymph % (Auto) 10.6 L (16.0-40.0) % [place] % (Auto) 7.2 (0.0-15.0) % Eos % (Auto) 1.7 (0.0-7.0) % Baso % (Auto) 0.2 (0.0-1.5) % Neut # (Auto) 9.2 H (1.4-5.7) K/uL Lymph # (Auto) 1.2 (0.6-2.4) K/uL [place] # (Auto) 0.8 (0.0-0.8) K/uL Eos # (Auto) 0.2 (0.0-0.7) K/uL Baso # (Auto) 0.0 (0.0-0.1) K/uL Nucleated RBC % 0.2 /100WBC Nucleated RBCs # 0 K/uL Sodium (136-148) mmol/L Potassium (3.5-5.1) mmol/L Chloride (98-107) mmol/L Carbon Dioxide (21.0-32.0) mmol/L BUN (7.0-18.0) mg/dL Creatinine (0.8-1.3) mg/dL Est Cr Clr Drug Dosing mL/min Estimated GFR (MDRD) ml/min Glucose (74-106) mg/dL POC Glucose 115 H 111 H (60-110) mg/dL Calcium (8.5-10.1) mg/dL Magnesium (1.8-2.4) mg/dL 04/02/20 04/02/20 Range/Units 05:12 06:04 WBC (4.0-11.0) K/uL RBC (4.50-5.90) M/uL Hgb (13.0-17.0) g/dL Hct (38.0-50.0) % MCV (80.0-98.0) fL MCH (27.0-32.0) pg MCHC (31.0-37.0) g/dL RDW Std Deviation (28.0-62.0) fl RDW Coeff of [place] (11.0-15.0) % Plt Count (150-400) K/uL MPV (7.40-12.00) fL Neut % (Auto) (48.0-80.0) % Lymph % (Auto) (16.0-40.0) % [place] % (Auto) (0.0-15.0) % Eos % (Auto) (0.0-7.0) % Baso % (Auto) (0.0-1.5) % Neut # (Auto) (1.4-5.7) K/uL Lymph # (Auto) (0.6-2.4) K/uL [place] # (Auto) (0.0-0.8) K/uL Eos # (Auto) (0.0-0.7) K/uL Baso # (Auto) (0.0-0.1) K/uL Nucleated RBC % /100WBC Nucleated RBCs # K/uL Sodium 143 (136-148) mmol/L Potassium 3.9 (3.5-5.1) mmol/L Chloride 100 (98-107) mmol/L Carbon Dioxide 35.9 H (21.0-32.0) mmol/L BUN 27 H (7.0-18.0) mg/dL Creatinine 1.3 (0.8-1.3) mg/dL Est Cr Clr Drug Dosing 37.87 mL/min Estimated GFR (MDRD) 53.3 ml/min Glucose 130 H (74-106) mg/dL POC Glucose 121 H (60-110) mg/dL Calcium 9.1 (8.5-10.1) mg/dL Magnesium 2.1 (1.8-2.4) mg/dL Med Orders - Current: Current Medications Albuterol/Ipratropium (Duoneb 3.0-0.5 Mg/3 Ml) 3 ml NEB Q6HRRT [facility] Last Admin: 04/02/20 06:10 Dose: 3 ml Documented by: Allopurinol (Zyloprim) 300 mg PO DAILY [facility] Last Admin: 04/01/20 08:47 Dose: 300 mg Documented by: Budesonide/Formoterol Fumarate (Symbicort 160-4.5 Mcg) 0 gm INH BID [facility] Last Admin: 04/01/20 20:31 Dose: 2 puff Documented by: Calcium Carbonate/Glycine (Tums) 500 mg PO Q2HR PRN PRN Reason: Indigestion Last Admin: 03/30/20 11:49 Dose: 500 mg Documented by: Dabigatran (Pradaxa) 150 mg PO BID [facility] Last Admin: 04/01/20 20:31 Dose: 150 mg Documented by: Digoxin (Lanoxin) 125 mcg PO DAILY [facility] Last Admin: 04/01/20 08:51 Dose: 125 mcg Documented by: Pantoprazole Sodium 40 mg/ (Sodium Chloride) 10 mls @ 300 mls/hr IV DAILY [facility] Last Admin: 04/01/20 09:43 Dose: 300 mls/hr Documented by: Insulin Aspart (Novolog) 0 unit SUBCUT TIDAC [facility]; Protocol Last Admin: 04/01/20 17:35 Dose: Not Given Documented by: Simvastatin (Zocor) 80 mg PO BEDTIME [facility] Last Admin: 04/01/20 20:31 Dose: 80 mg Documented by: Sodium Chloride (Saline Flush) 2.5 ml FLUSH ASDIRECTED PRN PRN Reason: Keep Vein Open Last Admin: 03/29/20 17:57 Dose: 2.5 ml Documented by: Tiotropium [place] (Spiriva Handihaler) 18 mcg INH DAILY [facility] Last Admin: 04/01/20 08:48 Dose: 18 mcg Documented by: Discontinued Medications Albuterol/Ipratropium (Duoneb 3.0-0.5 Mg/3 Ml) 3 ml NEB Q4HRRT PRN PRN Reason: Shortness of Breath Last Admin: 03/30/20 09:05 Dose: 3 ml Documented by: Al Hydroxide/Mg Hydroxide 15 (ml/ Lidocaine HCl 5 ml) 0 ml PO ONETIME ONE Stop: 03/31/20 08:20 Last Admin: 03/31/20 08:49 Dose: 1 each Documented by: Dabigatran (Pradaxa) 150 mg PO BID [facility] Last Admin: 03/30/20 09:38 Dose: 150 mg Documented by: Furosemide (Lasix) 40 mg IVPUSH NOW ONE Stop: 03/29/20 17:38 Last Admin: 03/29/20 17:57 Dose: 40 mg Documented by: Furosemide (Lasix) 40 mg IVPUSH ONETIME ONE Stop: 03/29/20 19:54 Last Admin: 03/29/20 20:20 Dose: 40 mg Documented by: Furosemide (Lasix) 40 mg IVPUSH TID [facility] Last Admin: 03/31/20 06:04 Dose: 40 mg Documented by: Furosemide (Lasix) 60 mg PO BIDDIURETIC [facility] Last Admin: 03/31/20 14:14 Dose: 60 mg Documented by: Furosemide (Lasix) 60 mg IVPUSH Q12H [facility] Stop: 04/01/20 08:01 Last Admin: 04/01/20 09:35 Dose: Not Given Documented by: Furosemide (Lasix) 60 mg PO BIDDIURETIC [facility] Last Admin: 04/01/20 08:47 Dose: 60 mg Documented by: Furosemide (Lasix) 60 mg IVPUSH BIDDIURETIC [facility] Last Admin: 04/01/20 13:25 Dose: 60 mg Documented by: Furosemide (Lasix) 60 mg IVPUSH NOW STA Stop: 04/01/20 18:13 Last Admin: 04/01/20 18:35 Dose: 60 mg Documented by: Iron Sucrose 200 mg/ Sodium (Chloride) 110 mls @ 400 mls/hr IV ONETIME ONE Stop: 03/31/20 08:15 Last Admin: 03/31/20 09:22 Dose: 400 mls/hr Documented by: Sepsis Event Note - Evaluation Sepsis Screening Result: No Definite Risk - Focused Exam Vital Signs: Vital Signs Temp Pulse Resp BP Pulse Ox 04/02/20 04:00 98 F 82 19 86/56 L 99 04/01/20 23:43 98.1 F 97 21 H 93/56 L 96 - Plan Plan:: This 80 year old male admitted with acute on chronic hypoxic respiratory failure with acute on chronic CHF exacerbation 1. Acute on chronic HFrEF exacerbation - ECHO with contrast from 02/27/2020 shows reduced EF 45% compared to previous in June 2019. with Mild R ventricular dysfunction, enlarged atria, mild to moderate mitral regurgitation and increased pulmonary artery pressure at 40 mmHg - Peripheral edema improved today, overall he appears improved today. - Change Lasix 60 mg to IV BID today, per recommendations of Dr Abdul. He feels more diuresis is needed with IV dosing. Monitor urine output. - Daily weights, strict I/O Low Na diet. FR 1800 ml - Wt continues to trend down - Back to baseline 3 L NC oxygen. - Place BAIRON hose. 2. Chest pain - ACS ruled out, likely related to large meal and GERD - Troponins negative. 3. End Stage COPD, oxygen dependent - Continue home inhalers, Symbicort and Spiriva and Duonebs. - Baseline oxygen at 3 L NC 4. Afib, permanent - HR improved with decreased dose of Digoxin - Continue Digoxin 125 mcg 5. Anemia - Stable, no active bleeding 6. DM type II - Holding Metformin - Continue Novolog SSI 7. CAD/Carotid stenosis/Hx CABG - Continue Pradaxa 150 mg BID and statin 8. GERD: - Continue Protonix daily. - Tums PRN VTE prophylaxis: Pradaxa and SCDs Dispo: 1-2 days
[2020-04-02] MEDS: Insulin Aspart 100 Units/ML 3 ML Pen SUBCUT SCH ×2 (08:42→13:34)
[2020-04-02] MEDS: Tiotropium Inhaler 18 MCG Inhalation Powder Cap Kit of 5 INH SCH (08:58)
[2020-04-02] MEDS: Budesonide/Formoterol 160-4.5 MCG/Puff 6 GM Inhaler INH SCH (08:58)
[2020-04-02] MEDS: Digoxin 125 MCG Tab PO SCH (09:09)
[2020-04-02] MEDS: Allopurinol 300 MG Tab PO SCH (09:09)
[2020-04-02] MEDS: Pantoprazole 40 MG in Sodium Chloride 0.9% 10 ML IV SCH (09:10)
--- NOTE | 2020-04-02 14:37 | PCM.DCSUM1 ---
<Lan Madrid - Last Filed: 04/02/20 20:50> Discharge Summary - Hospital Course Free Text/Narrative:: Patient is a 80-year-old male with a significant past medical history of COPD requiring 1 to 2 L of oxygen continuously, type 2 diabetes, and atrial fibrillation on Pradaxa and digoxin; presenting to facility for worsening shortness of breath and worsening lower extremity swelling. Patient was recently seen in [place] as transferr from [facility] for elevated troponin III weeks prior; was discharged without any cardiac intervention but was increased on his Lasix to 120 daily. Of note patient did not take his new dose for 2 to 3 days prior to admission. ED course: Oxygen tank was empty; concerns about it being empty for the past couple of days with noncompliant Lasix dosage. Patient was admitted for concerns for heart failure and increasing oxygen demands. Throughout stay patient did experience multiple low blood pressures; digoxin was have to 125 daily. Lasix were initially 40 mg 3 times daily however it was determined by cardiology to resume a dosage more appropriate for his gentleman; 60 mg twice daily. After appropriate diuresis with fluid and sodium restrictionl Lasix was changed to torsemide 40 mg daily. Advised to check daily weights at discharge and to notify provider if patient begins to gain 1 to 2 pounds and or is requiring increasing oxygen demands. Patient was diuresed appropriately and patient was weaned down to his home O2 requirements of 2 L. Discussed with patient to wean doen on o2 as saturations were in high 90's; pt understood and agreed Home health was discussed with patient; some resistance from family; home health prescription sent and patient requested discharge and discharged in stable condition. - Discharge Data Discharge Date: 04/02/20 Discharge Disposition: Home, W Home Health Agency 06 Condition: Good - Referral to Home Health Date of Face to Face Encounter: 04/01/20 Reason for Homebound Status: Rainer is homebound due to needing assistance from caregiver to leave the house. Ambulation is difficult as he becomes dyspneic with ambulation due to End stage COPD, oxygen dependent and HFrEF. Primary Care Physician: Robert Quintero NP Skilled Need: Rainer is in need of long term care to help monitor heart failure symptoms. He needs monitoring of his weights, vital signs and medications. He would also benefit from PT to evaluate and treat for deoncditioning due to recent hospitalization as well as chronic illness. He would benefit from OT to evaluate and treat home safety and ability to complete ADLs. - Patient Summary/Data Consults: Consultations 04/01/20 10:06 Consult to Home Health [CONS] Routine - Patient Instructions Diet: Heart Healthy Diet, Low Sodium, Diabetic Diet Fluid Restriction: 1500 mL Activity: No Strenuous Activities Driving: Do Not Drive Showering/Bathing: May Shower Notify Provider of: Fever, Increased Pain, Swelling and Redness, Drainage, Nausea and/or Vomiting Other/Special Instructions: Weigh yourself daily and keep a log. If you notice yourself gaining 3 lbs in 2 days or 5 lbs in 1 week notify provider. You may need to increase medication dosing for a few days. - Discharge Plan *PRESCRIPTION DRUG MONITORING PROGRAM REVIEWED*: Not Applicable *COPY OF PRESCRIPTION DRUG MONITORING REPORT IN PATIENT BI: Not Applicable Prescriptions/Med Rec: Digoxin [Digox] 125 mcg PO DAILY 30 Days #30 tablet Torsemide 40 mg PO DAILY 30 Days #60 tablet Home Medications: Home Meds Albuterol [Proventil HFA] 2 puff INH Q6H PRN 11/05/17 [History] Budesonide/Formoterol Fumarate [Symbicort 160-4.5 Mcg Inhaler] 2 puff INH BID 11/05/17 [History] Omeprazole 20 mg PO ACBREAKFAST 11/05/17 [History] Simvastatin [Zocor] 80 mg PO BEDTIME 11/05/17 [History] Tiotropium [Spiriva HandiHaler] 1 caplet INH DAILY 11/05/17 [History] allopurinoL [Zyloprim] 300 mg PO DAILY 11/05/17 [History] metFORMIN HCl [Metformin HCl] 500 mg PO BIDMEALS 11/05/17 [History] Dabigatran [Pradaxa] 150 mg PO BID 12/30/18 [History] Tamsulosin HCl [Flomax] 0.4 mg PO DAILY 07/01/19 [History] Albuterol/Ipratropium [DuoNeb 3.0-0.5 MG/3 ML] 3 ml INH Q6H PRN 02/26/20 [History] Calcium Carbonate [Tums] 500 mg PO Q2HR PRN tab.chew 04/02/20 [Rx] Dabigatran [Pradaxa] 150 mg PO BID cap 04/02/20 [Rx] Digoxin [Digox] 125 mcg PO DAILY 30 Days #30 tablet 04/02/20 [Rx] Torsemide 40 mg PO DAILY 30 Days #60 tablet 04/02/20 [Rx] Oxygen Therapy Mode: Nasal Cannula Oxygen Flow Rate (L/min): 3 Maintain SpO2% greater than: 88 Patient Handouts: Torsemide tablets, Heart Failure, Self Care, [id number], Home Oxygen Use, Adult, Digoxin tablets or capsules Referrals: Tiburcio Abdul MD [Physician] - 04/06/20 2:00 pm Robert Quintero NP [Primary Care Provider] - 04/07/20 10:30 am (Please arrive 15mins early. Bring ID, insurance information and own mask.) - Discharge Summary/Plan Comment DC Time >30 min.: No - Patient Data Vitals - Most Recent: Last Vital Signs Temp 97.9 F 04/02/20 07:05 Pulse 94 04/02/20 09:11 Resp 19 04/02/20 07:05 BP 96/49 L 04/02/20 09:11 Pulse Ox 98 04/02/20 07:05 Weight - Most Recent: 58.105 kg I&O - Last 24 hours: Intake & Output 04/01/20 04/02/20 04/02/20 22:59 06:59 14:59 Intake Total 1400 500 Output Total 550 1125 Balance 850 -625 Lab Results - Last 24 hrs: Laboratory Results - last 24 hr 04/01/20 04/02/20 04/02/20 Range/Units 16:52 05:12 05:12 WBC 11.49 H (4.0-11.0) K/uL RBC 3.22 L (4.50-5.90) M/uL Hgb 8.5 L (13.0-17.0) g/dL Hct 30.3 L (38.0-50.0) % MCV 94.1 (80.0-98.0) fL MCH 26.4 L (27.0-32.0) pg MCHC 28.1 L (31.0-37.0) g/dL RDW Std Deviation 57.8 (28.0-62.0) fl RDW Coeff of Renetta 17 H (11.0-15.0) % Plt Count 233 (150-400) K/uL MPV 11.00 (7.40-12.00) fL Neut % (Auto) 80.3 H (48.0-80.0) % Lymph % (Auto) 10.6 L (16.0-40.0) % [place] % (Auto) 7.2 (0.0-15.0) % Eos % (Auto) 1.7 (0.0-7.0) % Baso % (Auto) 0.2 (0.0-1.5) % Neut # (Auto) 9.2 H (1.4-5.7) K/uL Lymph # (Auto) 1.2 (0.6-2.4) K/uL [place] # (Auto) 0.8 (0.0-0.8) K/uL Eos # (Auto) 0.2 (0.0-0.7) K/uL Baso # (Auto) 0.0 (0.0-0.1) K/uL Nucleated RBC % 0.2 /100WBC Nucleated RBCs # 0 K/uL Sodium 143 (136-148) mmol/L Potassium 3.9 (3.5-5.1) mmol/L Chloride 100 (98-107) mmol/L Carbon Dioxide 35.9 H (21.0-32.0) mmol/L BUN 27 H (7.0-18.0) mg/dL Creatinine 1.3 (0.8-1.3) mg/dL Est Cr Clr Drug Dosing 37.87 mL/min Estimated GFR (MDRD) 53.3 ml/min Glucose 130 H (74-106) mg/dL POC Glucose 111 H (60-110) mg/dL Calcium 9.1 (8.5-10.1) mg/dL Magnesium 2.1 (1.8-2.4) mg/dL 04/02/20 04/02/20 Range/Units 06:04 12:12 WBC (4.0-11.0) K/uL RBC (4.50-5.90) M/uL Hgb (13.0-17.0) g/dL Hct (38.0-50.0) % MCV (80.0-98.0) fL MCH (27.0-32.0) pg MCHC (31.0-37.0) g/dL RDW Std Deviation (28.0-62.0) fl RDW Coeff of Renetta (11.0-15.0) % Plt Count (150-400) K/uL MPV (7.40-12.00) fL Neut % (Auto) (48.0-80.0) % Lymph % (Auto) (16.0-40.0) % [place] % (Auto) (0.0-15.0) % Eos % (Auto) (0.0-7.0) % Baso % (Auto) (0.0-1.5) % Neut # (Auto) (1.4-5.7) K/uL Lymph # (Auto) (0.6-2.4) K/uL [place] # (Auto) (0.0-0.8) K/uL Eos # (Auto) (0.0-0.7) K/uL Baso # (Auto) (0.0-0.1) K/uL Nucleated RBC % /100WBC Nucleated RBCs # K/uL Sodium (136-148) mmol/L Potassium (3.5-5.1) mmol/L Chloride (98-107) mmol/L Carbon Dioxide (21.0-32.0) mmol/L BUN (7.0-18.0) mg/dL Creatinine (0.8-1.3) mg/dL Est Cr Clr Drug Dosing mL/min Estimated GFR (MDRD) ml/min Glucose (74-106) mg/dL POC Glucose 121 H 132 H (60-110) mg/dL Calcium (8.5-10.1) mg/dL Magnesium (1.8-2.4) mg/dL Med Orders - Current: Current Medications Albuterol/Ipratropium (Duoneb 3.0-0.5 Mg/3 Ml) 3 ml NEB Q6HRRT [facility] Last Admin: 04/02/20 11:34 Dose: 3 ml Documented by: Allopurinol (Zyloprim) 300 mg PO DAILY [facility] Last Admin: 04/02/20 09:09 Dose: 300 mg Documented by: Budesonide/Formoterol Fumarate (Symbicort 160-4.5 Mcg) 0 gm INH BID [facility] Last Admin: 04/02/20 08:58 Dose: 2 puff Documented by: Calcium Carbonate/Glycine (Tums) 500 mg PO Q2HR PRN PRN Reason: Indigestion Last Admin: 03/30/20 11:49 Dose: 500 mg Documented by: Dabigatran (Pradaxa) 150 mg PO BID [facility] Last Admin: 04/02/20 09:09 Dose: 150 mg Documented by: Digoxin (Lanoxin) 125 mcg PO DAILY [facility] Last Admin: 04/02/20 09:09 Dose: 125 mcg Documented by: Pantoprazole Sodium 40 mg/ (Sodium Chloride) 10 mls @ 300 mls/hr IV DAILY [facility] Last Admin: 04/02/20 09:10 Dose: 300 mls/hr Documented by: Insulin Aspart (Novolog) 0 unit SUBCUT TIDAC [facility]; Protocol Last Admin: 04/02/20 13:34 Dose: Not Given Documented by: Simvastatin (Zocor) 80 mg PO BEDTIME [facility] Last Admin: 04/01/20 20:31 Dose: 80 mg Documented by: Sodium Chloride (Saline Flush) 2.5 ml FLUSH ASDIRECTED PRN PRN Reason: Keep Vein Open Last Admin: 03/29/20 17:57 Dose: 2.5 ml Documented by: Tiotropium Joaquin (Spiriva Handihaler) 18 mcg INH DAILY [facility] Last Admin: 04/02/20 08:58 Dose: 1 mcg Documented by: Discontinued Medications Albuterol/Ipratropium (Duoneb 3.0-0.5 Mg/3 Ml) 3 ml NEB Q4HRRT PRN PRN Reason: Shortness of Breath Last Admin: 03/30/20 09:05 Dose: 3 ml Documented by: Al Hydroxide/Mg Hydroxide 15 (ml/ Lidocaine HCl 5 ml) 0 ml PO ONETIME ONE Stop: 03/31/20 08:20 Last Admin: 03/31/20 08:49 Dose: 1 each Documented by: Dabigatran (Pradaxa) 150 mg PO BID [facility] Last Admin: 03/30/20 09:38 Dose: 150 mg Documented by: Furosemide (Lasix) 40 mg IVPUSH NOW ONE Stop: 03/29/20 17:38 Last Admin: 03/29/20 17:57 Dose: 40 mg Documented by: Furosemide (Lasix) 40 mg IVPUSH ONETIME ONE Stop: 03/29/20 19:54 Last Admin: 03/29/20 20:20 Dose: 40 mg Documented by: Furosemide (Lasix) 40 mg IVPUSH TID [facility] Last Admin: 03/31/20 06:04 Dose: 40 mg Documented by: Furosemide (Lasix) 60 mg PO BIDDIURETIC [facility] Last Admin: 03/31/20 14:14 Dose: 60 mg Documented by: Furosemide (Lasix) 60 mg IVPUSH Q12H [facility] Stop: 04/01/20 08:01 Last Admin: 04/01/20 09:35 Dose: Not Given Documented by: Furosemide (Lasix) 60 mg PO BIDDIURETIC [facility] Last Admin: 04/01/20 08:47 Dose: 60 mg Documented by: Furosemide (Lasix) 60 mg IVPUSH BIDDIURETIC [facility] Last Admin: 04/01/20 13:25 Dose: 60 mg Documented by: Furosemide (Lasix) 60 mg IVPUSH NOW STA Stop: 04/01/20 18:13 Last Admin: 04/01/20 18:35 Dose: 60 mg Documented by: Iron Sucrose 200 mg/ Sodium (Chloride) 110 mls @ 400 mls/hr IV ONETIME ONE Stop: 03/31/20 08:15 Last Admin: 03/31/20 09:22 Dose: 400 mls/hr Documented by: <Clark Rosenberg - Last Filed: 04/05/20 11:31> Discharge Summary - Hospital Course Free Text/Narrative:: I have seen and evaluated the patient and agree with the residents note unless specified in my note - Referral to Home Health Primary Care Physician: Robert Quintero NP - Patient Summary/Data Consults: Consultations 04/01/20 10:06 Consult to Home Health [CONS] Routine - Patient Data Vitals - Most Recent: Last Vital Signs Temp 36.6 C 04/02/20 07:05 Pulse 94 04/02/20 09:11 Resp 19 04/02/20 07:05 BP 96/49 L 04/02/20 09:11 Pulse Ox 98 04/02/20 07:05 Med Orders - Current: Current Medications Discontinued Medications Albuterol/Ipratropium (Duoneb 3.0-0.5 Mg/3 Ml) 3 ml NEB Q4HRRT PRN PRN Reason: Shortness of Breath Last Admin: 03/30/20 09:05 Dose: 3 ml Documented by: Albuterol/Ipratropium (Duoneb 3.0-0.5 Mg/3 Ml) 3 ml NEB Q6HRRT [facility] Last Admin: 04/02/20 11:34 Dose: 3 ml Documented by: Allopurinol (Zyloprim) 300 mg PO DAILY [facility] Last Admin: 04/02/20 09:09 Dose: 300 mg Documented by: Budesonide/Formoterol Fumarate (Symbicort 160-4.5 Mcg) 0 gm INH BID [facility] Last Admin: 04/02/20 08:58 Dose: 2 puff Documented by: Calcium Carbonate/Glycine (Tums) 500 mg PO Q2HR PRN PRN Reason: Indigestion Last Admin: 03/30/20 11:49 Dose: 500 mg Documented by: Al Hydroxide/Mg Hydroxide 15 (ml/ Lidocaine HCl 5 ml) 0 ml PO ONETIME ONE Stop: 03/31/20 08:20 Last Admin: 03/31/20 08:49 Dose: 1 each Documented by: Dabigatran (Pradaxa) 150 mg PO BID [facility] Last Admin: 03/30/20 09:38 Dose: 150 mg Documented by: Dabigatran (Pradaxa) 150 mg PO BID [facility] Last Admin: 04/02/20 09:09 Dose: 150 mg Documented by: Digoxin (Lanoxin) 125 mcg PO DAILY [facility] Last Admin: 04/02/20 09:09 Dose: 125 mcg Documented by: Furosemide (Lasix) 40 mg IVPUSH NOW ONE Stop: 03/29/20 17:38 Last Admin: 03/29/20 17:57 Dose: 40 mg Documented by: Furosemide (Lasix) 40 mg IVPUSH ONETIME ONE Stop: 03/29/20 19:54 Last Admin: 03/29/20 20:20 Dose: 40 mg Documented by: Furosemide (Lasix) 40 mg IVPUSH TID [facility] Last Admin: 03/31/20 06:04 Dose: 40 mg Documented by: Furosemide (Lasix) 60 mg PO BIDDIURETIC [facility] Last Admin: 03/31/20 14:14 Dose: 60 mg Documented by: Furosemide (Lasix) 60 mg IVPUSH Q12H [facility] Stop: 04/01/20 08:01 Last Admin: 04/01/20 09:35 Dose: Not Given Documented by: Furosemide (Lasix) 60 mg PO BIDDIURETIC [facility] Last Admin: 04/01/20 08:47 Dose: 60 mg Documented by: Furosemide (Lasix) 60 mg IVPUSH BIDDIURETIC [facility] Last Admin: 04/01/20 13:25 Dose: 60 mg Documented by: Furosemide (Lasix) 60 mg IVPUSH NOW STA Stop: 04/01/20 18:13 Last Admin: 04/01/20 18:35 Dose: 60 mg Documented by: Pantoprazole Sodium 40 mg/ (Sodium Chloride) 10 mls @ 300 mls/hr IV DAILY [facility] Last Admin: 04/02/20 09:10 Dose: 300 mls/hr Documented by: Iron Sucrose 200 mg/ Sodium (Chloride) 110 mls @ 400 mls/hr IV ONETIME ONE Stop: 03/31/20 08:15 Last Admin: 03/31/20 09:22 Dose: 400 mls/hr Documented by: Insulin Aspart (Novolog) 0 unit SUBCUT TIDAC [facility]; Protocol Last Admin: 04/02/20 13:34 Dose: Not Given Documented by: Simvastatin (Zocor) 80 mg PO BEDTIME [facility] Last Admin: 04/01/20 20:31 Dose: 80 mg Documented by: Sodium Chloride (Saline Flush) 2.5 ml FLUSH ASDIRECTED PRN PRN Reason: Keep Vein Open Last Admin: 03/29/20 17:57 Dose: 2.5 ml Documented by: Tiotropium Joaquin (Spiriva Handihaler) 18 mcg INH DAILY [facility] Last Admin: 04/02/20 08:58 Dose: 1 mcg Documented by:
== END 2020-04-02 15:15 | disposition home health service (06) | DRG 291 ==
LOC: MW.ED 17:02 → MW.MS 18:28
PROVIDERS: ADMIT Internal Medicine; ATTEND Internal Medicine
DX: I11.0 Hypertensive heart disease with heart failure (principal); J96.21 Acute and chronic respiratory failure with hypoxia; I50.43 Acute on chronic combined systolic (congestive) and diastolic (congestive) heart failure; I50.9 Heart failure, unspecified; E87.5 Hyperkalemia; N17.9 Acute kidney failure, unspecified; D64.9 Anemia, unspecified; I48.91 Unspecified atrial fibrillation; Z66 Do not resuscitate; H40.9 Unspecified glaucoma; I25.10 Atherosclerotic heart disease of native coronary artery without angina pectoris; E78.00 Pure hypercholesterolemia, unspecified; J44.9 Chronic obstructive pulmonary disease, unspecified; K21.9 Gastro-esophageal reflux disease without esophagitis; M10.9 Gout, unspecified; Z86.73 Personal history of transient ischemic attack (TIA), and cerebral infarction without residual deficits; Z99.81 Dependence on supplemental oxygen; E11.9 Type 2 diabetes mellitus without complications; Z98.49 Cataract extraction status, unspecified eye; Z95.1 Presence of aortocoronary bypass graft; Z79.84 Long term (current) use of oral hypoglycemic drugs; Z79.51 Long term (current) use of inhaled steroids; Z79.899 Other long term (current) drug therapy; Z20.828 Contact with and (suspected) exposure to other viral communicable diseases
CPT/HCPCS: 36415; 36600; 71045; 80053; 80162; 82272; 82803; 83735; 83880; 84100; 84484; 85025; 85610; 87635; 93005; 96374; 99285; J1940; 36430; 80048; 82962; 83550; 85014; 85018; 85045; 86850; 86900; 86901; 86920; 86921; 86922; 94640; 94664; A9270-GY; C9113; J1756; J1815-GY; J7050; J7620-GY; P9016; U0002

== ENCOUNTER 2020-05-19 09:42 | Inpatient (IN) | payer OTHER ==
[2020-05-19] MEDS ORDERED: Sodium Chloride 0.9% 1,000 ML IV ONE ×2 (10:18→15:15)
--- NOTE | 2020-05-19 10:23 | EDM.PDOC ---
ED HPI GENERAL MEDICAL PROBLEM - General Chief Complaint: Respiratory Problem Stated Complaint: COPD SOB Time Seen by Provider: 05/19/20 10:11 Source of Information: Reports: Patient History Limitations: Reports: No Limitations - History of Present Illness INITIAL COMMENTS - FREE TEXT/NARRATIVE: HISTORY AND PHYSICAL: History of present illness: Patient is a 80-year-old male who presents to the emergency room with complaints of increased shortness of breath over the past 24 hours. Patient does have a history of COPD and is typically on 2 L per nasal cannula. Today while home health was visiting his residence they noted his blood pressure was low, reporting it to be 70s over 40s and his oxygen saturation was 92% on 2 L per nasal cannula. Patient denies any fever, chills, headache, change in vision, syncope or near syncope. Denies any chest pain, back pain, neck pain/stiffness. Denies any abdominal pain, nausea, vomiting, diarrhea, constipation or dysuria. Has not noted any blood in urine or stool. Patient states he has not been eating or drinking as much, due to decreased appetite. Does monitor his weight routinely due to his fluid retention and states he is "down a little bit" and denies any distal extremity edema. Past medical history of coronary artery disease, atrial fibrillation, hypertension, COPD, type 2 diabetes and CVA. Review of systems: As per history of present illness and below otherwise all systems reviewed and negative. Past medical history: As per history of present illness and as reviewed below otherwise noncontributory. Surgical history: As per history of present illness and as reviewed below otherwise noncontributory. Social history: See social history for further information Family history: As per history of present illness and as reviewed below otherwise noncontributory. Physical exam: General: Well developed and well nourished. Alert and orientated x 3. Nontoxic in appearance and in no acute distress. Vital signs are stable and have been reviewed by me. Nursing notes were reviewed. HEENT: Atraumatic, normocephalic, pupils equal and reactive bilaterally, negative for conjunctival pallor or scleral icterus, mucous membranes dry, TMs normal bilaterally, throat clear, neck supple, nontender, trachea midline. No drooling or trismus noted. No meningeal signs. No hot potato voice noted. Lungs: Diminished to auscultation, breath sounds equal bilaterally, chest nontender. Normal work of breathing, no accessory muscles used. Heart: S1S2, regular rate and rhythm without overt murmur Abdomen: Soft, nondistended, nontender. Negative for masses or hepatosplenomegaly. Negative for costovertebral tenderness. Rectal exam was done with consent and a visual stylist at the bedside. No external or internal hemorrhoids are noted. Stool is dark in color and Hemoccult positive. No anne-marie blood noted. Skin: Intact, warm, dry. No lesions or rashes noted. Hematologic: No petechiae or purpra. Mucosa appropriate color and normal nail bed color and refill. Extremities: Atraumatic, moves all extremities per self without difficulty or deficits, negative for cords or calf pain. No distal extremity edema bilaterally. Neurovascular unremarkable. Neuro: Awake, alert, oriented. Cranial nerves II through XII unremarkable. Cerebellum unremarkable. Motor and sensory unremarkable throughout. Exam nonfocal. Psychiatric: Mood and affect are appropriate. Normal thought process. Answering questions appropriately. Notes: Patient's hemoglobin is 6.8. This is lower than its been in the past several months. He reports he did receive blood products last month for low hemoglobin. BUN and creatinine are elevated, I believe this is due to him being dehydrated. Patient's D-dimer is elevated, will do a CT of his chest to rule out PE. I did talk with Dr. Philippe, general surgeon on-call about this case, she states she will not be on-call start of tomorrow but if needed the patient can have a colonoscopy by one of her colleagues. Dr Salmon was consulted on this case, he is agreeable to keeping this patient for further care and management. CT of the chest shows no evidence of PE. There are findings of pulmonary hyp ertension. Severe emphysema. Bronchiolar thickening of the posterior basilar right lower lobe bronchi with some fluid in bronchiolar system. Probable hyperdense cyst on the left kidney. Diagnostics: CBC, CMP, Troponin, EKG, CXR, D.Dimer, COVID, PE Angio Chest, Type/Screen x2 units, INR Therapeutics: 500 mls/hr, Impression: GI bleed Anemia Plan: Definitive disposition and diagnosis as appropriate pending reevaluation and review of above. - Related Data Allergies Allergy/AdvReac Type Severity Reaction Status Date / Time No Known Allergies Allergy Verified 05/19/20 10:04 Home Meds: Home Meds Albuterol [Proventil HFA] 2 puff INH Q6H PRN 11/05/17 [History] Budesonide/Formoterol Fumarate [Symbicort 160-4.5 Mcg Inhaler] 2 puff INH BID 11/05/17 [History] Omeprazole 20 mg PO ACBREAKFAST 11/05/17 [History] Simvastatin [Zocor] 80 mg PO BEDTIME 11/05/17 [History] Tiotropium [Spiriva HandiHaler] 1 caplet INH DAILY 11/05/17 [History] allopurinoL [Zyloprim] 300 mg PO DAILY 11/05/17 [History] metFORMIN HCl [Metformin HCl] 500 mg PO BIDMEALS 11/05/17 [History] Dabigatran [Pradaxa] 150 mg PO BID 12/30/18 [History] Tamsulosin HCl [Flomax] 0.4 mg PO DAILY 07/01/19 [History] Albuterol/Ipratropium [DuoNeb 3.0-0.5 MG/3 ML] 3 ml INH Q6H PRN 02/26/20 [History] Calcium Carbonate [Tums] 500 mg PO Q2HR PRN tab.chew 04/02/20 [Rx] Dabigatran [Pradaxa] 150 mg PO BID cap 04/02/20 [Rx] Digoxin [Digox] 125 mcg PO DAILY 30 Days #30 tablet 04/02/20 [Rx] Torsemide 40 mg PO DAILY 30 Days #60 tablet 04/02/20 [Rx] Past Medical History HEENT History: Reports: Glaucoma Other HEENT History: wears glasses for reading, has top and bottom dentures Cardiovascular History: Reports: Afib, CAD, Heart Failure, High Cholesterol, Hypertension, Other (See Below) Respiratory History: Reports: COPD Other Respiratory History: Uses oxygen @ 2L NC and inhalers at home Gastrointestinal History: Reports: GERD, Other (See Below) Genitourinary History: Reports: None Musculoskeletal History: Reports: Gout Neurological History: Reports: CVA Psychiatric History: Reports: None Endocrine/Metabolic History: Reports: Diabetes, Type II Hematologic History: Reports: None Immunologic History: Reports: None Oncologic (Cancer) History: Reports: None Dermatologic History: Reports: None - Infectious Disease History Infectious Disease History: Reports: None - Past Surgical History Head Surgeries/Procedures: Reports: None HEENT Surgical History: Reports: Cataract Surgery, Eye Surgery, Oral Surgery Other HEENT Surgeries/Procedures: eye surgery x3 Cardiovascular Surgical History: Reports: Coronary Artery Bypass Social & Family History - Family History Family Medical History: Noncontributory HEENT: Reports: Cataract, Glaucoma Cardiac: Reports: Afib, High Cholesterol, Hypertension Respiratory: Reports: None GI: Reports: None OBGYN: Reports: Neurological: Reports: CVA Psychiatric: Reports: None Endocrine/Metabolic: Reports: Diabetes, type II Hematologic: Reports: None Immunologic: Reports: None Dermatologic: Reports: None Oncologic: Reports: None - Tobacco Use Tobacco Use Status *Q: Unknown Ever Used Tobacco - Caffeine Use Caffeine Use: Reports: Coffee Caffeine Use Comment: 1 cup/day coffee - Living Situation & Occupation Living situation: Reports: Occupation: Retired ED ROS GENERAL - Review of Systems Review Of Systems: Comprehensive ROS is negative, except as noted in HPI. ED EXAM, GENERAL - Physical Exam Exam: See Below (See dictation) Course - Vital Signs Last Recorded V/S: Last Vital Signs Temp 97.0 F 05/19/20 10:04 Pulse 93 05/19/20 11:45 Resp 17 05/19/20 11:45 BP 97/65 05/19/20 11:45 Pulse Ox 100 05/19/20 11:45 - Orders/Labs/Meds Orders: Active Orders 24 hr Category Date Time Status EKG Documentation Completion [RC] STAT Care 05/19/20 10:14 Active Verify Patient Consent Obtain [RC] ASDIRECTED Care 05/19/20 11:13 Active OCCULT BLOOD DIAGNOSTIC [OP] Stat Lab 05/19/20 11:10 Ordered Transfuse Red Blood Cells [COMM] Stat Oth 05/19/20 11:11 Ordered Medication Orders Pantoprazole Sodium 40 mg/ (Sodium Chloride) 10 mls @ 300 mls/hr IV BID MARY KATE Ondansetron HCl (Zofran) 4 mg IVPUSH Q4H PRN PRN Reason: Nausea Labs: Laboratory Tests 05/19/20 05/19/20 05/19/20 Range/Units 10:23 10:23 10:23 WBC 9.69 (4.0-11.0) K/uL RBC 2.65 L (4.50-5.90) M/uL Hgb 6.8 L (13.0-17.0) g/dL Hct 24.6 L (38.0-50.0) % MCV 92.8 (80.0-98.0) fL MCH 25.7 L (27.0-32.0) pg MCHC 27.6 L (31.0-37.0) g/dL RDW Std Deviation 53.9 (28.0-62.0) fl RDW Coeff of Renetta 16 H (11.0-15.0) % Plt Count 230 (150-400) K/uL MPV 9.70 (7.40-12.00) fL Neut % (Auto) 87.3 H (48.0-80.0) % Lymph % (Auto) 5.1 L (16.0-40.0) % [place] % (Auto) 6.6 (0.0-15.0) % Eos % (Auto) 0.8 (0.0-7.0) % Baso % (Auto) 0.2 (0.0-1.5) % Neut # (Auto) 8.5 H (1.4-5.7) K/uL Lymph # (Auto) 0.5 L (0.6-2.4) K/uL [place] # (Auto) 0.6 (0.0-0.8) K/uL Eos # (Auto) 0.1 (0.0-0.7) K/uL Baso # (Auto) 0.0 (0.0-0.1) K/uL Nucleated RBC % 0.0 /100WBC Nucleated RBCs # 0 K/uL INR D-Dimer, Quantitative (0.0-0.50) mg/L FEU Sodium 137 (136-148) mmol/L Potassium 4.4 (3.5-5.1) mmol/L Chloride 98 (98-107) mmol/L Carbon Dioxide 33.7 H (21.0-32.0) mmol/L BUN 41 H (7.0-18.0) mg/dL Creatinine 1.4 H (0.8-1.3) mg/dL Est Cr Clr Drug Dosing 27.45 mL/min Estimated GFR (MDRD) 48.9 ml/min Glucose 144 H (74-106) mg/dL Calcium 9.0 (8.5-10.1) mg/dL Total Bilirubin 0.3 (0.2-1.0) mg/dL AST 13 L (15-37) IU/L ALT 17 (14-63) IU/L Alkaline Phosphatase 98 (46-116) U/L Troponin I < 0.050 (0.000-0.056) ng/mL B-Natriuretic Peptide 218 H (<100) PG/ML Total Protein 7.1 (6.4-8.2) g/dL Albumin 3.3 L (3.4-5.0) g/dL Globulin 3.8 (2.6-4.0) g/dL Albumin/Globulin Ratio 0.9 (0.9-1.6) Urine Color Urine Appearance Urine pH (5.0-8.0) Ur Specific [place] (1.001-1.035) Urine Protein (NEGATIVE) mg/dL Urine Glucose (UA) (NEGATIVE) mg/dL Urine Ketones (NEGATIVE) mg/dL Urine Occult Blood (NEGATIVE) Urine Nitrite (NEGATIVE) Urine Bilirubin (NEGATIVE) Urine Urobilinogen (<2.0) EU/dL Ur Leukocyte Esterase (NEGATIVE) SARS-CoV-2 RNA ([place]) (NEGATIVE) Blood Type Antibody Screen 05/19/20 05/19/20 05/19/20 Range/Units 10:23 10:27 11:06 WBC (4.0-11.0) K/uL RBC (4.50-5.90) M/uL Hgb (13.0-17.0) g/dL Hct (38.0-50.0) % MCV (80.0-98.0) fL MCH (27.0-32.0) pg MCHC (31.0-37.0) g/dL RDW Std Deviation (28.0-62.0) fl RDW Coeff of Renetta (11.0-15.0) % Plt Count (150-400) K/uL MPV (7.40-12.00) fL Neut % (Auto) (48.0-80.0) % Lymph % (Auto) (16.0-40.0) % [place] % (Auto) (0.0-15.0) % Eos % (Auto) (0.0-7.0) % Baso % (Auto) (0.0-1.5) % Neut # (Auto) (1.4-5.7) K/uL Lymph # (Auto) (0.6-2.4) K/uL [place] # (Auto) (0.0-0.8) K/uL Eos # (Auto) (0.0-0.7) K/uL Baso # (Auto) (0.0-0.1) K/uL Nucleated RBC % /100WBC Nucleated RBCs # K/uL INR 1.44 D-Dimer, Quantitative 1.12 H (0.0-0.50) mg/L FEU Sodium (136-148) mmol/L Potassium (3.5-5.1) mmol/L Chloride (98-107) mmol/L Carbon Dioxide (21.0-32.0) mmol/L BUN (7.0-18.0) mg/dL Creatinine (0.8-1.3) mg/dL Est Cr Clr Drug Dosing mL/min Estimated GFR (MDRD) ml/min Glucose (74-106) mg/dL Calcium (8.5-10.1) mg/dL Total Bilirubin (0.2-1.0) mg/dL AST (15-37) IU/L ALT (14-63) IU/L Alkaline Phosphatase (46-116) U/L Troponin I (0.000-0.056) ng/mL B-Natriuretic Peptide (<100) PG/ML Total Protein (6.4-8.2) g/dL Albumin (3.4-5.0) g/dL Globulin (2.6-4.0) g/dL Albumin/Globulin Ratio (0.9-1.6) Urine Color YELLOW Urine Appearance CLEAR Urine pH 6.0 (5.0-8.0) Ur Specific [place] 1.010 (1.001-1.035) Urine Protein NEGATIVE (NEGATIVE) mg/dL Urine Glucose (UA) NEGATIVE (NEGATIVE) mg/dL Urine Ketones NEGATIVE (NEGATIVE) mg/dL Urine Occult Blood NEGATIVE (NEGATIVE) Urine Nitrite NEGATIVE (NEGATIVE) Urine Bilirubin NEGATIVE (NEGATIVE) Urine Urobilinogen 0.2 (<2.0) EU/dL Ur Leukocyte Esterase NEGATIVE (NEGATIVE) SARS-CoV-2 RNA ([place]) (NEGATIVE) Blood Type Antibody Screen 05/19/20 05/19/20 Range/Units 11:20 11:25 WBC (4.0-11.0) K/uL RBC (4.50-5.90) M/uL Hgb (13.0-17.0) g/dL Hct (38.0-50.0) % MCV (80.0-98.0) fL MCH (27.0-32.0) pg MCHC (31.0-37.0) g/dL RDW Std Deviation (28.0-62.0) fl RDW Coeff of Renetta (11.0-15.0) % Plt Count (150-400) K/uL MPV (7.40-12.00) fL Neut % (Auto) (48.0-80.0) % Lymph % (Auto) (16.0-40.0) % [place] % (Auto) (0.0-15.0) % Eos % (Auto) (0.0-7.0) % Baso % (Auto) (0.0-1.5) % Neut # (Auto) (1.4-5.7) K/uL Lymph # (Auto) (0.6-2.4) K/uL [place] # (Auto) (0.0-0.8) K/uL Eos # (Auto) (0.0-0.7) K/uL Baso # (Auto) (0.0-0.1) K/uL Nucleated RBC % /100WBC Nucleated RBCs # K/uL INR D-Dimer, Quantitative (0.0-0.50) mg/L FEU Sodium (136-148) mmol/L Potassium (3.5-5.1) mmol/L Chloride (98-107) mmol/L Carbon Dioxide (21.0-32.0) mmol/L BUN (7.0-18.0) mg/dL Creatinine (0.8-1.3) mg/dL Est Cr Clr Drug Dosing mL/min Estimated GFR (MDRD) ml/min Glucose (74-106) mg/dL Calcium (8.5-10.1) mg/dL Total Bilirubin (0.2-1.0) mg/dL AST (15-37) IU/L ALT (14-63) IU/L Alkaline Phosphatase (46-116) U/L Troponin I (0.000-0.056) ng/mL B-Natriuretic Peptide (<100) PG/ML Total Protein (6.4-8.2) g/dL Albumin (3.4-5.0) g/dL Globulin (2.6-4.0) g/dL Albumin/Globulin Ratio (0.9-1.6) Urine Color Urine Appearance Urine pH (5.0-8.0) Ur Specific [place] (1.001-1.035) Urine Protein (NEGATIVE) mg/dL Urine Glucose (UA) (NEGATIVE) mg/dL Urine Ketones (NEGATIVE) mg/dL Urine Occult Blood (NEGATIVE) Urine Nitrite (NEGATIVE) Urine Bilirubin (NEGATIVE) Urine Urobilinogen (<2.0) EU/dL Ur Leukocyte Esterase (NEGATIVE) SARS-CoV-2 RNA ([place]EC[place]) NEGATIVE (NEGATIVE) Blood Type O POSITIVE Antibody Screen NEGATIVE Meds: Medications Generic Name Dose Route Start Last Admin Trade Name Freq PRN Reason Stop Dose Admin Pantoprazole Sodium 40 mg/ 10 mls @ 300 mls/hr 05/19/20 14:00 Sodium Chloride IV BID MARY KATE Ondansetron HCl 4 mg 05/19/20 13:47 Zofran IVPUSH Q4H PRN Nausea Discontinued Medications Generic Name Dose Route Start Last Admin Trade Name Freq PRN Reason Stop Dose Admin Sodium Chloride 1,000 mls @ 999 mls/hr 05/19/20 10:18 05/19/20 10:37 Normal Saline IV 05/19/20 11:18 999 mls/hr STAT ONE Administration Iopamidol 75 ml 05/19/20 13:24 05/19/20 13:25 Isovue Multipack-370 (76%) IVPUSH 05/19/20 13:25 75 ml ONETIME STA Administration Departure - Departure Time of Disposition: 13:57 Disposition: Admitted As Inpatient 67 Clinical Impression: GI bleed Anemia Qualifiers: Anemia type: unspecified type Qualified Code(s): D64.9 - Anemia, unspecified - Discharge Information Sepsis Event Note (ED) - Evaluation Sepsis Screening Result: No Definite Risk - Focused Exam Vital Signs: Vital Signs Temp Pulse Resp BP Pulse Ox 05/19/20 11:45 93 17 97/65 100 05/19/20 11:30 90 18 97/57 L 98 05/19/20 10:04 97.0 F 87 18 97/65 92 L - My Orders Last 24 Hours: My Active Orders 05/19/20 10:14 EKG Documentation Completion [RC] STAT 05/19/20 11:10 OCCULT BLOOD DIAGNOSTIC [OP] Stat 05/19/20 11:11 Transfuse Red Blood Cells [COMM] Stat 05/19/20 11:13 Verify Patient Consent Obtain [RC] ASDIRECTED - Assessment/Plan Last 24 Hours: My Active Orders 05/19/20 10:14 EKG Documentation Completion [RC] STAT 05/19/20 11:10 OCCULT BLOOD DIAGNOSTIC [OP] Stat 05/19/20 11:11 Transfuse Red Blood Cells [COMM] Stat 05/19/20 11:13 Verify Patient Consent Obtain [RC] ASDIRECTED
--- NOTE | 2020-05-19 10:24 | PCM.SN.2 ---
- Free Text/Narrative Note: Heart rate = 83 bpm, A. fib, normal sinus rhythm, normal QRS interval, no STEMI. EKG and rhythm strip interpreted by me at [id number]
[2020-05-19 10:59] LABS: BLOOD UREA NITROGEN,BUN 41 mg/dL (7.0-18.0); CARBON DIOXIDE,CO2 33.7 mmol/L (21.0-32.0); CHLORIDE,CL 98 mmol/L (98-107); GLUCOSE RANDOM 144 mg/dL (74-106); POTASSIUM,K 4.4 mmol/L (3.5-5.1); SODIUM,NA 137 mmol/L (136-148)
--- NOTE | 2020-05-19 11:17 | CR ---
INDICATION: Shortness of breath TECHNIQUE: Chest 1 views COMPARISON: March 29, 2020 and July 21, 2019 FINDINGS: Cardiovascular and mediastinum: Heart size and vasculature are normal in caliber and appearance. Lungs and pleural spaces: Stable right lung volume loss and prominence of the right upper lobe lung interstitium. Stable blunting of the right costophrenic angle. Left lung and pleural space remain clear. No pneumothorax. Bones and soft tissues: No significant findings. IMPRESSION: No acute abnormality and no significant change from the prior exam. Stable chronic findings in the right lung and pleural space. Dictated by Jaswinder Luevano MD @ May 19 2020 11:07AM Signed by Dr. Jaswinder Luevano @ May 19 2020 11:16AM
--- NOTE | 2020-05-19 13:22 | CT ---
INDICATION: Dyspnea COMPARISON: No prior transaxial studies. TECHNIQUE: : CT examination of the chest was performed with the uneventful intravenous administration of 75 cc of Isovue 370 while thin axial sections were obtained from above the apices of the lungs to the lung bases. Please note that all CT scans at this facility use dose modulation, iterative reconstruction, and/or weight-based dosing when appropriate to reduce radiation dose to as low as reasonably achievable. FINDINGS: : HEART and MEDIASTINUM: The heart size is top normal. There are atherosclerotic vascular calcifications. Scattered prominent mediastinal lymph nodes likely reactive. No visible mediastinal mass. PULMONARY ARTERIAL CIRCULATION: There are findings of pulmonary hypertension. There is no intraluminal filling defects identified to suggest pulmonary embolus. LUNGS: Profound emphysema pattern. 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 The remainder of the emphysema is upper lobe predominant paraseptal < centrilobular variants. There are scattered linear opacities especially upper lobes which are likely atelectatic or fibrotic. There is bronchial wall thickening of the posterior basal right lower lobe bronchi with some fluid in the bronchi usually due to aspiration. No anne-marie consolidation. Small right effusion. PLEURAL SPACES: No pneumothorax. Small right effusion. No left effusion VISUALIZED UPPER ABDOMEN: There is a smoothly marginated 1.8 centimeter hyperdense lesion in the midpole the left kidney which is likely a hyperdense cyst. However, follow-up evaluation by sonography is recommended at a clinically appropriate time. Otherwise, the limited visualized upper abdominal structures appear normal. OSSEOUS STRUCTURES: Age-appropriate appearance. No acute fracture or destructive process. TUBES and LINES: None. IMPRESSION: 1. There is no evidence of pulmonary embolus. There are findings of pulmonary hypertension. 2. Severe emphysema. Linear opacities bilaterally primarily in the upper lobes are likely related to atelectasis or scarring. No anne-marie focal consolidation or definite ground-glass. 3. Bronchiolar thickening of the posterior basal right lower lobe bronchi with some fluid in the bronchiolar system. This is usually due to aspiration of the there is no focal consolidation. Small right effusion. 4. Probable hyperdense cyst in the left kidney though follow-up sonography advised at a clinically appropriate time Please note that all CT scans at this facility use dose modulation, iterative reconstruction, and/or weight-based dosing when appropriate to reduce radiation dose to as low as reasonably achievable. Dictated by Sam Colon MD @ May 19 2020 1:11PM Signed by Dr. Sam Colon @ May 19 2020 1:21PM
[2020-05-19] MEDS ORDERED: Iopamidol 755 MG/ML 500 ML Multipack Bottle IVPUSH STA (13:24)
[2020-05-19] MEDS ORDERED: Ondansetron 4 MG/2 ML SDV IVPUSH PRN (13:47)
--- NOTE | 2020-05-19 13:52 | PCM.HP.2 ---
H&P History of Present Illness - General Date of Service: 05/19/20 Admit Problem/Dx: Admission Diagnosis/Problem Admission Diagnosis/Problem GI bleed not requiring more than 4 units of blood in 24 hours, ICU, or surgery Source of Information: Patient History Limitations: Reports: No Limitations - History of Present Illness Initial Comments - Free Text/Narative: 80-year-old male presents complaining of shortness of breath and lightheadedness for the past 1 day. He has a PMH of COPD on home oxygen (2L), CAD, CHF, a-fib, HTN and DM type II. He reports being seen by home health nurse earlier today and was told his blood pressure was low and in addition to his acute shortness of breath that he should go to the hospital. He takes pradaxa as anticoagulation for his atrial fibrillation. He denies any prior history of GI bleeds. Patient denies any fevers, chills, fainting, headache, nausea, vomiting, abdominal pain, chest pain, cough, blood in stool, blood in urine, numbness or tingling in extremities. In the ER, hemoglobin level was 6.8, creatinine 1.4 and D-dimer 1.12. Patient's blood pressure was 97/65 mm Hg. CXR was negative. CT angio was negative for PE. UA was unremarkable. COVID19 negative. EKG showed atrial fibrillation. Patient given 1 L IV LR bolus and blood transfusion was ordered. Patient admitted for further evaluation and treatment. - Related Data Allergies/Adverse Reactions: Allergies Allergy/AdvReac Type Severity Reaction Status Date / Time No Known Allergies Allergy Verified 05/19/20 10:04 Home Medications: Home Meds Albuterol [Proventil HFA] 2 puff INH Q6H PRN 11/05/17 [History] Budesonide/Formoterol Fumarate [Symbicort 160-4.5 Mcg Inhaler] 2 puff INH BID 11/05/17 [History] Omeprazole 20 mg PO ACBREAKFAST 11/05/17 [History] Simvastatin [Zocor] 80 mg PO BEDTIME 11/05/17 [History] Tiotropium [Spiriva HandiHaler] 1 caplet INH DAILY 11/05/17 [History] allopurinoL [Zyloprim] 300 mg PO DAILY 11/05/17 [History] metFORMIN HCl [Metformin HCl] 500 mg PO BIDMEALS 11/05/17 [History] Dabigatran [Pradaxa] 150 mg PO BID 12/30/18 [History] Tamsulosin HCl [Flomax] 0.4 mg PO DAILY 07/01/19 [History] Albuterol/Ipratropium [DuoNeb 3.0-0.5 MG/3 ML] 3 ml INH Q6H PRN 02/26/20 [History] Calcium Carbonate [Tums] 500 mg PO Q2HR PRN tab.chew 04/02/20 [Rx] Dabigatran [Pradaxa] 150 mg PO BID cap 04/02/20 [Rx] Digoxin [Digox] 125 mcg PO DAILY 30 Days #30 tablet 04/02/20 [Rx] Torsemide 40 mg PO DAILY 30 Days #60 tablet 04/02/20 [Rx] Past Medical History HEENT History: Reports: Glaucoma Other HEENT History: wears glasses for reading, has top and bottom dentures Cardiovascular History: Reports: Afib, CAD, Heart Failure, High Cholesterol, Hypertension, Other (See Below) Respiratory History: Reports: COPD Other Respiratory History: Uses oxygen @ 2L NC and inhalers at home Gastrointestinal History: Reports: GERD, Other (See Below) Genitourinary History: Reports: None Musculoskeletal History: Reports: Gout Neurological History: Reports: CVA Psychiatric History: Reports: None Endocrine/Metabolic History: Reports: Diabetes, Type II Hematologic History: Reports: None Immunologic History: Reports: None Oncologic (Cancer) History: Reports: None Dermatologic History: Reports: None - Infectious Disease History Infectious Disease History: Reports: None - Past Surgical History Head Surgeries/Procedures: Reports: None HEENT Surgical History: Reports: Cataract Surgery, Eye Surgery, Oral Surgery Other HEENT Surgeries/Procedures: eye surgery x3 Cardiovascular Surgical History: Reports: Coronary Artery Bypass Social & Family History - Family History Family Medical History: Noncontributory HEENT: Reports: Cataract, Glaucoma Cardiac: Reports: Afib, High Cholesterol, Hypertension Respiratory: Reports: None GI: Reports: None OBGYN: Reports: Neurological: Reports: CVA Psychiatric: Reports: None Endocrine/Metabolic: Reports: Diabetes, type II Hematologic: Reports: None Immunologic: Reports: None Dermatologic: Reports: None Oncologic: Reports: None - Tobacco Use Tobacco Use Status *Q: Unknown Ever Used Tobacco - Caffeine Use Caffeine Use: Reports: Coffee Caffeine Use Comment: 1 cup/day coffee - Living Situation & Occupation Living situation: Reports: Occupation: Retired H&P Review of Systems - Review of Systems: Review Of Systems: See Below Exam - Exam Exam: See Below - Vital Signs Vital Signs: Last Vital Signs Temp 36.1 C 05/19/20 10:04 Pulse 93 05/19/20 11:45 Resp 17 05/19/20 11:45 BP 97/65 05/19/20 11:45 Pulse Ox 100 05/19/20 11:45 Weight: 45.359 kg - Exam General: Alert, Oriented, Cooperative HEENT: Conjunctiva Clear, EOMI, Hearing Intact, Posterior Pharynx Clear, Pupils Equal, Pupils Reactive Neck: Supple, Trachea Midline Lungs: Clear to Auscultation, Normal Respiratory Effort Cardiovascular: Regular Rate, Irregular Rhythm GI/Abdominal Exam: Normal Bowel Sounds, Soft, Non-Tender, No Distention Extremities: Other (trace pitting edema b/l) Skin: Warm, Dry, Intact Neurological: Cranial Nerves Intact, Strength Equal Bilateral, Normal Speech, Normal Tone Neuro Extensive - Mental Status: Alert, Oriented x3, Normal Mood/Affect Psychiatric: Alert, Normal Affect, Normal Mood - Patient Data Lab Results Last 24 hrs: Laboratory Results - last 24 hr 05/19/20 05/19/20 05/19/20 Range/Units 10:23 10:23 10:23 WBC 9.69 (4.0-11.0) K/uL RBC 2.65 L (4.50-5.90) M/uL Hgb 6.8 L (13.0-17.0) g/dL Hct 24.6 L (38.0-50.0) % MCV 92.8 (80.0-98.0) fL MCH 25.7 L (27.0-32.0) pg MCHC 27.6 L (31.0-37.0) g/dL RDW Std Deviation 53.9 (28.0-62.0) fl RDW Coeff of Ren[place] 16 H (11.0-15.0) % Plt Count 230 (150-400) K/uL MPV 9.70 (7.40-12.00) fL Neut % (Auto) 87.3 H (48.0-80.0) % Lymph % (Auto) 5.1 L (16.0-40.0) % [place] % (Auto) 6.6 (0.0-15.0) % Eos % (Auto) 0.8 (0.0-7.0) % Baso % (Auto) 0.2 (0.0-1.5) % Neut # (Auto) 8.5 H (1.4-5.7) K/uL Lymph # (Auto) 0.5 L (0.6-2.4) K/uL [place] # (Auto) 0.6 (0.0-0.8) K/uL Eos # (Auto) 0.1 (0.0-0.7) K/uL Baso # (Auto) 0.0 (0.0-0.1) K/uL Nucleated RBC % 0.0 /100WBC Nucleated RBCs # 0 K/uL INR D-Dimer, Quantitative (0.0-0.50) mg/L FEU Sodium 137 (136-148) mmol/L Potassium 4.4 (3.5-5.1) mmol/L Chloride 98 (98-107) mmol/L Carbon Dioxide 33.7 H (21.0-32.0) mmol/L BUN 41 H (7.0-18.0) mg/dL Creatinine 1.4 H (0.8-1.3) mg/dL Est Cr Clr Drug Dosing 27.45 mL/min Estimated GFR (MDRD) 48.9 ml/min Glucose 144 H (74-106) mg/dL Calcium 9.0 (8.5-10.1) mg/dL Total Bilirubin 0.3 (0.2-1.0) mg/dL AST 13 L (15-37) IU/L ALT 17 (14-63) IU/L Alkaline Phosphatase 98 (46-116) U/L Troponin I < 0.050 (0.000-0.056) ng/mL B-Natriuretic Peptide 218 H (<100) PG/ML Total Protein 7.1 (6.4-8.2) g/dL Albumin 3.3 L (3.4-5.0) g/dL Globulin 3.8 (2.6-4.0) g/dL Albumin/Globulin Ratio 0.9 (0.9-1.6) Urine Color Urine Appearance Urine pH (5.0-8.0) Ur Specific [place] (1.001-1.035) Urine Protein (NEGATIVE) mg/dL Urine Glucose (UA) (NEGATIVE) mg/dL Urine Ketones (NEGATIVE) mg/dL Urine Occult Blood (NEGATIVE) Urine Nitrite (NEGATIVE) Urine Bilirubin (NEGATIVE) Urine Urobilinogen (<2.0) EU/dL Ur Leukocyte Esterase (NEGATIVE) SARS-CoV-2 RNA ([place]) (NEGATIVE) Blood Type Antibody Screen 05/19/20 05/19/20 05/19/20 Range/Units 10:23 10:27 11:06 WBC (4.0-11.0) K/uL RBC (4.50-5.90) M/uL Hgb (13.0-17.0) g/dL Hct (38.0-50.0) % MCV (80.0-98.0) fL MCH (27.0-32.0) pg MCHC (31.0-37.0) g/dL RDW Std Deviation (28.0-62.0) fl RDW Coeff of [place] (11.0-15.0) % Plt Count (150-400) K/uL MPV (7.40-12.00) fL Neut % (Auto) (48.0-80.0) % Lymph % (Auto) (16.0-40.0) % [place] % (Auto) (0.0-15.0) % Eos % (Auto) (0.0-7.0) % Baso % (Auto) (0.0-1.5) % Neut # (Auto) (1.4-5.7) K/uL Lymph # (Auto) (0.6-2.4) K/uL [place] # (Auto) (0.0-0.8) K/uL Eos # (Auto) (0.0-0.7) K/uL Baso # (Auto) (0.0-0.1) K/uL Nucleated RBC % /100WBC Nucleated RBCs # K/uL INR 1.44 D-Dimer, Quantitative 1.12 H (0.0-0.50) mg/L FEU Sodium (136-148) mmol/L Potassium (3.5-5.1) mmol/L Chloride (98-107) mmol/L Carbon Dioxide (21.0-32.0) mmol/L BUN (7.0-18.0) mg/dL Creatinine (0.8-1.3) mg/dL Est Cr Clr Drug Dosing mL/min Estimated GFR (MDRD) ml/min Glucose (74-106) mg/dL Calcium (8.5-10.1) mg/dL Total Bilirubin (0.2-1.0) mg/dL AST (15-37) IU/L ALT (14-63) IU/L Alkaline Phosphatase (46-116) U/L Troponin I (0.000-0.056) ng/mL B-Natriuretic Peptide (<100) PG/ML Total Protein (6.4-8.2) g/dL Albumin (3.4-5.0) g/dL Globulin (2.6-4.0) g/dL Albumin/Globulin Ratio (0.9-1.6) Urine Color YELLOW Urine Appearance CLEAR Urine pH 6.0 (5.0-8.0) Ur Specific [place] 1.010 (1.001-1.035) Urine Protein NEGATIVE (NEGATIVE) mg/dL Urine Glucose (UA) NEGATIVE (NEGATIVE) mg/dL Urine Ketones NEGATIVE (NEGATIVE) mg/dL Urine Occult Blood NEGATIVE (NEGATIVE) Urine Nitrite NEGATIVE (NEGATIVE) Urine Bilirubin NEGATIVE (NEGATIVE) Urine Urobilinogen 0.2 (<2.0) EU/dL Ur Leukocyte Esterase NEGATIVE (NEGATIVE) SARS-CoV-2 RNA ([place]) (NEGATIVE) Blood Type Antibody Screen 05/19/20 05/19/20 Range/Units 11:20 11:25 WBC (4.0-11.0) K/uL RBC (4.50-5.90) M/uL Hgb (13.0-17.0) g/dL Hct (38.0-50.0) % MCV (80.0-98.0) fL MCH (27.0-32.0) pg MCHC (31.0-37.0) g/dL RDW Std Deviation (28.0-62.0) fl RDW Coeff of [place] (11.0-15.0) % Plt Count (150-400) K/uL MPV (7.40-12.00) fL Neut % (Auto) (48.0-80.0) % Lymph % (Auto) (16.0-40.0) % [place] % (Auto) (0.0-15.0) % Eos % (Auto) (0.0-7.0) % Baso % (Auto) (0.0-1.5) % Neut # (Auto) (1.4-5.7) K/uL Lymph # (Auto) (0.6-2.4) K/uL [place] # (Auto) (0.0-0.8) K/uL Eos # (Auto) (0.0-0.7) K/uL Baso # (Auto) (0.0-0.1) K/uL Nucleated RBC % /100WBC Nucleated RBCs # K/uL INR D-Dimer, Quantitative (0.0-0.50) mg/L FEU Sodium (136-148) mmol/L Potassium (3.5-5.1) mmol/L Chloride (98-107) mmol/L Carbon Dioxide (21.0-32.0) mmol/L BUN (7.0-18.0) mg/dL Creatinine (0.8-1.3) mg/dL Est Cr Clr Drug Dosing mL/min Estimated GFR (MDRD) ml/min Glucose (74-106) mg/dL Calcium (8.5-10.1) mg/dL Total Bilirubin (0.2-1.0) mg/dL AST (15-37) IU/L ALT (14-63) IU/L Alkaline Phosphatase (46-116) U/L Troponin I (0.000-0.056) ng/mL B-Natriuretic Peptide (<100) PG/ML Total Protein (6.4-8.2) g/dL Albumin (3.4-5.0) g/dL Globulin (2.6-4.0) g/dL Albumin/Globulin Ratio (0.9-1.6) Urine Color Urine Appearance Urine pH (5.0-8.0) Ur Specific [place] (1.001-1.035) Urine Protein (NEGATIVE) mg/dL Urine Glucose (UA) (NEGATIVE) mg/dL Urine Ketones (NEGATIVE) mg/dL Urine Occult Blood (NEGATIVE) Urine Nitrite (NEGATIVE) Urine Bilirubin (NEGATIVE) Urine Urobilinogen (<2.0) EU/dL Ur Leukocyte Esterase (NEGATIVE) SARS-CoV-2 RNA ([place]) NEGATIVE (NEGATIVE) Blood Type O POSITIVE Antibody Screen NEGATIVE Result Diagrams: 05/19/20 10:23 05/19/20 10:23 Sepsis Event Note - Evaluation Sepsis Screening Result: No Definite Risk - Focused Exam Vital Signs: Vital Signs Temp Pulse Resp BP Pulse Ox 05/19/20 11:45 93 17 97/65 100 05/19/20 11:30 90 18 97/57 L 98 05/19/20 10:04 36.1 C 87 18 97/65 92 L - Problem List (1) Symptomatic anemia SNOMED Code(s): 170135922 ICD Code: D64.9 - ANEMIA, UNSPECIFIED Status: Acute Current Visit: Yes (2) Acute kidney injury SNOMED Code(s): 27617369, 55980386 ICD Code: N17.9 - ACUTE KIDNEY FAILURE, UNSPECIFIED Status: Acute Current Visit: No (3) Congestive heart disease SNOMED Code(s): 08433613 ICD Code: I50.9 - HEART FAILURE, UNSPECIFIED Status: Acute Current Visit: No Qualifiers: Heart failure type: combined systolic and diastolic Heart failure chronicity: acute on chronic Qualified Code(s): I50.43 - Acute on chronic combined systolic (congestive) and diastolic (congestive) heart failure (4) Afib SNOMED Code(s): 47498421 ICD Code: I48.91 - UNSPECIFIED ATRIAL FIBRILLATION Status: Chronic Current Visit: No Qualifiers: Atrial fibrillation type: permanent Qualified Code(s): I48.21 - Permanent atrial fibrillation (5) COPD (chronic obstructive pulmonary disease) SNOMED Code(s): 62248881 ICD Code: J44.9 - CHRONIC OBSTRUCTIVE PULMONARY DISEASE, UNSPECIFIED Status: Chronic Current Visit: No Qualifiers: COPD type: chronic bronchitis (6) Diabetes mellitus SNOMED Code(s): 11520917 ICD Code: E11.9 - TYPE 2 DIABETES MELLITUS WITHOUT COMPLICATIONS Status: Chronic Current Visit: No Qualifiers: Diabetes mellitus type: type 2 Diabetes mellitus detention insulin use: without detention use (7) History of CVA (cerebrovascular accident) SNOMED Code(s): 692276839 ICD Code: Z86.73 - PRSNL HX OF TIA (TIA), AND CEREB INFRC W/O RESID DEFICITS Status: Chronic Current Visit: No (8) Oxygen dependent SNOMED Code(s): 216971932685 ICD Code: Z99.81 - DEPENDENCE ON SUPPLEMENTAL OXYGEN Status: Chronic Current Visit: No Problem List Initiated/Reviewed/Updated: Yes Orders Last 24hrs: Active Orders 24 hr Category Date Time Status Admission Status [Patient Status] [ADT] Stat ADT 05/19/20 12:43 Active Antiembolic Devices [RC] PER UNIT ROUTINE Care 05/19/20 13:48 Ordered EKG Documentation Completion [RC] STAT Care 05/19/20 10:14 Active Notify Provider Consults [RC] ASDIRECTED Care 05/19/20 13:27 Active Oxygen Therapy [RC] PRN Care 05/19/20 13:47 Ordered Up ad Iris [RC] ASDIRECTED Care 05/19/20 13:47 Ordered VTE/DVT Education [RC] PER UNIT ROUTINE Care 05/19/20 13:47 Ordered Verify Patient Consent Obtain [RC] ASDIRECTED Care 05/19/20 11:13 Active Vital Signs [RC] Q4H Care 05/19/20 13:47 Ordered Consult to Physician [CONS] Urgent Cons 05/19/20 13:27 Active Nothing per Oral Now Diet [DIET] Diet 05/19/20 Lunch Ordered CBC WITH AUTO DIFF [HEME] AM Lab 05/20/20 05:11 Ordered COMPREHENSIVE METABOLIC PN,CMP [CHEM] AM Lab 05/20/20 05:11 Ordered MAGNESIUM [CHEM] AM Lab 05/20/20 05:11 Ordered OCCULT BLOOD DIAGNOSTIC [OP] Stat Lab 05/19/20 11:10 Ordered Ondansetron [Zofran] Med 05/19/20 13:47 Ordered 4 mg IVPUSH Q4H PRN Pantoprazole [ProTONIX IV] 40 mg Med 05/19/20 14:00 Ordered Sodium Chloride 0.9% [Normal Saline] 10 ml IV BID Sequential Compression Device [OM.PC] Per Unit Routine Oth 05/19/20 13:48 Ordered Transfuse Red Blood Cells [COMM] Stat Oth 05/19/20 11:11 Ordered Resuscitation Status Routine Resus Stat 05/19/20 13:47 Ordered Medication Orders Pantoprazole Sodium 40 mg/ (Sodium Chloride) 10 mls @ 300 mls/hr IV BID MARY KATE Ondansetron HCl (Zofran) 4 mg IVPUSH Q4H PRN PRN Reason: Nausea Assessment/Plan Comment:: Assessment and Plan: 1. Acute symptomatic anemia: - Admit to med/surg. Hemoglobin level 6.8 on admission. Patient is NPO and will start IV PPI BID. Will transfuse 2 units PRBC's and check hemoglobin level immediately after 2nd unit. Will consult general surgery for further evaluation. 2. Atrial fibrillation, rate controlled: - Patient on telemetry. Will hold home anticoagulation medication secondary to #1. 3. GIRISH likely secondary to #1: - Patient received 1 L IV LR bolus in ER and will received 2 units PRBC's. Will continue to monitor. 4. Elevated D-dimer: - CT angio negative for PE. 5. Diabetes mellitus type II: - Will hold metformin. 6. DVT prophylaxis: SCD's. 7. Past medical history of COPD on home oxygen, CAD, CHF, HTN and CVA: - Resume home medications with the exception of antiplatelets and anticoagulants secondary to #1.
[2020-05-19] MEDS: Pantoprazole 40 MG in Sodium Chloride 0.9% 10 ML IV SCH ×2 (15:05→21:54)
--- NOTE | 2020-05-19 20:52 | PCM.CONS ---
H&P History of Present Illness - General Date of Service: 05/19/20 Admit Problem/Dx: Admission Diagnosis/Problem Admission Diagnosis/Problem GI bleed not requiring more than 4 units of blood in 24 hours, ICU, or surgery Source of Information: Patient History Limitations: Reports: No Limitations - History of Present Illness Initial Comments - Free Text/Narative: Patient is a 80 year old male with a complex PMHx including severe COPD on home oxygen (3L), CAD s/p bypass, CHF with pulmonary hypertension, a-fib on pradaxa, HTN and DM type II. He was seen by home health nurse earlier today and was told his blood pressure was low. He complained of acute shortness of breath. He was taken to the ER for further evaluation. He was seen last month and was found to be anemic at 8.1. No follow up was completed for this after hospitalization. He states that he takes iron daily and notices that his stool was darker but felt that was due to the supplement. He had a colonoscopy in 2018. He was found to have a sigmoid colon tubular adenoma and hyperplastic polyps. He denies diarrhea or hematochezia. In the ER, hemoglobin level was 6.8, creatinine 1.4 and D-dimer 1.12. Patient's blood pressure was 97/65 mm Hg. CXR was negative. CT angio was negative for PE, but showed severe emphysema, coronary calcifications, and signs of pulmonary hypertension. UA was unremarkable. EKG showed atrial fibrillation. Patient given 1 L IV LR bolus and blood transfusion was ordered. Patient admitted to the medicine team for further evaluation and treatment. His blood pressure was soft right after admission. He was given 1 unit of pRBC and his blood pressure improved. He has not been tachycardic since this admission. He has not had any hematemesis. He has not had any BMs while admitted. - Related Data Allergies/Adverse Reactions: Allergies Allergy/AdvReac Type Severity Reaction Status Date / Time No Known Allergies Allergy Verified 05/19/20 14:50 Home Medications: Home Meds Albuterol [Proventil HFA] 2 puff INH Q6H PRN 11/05/17 [History] Omeprazole 20 mg PO ACBREAKFAST 11/05/17 [History] Simvastatin [Zocor] 80 mg PO BEDTIME 11/05/17 [History] Tiotropium [Spiriva HandiHaler] 18 mcg INH DAILY 11/05/17 [History] allopurinoL [Zyloprim] 300 mg PO DAILY 11/05/17 [History] metFORMIN HCl [Metformin HCl] 500 mg PO BIDMEALS 11/05/17 [History] Tamsulosin HCl [Flomax] 0.4 mg PO DAILY 07/01/19 [History] Acetaminophen [Mapap] 500 - 1,000 mg PO Q6H PRN MDD 3000 MG 05/19/20 [History] Albuterol/Ipratropium [DuoNeb 3.0-0.5 MG/3 ML] 3 ml NEB QID PRN 05/19/20 [History] Aspirin [Halfprin] 81 mg PO DAILY 05/19/20 [History] Budesonide/Formoterol Fumarate [Symbicort 80-4.5 MCG] 1 inh IH BID 05/19/20 [History] Dabigatran [Pradaxa] 150 mg PO BID 05/19/20 [History] Digoxin [Digox] 125 mcg PO DAILY 05/19/20 [History] Docusate Sodium 240 mg PO DAILY PRN 05/19/20 [History] Ferrous Sulfate 325 mg PO DAILY 05/19/20 [History] Glucosamine [Glucosamine Sulfate] 1,000 mg PO DAILY 05/19/20 [History] Potassium Chloride [Klor-Con M20] 20 meq PO DAILY 05/19/20 [History] Torsemide 40 mg PO DAILY 05/19/20 [History] Vitamin B Complex [B Complex] 1 tab PO DAILY 05/19/20 [History] metOLazone [Metolazone] 2.5 mg PO WEEKLY 05/19/20 [History] Past Medical History HEENT History: Reports: Glaucoma Other HEENT History: wears glasses for reading, has top and bottom dentures Cardiovascular History: Reports: Afib, CAD, Heart Failure, High Cholesterol, Hypertension, Other (See Below) Respiratory History: Reports: COPD Other Respiratory History: Uses oxygen @ 2L NC and inhalers at home Gastrointestinal History: Reports: GERD, Other (See Below) Genitourinary History: Reports: None Musculoskeletal History: Reports: Gout Neurological History: Reports: CVA Psychiatric History: Reports: None Endocrine/Metabolic History: Reports: Diabetes, Type II Hematologic History: Reports: None Immunologic History: Reports: None Oncologic (Cancer) History: Reports: None Dermatologic History: Reports: None - Infectious Disease History Infectious Disease History: Reports: None - Past Surgical History Head Surgeries/Procedures: Reports: None HEENT Surgical History: Reports: Cataract Surgery, Eye Surgery, Oral Surgery Other HEENT Surgeries/Procedures: eye surgery x3 Cardiovascular Surgical History: Reports: Coronary Artery Bypass Social & Family History - Family History Family Medical History: Noncontributory HEENT: Reports: Cataract, Glaucoma Cardiac: Reports: Afib, High Cholesterol, Hypertension Respiratory: Reports: None GI: Reports: None OBGYN: Reports: Neurological: Reports: CVA Psychiatric: Reports: None Endocrine/Metabolic: Reports: Diabetes, type II Hematologic: Reports: None Immunologic: Reports: None Dermatologic: Reports: None Oncologic: Reports: None - Tobacco Use Tobacco Use Status *Q: Former Tobacco User Used Tobacco, but Quit: Yes Month/Year Tobacco Last Used: 1999 he quit - Caffeine Use Caffeine Use: Reports: Coffee Caffeine Use Comment: 1 cup/day coffee - Recreational Drug Use Recreational Drug Use: No - Living Situation & Occupation Living situation: Reports: Occupation: Retired H&P Review of Systems - Review of Systems: Review Of Systems: Comprehensive ROS is negative, except as noted in HPI. Exam - Exam Exam: See Below - Vital Signs Vital Signs: Last Vital Signs Temp 37.1 C 05/19/20 20:18 Pulse 90 05/19/20 20:18 Resp 18 05/19/20 20:18 BP 102/59 L 05/19/20 20:18 Pulse Ox 99 05/19/20 20:18 Weight: 59.9 kg - Exam Quality Assessment: Supplemental Oxygen General: Alert, Oriented, Cooperative HEENT: Conjunctiva Clear, Mucosa Moist & Patten Neck: Supple Lungs: Clear to Auscultation, Decreased Breath Sounds. No: Crackles, Rales, Rhonchi Cardiovascular: Irregular Rhythm GI/Abdominal Exam: Soft, Non-Tender, No Distention, No Mass Rectal (Males) Exam: Normal Exam, Normal Rectal Tone, Other (ANNE normal. Stool on glove appeared kimball but no bright red blood or frankly melonic stool. ) Skin: Warm, Dry, Intact, Other (Pressure changes to sacrum (pink coloration, no breakdown) ) - Patient Data Lab Results Last 24 hrs: Laboratory Results - last 24 hr 10/21/20 10/21/20 10/21/20 Range/Units 10:23 10:23 10:23 WBC 9.69 (4.0-11.0) K/uL RBC 2.65 L (4.50-5.90) M/uL Hgb 6.8 L (13.0-17.0) g/dL Hct 24.6 L (38.0-50.0) % MCV 92.8 (80.0-98.0) fL MCH 25.7 L (27.0-32.0) pg MCHC 27.6 L (31.0-37.0) g/dL RDW Std Deviation 53.9 (28.0-62.0) fl RDW Coeff of Renetta 16 H (11.0-15.0) % Plt Count 230 (150-400) K/uL MPV 9.70 (7.40-12.00) fL Neut % (Auto) 87.3 H (48.0-80.0) % Lymph % (Auto) 5.1 L (16.0-40.0) % [place] % (Auto) 6.6 (0.0-15.0) % Eos % (Auto) 0.8 (0.0-7.0) % Baso % (Auto) 0.2 (0.0-1.5) % Neut # (Auto) 8.5 H (1.4-5.7) K/uL Lymph # (Auto) 0.5 L (0.6-2.4) K/uL [place] # (Auto) 0.6 (0.0-0.8) K/uL Eos # (Auto) 0.1 (0.0-0.7) K/uL Baso # (Auto) 0.0 (0.0-0.1) K/uL Nucleated RBC % 0.0 /100WBC Nucleated RBCs # 0 K/uL INR D-Dimer, Quantitative (0.0-0.50) mg/L FEU Sodium 137 (136-148) mmol/L Potassium 4.4 (3.5-5.1) mmol/L Chloride 98 (98-107) mmol/L Carbon Dioxide 33.7 H (21.0-32.0) mmol/L BUN 41 H (7.0-18.0) mg/dL Creatinine 1.4 H (0.8-1.3) mg/dL Est Cr Clr Drug Dosing 27.45 mL/min Estimated GFR (MDRD) 48.9 ml/min Glucose 144 H (74-106) mg/dL POC Glucose (60-110) mg/dL Calcium 9.0 (8.5-10.1) mg/dL Total Bilirubin 0.3 (0.2-1.0) mg/dL AST 13 L (15-37) IU/L ALT 17 (14-63) IU/L Alkaline Phosphatase 98 (46-116) U/L Troponin I < 0.050 (0.000-0.056) ng/mL B-Natriuretic Peptide 218 H (<100) PG/ML Total Protein 7.1 (6.4-8.2) g/dL Albumin 3.3 L (3.4-5.0) g/dL Globulin 3.8 (2.6-4.0) g/dL Albumin/Globulin Ratio 0.9 (0.9-1.6) Urine Color Urine Appearance Urine pH (5.0-8.0) Ur Specific [place] (1.001-1.035) Urine Protein (NEGATIVE) mg/dL Urine Glucose (UA) (NEGATIVE) mg/dL Urine Ketones (NEGATIVE) mg/dL Urine Occult Blood (NEGATIVE) Urine Nitrite (NEGATIVE) Urine Bilirubin (NEGATIVE) Urine Urobilinogen (<2.0) EU/dL Ur Leukocyte Esterase (NEGATIVE) SARS-CoV-2 RNA (BECKA) (NEGATIVE) Blood Type Antibody Screen Crossmatch 05/19/20 05/19/20 05/19/20 Range/Units 10:23 10:27 11:06 WBC (4.0-11.0) K/uL RBC (4.50-5.90) M/uL Hgb (13.0-17.0) g/dL Hct (38.0-50.0) % MCV (80.0-98.0) fL MCH (27.0-32.0) pg MCHC (31.0-37.0) g/dL RDW Std Deviation (28.0-62.0) fl RDW Coeff of Renetta (11.0-15.0) % Plt Count (150-400) K/uL MPV (7.40-12.00) fL Neut % (Auto) (48.0-80.0) % Lymph % (Auto) (16.0-40.0) % [place] % (Auto) (0.0-15.0) % Eos % (Auto) (0.0-7.0) % Baso % (Auto) (0.0-1.5) % Neut # (Auto) (1.4-5.7) K/uL Lymph # (Auto) (0.6-2.4) K/uL [place] # (Auto) (0.0-0.8) K/uL Eos # (Auto) (0.0-0.7) K/uL Baso # (Auto) (0.0-0.1) K/uL Nucleated RBC % /100WBC Nucleated RBCs # K/uL INR 1.44 D-Dimer, Quantitative 1.12 H (0.0-0.50) mg/L FEU Sodium (136-148) mmol/L Potassium (3.5-5.1) mmol/L Chloride (98-107) mmol/L Carbon Dioxide (21.0-32.0) mmol/L BUN (7.0-18.0) mg/dL Creatinine (0.8-1.3) mg/dL Est Cr Clr Drug Dosing mL/min Estimated GFR (MDRD) ml/min Glucose (74-106) mg/dL POC Glucose (60-110) mg/dL Calcium (8.5-10.1) mg/dL Total Bilirubin (0.2-1.0) mg/dL AST (15-37) IU/L ALT (14-63) IU/L Alkaline Phosphatase (46-116) U/L Troponin I (0.000-0.056) ng/mL B-Natriuretic Peptide (<100) PG/ML Total Protein (6.4-8.2) g/dL Albumin (3.4-5.0) g/dL Globulin (2.6-4.0) g/dL Albumin/Globulin Ratio (0.9-1.6) Urine Color YELLOW Urine Appearance CLEAR Urine pH 6.0 (5.0-8.0) Ur Specific [place] 1.010 (1.001-1.035) Urine Protein NEGATIVE (NEGATIVE) mg/dL Urine Glucose (UA) NEGATIVE (NEGATIVE) mg/dL Urine Ketones NEGATIVE (NEGATIVE) mg/dL Urine Occult Blood NEGATIVE (NEGATIVE) Urine Nitrite NEGATIVE (NEGATIVE) Urine Bilirubin NEGATIVE (NEGATIVE) Urine Urobilinogen 0.2 (<2.0) EU/dL Ur Leukocyte Esterase NEGATIVE (NEGATIVE) SARS-CoV-2 RNA (BECKA) (NEGATIVE) Blood Type Antibody Screen Crossmatch 05/19/20 05/19/20 05/19/20 Range/Units 11:20 11:25 16:45 WBC (4.0-11.0) K/uL RBC (4.50-5.90) M/uL Hgb (13.0-17.0) g/dL Hct (38.0-50.0) % MCV (80.0-98.0) fL MCH (27.0-32.0) pg MCHC (31.0-37.0) g/dL RDW Std Deviation (28.0-62.0) fl RDW Coeff of Renetta (11.0-15.0) % Plt Count (150-400) K/uL MPV (7.40-12.00) fL Neut % (Auto) (48.0-80.0) % Lymph % (Auto) (16.0-40.0) % [place] % (Auto) (0.0-15.0) % Eos % (Auto) (0.0-7.0) % Baso % (Auto) (0.0-1.5) % Neut # (Auto) (1.4-5.7) K/uL Lymph # (Auto) (0.6-2.4) K/uL [place] # (Auto) (0.0-0.8) K/uL Eos # (Auto) (0.0-0.7) K/uL Baso # (Auto) (0.0-0.1) K/uL Nucleated RBC % /100WBC Nucleated RBCs # K/uL INR D-Dimer, Quantitative (0.0-0.50) mg/L FEU Sodium (136-148) mmol/L Potassium (3.5-5.1) mmol/L Chloride (98-107) mmol/L Carbon Dioxide (21.0-32.0) mmol/L BUN (7.0-18.0) mg/dL Creatinine (0.8-1.3) mg/dL Est Cr Clr Drug Dosing mL/min Estimated GFR (MDRD) ml/min Glucose (74-106) mg/dL POC Glucose 142 H (60-110) mg/dL Calcium (8.5-10.1) mg/dL Total Bilirubin (0.2-1.0) mg/dL AST (15-37) IU/L ALT (14-63) IU/L Alkaline Phosphatase (46-116) U/L Troponin I (0.000-0.056) ng/mL B-Natriuretic Peptide (<100) PG/ML Total Protein (6.4-8.2) g/dL Albumin (3.4-5.0) g/dL Globulin (2.6-4.0) g/dL Albumin/Globulin Ratio (0.9-1.6) Urine Color Urine Appearance Urine pH (5.0-8.0) Ur Specific [place] (1.001-1.035) Urine Protein (NEGATIVE) mg/dL Urine Glucose (UA) (NEGATIVE) mg/dL Urine Ketones (NEGATIVE) mg/dL Urine Occult Blood (NEGATIVE) Urine Nitrite (NEGATIVE) Urine Bilirubin (NEGATIVE) Urine Urobilinogen (<2.0) EU/dL Ur Leukocyte Esterase (NEGATIVE) SARS-CoV-2 RNA (BECKA) NEGATIVE (NEGATIVE) Blood Type O POSITIVE Antibody Screen NEGATIVE Crossmatch See Detail Result Diagrams: 05/19/20 10:23 05/19/20 10:23 Morales Results Last 24 hrs: Microbiology 05/19/20 20:17 Stool Occult Blood (MORALES) - Final Stool / Feces Sepsis Event Note - Evaluation Sepsis Screening Result: No Definite Risk - Focused Exam Vital Signs: Vital Signs Temp Temp Pulse Resp BP Pulse Ox 05/19/20 20:18 37.1 C 90 18 102/59 L 99 05/19/20 20:07 37.1 C 90 18 102/59 L 99 05/19/20 17:09 37.3 C 81 18 84/58 L 100 05/19/20 16:54 37.1 C 85 19 103/66 100 05/19/20 16:00 36.2 C 97 20 91/56 L 05/19/20 15:10 84 89/56 L 05/19/20 14:52 37.0 C 84 16 87/55 L 100 05/19/20 14:00 91 17 87/57 L 100 05/19/20 13:45 90 90 H 84/53 L 100 05/19/20 13:30 82 17 91/42 L 100 05/19/20 13:15 81 17 92/59 L 100 05/19/20 12:00 94 17 101/64 99 05/19/20 11:45 93 17 97/65 100 05/19/20 11:30 90 18 97/57 L 98 05/19/20 10:04 36.1 C 87 18 97/65 92 L Consult PN Assessment/Plan Procedures: Procedures AIRWAY INHALATION TREATMENT (03/29/20) ASSAY OF DIGOXIN TOTAL (03/29/20) ASSAY OF FERRITIN (02/26/19) ASSAY OF FOLIC ACID SERUM (12/11/18) ASSAY OF LACTIC ACID (07/21/19) ASSAY OF MAGNESIUM (03/29/20) ASSAY OF NATRIURETIC PEPTIDE (03/29/20) ASSAY OF PHOSPHORUS (03/29/20) ASSAY OF TROPONIN QUANT (03/29/20) ASSAY THYROID STIM HORMONE (12/11/18) AUTOMATED RETICULOCYTE COUNT (03/29/20) BL SMEAR W/DIFF WBC COUNT (12/11/18) BLOOD CULTURE FOR BACTERIA (07/21/19) BLOOD GASES ANY COMBINATION (03/29/20) BLOOD TRANSFUSION SERVICE (03/29/20) BLOOD TYPING SEROLOGIC ABO (03/29/20) BLOOD TYPING SEROLOGIC RH(D) (03/29/20) BONE MARROW INTERPRETATION (12/11/18) CARDIAC REHAB/MONITOR (10/27/19) CARDIOVASCULAR STRESS TEST (02/11/19) CHEST WALL MANIPULATION (07/21/19) CO/MEMBANE DIFFUSE CAPACITY (01/28/20) COLONOSCOPY AND BIOPSY (11/09/17) COMPATIBILITY TEST ANTIGLOB (03/29/20) COMPATIBILITY TEST INCUBATE (03/29/20) COMPATIBILITY TEST SPIN (03/29/20) COMPLETE CBC AUTOMATED (12/11/18) COMPLETE CBC W/AUTO DIFF WBC (03/29/20) COMPREHEN METABOLIC PANEL (03/29/20) CT SCAN FOR NEEDLE BIOPSY (12/11/18) CYTOGENETICS DNA PROBE (12/11/18) CYTOPATH FL NONGYN SMEARS (12/11/18) DECALCIFY TISSUE (12/11/18) DX BONE MARROW BIOPSIES (12/11/18) ELECTROCARDIOGRAM TRACING (03/29/20) EMERGENCY DEPT VISIT (03/29/20) EMERGENCY DEPT VISIT (10/31/18) EVALUATE PT USE OF INHALER (03/29/20) EVALUATION OF WHEEZING (01/28/20) EXTRACRANIAL BILAT STUDY (03/17/19) FLOWCYTOMETRY/ TC 1 MARKER (12/11/18) FLOWCYTOMETRY/READ 2-8 (12/11/18) FLOWCYTOMETRY/TC ADD-ON (12/11/18) GLUCOSE BLOOD TEST (03/29/20) GLYCOSYLATED HEMOGLOBIN TEST (05/11/14) HEMATOCRIT (03/29/20) HEMOGLOBIN (03/29/20) HT MUSCLE IMAGE SPECT MULT (02/11/19) HYDRATE IV INFUSION ADD-ON (07/21/19) INFLUENZA ASSAY W/OPTIC (07/21/19) IRON BINDING TEST (03/29/20) LIPID PANEL (05/11/14) METABOLIC PANEL TOTAL CA (03/29/20) OCCULT BLD FECES 1-3 TESTS (03/29/20) OFFICE/OUTPATIENT VISIT EST (05/07/19) OFFICE/OUTPATIENT VISIT EST (05/11/14) ORGANIC ACID SINGLE QUANT (02/26/19) POS AIRWAY PRESSURE CPAP (07/01/19) PROTHROMBIN TIME (03/29/20) PT EVAL LOW COMPLEX 20 MIN (03/29/20) RBC ANTIBODY SCREEN (03/29/20) RMVL DEVITAL TIS 20 CM/< (04/26/20) ROUTINE VENIPUNCTURE (03/29/20) RPR S/N/AX/GEN/TRNK 2.5CM/< (10/31/18) SARS-COV2 COVID-19 AMP PRB (03/29/20) SPECIAL STAINS GROUP 1 (12/11/18) TARGETED GENOMIC SEQ ANALYS (02/26/19) THER/PROPH/DIAG INJ IV PUSH (03/29/20) THER/PROPH/DIAG IV INF INIT (02/26/20) THROMBOPLASTIN TIME PARTIAL (04/12/19) TISSUE CULTURE BONE MARROW (12/11/18) TISSUE EXAM BY PATHOLOGIST (12/11/18) TTE W/DOPPLER COMPLETE (07/01/19) TX/PRO/DX INJ NEW DRUG ADDON (04/12/19) TX/PRO/DX INJ SAME DRUG METAL ORGAN PIPE MAKER (04/12/19) URINALYSIS AUTO W/O SCOPE (07/21/19) URINALYSIS AUTO W/SCOPE (05/11/14) VITAMIN B-12 (02/26/19) WITHDRAWAL OF ARTERIAL BLOOD (03/29/20) WOUND(S) CARE NON-SELECTIVE (04/26/20) X-RAY EXAM CHEST 1 VIEW (03/29/20) X-RAY EXAM CHEST 2 VIEWS (07/01/19) (1) Anemia SNOMED Code(s): 155218348 Code(s): D64.9 - ANEMIA, UNSPECIFIED Current Visit: Yes Qualifiers: Anemia type: unspecified type Qualified Code(s): D64.9 - Anemia, unspecified Problem List Initiated/Reviewed/Updated: Yes Plan: Anemia: If the patient is having a GI bleed it is more likely from an upper GI source. He had a relatively normal colonoscopy 2 years ago and there are no signs of bright red bleeding per rectum. Would continue with pRBC and close monitoring overnight. Keep NPO. Continue pantoprazole. Recheck labs in am. Will discuss possibility of EGD tomorrow with anesthesia however given his cardiac history he may need to have any procedures done at a bigger center. Will reassess in am.
[2020-05-20] MEDS: Albuterol/Ipratropium 3.0-0.5 MG/3 ML Neb Soln NEB PRN ×3 (02:32→23:40)
[2020-05-20] MEDS ORDERED: Sodium Chloride 0.9% 500 ML IV ONE (08:02)
[2020-05-20] MEDS: Pantoprazole 40 MG in Sodium Chloride 0.9% 10 ML IV SCH ×2 (09:05→21:09)
[2020-05-20] MEDS: Tiotropium Inhaler 18 MCG Inhalation Powder Cap Kit of 5 INH SCH (09:07)
[2020-05-20] MEDS: Tamsulosin 0.4 MG Cap.ER PO SCH (09:11)
[2020-05-20] MEDS: Torsemide 20 MG Tab PO SCH (09:11)
[2020-05-20] MEDS: Digoxin 125 MCG Tab PO SCH (09:11)
--- NOTE | 2020-05-20 09:50 | PCM.CONSN ---
- General Info Date of Service: 05/20/20 Functional Status: Reports: Pain Controlled, Ambulating, Urinating. Denies: New Symptoms - Review of Systems General: Reports: No Symptoms HEENT: Reports: No Symptoms Pulmonary: Reports: No Symptoms Cardiovascular: Reports: No Symptoms Gastrointestinal: Reports: No Symptoms Genitourinary: Reports: No Symptoms - Patient Data Vitals - Most Recent: Last Vital Signs Temp 36.7 C 05/20/20 07:21 Pulse 72 05/20/20 09:11 Resp 16 05/20/20 07:21 BP 80/50 L 05/20/20 07:21 Pulse Ox 93 L 05/20/20 04:56 Weight - Most Recent: 57.198 kg I&O - Last 24 Hours: Intake & Output 05/19/20 05/20/20 05/20/20 22:59 06:59 14:59 Intake Total 57 289 Balance 57 289 Lab Results Last 24 Hours: Laboratory Results - last 24 hr 05/19/20 05/19/20 05/19/20 Range/Units 10:23 10:23 10:23 WBC 9.69 (4.0-11.0) K/uL RBC 2.65 L (4.50-5.90) M/uL Hgb 6.8 L (13.0-17.0) g/dL Hct 24.6 L (38.0-50.0) % MCV 92.8 (80.0-98.0) fL MCH 25.7 L (27.0-32.0) pg MCHC 27.6 L (31.0-37.0) g/dL RDW Std Deviation 53.9 (28.0-62.0) fl RDW Coeff of Renetta 16 H (11.0-15.0) % Plt Count 230 (150-400) K/uL MPV 9.70 (7.40-12.00) fL Neut % (Auto) 87.3 H (48.0-80.0) % Lymph % (Auto) 5.1 L (16.0-40.0) % Powell % (Auto) 6.6 (0.0-15.0) % Eos % (Auto) 0.8 (0.0-7.0) % Baso % (Auto) 0.2 (0.0-1.5) % Neut # (Auto) 8.5 H (1.4-5.7) K/uL Lymph # (Auto) 0.5 L (0.6-2.4) K/uL Powell # (Auto) 0.6 (0.0-0.8) K/uL Eos # (Auto) 0.1 (0.0-0.7) K/uL Baso # (Auto) 0.0 (0.0-0.1) K/uL Nucleated RBC % 0.0 /100WBC Nucleated RBCs # 0 K/uL INR D-Dimer, Quantitative (0.0-0.50) mg/L FEU Sodium 137 (136-148) mmol/L Potassium 4.4 (3.5-5.1) mmol/L Chloride 98 (98-107) mmol/L Carbon Dioxide 33.7 H (21.0-32.0) mmol/L BUN 41 H (7.0-18.0) mg/dL Creatinine 1.4 H (0.8-1.3) mg/dL Est Cr Clr Drug Dosing 27.45 mL/min Estimated GFR (MDRD) 48.9 ml/min Glucose 144 H (74-106) mg/dL POC Glucose (60-110) mg/dL Calcium 9.0 (8.5-10.1) mg/dL Magnesium (1.8-2.4) mg/dL Total Bilirubin 0.3 (0.2-1.0) mg/dL AST 13 L (15-37) IU/L ALT 17 (14-63) IU/L Alkaline Phosphatase 98 (46-116) U/L Troponin I < 0.050 (0.000-0.056) ng/mL B-Natriuretic Peptide 218 H (<100) PG/ML Total Protein 7.1 (6.4-8.2) g/dL Albumin 3.3 L (3.4-5.0) g/dL Globulin 3.8 (2.6-4.0) g/dL Albumin/Globulin Ratio 0.9 (0.9-1.6) Urine Color Urine Appearance Urine pH (5.0-8.0) Ur Specific [place] (1.001-1.035) Urine Protein (NEGATIVE) mg/dL Urine Glucose (UA) (NEGATIVE) mg/dL Urine Ketones (NEGATIVE) mg/dL Urine Occult Blood (NEGATIVE) Urine Nitrite (NEGATIVE) Urine Bilirubin (NEGATIVE) Urine Urobilinogen (<2.0) EU/dL Ur Leukocyte Esterase (NEGATIVE) SARS-CoV-2 RNA (BECKA) (NEGATIVE) Blood Type Antibody Screen Crossmatch 05/19/20 05/19/20 05/19/20 Range/Units 10:23 10:27 11:06 WBC (4.0-11.0) K/uL RBC (4.50-5.90) M/uL Hgb (13.0-17.0) g/dL Hct (38.0-50.0) % MCV (80.0-98.0) fL MCH (27.0-32.0) pg MCHC (31.0-37.0) g/dL RDW Std Deviation (28.0-62.0) fl RDW Coeff of Renetta (11.0-15.0) % Plt Count (150-400) K/uL MPV (7.40-12.00) fL Neut % (Auto) (48.0-80.0) % Lymph % (Auto) (16.0-40.0) % Powell % (Auto) (0.0-15.0) % Eos % (Auto) (0.0-7.0) % Baso % (Auto) (0.0-1.5) % Neut # (Auto) (1.4-5.7) K/uL Lymph # (Auto) (0.6-2.4) K/uL Powell # (Auto) (0.0-0.8) K/uL Eos # (Auto) (0.0-0.7) K/uL Baso # (Auto) (0.0-0.1) K/uL Nucleated RBC % /100WBC Nucleated RBCs # K/uL INR 1.44 D-Dimer, Quantitative 1.12 H (0.0-0.50) mg/L FEU Sodium (136-148) mmol/L Potassium (3.5-5.1) mmol/L Chloride (98-107) mmol/L Carbon Dioxide (21.0-32.0) mmol/L BUN (7.0-18.0) mg/dL Creatinine (0.8-1.3) mg/dL Est Cr Clr Drug Dosing mL/min Estimated GFR (MDRD) ml/min Glucose (74-106) mg/dL POC Glucose (60-110) mg/dL Calcium (8.5-10.1) mg/dL Magnesium (1.8-2.4) mg/dL Total Bilirubin (0.2-1.0) mg/dL AST (15-37) IU/L ALT (14-63) IU/L Alkaline Phosphatase (46-116) U/L Troponin I (0.000-0.056) ng/mL B-Natriuretic Peptide (<100) PG/ML Total Protein (6.4-8.2) g/dL Albumin (3.4-5.0) g/dL Globulin (2.6-4.0) g/dL Albumin/Globulin Ratio (0.9-1.6) Urine Color YELLOW Urine Appearance CLEAR Urine pH 6.0 (5.0-8.0) Ur Specific [place] 1.010 (1.001-1.035) Urine Protein NEGATIVE (NEGATIVE) mg/dL Urine Glucose (UA) NEGATIVE (NEGATIVE) mg/dL Urine Ketones NEGATIVE (NEGATIVE) mg/dL Urine Occult Blood NEGATIVE (NEGATIVE) Urine Nitrite NEGATIVE (NEGATIVE) Urine Bilirubin NEGATIVE (NEGATIVE) Urine Urobilinogen 0.2 (<2.0) EU/dL Ur Leukocyte Esterase NEGATIVE (NEGATIVE) SARS-CoV-2 RNA (BECKA) (NEGATIVE) Blood Type Antibody Screen Crossmatch 05/19/20 05/19/20 05/19/20 Range/Units 11:20 11:25 16:45 WBC (4.0-11.0) K/uL RBC (4.50-5.90) M/uL Hgb (13.0-17.0) g/dL Hct (38.0-50.0) % MCV (80.0-98.0) fL MCH (27.0-32.0) pg MCHC (31.0-37.0) g/dL RDW Std Deviation (28.0-62.0) fl RDW Coeff of Renetta (11.0-15.0) % Plt Count (150-400) K/uL MPV (7.40-12.00) fL Neut % (Auto) (48.0-80.0) % Lymph % (Auto) (16.0-40.0) % Powell % (Auto) (0.0-15.0) % Eos % (Auto) (0.0-7.0) % Baso % (Auto) (0.0-1.5) % Neut # (Auto) (1.4-5.7) K/uL Lymph # (Auto) (0.6-2.4) K/uL Powell # (Auto) (0.0-0.8) K/uL Eos # (Auto) (0.0-0.7) K/uL Baso # (Auto) (0.0-0.1) K/uL Nucleated RBC % /100WBC Nucleated RBCs # K/uL INR D-Dimer, Quantitative (0.0-0.50) mg/L FEU Sodium (136-148) mmol/L Potassium (3.5-5.1) mmol/L Chloride (98-107) mmol/L Carbon Dioxide (21.0-32.0) mmol/L BUN (7.0-18.0) mg/dL Creatinine (0.8-1.3) mg/dL Est Cr Clr Drug Dosing mL/min Estimated GFR (MDRD) ml/min Glucose (74-106) mg/dL POC Glucose 142 H (60-110) mg/dL Calcium (8.5-10.1) mg/dL Magnesium (1.8-2.4) mg/dL Total Bilirubin (0.2-1.0) mg/dL AST (15-37) IU/L ALT (14-63) IU/L Alkaline Phosphatase (46-116) U/L Troponin I (0.000-0.056) ng/mL B-Natriuretic Peptide (<100) PG/ML Total Protein (6.4-8.2) g/dL Albumin (3.4-5.0) g/dL Globulin (2.6-4.0) g/dL Albumin/Globulin Ratio (0.9-1.6) Urine Color Urine Appearance Urine pH (5.0-8.0) Ur Specific [place] (1.001-1.035) Urine Protein (NEGATIVE) mg/dL Urine Glucose (UA) (NEGATIVE) mg/dL Urine Ketones (NEGATIVE) mg/dL Urine Occult Blood (NEGATIVE) Urine Nitrite (NEGATIVE) Urine Bilirubin (NEGATIVE) Urine Urobilinogen (<2.0) EU/dL Ur Leukocyte Esterase (NEGATIVE) SARS-CoV-2 RNA (BECKA) NEGATIVE (NEGATIVE) Blood Type O POSITIVE Antibody Screen NEGATIVE Crossmatch See Detail 05/19/20 05/20/20 05/20/20 Range/Units 22:37 01:50 04:49 WBC (4.0-11.0) K/uL RBC (4.50-5.90) M/uL Hgb 9.3 L (13.0-17.0) g/dL Hct 30.9 L (38.0-50.0) % MCV (80.0-98.0) fL MCH (27.0-32.0) pg MCHC (31.0-37.0) g/dL RDW Std Deviation (28.0-62.0) fl RDW Coeff of Renetta (11.0-15.0) % Plt Count (150-400) K/uL MPV (7.40-12.00) fL Neut % (Auto) (48.0-80.0) % Lymph % (Auto) (16.0-40.0) % Powell % (Auto) (0.0-15.0) % Eos % (Auto) (0.0-7.0) % Baso % (Auto) (0.0-1.5) % Neut # (Auto) (1.4-5.7) K/uL Lymph # (Auto) (0.6-2.4) K/uL Powell # (Auto) (0.0-0.8) K/uL Eos # (Auto) (0.0-0.7) K/uL Baso # (Auto) (0.0-0.1) K/uL Nucleated RBC % /100WBC Nucleated RBCs # K/uL INR D-Dimer, Quantitative (0.0-0.50) mg/L FEU Sodium (136-148) mmol/L Potassium (3.5-5.1) mmol/L Chloride (98-107) mmol/L Carbon Dioxide (21.0-32.0) mmol/L BUN (7.0-18.0) mg/dL Creatinine (0.8-1.3) mg/dL Est Cr Clr Drug Dosing mL/min Estimated GFR (MDRD) ml/min Glucose (74-106) mg/dL POC Glucose 148 H 162 H (60-110) mg/dL Calcium (8.5-10.1) mg/dL Magnesium (1.8-2.4) mg/dL Total Bilirubin (0.2-1.0) mg/dL AST (15-37) IU/L ALT (14-63) IU/L Alkaline Phosphatase (46-116) U/L Troponin I (0.000-0.056) ng/mL B-Natriuretic Peptide (<100) PG/ML Total Protein (6.4-8.2) g/dL Albumin (3.4-5.0) g/dL Globulin (2.6-4.0) g/dL Albumin/Globulin Ratio (0.9-1.6) Urine Color Urine Appearance Urine pH (5.0-8.0) Ur Specific [place] (1.001-1.035) Urine Protein (NEGATIVE) mg/dL Urine Glucose (UA) (NEGATIVE) mg/dL Urine Ketones (NEGATIVE) mg/dL Urine Occult Blood (NEGATIVE) Urine Nitrite (NEGATIVE) Urine Bilirubin (NEGATIVE) Urine Urobilinogen (<2.0) EU/dL Ur Leukocyte Esterase (NEGATIVE) SARS-CoV-2 RNA (BECKA) (NEGATIVE) Blood Type Antibody Screen Crossmatch 05/20/20 05/20/20 Range/Units 06:05 06:05 WBC 9.97 (4.0-11.0) K/uL RBC 3.32 L (4.50-5.90) M/uL Hgb 9.2 L (13.0-17.0) g/dL Hct 30.6 L (38.0-50.0) % MCV 92.2 (80.0-98.0) fL MCH 27.7 (27.0-32.0) pg MCHC 30.1 L (31.0-37.0) g/dL RDW Std Deviation 50.5 (28.0-62.0) fl RDW Coeff of Renetta 15 (11.0-15.0) % Plt Count 206 (150-400) K/uL MPV 9.70 (7.40-12.00) fL Neut % (Auto) 86.1 H (48.0-80.0) % Lymph % (Auto) 7.0 L (16.0-40.0) % [place] % (Auto) 6.4 (0.0-15.0) % Eos % (Auto) 0.3 (0.0-7.0) % Baso % (Auto) 0.2 (0.0-1.5) % Neut # (Auto) 8.6 H (1.4-5.7) K/uL Lymph # (Auto) 0.7 (0.6-2.4) K/uL Powell # (Auto) 0.6 (0.0-0.8) K/uL Eos # (Auto) 0.0 (0.0-0.7) K/uL Baso # (Auto) 0.0 (0.0-0.1) K/uL Nucleated RBC % 0.0 /100WBC Nucleated RBCs # 0 K/uL INR D-Dimer, Quantitative (0.0-0.50) mg/L FEU Sodium 142 (136-148) mmol/L Potassium 4.0 (3.5-5.1) mmol/L Chloride 104 (98-107) mmol/L Carbon Dioxide 33.0 H (21.0-32.0) mmol/L BUN 32 H (7.0-18.0) mg/dL Creatinine 1.3 (0.8-1.3) mg/dL Est Cr Clr Drug Dosing 37.28 mL/min Estimated GFR (MDRD) 53.3 ml/min Glucose 137 H (74-106) mg/dL POC Glucose (60-110) mg/dL Calcium 8.4 L (8.5-10.1) mg/dL Magnesium 1.9 (1.8-2.4) mg/dL Total Bilirubin 0.7 (0.2-1.0) mg/dL AST 16 (15-37) IU/L ALT 16 (14-63) IU/L Alkaline Phosphatase 78 (46-116) U/L Troponin I (0.000-0.056) ng/mL B-Natriuretic Peptide (<100) PG/ML Total Protein 6.0 L (6.4-8.2) g/dL Albumin 2.9 L (3.4-5.0) g/dL Globulin 3.1 (2.6-4.0) g/dL Albumin/Globulin Ratio 0.9 (0.9-1.6) Urine Color Urine Appearance Urine pH (5.0-8.0) Ur Specific [place] (1.001-1.035) Urine Protein (NEGATIVE) mg/dL Urine Glucose (UA) (NEGATIVE) mg/dL Urine Ketones (NEGATIVE) mg/dL Urine Occult Blood (NEGATIVE) Urine Nitrite (NEGATIVE) Urine Bilirubin (NEGATIVE) Urine Urobilinogen (<2.0) EU/dL Ur Leukocyte Esterase (NEGATIVE) SARS-CoV-2 RNA (BECKA) (NEGATIVE) Blood Type Antibody Screen Crossmatch [place] Results Last 24 Hours: Microbiology 05/19/20 20:17 Stool Occult Blood (MORALES) - Final Stool / Feces Med Orders - Current: Current Medications Albuterol/Ipratropium (Duoneb 3.0-0.5 Mg/3 Ml) 3 ml NEB Q6HRRT PRN PRN Reason: Shortness of Breath Last Admin: 05/20/20 02:32 Dose: 3 ml Documented by: Digoxin (Lanoxin) 125 mcg PO DAILY [facility] Last Admin: 05/20/20 09:11 Dose: 125 mcg Documented by: Pantoprazole Sodium 40 mg/ (Sodium Chloride) 10 mls @ 300 mls/hr IV BID [facility] Last Admin: 05/20/20 09:05 Dose: 300 mls/hr Documented by: Ondansetron HCl (Zofran) 4 mg IVPUSH Q4H PRN PRN Reason: Nausea Tamsulosin HCl (Flomax) 0.4 mg PO DAILY [facility] Last Admin: 05/20/20 09:11 Dose: 0.4 mg Documented by: Tiotropium [place] (Spiriva Handihaler) 18 mcg INH DAILY [facility] Last Admin: 05/20/20 09:07 Dose: 1 cap Documented by: Torsemide (Demadex) 40 mg PO DAILY [facility] Last Admin: 05/20/20 09:11 Dose: 40 mg Documented by: Discontinued Medications Sodium Chloride (Normal Saline) 1,000 mls @ 999 mls/hr IV STAT ONE Stop: 05/19/20 11:18 Last Admin: 05/19/20 10:37 Dose: 999 mls/hr Documented by: Sodium Chloride (Normal Saline) 1,000 mls @ 75 mls/hr IV ONETIME ONE Stop: 05/20/20 04:34 Last Admin: 05/19/20 18:55 Dose: Not Given Documented by: Sodium Chloride (Normal Saline) 500 mls @ 75 mls/hr IV STAT ONE Stop: 05/20/20 14:41 Last Admin: 05/20/20 09:32 Dose: Not Given Documented by: Iopamidol (Isovue Multipack-370 (76%)) 75 ml IVPUSH ONETIME STA Stop: 05/19/20 13:25 Last Admin: 05/19/20 13:25 Dose: 75 ml Documented by: - Exam Quality Assessment: Supplemental Oxygen General: Alert, Oriented, Cooperative HEENT: Pupils Equal, Pupils Reactive Lungs: Normal Respiratory Effort Cardiovascular: Irregular Rhythm GI/Abdominal Exam: Soft, Non-Tender, No Distention, No Mass Sepsis Event Note - Evaluation Sepsis Screening Result: No Definite Risk - Focused Exam Vital Signs: Vital Signs Temp Temp Pulse Pulse Resp BP Pulse Ox 05/20/20 09:11 72 05/20/20 07:21 36.7 C 87 16 80/50 L 05/20/20 04:56 36.9 C 78 21 H 90/51 L 93 L 05/20/20 01:35 37.0 C 72 20 97/52 L 90 L 05/20/20 00:35 37.2 C 84 17 91/56 L 94 L 05/20/20 00:29 36.9 C 61 20 105/63 98 05/19/20 22:39 37.0 C 81 16 102/49 L 98 05/19/20 22:25 37.2 C 80 14 96/59 L 99 Consult PN Assessment/Plan Procedures: Procedures AIRWAY INHALATION TREATMENT (03/29/20) ASSAY OF DIGOXIN TOTAL (03/29/20) ASSAY OF FERRITIN (02/26/19) ASSAY OF FOLIC ACID SERUM (12/11/18) ASSAY OF LACTIC ACID (07/21/19) ASSAY OF MAGNESIUM (03/29/20) ASSAY OF NATRIURETIC PEPTIDE (03/29/20) ASSAY OF PHOSPHORUS (03/29/20) ASSAY OF TROPONIN QUANT (03/29/20) ASSAY THYROID STIM HORMONE (12/11/18) AUTOMATED RETICULOCYTE COUNT (03/29/20) BL SMEAR W/DIFF WBC COUNT (12/11/18) BLOOD CULTURE FOR BACTERIA (07/21/19) BLOOD GASES ANY COMBINATION (03/29/20) BLOOD TRANSFUSION SERVICE (03/29/20) BLOOD TYPING SEROLOGIC ABO (03/29/20) BLOOD TYPING SEROLOGIC RH(D) (03/29/20) BONE MARROW INTERPRETATION (12/11/18) CARDIAC REHAB/MONITOR (10/27/19) CARDIOVASCULAR STRESS TEST (02/11/19) CHEST WALL MANIPULATION (07/21/19) CO/MEMBANE DIFFUSE CAPACITY (01/28/20) COLONOSCOPY AND BIOPSY (11/09/17) COMPATIBILITY TEST ANTIGLOB (03/29/20) COMPATIBILITY TEST INCUBATE (03/29/20) COMPATIBILITY TEST SPIN (03/29/20) COMPLETE CBC AUTOMATED (12/11/18) COMPLETE CBC W/AUTO DIFF WBC (03/29/20) COMPREHEN METABOLIC PANEL (03/29/20) CT SCAN FOR NEEDLE BIOPSY (12/11/18) CYTOGENETICS DNA PROBE (12/11/18) CYTOPATH FL NONGYN SMEARS (12/11/18) DECALCIFY TISSUE (12/11/18) DX BONE MARROW BIOPSIES (12/11/18) ELECTROCARDIOGRAM TRACING (03/29/20) EMERGENCY DEPT VISIT (03/29/20) EMERGENCY DEPT VISIT (10/31/18) EVALUATE PT USE OF INHALER (03/29/20) EVALUATION OF WHEEZING (01/28/20) EXTRACRANIAL BILAT STUDY (03/17/19) FLOWCYTOMETRY/ TC 1 MARKER (12/11/18) FLOWCYTOMETRY/READ 2-8 (12/11/18) FLOWCYTOMETRY/TC ADD-ON (12/11/18) GLUCOSE BLOOD TEST (03/29/20) GLYCOSYLATED HEMOGLOBIN TEST (05/11/14) HEMATOCRIT (03/29/20) HEMOGLOBIN (03/29/20) HT MUSCLE IMAGE SPECT MULT (02/11/19) HYDRATE IV INFUSION ADD-ON (07/21/19) INFLUENZA ASSAY W/OPTIC (07/21/19) IRON BINDING TEST (03/29/20) LIPID PANEL (05/11/14) METABOLIC PANEL TOTAL CA (03/29/20) OCCULT BLD FECES 1-3 TESTS (03/29/20) OFFICE/OUTPATIENT VISIT EST (05/07/19) OFFICE/OUTPATIENT VISIT EST (05/11/14) ORGANIC ACID SINGLE QUANT (02/26/19) POS AIRWAY PRESSURE CPAP (07/01/19) PROTHROMBIN TIME (03/29/20) PT EVAL LOW COMPLEX 20 MIN (03/29/20) RBC ANTIBODY SCREEN (03/29/20) RMVL DEVITAL TIS 20 CM/< (04/26/20) ROUTINE VENIPUNCTURE (03/29/20) RPR S/N/AX/GEN/TRNK 2.5CM/< (10/31/18) SARS-COV2 COVID-19 AMP PRB (03/29/20) SPECIAL STAINS GROUP 1 (12/11/18) TARGETED GENOMIC SEQ ANALYS (02/26/19) THER/PROPH/DIAG INJ IV PUSH (03/29/20) THER/PROPH/DIAG IV INF INIT (02/26/20) THROMBOPLASTIN TIME PARTIAL (04/12/19) TISSUE CULTURE BONE MARROW (12/11/18) TISSUE EXAM BY PATHOLOGIST (12/11/18) TTE W/DOPPLER COMPLETE (07/01/19) TX/PRO/DX INJ NEW DRUG ADDON (04/12/19) TX/PRO/DX INJ SAME DRUG DEPARTMENT HEAD JUNIOR COLLEGE (04/12/19) URINALYSIS AUTO W/O SCOPE (07/21/19) URINALYSIS AUTO W/SCOPE (05/11/14) VITAMIN B-12 (02/26/19) WITHDRAWAL OF ARTERIAL BLOOD (03/29/20) WOUND(S) CARE NON-SELECTIVE (04/26/20) X-RAY EXAM CHEST 1 VIEW (03/29/20) X-RAY EXAM CHEST 2 VIEWS (07/01/19) (1) Anemia SNOMED Code(s): 098340377 Code(s): D64.9 - ANEMIA, UNSPECIFIED Current Visit: Yes Qualifiers: Anemia type: unspecified type Qualified Code(s): D64.9 - Anemia, unspecified Problem List Initiated/Reviewed/Updated: Yes Plan: given this patient's multiple medical comorbidities, I do not feel he is a good candidate for an EGD at this time. He receive 2 units of packed red blood cells last night. His hemoglobin came up appropriately and has stayed stable since then. Can consider a CT scan of the abdomen pelvis looking for any source of the bleed. I would continue PPI therapy and add Carafate at least 3 times a day. He can follow-up with me in clinic in 2 weeks as an outpatient to discuss any further imaging at that time such as a small bowel follow-through and/or barium enema. If the patient shows signs of acute GI bleed please call the on-call surgeon, however he would likely need to be transferred for scoping at a facility with greater resources. Will sign off at this time please contact with any questions or concerns.
--- NOTE | 2020-05-20 12:06 | PCM.PN ---
- General Info Date of Service: 05/20/20 Subjective Update: No complaints at bedside this morning but reports feeling thirsty. Denies any fevers or chills. - Patient Data Vitals - Most Recent: Last Vital Signs Temp 36.6 C 05/20/20 11:48 Pulse 84 05/20/20 11:48 Resp 16 05/20/20 11:48 BP 99/57 L 05/20/20 11:48 Pulse Ox 98 05/20/20 11:48 Weight - Most Recent: 57.198 kg I&O - Last 24 Hours: Intake & Output 05/19/20 05/20/20 05/20/20 22:59 06:59 14:59 Intake Total 57 289 Balance 57 289 Lab Results Last 24 Hours: Laboratory Results - last 24 hr 05/19/20 05/19/20 05/19/20 Range/Units 10:23 11:20 11:25 WBC (4.0-11.0) K/uL RBC (4.50-5.90) M/uL Hgb (13.0-17.0) g/dL Hct (38.0-50.0) % MCV (80.0-98.0) fL MCH (27.0-32.0) pg MCHC (31.0-37.0) g/dL RDW Std Deviation (28.0-62.0) fl RDW Coeff of Renetta (11.0-15.0) % Plt Count (150-400) K/uL MPV (7.40-12.00) fL Neut % (Auto) (48.0-80.0) % Lymph % (Auto) (16.0-40.0) % [place] % (Auto) (0.0-15.0) % Eos % (Auto) (0.0-7.0) % Baso % (Auto) (0.0-1.5) % Neut # (Auto) (1.4-5.7) K/uL Lymph # (Auto) (0.6-2.4) K/uL [place] # (Auto) (0.0-0.8) K/uL Eos # (Auto) (0.0-0.7) K/uL Baso # (Auto) (0.0-0.1) K/uL Nucleated RBC % /100WBC Nucleated RBCs # K/uL Sodium (136-148) mmol/L Potassium (3.5-5.1) mmol/L Chloride (98-107) mmol/L Carbon Dioxide (21.0-32.0) mmol/L BUN (7.0-18.0) mg/dL Creatinine (0.8-1.3) mg/dL Est Cr Clr Drug Dosing mL/min Estimated GFR (MDRD) ml/min Glucose (74-106) mg/dL POC Glucose (60-110) mg/dL Calcium (8.5-10.1) mg/dL Magnesium (1.8-2.4) mg/dL Total Bilirubin (0.2-1.0) mg/dL AST (15-37) IU/L ALT (14-63) IU/L Alkaline Phosphatase (46-116) U/L B-Natriuretic Peptide 218 H (<100) PG/ML Total Protein (6.4-8.2) g/dL Albumin (3.4-5.0) g/dL Globulin (2.6-4.0) g/dL Albumin/Globulin Ratio (0.9-1.6) SARS-CoV-2 RNA ([facility]) NEGATIVE (NEGATIVE) Blood Type O POSITIVE Antibody Screen NEGATIVE Crossmatch See Detail 05/19/20 05/19/20 05/20/20 Range/Units 16:45 22:37 01:50 WBC (4.0-11.0) K/uL RBC (4.50-5.90) M/uL Hgb 9.3 L (13.0-17.0) g/dL Hct 30.9 L (38.0-50.0) % MCV (80.0-98.0) fL MCH (27.0-32.0) pg MCHC (31.0-37.0) g/dL RDW Std Deviation (28.0-62.0) fl RDW Coeff of Renetta (11.0-15.0) % Plt Count (150-400) K/uL MPV (7.40-12.00) fL Neut % (Auto) (48.0-80.0) % Lymph % (Auto) (16.0-40.0) % [place] % (Auto) (0.0-15.0) % Eos % (Auto) (0.0-7.0) % Baso % (Auto) (0.0-1.5) % Neut # (Auto) (1.4-5.7) K/uL Lymph # (Auto) (0.6-2.4) K/uL [place] # (Auto) (0.0-0.8) K/uL Eos # (Auto) (0.0-0.7) K/uL Baso # (Auto) (0.0-0.1) K/uL Nucleated RBC % /100WBC Nucleated RBCs # K/uL Sodium (136-148) mmol/L Potassium (3.5-5.1) mmol/L Chloride (98-107) mmol/L Carbon Dioxide (21.0-32.0) mmol/L BUN (7.0-18.0) mg/dL Creatinine (0.8-1.3) mg/dL Est Cr Clr Drug Dosing mL/min Estimated GFR (MDRD) ml/min Glucose (74-106) mg/dL POC Glucose 142 H 148 H (60-110) mg/dL Calcium (8.5-10.1) mg/dL Magnesium (1.8-2.4) mg/dL Total Bilirubin (0.2-1.0) mg/dL AST (15-37) IU/L ALT (14-63) IU/L Alkaline Phosphatase (46-116) U/L B-Natriuretic Peptide (<100) PG/ML Total Protein (6.4-8.2) g/dL Albumin (3.4-5.0) g/dL Globulin (2.6-4.0) g/dL Albumin/Globulin Ratio (0.9-1.6) SARS-CoV-2 RNA ([place]) (NEGATIVE) Blood Type Antibody Screen Crossmatch 05/20/20 05/20/20 05/20/20 Range/Units 04:49 06:05 06:05 WBC 9.97 (4.0-11.0) K/uL RBC 3.32 L (4.50-5.90) M/uL Hgb 9.2 L (13.0-17.0) g/dL Hct 30.6 L (38.0-50.0) % MCV 92.2 (80.0-98.0) fL MCH 27.7 (27.0-32.0) pg MCHC 30.1 L (31.0-37.0) g/dL RDW Std Deviation 50.5 (28.0-62.0) fl RDW Coeff of Renetta 15 (11.0-15.0) % Plt Count 206 (150-400) K/uL MPV 9.70 (7.40-12.00) fL Neut % (Auto) 86.1 H (48.0-80.0) % Lymph % (Auto) 7.0 L (16.0-40.0) % [place] % (Auto) 6.4 (0.0-15.0) % Eos % (Auto) 0.3 (0.0-7.0) % Baso % (Auto) 0.2 (0.0-1.5) % Neut # (Auto) 8.6 H (1.4-5.7) K/uL Lymph # (Auto) 0.7 (0.6-2.4) K/uL [place] # (Auto) 0.6 (0.0-0.8) K/uL Eos # (Auto) 0.0 (0.0-0.7) K/uL Baso # (Auto) 0.0 (0.0-0.1) K/uL Nucleated RBC % 0.0 /100WBC Nucleated RBCs # 0 K/uL Sodium 142 (136-148) mmol/L Potassium 4.0 (3.5-5.1) mmol/L Chloride 104 (98-107) mmol/L Carbon Dioxide 33.0 H (21.0-32.0) mmol/L BUN 32 H (7.0-18.0) mg/dL Creatinine 1.3 (0.8-1.3) mg/dL Est Cr Clr Drug Dosing 37.28 mL/min Estimated GFR (MDRD) 53.3 ml/min Glucose 137 H (74-106) mg/dL POC Glucose 162 H (60-110) mg/dL Calcium 8.4 L (8.5-10.1) mg/dL Magnesium 1.9 (1.8-2.4) mg/dL Total Bilirubin 0.7 (0.2-1.0) mg/dL AST 16 (15-37) IU/L ALT 16 (14-63) IU/L Alkaline Phosphatase 78 (46-116) U/L B-Natriuretic Peptide (<100) PG/ML Total Protein 6.0 L (6.4-8.2) g/dL Albumin 2.9 L (3.4-5.0) g/dL Globulin 3.1 (2.6-4.0) g/dL Albumin/Globulin Ratio 0.9 (0.9-1.6) SARS-CoV-2 RNA ([place]) (NEGATIVE) Blood Type Antibody Screen Crossmatch [place] Results Last 24 Hours: Microbiology 05/19/20 20:17 Stool Occult Blood (MORALES) - Final Stool / Feces Med Orders - Current: Current Medications Albuterol/Ipratropium (Duoneb 3.0-0.5 Mg/3 Ml) 3 ml NEB Q6HRRT PRN PRN Reason: Shortness of Breath Last Admin: 05/20/20 02:32 Dose: 3 ml Documented by: Allopurinol (Zyloprim) 300 mg PO DAILY [facility] Digoxin (Lanoxin) 125 mcg PO DAILY [facility] Last Admin: 05/20/20 09:11 Dose: 125 mcg Documented by: Pantoprazole Sodium 40 mg/ (Sodium Chloride) 10 mls @ 300 mls/hr IV BID [facility] Last Admin: 05/20/20 09:05 Dose: 300 mls/hr Documented by: Ondansetron HCl (Zofran) 4 mg IVPUSH Q4H PRN PRN Reason: Nausea Fluticasone/Salmeterol (Advair Diskus 100-50) 1 puff INH BID [facility] Simvastatin (Zocor) 80 mg PO BEDTIME [facility] Sucralfate (Carafate) 1 gm PO TIDAC [facility] Tamsulosin HCl (Flomax) 0.4 mg PO DAILY [facility] Last Admin: 05/20/20 09:11 Dose: 0.4 mg Documented by: Tiotropium Beatrice (Spiriva Handihaler) 18 mcg INH DAILY [facility] Last Admin: 05/20/20 09:07 Dose: 1 cap Documented by: Torsemide (Demadex) 40 mg PO DAILY [facility] Last Admin: 05/20/20 09:11 Dose: 40 mg Documented by: Discontinued Medications Sodium Chloride (Normal Saline) 1,000 mls @ 999 mls/hr IV STAT ONE Stop: 05/19/20 11:18 Last Admin: 05/19/20 10:37 Dose: 999 mls/hr Documented by: Sodium Chloride (Normal Saline) 1,000 mls @ 75 mls/hr IV ONETIME ONE Stop: 05/20/20 04:34 Last Admin: 05/19/20 18:55 Dose: Not Given Documented by: Sodium Chloride (Normal Saline) 500 mls @ 75 mls/hr IV STAT ONE Stop: 05/20/20 14:41 Last Admin: 05/20/20 09:32 Dose: Not Given Documented by: Iopamidol (Isovue Multipack-370 (76%)) 75 ml IVPUSH ONETIME STA Stop: 05/19/20 13:25 Last Admin: 05/19/20 13:25 Dose: 75 ml Documented by: - Exam General: Alert, Oriented, Cooperative, No Acute Distress Lungs: Clear to Auscultation, Normal Respiratory Effort Cardiovascular: Regular Rate, Irregular Rhythm GI/Abdominal Exam: Normal Bowel Sounds, Soft, Non-Tender, No Distention Extremities: Other (trace pitting edema b/l) Sepsis Event Note - Evaluation Sepsis Screening Result: No Definite Risk - Focused Exam Vital Signs: Vital Signs Temp Temp Pulse Pulse Resp BP Pulse Ox 05/20/20 11:48 36.6 C 84 16 99/57 L 98 05/20/20 09:11 72 05/20/20 07:21 36.7 C 87 16 80/50 L 05/20/20 04:56 36.9 C 78 21 H 90/51 L 93 L 05/20/20 01:35 37.0 C 72 20 97/52 L 90 L 05/20/20 00:35 37.2 C 84 17 91/56 L 94 L 05/20/20 00:29 36.9 C 61 20 105/63 98 - Problem List & Annotations (1) Symptomatic anemia SNOMED Code(s): 601603935 Code(s): D64.9 - ANEMIA, UNSPECIFIED Status: Acute Current Visit: Yes (2) Acute kidney injury SNOMED Code(s): 18530757, 06205770 Code(s): N17.9 - ACUTE KIDNEY FAILURE, UNSPECIFIED Status: Acute Current Visit: No (3) Congestive heart disease SNOMED Code(s): 66657383 Code(s): I50.9 - HEART FAILURE, UNSPECIFIED Status: Acute Current Visit: No Qualifiers: Heart failure type: combined systolic and diastolic Heart failure chronicity: acute on chronic Qualified Code(s): I50.43 - Acute on chronic combined systolic (congestive) and diastolic (congestive) heart failure (4) Afib SNOMED Code(s): 05119190 Code(s): I48.91 - UNSPECIFIED ATRIAL FIBRILLATION Status: Chronic Current Visit: No Qualifiers: Atrial fibrillation type: permanent Qualified Code(s): I48.21 - Permanent atrial fibrillation (5) COPD (chronic obstructive pulmonary disease) SNOMED Code(s): 42288345 Code(s): J44.9 - CHRONIC OBSTRUCTIVE PULMONARY DISEASE, UNSPECIFIED Status: Chronic Current Visit: No Qualifiers: COPD type: chronic bronchitis (6) Diabetes mellitus SNOMED Code(s): 28863324 Code(s): E11.9 - TYPE 2 DIABETES MELLITUS WITHOUT COMPLICATIONS Status: Chronic Current Visit: No Qualifiers: Diabetes mellitus type: type 2 Diabetes mellitus long-term insulin use: without tariff expert use (7) History of CVA (cerebrovascular accident) SNOMED Code(s): 555616487 Code(s): Z86.73 - PRSNL HX OF TIA (TIA), AND CEREB INFRC W/O RESID DEFICITS Status: Chronic Current Visit: No (8) Oxygen dependent SNOMED Code(s): 969117083794 Code(s): Z99.81 - DEPENDENCE ON SUPPLEMENTAL OXYGEN Status: Chronic Current Visit: No - Problem List Review Problem List Initiated/Reviewed/Updated: Yes - My Orders Last 24 Hours: My Active Orders 05/19/20 13:27 Notify Provider Consults [RC] ASDIRECTED Consult to Physician [CONS] Urgent 05/19/20 13:43 Telemetry Monitoring [Cardiac Monitoring] [RC] Q8H 05/19/20 13:47 Oxygen Therapy [RC] PRN VTE/DVT Education [RC] PER UNIT ROUTINE Vital Signs [RC] Q4H Ondansetron [Zofran] 4 mg IVPUSH Q4H PRN Resuscitation Status Routine 05/19/20 13:48 Antiembolic Devices [RC] PER UNIT ROUTINE Sequential Compression Device [OM.PC] Per Unit Routine 05/19/20 14:00 Pantoprazole [ProTONIX IV] 40 mg Sodium Chloride 0.9% [Normal Saline] 10 ml IV BID 05/19/20 14:17 Up With Assistance [RC] ASDIRECTED 05/19/20 14:44 Communication Order [RC] ROUTINE 05/19/20 14:54 Accu Check [Blood Glucose Check, Bedside] [RC] Q6H 05/19/20 18:48 RT Post Treatment Assessment [RC] Click to Edit RT Pre-Treatment Assessment [RC] Click to Edit 05/20/20 Breakfast Fluid Restriction [DIET] 05/20/20 09:00 Digoxin [Lanoxin] 125 mcg PO DAILY Tamsulosin [Flomax] 0.4 mg PO DAILY Tiotropium [Spiriva HandiHaler] 18 mcg INH DAILY Torsemide [Demadex] 40 mg PO DAILY 05/20/20 Lunch Heart Healthy Diet [DIET] 05/20/20 12:00 allopurinoL [Zyloprim] 300 mg PO DAILY 05/20/20 12:01 RT Post Treatment Assessment [RC] Click to Edit RT Pre-Treatment Assessment [RC] Click to Edit 05/20/20 12:03 Sucralfate [Carafate] 1 gm PO TIDAC 05/20/20 12:15 Fluticasone/Salmeterol [Advair Diskus 100-50] 1 puff INH BID 05/20/20 15:00 HEMOGLOBIN [HEME] Routine 05/20/20 21:00 Simvastatin [Zocor] 80 mg PO BEDTIME 05/21/20 05:11 CBC WITH AUTO DIFF [HEME] AM CMP [COMPREHENSIVE METABOLIC PN,CMP] [CHEM] AM - Plan Plan:: Assessment and Plan: 1. Acute symptomatic anemia s/p transfusion of 2 units of PRBC's: - Post-transfusion hemoglobin level was 9.3. Patient evaluated by general surgery who does not feel patient is a good candidate for EGD at this time and recommended continuing PPI therapy and starting Carafate TID. Patient to follow- up with general surgery as an outpatient. Patient will be started on oral diet. Will recheck hemoglobin level again this afternoon. 2. Atrial fibrillation, rate controlled: - Patient on telemetry. Will hold home anticoagulation medication secondary to #1. 3. GIRISH likely secondary to #1, improved: - Will continue to monitor. 4. Elevated D-dimer: - CT angio negative for PE. 5. Diabetes mellitus type II: - Will hold metformin. Accuchecks TIDAC and SSI. 6. DVT prophylaxis: SCD's. 7. Past medical history of COPD on home oxygen, CAD, CHF, HTN and CVA: - Resume home medications with the exception of antiplatelets and anticoagulants secondary to #1.
[2020-05-20] MEDS: Fluticasone/Salmeterol 100-50 MCG Inhalation Powder 14/Diskus INH SCH ×2 (12:19→21:10)
[2020-05-20] MEDS: Sucralfate Suspension 1 GM/10 ML Cup PO SCH ×2 (13:17→16:37)
[2020-05-20] MEDS: Allopurinol 300 MG Tab PO SCH (13:18)
[2020-05-20] MEDS ORDERED: Simvastatin 40 MG Tab PO SCH (21:00)
[2020-05-21] MEDS: Sucralfate Suspension 1 GM/10 ML Cup PO SCH ×2 (06:40→12:57)
[2020-05-21 06:56] LABS: CARBON DIOXIDE,CO2 35.3 mmol/L (21.0-32.0); POTASSIUM,K 3.9 mmol/L (3.5-5.1)
[2020-05-21] MEDS: Albuterol/Ipratropium 3.0-0.5 MG/3 ML Neb Soln NEB PRN (07:31)
[2020-05-21] MEDS: Tamsulosin 0.4 MG Cap.ER PO SCH (10:00)
[2020-05-21] MEDS: Torsemide 20 MG Tab PO SCH (10:00)
[2020-05-21] MEDS: Digoxin 125 MCG Tab PO SCH (10:00)
[2020-05-21] MEDS: Allopurinol 300 MG Tab PO SCH (10:01)
[2020-05-21] MEDS: Tiotropium Inhaler 18 MCG Inhalation Powder Cap Kit of 5 INH SCH (10:03)
[2020-05-21] MEDS: Pantoprazole 40 MG in Sodium Chloride 0.9% 10 ML IV SCH (10:04)
[2020-05-21] MEDS: Fluticasone/Salmeterol 100-50 MCG Inhalation Powder 14/Diskus INH SCH (10:05)
--- NOTE | 2020-05-21 12:42 | PCM.DCSUM1 ---
<Colby Jacob - Last Filed: 05/21/20 13:35> Discharge Summary - Hospital Course Free Text/Narrative:: 80-year-old male admitted for acute symptomatic anemia. He has a PMH of a-fib, COPD on home oxygen, CAD, CHF, HTN and CVA. On admission, patient's hemoglobin level was 6.8 and was complaining of shortness of breath. His aspirin and pradaxa which he takes for a-fib was held on admission. CT angio was negative for PE. CXR and UA were unremarkable. COVID19 test negative. Hemoccult stool test was positive. Patient was transfused with 2 units of PRBC's and post- transfusion Hgb was 9.3. General surgery was consulted who did not feel patient was a good candidate for EGD at this time and recommended PPI BID, Carafate TID and outpatient follow-up would be appropriate. His hemoglobin was monitored and remained stable throughout hospitalization. He was discharged in stable condition and given scripts for pantoprazole 40 mg BID and Carafate TID. His aspirin and Pradaxa were held on discharge and advised to follow-up with PCP and general surgery. Patient's was called and updated on plan per patient's request. - Discharge Data Discharge Date: 05/21/20 Discharge Disposition: Home, W Home Health Agency 06 Condition: Stable - Referral to Home Health Date of Face to Face Encounter: 05/21/20 Reason for Homebound Status: Resume home health. Primary Care Physician: Robert Quintero NP Skilled Need: Resume home health. - Discharge Diagnosis/Problem(s) (1) Symptomatic anemia SNOMED Code(s): 255626014 ICD Code: D64.9 - ANEMIA, UNSPECIFIED Status: Acute (2) Acute kidney injury SNOMED Code(s): 56019052, 50324110 ICD Code: N17.9 - ACUTE KIDNEY FAILURE, UNSPECIFIED Status: Acute (3) Congestive heart disease SNOMED Code(s): 11344221 ICD Code: I50.9 - HEART FAILURE, UNSPECIFIED Status: Acute Qualifiers: Heart failure type: combined systolic and diastolic Heart failure chronicity: acute on chronic Qualified Code(s): I50.43 - Acute on chronic combined systolic (congestive) and diastolic (congestive) heart failure (4) Afib SNOMED Code(s): 92476771 ICD Code: I48.91 - UNSPECIFIED ATRIAL FIBRILLATION Status: Chronic Qualifiers: Atrial fibrillation type: permanent Qualified Code(s): I48.21 - Permanent atrial fibrillation (5) COPD (chronic obstructive pulmonary disease) SNOMED Code(s): 09649677 ICD Code: J44.9 - CHRONIC OBSTRUCTIVE PULMONARY DISEASE, UNSPECIFIED Status: Chronic Qualifiers: COPD type: chronic bronchitis (6) Diabetes mellitus SNOMED Code(s): 91175716 ICD Code: E11.9 - TYPE 2 DIABETES MELLITUS WITHOUT COMPLICATIONS Status: Chronic Qualifiers: Diabetes mellitus type: type 2 Diabetes mellitus mcc insulin use: without mcc use (7) History of CVA (cerebrovascular accident) SNOMED Code(s): 776742720 ICD Code: Z86.73 - PRSNL HX OF TIA (TIA), AND CEREB INFRC W/O RESID DEFICITS Status: Chronic (8) Oxygen dependent SNOMED Code(s): 475485573315 ICD Code: Z99.81 - DEPENDENCE ON SUPPLEMENTAL OXYGEN Status: Chronic - Patient Summary/Data Consults: Consultations 05/19/20 13:27 Consult to Physician [CONS] Urgent - Patient Instructions Diet: Heart Healthy Diet, Low Sodium Fluid Restriction: 2000 mL Activity: As Tolerated Notify Provider of: Fever, Increased Pain, Swelling and Redness, Drainage, Nausea and/or Vomiting Other/Special Instructions: bloody stools - Discharge Plan *PRESCRIPTION DRUG MONITORING PROGRAM REVIEWED*: Not Applicable *COPY OF PRESCRIPTION DRUG MONITORING REPORT IN PATIENT BI: Not Applicable Prescriptions/Med Rec: Sucralfate [Carafate] 1 gm PO TIDAC 14 Days #420 ml Pantoprazole [ProTONIX] 40 mg PO BID 30 Days #60 tab.cr Home Medications: Home Meds Albuterol [Proventil HFA] 2 puff INH Q6H PRN 11/05/17 [History] Omeprazole 20 mg PO ACBREAKFAST 11/05/17 [History] Simvastatin [Zocor] 80 mg PO BEDTIME 11/05/17 [History] Tiotropium [Spiriva HandiHaler] 18 mcg INH DAILY 11/05/17 [History] allopurinoL [Zyloprim] 300 mg PO DAILY 11/05/17 [History] metFORMIN HCl [Metformin HCl] 500 mg PO BIDMEALS 11/05/17 [History] Tamsulosin HCl [Flomax] 0.4 mg PO DAILY 07/01/19 [History] Acetaminophen [Mapap] 500 - 1,000 mg PO Q6H PRN MDD 3000 MG 05/19/20 [History] Albuterol/Ipratropium [DuoNeb 3.0-0.5 MG/3 ML] 3 ml NEB QID PRN 05/19/20 [History] Budesonide/Formoterol Fumarate [Symbicort 80-4.5 MCG] 1 inh IH BID 05/19/20 [History] Digoxin [Digox] 125 mcg PO DAILY 05/19/20 [History] Docusate Sodium 240 mg PO DAILY PRN 05/19/20 [History] Ferrous Sulfate 325 mg PO DAILY 05/19/20 [History] Glucosamine [Glucosamine Sulfate] 1,000 mg PO DAILY 05/19/20 [History] Potassium Chloride [Klor-Con M20] 20 meq PO DAILY 05/19/20 [History] Torsemide 40 mg PO DAILY 05/19/20 [History] Vitamin B Complex [B Complex] 1 tab PO DAILY 05/19/20 [History] metOLazone [Metolazone] 2.5 mg PO WEEKLY 05/19/20 [History] Pantoprazole [ProTONIX] 40 mg PO BID 30 Days #60 tab.cr 05/21/20 [Rx] Sucralfate [Carafate] 1 gm PO TIDAC 14 Days #420 ml 05/21/20 [Rx] Oxygen Therapy Mode: Nasal Cannula Patient Handouts: Chronic Obstructive Pulmonary Disease, [id number], Gastrointestinal Bleeding, [id number] Referrals: Tiburcio Abdul MD [Physician] - 05/27/20 1:00 pm Leesa Philippe MD [Physician] - 06/07/20 11:00 am Robert Quintero NP [Primary Care Provider] - 05/31/20 2:00 pm (Patient has follow up appointment with Jeana WEINSTEIN at [facility] on 05/31/20 at 2pm please come 15 minutes early and wear a mask.) - Discharge Summary/Plan Comment DC Time >30 min.: No - Patient Data Vitals - Most Recent: Last Vital Signs Temp 36.4 C 05/21/20 04:19 Pulse 81 05/21/20 10:11 Resp 15 05/21/20 10:11 BP 91/61 05/21/20 10:11 Pulse Ox 97 05/21/20 10:11 Weight - Most Recent: 57.243 kg I&O - Last 24 hours: Intake & Output 05/20/20 05/21/20 05/21/20 22:59 06:59 14:59 Intake Total 850 240 Output Total 690 Balance 850 -450 Lab Results - Last 24 hrs: Laboratory Results - last 24 hr 05/20/20 05/20/20 05/21/20 Range/Units 15:07 16:36 06:00 WBC (4.0-11.0) K/uL RBC (4.50-5.90) M/uL Hgb 9.3 L (13.0-17.0) g/dL Hct (38.0-50.0) % MCV (80.0-98.0) fL MCH (27.0-32.0) pg MCHC (31.0-37.0) g/dL RDW Std Deviation (28.0-62.0) fl RDW Coeff of Renetta (11.0-15.0) % Plt Count (150-400) K/uL MPV (7.40-12.00) fL Neut % (Auto) (48.0-80.0) % Lymph % (Auto) (16.0-40.0) % [place] % (Auto) (0.0-15.0) % Eos % (Auto) (0.0-7.0) % Baso % (Auto) (0.0-1.5) % Neut # (Auto) (1.4-5.7) K/uL Lymph # (Auto) (0.6-2.4) K/uL [place] # (Auto) (0.0-0.8) K/uL Eos # (Auto) (0.0-0.7) K/uL Baso # (Auto) (0.0-0.1) K/uL Nucleated RBC % /100WBC Nucleated RBCs # K/uL Sodium (136-148) mmol/L Potassium (3.5-5.1) mmol/L Chloride (98-107) mmol/L Carbon Dioxide (21.0-32.0) mmol/L BUN (7.0-18.0) mg/dL Creatinine (0.8-1.3) mg/dL Est Cr Clr Drug Dosing mL/min Estimated GFR (MDRD) ml/min Glucose (74-106) mg/dL POC Glucose 105 120 H (60-110) mg/dL Calcium (8.5-10.1) mg/dL Total Bilirubin (0.2-1.0) mg/dL AST (15-37) IU/L ALT (14-63) IU/L Alkaline Phosphatase (46-116) U/L Total Protein (6.4-8.2) g/dL Albumin (3.4-5.0) g/dL Globulin (2.6-4.0) g/dL Albumin/Globulin Ratio (0.9-1.6) 05/21/20 05/21/20 05/21/20 Range/Units 06:18 06:18 11:36 WBC 10.46 (4.0-11.0) K/uL RBC 3.42 L (4.50-5.90) M/uL Hgb 9.3 L (13.0-17.0) g/dL Hct 32.0 L (38.0-50.0) % MCV 93.6 (80.0-98.0) fL MCH 27.2 (27.0-32.0) pg MCHC 29.1 L (31.0-37.0) g/dL RDW Std Deviation 50.5 (28.0-62.0) fl RDW Coeff of Renetta 15 (11.0-15.0) % Plt Count 206 (150-400) K/uL MPV 10.20 (7.40-12.00) fL Neut % (Auto) 81.7 H (48.0-80.0) % Lymph % (Auto) 8.3 L (16.0-40.0) % [place] % (Auto) 8.4 (0.0-15.0) % Eos % (Auto) 1.3 (0.0-7.0) % Baso % (Auto) 0.3 (0.0-1.5) % Neut # (Auto) 8.5 H (1.4-5.7) K/uL Lymph # (Auto) 0.9 (0.6-2.4) K/uL [place] # (Auto) 0.9 H (0.0-0.8) K/uL Eos # (Auto) 0.1 (0.0-0.7) K/uL Baso # (Auto) 0.0 (0.0-0.1) K/uL Nucleated RBC % 0.0 /100WBC Nucleated RBCs # 0 K/uL Sodium 138 (136-148) mmol/L Potassium 3.9 (3.5-5.1) mmol/L Chloride 100 (98-107) mmol/L Carbon Dioxide 35.3 H (21.0-32.0) mmol/L BUN 26 H (7.0-18.0) mg/dL Creatinine 1.4 H (0.8-1.3) mg/dL Est Cr Clr Drug Dosing 34.64 mL/min Estimated GFR (MDRD) 48.9 ml/min Glucose 118 H (74-106) mg/dL POC Glucose 171 H (60-110) mg/dL Calcium 8.6 (8.5-10.1) mg/dL Total Bilirubin 0.6 (0.2-1.0) mg/dL AST 12 L (15-37) IU/L ALT 16 (14-63) IU/L Alkaline Phosphatase 79 (46-116) U/L Total Protein 6.2 L (6.4-8.2) g/dL Albumin 2.9 L (3.4-5.0) g/dL Globulin 3.3 (2.6-4.0) g/dL Albumin/Globulin Ratio 0.9 (0.9-1.6) Med Orders - Current: Current Medications Albuterol/Ipratropium (Duoneb 3.0-0.5 Mg/3 Ml) 3 ml NEB Q6HRRT PRN PRN Reason: Shortness of Breath Last Admin: 05/21/20 07:31 Dose: 3 ml Documented by: Allopurinol (Zyloprim) 300 mg PO DAILY [facility] Last Admin: 05/21/20 10:01 Dose: 300 mg Documented by: Digoxin (Lanoxin) 125 mcg PO DAILY [facility] Last Admin: 05/21/20 10:00 Dose: 125 mcg Documented by: Pantoprazole Sodium 40 mg/ (Sodium Chloride) 10 mls @ 300 mls/hr IV BID [facility] Last Admin: 05/21/20 10:04 Dose: 300 mls/hr Documented by: Ondansetron HCl (Zofran) 4 mg IVPUSH Q4H PRN PRN Reason: Nausea Fluticasone/Salmeterol (Advair Diskus 100-50) 1 puff INH BID [facility] Last Admin: 05/21/20 10:05 Dose: 1 inhalation Documented by: Simvastatin (Zocor) 80 mg PO BEDTIME [facility] Last Admin: 05/20/20 21:04 Dose: 80 mg Documented by: Sucralfate (Carafate) 1 gm PO TIDAC [facility] Last Admin: 05/21/20 06:40 Dose: 1 gm Documented by: Tamsulosin HCl (Flomax) 0.4 mg PO DAILY [facility] Last Admin: 05/21/20 10:00 Dose: 0.4 mg Documented by: Tiotropium Cost (Spiriva Handihaler) 18 mcg INH DAILY [facility] Last Admin: 05/21/20 10:03 Dose: 1 cap Documented by: Torsemide (Demadex) 40 mg PO DAILY [facility] Last Admin: 05/21/20 10:00 Dose: 40 mg Documented by: Discontinued Medications Sodium Chloride (Normal Saline) 1,000 mls @ 999 mls/hr IV STAT ONE Stop: 05/19/20 11:18 Last Admin: 05/19/20 10:37 Dose: 999 mls/hr Documented by: Sodium Chloride (Normal Saline) 1,000 mls @ 75 mls/hr IV ONETIME ONE Stop: 05/20/20 04:34 Last Admin: 05/19/20 18:55 Dose: Not Given Documented by: Sodium Chloride (Normal Saline) 500 mls @ 75 mls/hr IV STAT ONE Stop: 05/20/20 14:41 Last Admin: 05/20/20 09:32 Dose: Not Given Documented by: Iopamidol (Isovue Multipack-370 (76%)) 75 ml IVPUSH ONETIME STA Stop: 05/19/20 13:25 Last Admin: 05/19/20 13:25 Dose: 75 ml Documented by: <Yash Salmon - Last Filed: 05/23/20 22:38> Discharge Summary - Referral to Home Health Date of Face to Face Encounter: 05/21/20 Reason for Homebound Status: resume home health Primary Care Physician: Robert Quintero NP Skilled Need: resume home health - Patient Summary/Data Consults: Consultations 05/19/20 13:27 Consult to Physician [CONS] Urgent - Patient Data Vitals - Most Recent: Last Vital Signs Temp 36.4 C 05/21/20 04:19 Pulse 81 05/21/20 10:11 Resp 15 05/21/20 10:11 BP 91/61 05/21/20 10:11 Pulse Ox 97 05/21/20 10:11 Med Orders - Current: Current Medications Discontinued Medications Albuterol/Ipratropium (Duoneb 3.0-0.5 Mg/3 Ml) 3 ml NEB Q6HRRT PRN PRN Reason: Shortness of Breath Last Admin: 05/21/20 07:31 Dose: 3 ml Documented by: Allopurinol (Zyloprim) 300 mg PO DAILY [facility] Last Admin: 05/21/20 10:01 Dose: 300 mg Documented by: Digoxin (Lanoxin) 125 mcg PO DAILY [facility] Last Admin: 05/21/20 10:00 Dose: 125 mcg Documented by: Sodium Chloride (Normal Saline) 1,000 mls @ 999 mls/hr IV STAT ONE Stop: 05/19/20 11:18 Last Admin: 05/19/20 10:37 Dose: 999 mls/hr Documented by: Pantoprazole Sodium 40 mg/ (Sodium Chloride) 10 mls @ 300 mls/hr IV BID [facility] Last Admin: 05/21/20 10:04 Dose: 300 mls/hr Documented by: Sodium Chloride (Normal Saline) 1,000 mls @ 75 mls/hr IV ONETIME ONE Stop: 05/20/20 04:34 Last Admin: 05/19/20 18:55 Dose: Not Given Documented by: Sodium Chloride (Normal Saline) 500 mls @ 75 mls/hr IV STAT ONE Stop: 05/20/20 14:41 Last Admin: 05/20/20 09:32 Dose: Not Given Documented by: Iopamidol (Isovue Multipack-370 (76%)) 75 ml IVPUSH ONETIME STA Stop: 05/19/20 13:25 Last Admin: 05/19/20 13:25 Dose: 75 ml Documented by: Ondansetron HCl (Zofran) 4 mg IVPUSH Q4H PRN PRN Reason: Nausea Fluticasone/Salmeterol (Advair Diskus 100-50) 1 puff INH BID [facility] Last Admin: 05/21/20 10:05 Dose: 1 inhalation Documented by: Simvastatin (Zocor) 80 mg PO BEDTIME [facility] Last Admin: 05/20/20 21:04 Dose: 80 mg Documented by: Sucralfate (Carafate) 1 gm PO TIDAC [facility] Last Admin: 05/21/20 12:57 Dose: 1 gm Documented by: Tamsulosin HCl (Flomax) 0.4 mg PO DAILY [facility] Last Admin: 05/21/20 10:00 Dose: 0.4 mg Documented by: Tiotropium Cost (Spiriva Handihaler) 18 mcg INH DAILY [facility] Last Admin: 05/21/20 10:03 Dose: 1 cap Documented by: Torsemide (Demadex) 40 mg PO DAILY [facility] Last Admin: 05/21/20 10:00 Dose: 40 mg Documented by: - Free Text/Narrative Note: I have seen and evaluated the patient. I have discussed findings and treatment plan with resident. I agree with the assessment and plan in the following note.
== END 2020-05-21 01:10 | disposition home health service (06) | DRG 812 ==
LOC: MW.ED 09:42 → MW.MS 12:43
PROVIDERS: ADMIT Internal Medicine; ATTEND Internal Medicine
PROC: 30233N1 Transfusion of Nonautologous Red Blood Cells into Peripheral Vein, Percutaneous Approach (ICD-10-PCS; principal; 2020-05-19)
DX: D64.9 Anemia, unspecified (principal); N17.9 Acute kidney failure, unspecified; I48.21 Permanent atrial fibrillation; I50.42 Chronic combined systolic (congestive) and diastolic (congestive) heart failure; J44.9 Chronic obstructive pulmonary disease, unspecified; I25.10 Atherosclerotic heart disease of native coronary artery without angina pectoris; I11.0 Hypertensive heart disease with heart failure; Z20.828 Contact with and (suspected) exposure to other viral communicable diseases; K21.9 Gastro-esophageal reflux disease without esophagitis; M10.9 Gout, unspecified; E11.9 Type 2 diabetes mellitus without complications; I27.20 Pulmonary hypertension, unspecified; Z86.73 Personal history of transient ischemic attack (TIA), and cerebral infarction without residual deficits; Z99.81 Dependence on supplemental oxygen; Z79.01 Long term (current) use of anticoagulants; Z79.899 Other long term (current) drug therapy; Z79.84 Long term (current) use of oral hypoglycemic drugs; Z79.02 Long term (current) use of antithrombotics/antiplatelets; Z79.82 Long term (current) use of aspirin; Z87.891 Personal history of nicotine dependence; Z98.49 Cataract extraction status, unspecified eye
CPT/HCPCS: 36415; 36430; 71045; 71045-26; 71275; 71275-26; 80053; 81003; 82272; 82962; 83735; 83880; 84484; 85014; 85018; 85025; 85379; 85610; 86850; 86900; 86901; 86920; 86921; 86922; 93005; 93010; 94640; 99285; 99285-25; A9270-GY; C9113; J7030; J7620-GY; P9016; Q9967; U0002

== ENCOUNTER 2020-05-31 15:30 | Emergency (ER) | payer OTHER, MEDICARE ==
[2020-05-31] MEDS ORDERED: Sodium Chloride 0.9% 10 ML Syringe FLUSH PRN (15:42)
[2020-05-31] MEDS ORDERED: Sodium Chloride 0.9% 2.5 ML Syringe FLUSH PRN (15:42)
[2020-05-31] MEDS ORDERED: Aspirin 81 MG Tab.Chew PO ONE (15:42)
--- NOTE | 2020-05-31 15:45 | EDM.PDOC ---
ED HPI GENERAL MEDICAL PROBLEM - General Chief Complaint: Chest Pain Stated Complaint: CHEST PAIN Time Seen by Provider: 05/31/20 15:35 Source of Information: Reports: Patient History Limitations: Reports: No Limitations - History of Present Illness INITIAL COMMENTS - FREE TEXT/NARRATIVE: 80-year-old male past medical history CHF, CAD status post CABG, diabetes, GERD, CVA, carotid stenosis, A. fib, COPD on home O2 presents for chest pain. Patient states that he has been feeling this pain for about 2 weeks in his left anterior chest. It is associated with shortness of breath. It is on and off and does not seem to be related to exertion. Patient notes that he was discharged from hospital 2 weeks ago, and he has had the pain ever since discharge. He was hospitalized for CHF exacerbation, anemia. He has follow-up appointment on 06/[address] Anderson for a scope. He denies fever, cough. L shoulder blade Pain Score (Numeric/FACES): 2 - Related Data Allergies Allergy/AdvReac Type Severity Reaction Status Date / Time No Known Allergies Allergy Verified 05/31/20 15:44 Home Meds: Home Meds Albuterol [Proventil HFA] 2 puff INH Q6H PRN 11/05/17 [History] Omeprazole 20 mg PO ACBREAKFAST 11/05/17 [History] Simvastatin [Zocor] 80 mg PO BEDTIME 11/05/17 [History] Tiotropium [Spiriva HandiHaler] 18 mcg INH DAILY 11/05/17 [History] allopurinoL [Zyloprim] 300 mg PO DAILY 11/05/17 [History] metFORMIN HCl [Metformin HCl] 500 mg PO BIDMEALS 11/05/17 [History] Tamsulosin HCl [Flomax] 0.4 mg PO DAILY 07/01/19 [History] Acetaminophen [Mapap] 500 - 1,000 mg PO Q6H PRN MDD 3000 MG 05/19/20 [History] Albuterol/Ipratropium [DuoNeb 3.0-0.5 MG/3 ML] 3 ml NEB QID PRN 05/19/20 [History] Budesonide/Formoterol Fumarate [Symbicort 80-4.5 MCG] 1 inh IH BID 05/19/20 [History] Digoxin [Digox] 125 mcg PO DAILY 05/19/20 [History] Docusate Sodium 240 mg PO DAILY PRN 05/19/20 [History] Ferrous Sulfate 325 mg PO DAILY 05/19/20 [History] Glucosamine [Glucosamine Sulfate] 1,000 mg PO DAILY 05/19/20 [History] Potassium Chloride [Klor-Con M20] 20 meq PO DAILY 05/19/20 [History] Torsemide 40 mg PO DAILY 05/19/20 [History] Vitamin B Complex [B Complex] 1 tab PO DAILY 05/19/20 [History] metOLazone [Metolazone] 2.5 mg PO WEEKLY 05/19/20 [History] Pantoprazole [ProTONIX] 40 mg PO BID 30 Days #60 tab.cr 05/21/20 [Rx] Sucralfate [Carafate] 1 gm PO TIDAC 14 Days #420 ml 05/21/20 [Rx] Past Medical History HEENT History: Reports: Glaucoma Other HEENT History: wears glasses for reading, has top and bottom dentures Cardiovascular History: Reports: Afib, CAD, Heart Failure, High Cholesterol, Hypertension, Other (See Below) Respiratory History: Reports: COPD Other Respiratory History: Uses oxygen @ 2L [place] and inhalers at home Gastrointestinal History: Reports: GERD, Other (See Below) Genitourinary History: Reports: None Musculoskeletal History: Reports: Gout Neurological History: Reports: CVA Psychiatric History: Reports: None Endocrine/Metabolic History: Reports: Diabetes, Type II Hematologic History: Reports: None Immunologic History: Reports: None Oncologic (Cancer) History: Reports: None Dermatologic History: Reports: None - Infectious Disease History Infectious Disease History: Reports: None - Past Surgical History Head Surgeries/Procedures: Reports: None HEENT Surgical History: Reports: Cataract Surgery, Eye Surgery, Oral Surgery Other HEENT Surgeries/Procedures: eye surgery x3 Cardiovascular Surgical History: Reports: Coronary Artery Bypass Social & Family History - Family History Family Medical History: Noncontributory HEENT: Reports: Cataract, Glaucoma Cardiac: Reports: Afib, High Cholesterol, Hypertension Respiratory: Reports: None GI: Reports: None OBGYN: Reports: Neurological: Reports: CVA Psychiatric: Reports: None Endocrine/Metabolic: Reports: Diabetes, type II Hematologic: Reports: None Immunologic: Reports: None Dermatologic: Reports: None Oncologic: Reports: None - Caffeine Use Caffeine Use: Reports: Coffee Caffeine Use Comment: 1 cup/day coffee - Living Situation & Occupation Living situation: Reports: Occupation: Retired ED ROS GENERAL - Review of Systems Review Of Systems: Comprehensive ROS is negative, except as noted in HPI. ED EXAM, GENERAL - Physical Exam Exam: See Below Exam Limited By: No Limitations General Appearance: Alert, WD/WN, No Apparent Distress Throat/Mouth: Normal Voice, No Airway Compromise Head: Atraumatic, Normocephalic Neck: Normal Inspection Respiratory/Chest: No Respiratory Distress, No Accessory Muscle Use, Wheezing Cardiovascular: Normal Peripheral Pulses, Regular Rate, Rhythm, Other (Bilateral symmetric pitting edema) GI/Abdominal: Soft, Non-Tender Extremities: Normal Inspection Neurological: Alert Psychiatric: Normal Affect, Normal Mood Skin Exam: Warm, Dry, Intact, Normal Color #1 Interpretation EKG Date: 05/31/20 Time: 15:54 Rhythm: A-Fib Rate (Beats/Min): 87 [place]: Normal P-Wave: Present QRS: Normal ST-T: Normal QT: Normal Comparison: No Change Course - Vital Signs Last Recorded V/S: Last Vital Signs Temp 97.2 F 05/31/20 15:39 Pulse 83 05/31/20 17:05 Resp 17 05/31/20 17:05 BP 101/62 05/31/20 17:05 Pulse Ox 98 05/31/20 17:05 - Orders/Labs/Meds Orders: Active Orders 24 hr Category Date Time Status Cardiac Monitoring [RC] . DIRECTED Care 05/31/20 15:42 Active EKG Documentation Completion [RC] STAT Care 05/31/20 15:42 Active Pulse Oximetry [RC] ASDIRECTED Care 05/31/20 15:42 Active B-TYPE NATRIURETIC PEPTIDE,BNP [CHEM] Stat Lab 05/31/20 16:05 Received Sodium Chloride 0.9% [Saline Flush] Med 05/31/20 15:42 Active 10 ml FLUSH ASDIRECTED PRN Sodium Chloride 0.9% [Saline Flush] Med 05/31/20 15:42 Active 2.5 ml FLUSH ASDIRECTED PRN Saline Lock Insert [OM.PC] Stat Oth 05/31/20 15:42 Ordered Medication Orders Sodium Chloride (Saline Flush) 10 ml FLUSH ASDIRECTED PRN PRN Reason: Keep Vein Open Sodium Chloride (Saline Flush) 2.5 ml FLUSH ASDIRECTED PRN PRN Reason: Keep Vein Open Labs: Laboratory Tests 05/31/20 05/31/20 05/31/20 Range/Units 16:05 16:05 16:05 WBC 9.24 (4.0-11.0) K/uL RBC 3.27 L (4.50-5.90) M/uL Hgb 8.9 L (13.0-17.0) g/dL Hct 30.6 L (38.0-50.0) % MCV 93.6 (80.0-98.0) fL MCH 27.2 (27.0-32.0) pg MCHC 29.1 L (31.0-37.0) g/dL RDW Std Deviation 51.2 (28.0-62.0) fl RDW Coeff of Renetta 15 (11.0-15.0) % Plt Count 217 (150-400) K/uL MPV 9.70 (7.40-12.00) fL Neut % (Auto) 81.4 H (48.0-80.0) % Lymph % (Auto) 9.1 L (16.0-40.0) % [place] % (Auto) 8.0 (0.0-15.0) % Eos % (Auto) 1.3 (0.0-7.0) % Baso % (Auto) 0.2 (0.0-1.5) % Neut # (Auto) 7.5 H (1.4-5.7) K/uL Lymph # (Auto) 0.8 (0.6-2.4) K/uL Carolina # (Auto) 0.7 (0.0-0.8) K/uL Eos # (Auto) 0.1 (0.0-0.7) K/uL Baso # (Auto) 0.0 (0.0-0.1) K/uL Nucleated RBC % 0.0 /100WBC Nucleated RBCs # 0 K/uL INR 1.03 APTT 25.4 (18.6-31.3) SEC Lactate 2.3 H* (0.20-2.00) mmol/L Sodium (136-148) mmol/L Potassium (3.5-5.1) mmol/L Chloride (98-107) mmol/L Carbon Dioxide (21.0-32.0) mmol/L BUN (7.0-18.0) mg/dL Creatinine (0.8-1.3) mg/dL Est Cr Clr Drug Dosing mL/min Estimated GFR (MDRD) ml/min Glucose (74-106) mg/dL Calcium (8.5-10.1) mg/dL Magnesium (1.8-2.4) mg/dL Total Bilirubin (0.2-1.0) mg/dL AST (15-37) IU/L ALT (14-63) IU/L Alkaline Phosphatase (46-116) U/L Troponin I (0.000-0.056) ng/mL C-Reactive Protein (0.00-0.90) mg/dL Total Protein (6.4-8.2) g/dL Albumin (3.4-5.0) g/dL Globulin (2.6-4.0) g/dL Albumin/Globulin Ratio (0.9-1.6) Lipase (73-393) U/L SARS-CoV-2 RNA ([facility]) (NEGATIVE) 05/31/20 05/31/20 Range/Units 16:05 16:10 WBC (4.0-11.0) K/uL RBC (4.50-5.90) M/uL Hgb (13.0-17.0) g/dL Hct (38.0-50.0) % MCV (80.0-98.0) fL MCH (27.0-32.0) pg MCHC (31.0-37.0) g/dL RDW Std Deviation (28.0-62.0) fl RDW Coeff of Renetta (11.0-15.0) % Plt Count (150-400) K/uL MPV (7.40-12.00) fL Neut % (Auto) (48.0-80.0) % Lymph % (Auto) (16.0-40.0) % [place] % (Auto) (0.0-15.0) % Eos % (Auto) (0.0-7.0) % Baso % (Auto) (0.0-1.5) % Neut # (Auto) (1.4-5.7) K/uL Lymph # (Auto) (0.6-2.4) K/uL [place] # (Auto) (0.0-0.8) K/uL Eos # (Auto) (0.0-0.7) K/uL Baso # (Auto) (0.0-0.1) K/uL Nucleated RBC % /100WBC Nucleated RBCs # K/uL INR APTT (18.6-31.3) SEC Lactate (0.20-2.00) mmol/L Sodium 138 (136-148) mmol/L Potassium 4.5 (3.5-5.1) mmol/L Chloride 96 L (98-107) mmol/L Carbon Dioxide 37.7 H (21.0-32.0) mmol/L BUN 33 H (7.0-18.0) mg/dL Creatinine 1.4 H (0.8-1.3) mg/dL Est Cr Clr Drug Dosing 34.59 mL/min Estimated GFR (MDRD) 48.9 ml/min Glucose 120 H (74-106) mg/dL Calcium 8.9 (8.5-10.1) mg/dL Magnesium 1.7 L (1.8-2.4) mg/dL Total Bilirubin 0.2 (0.2-1.0) mg/dL AST 14 L (15-37) IU/L ALT 15 (14-63) IU/L Alkaline Phosphatase 91 (46-116) U/L Troponin I 0.057 H (0.000-0.056) ng/mL C-Reactive Protein 1.60 H (0.00-0.90) mg/dL Total Protein 6.8 (6.4-8.2) g/dL Albumin 3.0 L (3.4-5.0) g/dL Globulin 3.8 (2.6-4.0) g/dL Albumin/Globulin Ratio 0.8 L (0.9-1.6) Lipase 44 L (73-393) U/L SARS-CoV-2 RNA ([facility]) NEGATIVE (NEGATIVE) Meds: Medications Generic Name Dose Route Start Last Admin Trade Name Freq PRN Reason Stop Dose Admin Sodium Chloride 10 ml 05/31/20 15:42 Saline Flush FLUSH ASDIRECTED PRN Keep Vein Open Sodium Chloride 2.5 ml 05/31/20 15:42 Saline Flush FLUSH ASDIRECTED PRN Keep Vein Open Discontinued Medications Generic Name Dose Route Start Last Admin Trade Name Madisyn PRN Reason Stop Dose Admin Aspirin 324 mg 05/31/20 15:42 05/31/20 15:56 Aspirin PO 05/31/20 15:43 Not Given ONETIME ONE - Re-Assessments/Exams Free Text/Narrative Re-Assessment/Exam: 05/31/20 16:30 CBC remarkable for hemoglobin of 8.9. This is consistent with patient's baseline, he does not have worsening anemia. 05/31/20 17:24 Labs remarkable for mildly elevated troponin. Lactate of 2.3. Will call hospitalist for disposition recommendations. 05/31/20 17:32 Dr. Salmon agrees to admit for telemetry observation. Departure - Departure Time of Disposition: 17:32 Disposition: Admitted As Inpatient 67 Condition: Good Clinical Impression: Chest pain Qualifiers: Chest pain type: unspecified Qualified Code(s): R07.9 - Chest pain, unspecified - Discharge Information Referrals: Robert Quintero DAMPENER OPERATOR [Primary Care Provider] - Forms: ED Department Discharge Sepsis Event Note (ED) - Evaluation Sepsis Screening Result: No Definite Risk - Focused Exam Vital Signs: Vital Signs Temp Pulse Resp BP Pulse Ox 05/31/20 17:05 83 17 101/62 98 05/31/20 16:35 87 18 102/60 98 05/31/20 16:20 89 17 103/64 100 05/31/20 15:39 97.2 F 92 26 H 97/64 96 - My Orders Last 24 Hours: My Active Orders 05/31/20 15:42 Cardiac Monitoring [RC] . DIRECTED EKG Documentation Completion [RC] STAT Pulse Oximetry [RC] ASDIRECTED Sodium Chloride 0.9% [Saline Flush] 10 ml FLUSH ASDIRECTED PRN Sodium Chloride 0.9% [Saline Flush] 2.5 ml FLUSH ASDIRECTED PRN Saline Lock Insert [OM.PC] Stat 05/31/20 16:05 B-TYPE NATRIURETIC PEPTIDE,BNP [CHEM] Stat - Assessment/Plan Last 24 Hours: My Active Orders 05/31/20 15:42 Cardiac Monitoring [RC] . DIRECTED EKG Documentation Completion [RC] STAT Pulse Oximetry [RC] ASDIRECTED Sodium Chloride 0.9% [Saline Flush] 10 ml FLUSH ASDIRECTED PRN Sodium Chloride 0.9% [Saline Flush] 2.5 ml FLUSH ASDIRECTED PRN Saline Lock Insert [OM.PC] Stat 05/31/20 16:05 B-TYPE NATRIURETIC PEPTIDE,BNP [CHEM] Stat
[2020-05-31 16:50] LABS: CARBON DIOXIDE,CO2 37.7 mmol/L (21.0-32.0); POTASSIUM,K 4.5 mmol/L (3.5-5.1)
--- NOTE | 2020-05-31 17:02 | CR ---
INDICATION: Chest pain TECHNIQUE: Chest 1 view COMPARISON: Single view chest May 19, 2020 FINDINGS: Again seen is right-sided pleural thickening and pleural effusion with likely underlying chronic interstitial change versus atelectasis. Stable cardiac silhouette with median sternotomy wires and surgical clips in the left hemithorax. The bony thorax is grossly intact. IMPRESSION: Unchanged right basilar pleural effusion and chronic interstitial changes from comparison exam. Dictated by Malcolm Cuevas MD @ May 31 2020 4:59PM Signed by Dr. Malcolm Cuevas @ May 31 2020 5:01PM
== END 2020-05-31 17:51 | disposition critical access hospital (66) ==
LOC: MW.ED 15:30
DX: R07.89 Other chest pain (principal); I48.91 Unspecified atrial fibrillation; I25.10 Atherosclerotic heart disease of native coronary artery without angina pectoris; I11.0 Hypertensive heart disease with heart failure; I50.9 Heart failure, unspecified; E78.00 Pure hypercholesterolemia, unspecified; J44.9 Chronic obstructive pulmonary disease, unspecified; K21.9 Gastro-esophageal reflux disease without esophagitis; M10.9 Gout, unspecified; Z86.73 Personal history of transient ischemic attack (TIA), and cerebral infarction without residual deficits; E11.9 Type 2 diabetes mellitus without complications; Z79.84 Long term (current) use of oral hypoglycemic drugs; Z79.899 Other long term (current) drug therapy; Z95.1 Presence of aortocoronary bypass graft; Z99.81 Dependence on supplemental oxygen; Z20.828 Contact with and (suspected) exposure to other viral communicable diseases
CPT/HCPCS: 36415; 71045; 71045-26; 80053; 83605; 83690; 83735; 83880; 84484; 85025; 85610; 85730; 86140; 93005; 93010; 99285; 99285-25; U0002

== ENCOUNTER 2020-06-11 13:08 | Emergency (ER) | payer MEDICARE ==
--- NOTE | 2020-06-11 13:53 | EDM.PDOC ---
ED HPI GENERAL MEDICAL PROBLEM - General Chief Complaint: General Stated Complaint: LOW BLOOD PRESSURE Time Seen by Provider: 06/11/20 13:13 Source of Information: Reports: Patient, Family, Old Records History Limitations: Reports: No Limitations - History of Present Illness INITIAL COMMENTS - FREE TEXT/NARRATIVE: This is a very pleasant 80-year-old man with a past medical history of coronary artery disease status post CABG, diabetes mellitus, heart failure with preserved ejection fraction, pulmonary hypertension, CVA, carotid stenosis, COPD on oxygen, atrial fibrillation on Pradaxa, recent work-up for GI bleed. Recent hospitalization in April 2020 for shortness of breath and lightheadedness, requiring blood transfusion. He was evaluated by the general surgery service who did not think he was a good candidate for EGD given his numerous comorbidities. He was started on PPI therapy and Carafate. His Pradaxa was held at discharge on 05/21/2020 and has not been restarted yet pending work-up of GI bleed. Today he presents emergency department for evaluation of hypotension. His home health nurse checked his blood pressure and noted that it was low, although we are not sure how low it was. She recommended he come to the emergency department to be evaluated. Here in the ER, he has no complaints. He states that his breathing is at baseline and he denies any chest discomfort or any pain anywhere. He states that he feels in his usual state of health and has no complaints at this moment. He denies any recent illness, nausea, vomiting, or bloody stools or vomit. The spouse has no other complaints at this point as well. Past medical history: Reviewed, no additional pertinent history. Surgical history: Reviewed in system, no additional pertinent history. Social history: Reviewed in system, no additional pertinent history. Family history: Reviewed in system, no additional pertinent history. PHYSICAL EXAM Vital signs reviewed. Nursing notes reviewed. Constitutional: Awake, alert, non-distressed. Head: Normocephalic, atraumatic. Eyes: EOMI, conjunctiva normal, no discharge, no scleral icterus. Ears, Nose, Throat: External ears and nose normal, moist oral mucosa. Cardiovascular: 2+ radial pulse, capillary refill less than 2 seconds. Pulmonary: normal work of breathing, no accessory muscle use. Abdomen/GI: Soft, nontender, nondistended, no guarding or rigidity, no masses. Musculoskeletal: No deformities. Integumentary: Appropriate color for ethnicity, warm, dry, no pallor or jaundice, no rash. Neurologic: Alert, answering questions appropriately, normal speech, no facial droop, moving all extremities well. Psychiatric: Appropriate mood and affect, normal thought process. This patient was seen and evaluated during the 2019 SARS-CoV-2 novel coronavirus pandemic period. Community viral transmission is ongoing at time of this encounter and the emergency department is operating under pandemic response procedures. - Related Data Allergies Allergy/AdvReac Type Severity Reaction Status Date / Time No Known Allergies Allergy Verified 05/31/20 15:44 Home Meds: Home Meds Albuterol [Proventil HFA] 2 puff INH Q6H PRN 11/05/17 [History] Omeprazole 20 mg PO ACBREAKFAST 11/05/17 [History] Simvastatin [Zocor] 80 mg PO BEDTIME 11/05/17 [History] Tiotropium [Spiriva HandiHaler] 18 mcg INH DAILY 11/05/17 [History] allopurinoL [Zyloprim] 300 mg PO DAILY 11/05/17 [History] metFORMIN HCl [Metformin HCl] 500 mg PO BIDMEALS 11/05/17 [History] Tamsulosin HCl [Flomax] 0.4 mg PO DAILY 07/01/19 [History] Albuterol/Ipratropium [DuoNeb 3.0-0.5 MG/3 ML] 3 ml NEB QID PRN 05/19/20 [History] Digoxin [Digox] 125 mcg PO DAILY 05/19/20 [History] Glucosamine [Glucosamine Sulfate] 1,000 mg PO DAILY 05/19/20 [History] Potassium Chloride [Klor-Con M20] 20 meq PO DAILY 05/19/20 [History] Torsemide 40 mg PO DAILY 05/19/20 [History] metOLazone [Metolazone] 2.5 mg PO .ONCEWEEKLYMONDAYS 05/19/20 [History] Budesonide/Formoterol Fumarate [Symbicort 160-4.5 Mcg Inhaler] 2 puff INH BID 05/31/20 [History] Furosemide 60 mg PO DAILY 05/31/20 [History] Past Medical History HEENT History: Reports: Glaucoma Other HEENT History: wears glasses for reading, has top and bottom dentures Cardiovascular History: Reports: Afib, CAD, Heart Failure, High Cholesterol, Hypertension, Other (See Below) Respiratory History: Reports: COPD Other Respiratory History: Uses oxygen @ 2L [place] and inhalers at home Gastrointestinal History: Reports: GERD, Other (See Below) Genitourinary History: Reports: None Musculoskeletal History: Reports: Gout Neurological History: Reports: CVA Psychiatric History: Reports: None Endocrine/Metabolic History: Reports: Diabetes, Type II Hematologic History: Reports: None Immunologic History: Reports: None Oncologic (Cancer) History: Reports: None Dermatologic History: Reports: None - Infectious Disease History Infectious Disease History: Reports: None - Past Surgical History Head Surgeries/Procedures: Reports: None HEENT Surgical History: Reports: Cataract Surgery, Eye Surgery, Oral Surgery Other HEENT Surgeries/Procedures: eye surgery x3 Cardiovascular Surgical History: Reports: Coronary Artery Bypass Social & Family History - Family History Family Medical History: No Pertinent Family History HEENT: Reports: Cataract, Glaucoma Cardiac: Reports: Afib, High Cholesterol, Hypertension Respiratory: Reports: None GI: Reports: None OBGYN: Reports: Neurological: Reports: CVA Psychiatric: Reports: None Endocrine/Metabolic: Reports: Diabetes, type II Hematologic: Reports: None Immunologic: Reports: None Dermatologic: Reports: None Oncologic: Reports: None - Caffeine Use Caffeine Use: Reports: Coffee Caffeine Use Comment: 1 cup/day coffee - Living Situation & Occupation Living situation: Reports: Occupation: Retired ED ROS GENERAL - Review of Systems Review Of Systems: See Below ED EXAM, GENERAL - Physical Exam Exam: See Below Course - Vital Signs Text/Narrative:: Patient hemodynamically stable, afebrile, well-appearing, looks nontoxic. Differential diagnosis includes but is not limited to: Anemia, volume depletion, dehydration, spurious low blood pressure, less likely sepsis or infection. Here in the emergency department, the patient has no complaints. We checked his blood pressure and it seems to be normal now. He has no complaints including pain or shortness of breath. I have a low suspicion for infection. We will check a CBC and a metabolic panel to ensure that his anemia is not any worse than usual. 2:24 PM: Labs show improved hemoglobin at 10.1. Metabolic panel shows mild creatinine elevation to 1.7, up from 1.4. Labs otherwise reassuring. Patient is resting comfortably without any complaints. Systolic blood pressure has been 85 to 90s which patient and spouse state is typical for him. They state that he frequently has low blood pressures when he has seen in the clinic and that this is not unusual. He denies any lightheadedness and states he is feeling fine. I have low concern for sepsis, hypovolemia, hemorrhage, etc. Patient is well-appearing and has no complaints right now. Plan: Patient is stable to discharge home with outpatient primary care clinic follow-up. We discussed increasing his fluid intake and rechecking his creatinine in his primary care clinic. We also discussed further follow-up and treatment of his known bloody stools with the general surgeon. Strict emergency department return precautions were provided, patient indicated understanding. All questions were answered prior to departure. Discharged in good condition. Last Recorded V/S: Last Vital Signs Temp 36.3 C 06/11/20 13:15 Pulse 90 06/11/20 13:15 Resp 19 06/11/20 13:15 BP 94/59 L 06/11/20 13:15 Pulse Ox 98 06/11/20 13:15 - Orders/Labs/Meds Labs: Laboratory Tests 06/11/20 06/11/20 Range/Units 13:41 13:41 WBC 9.38 (4.0-11.0) K/uL RBC 3.71 L (4.50-5.90) M/uL Hgb 10.1 L (13.0-17.0) g/dL Hct 34.4 L (38.0-50.0) % MCV 92.7 (80.0-98.0) fL MCH 27.2 (27.0-32.0) pg MCHC 29.4 L (31.0-37.0) g/dL RDW Std Deviation 53.4 (28.0-62.0) fl RDW Coeff of Renetta 16 H (11.0-15.0) % Plt Count 209 (150-400) K/uL MPV 10.20 (7.40-12.00) fL Neut % (Auto) 83.7 H (48.0-80.0) % Lymph % (Auto) 9.6 L (16.0-40.0) % Benzie % (Auto) 5.5 (0.0-15.0) % Eos % (Auto) 1.0 (0.0-7.0) % Baso % (Auto) 0.2 (0.0-1.5) % Neut # (Auto) 7.9 H (1.4-5.7) K/uL Lymph # (Auto) 0.9 (0.6-2.4) K/uL Benzie # (Auto) 0.5 (0.0-0.8) K/uL Eos # (Auto) 0.1 (0.0-0.7) K/uL Baso # (Auto) 0.0 (0.0-0.1) K/uL Nucleated RBC % 0.0 /100WBC Nucleated RBCs # 0 K/uL Sodium 142 (136-148) mmol/L Potassium 4.5 (3.5-5.1) mmol/L Chloride 100 (98-107) mmol/L Carbon Dioxide 32.8 H (21.0-32.0) mmol/L BUN 34 H (7.0-18.0) mg/dL Creatinine 1.7 H (0.8-1.3) mg/dL Est Cr Clr Drug Dosing 27.13 mL/min Estimated GFR (MDRD) 39.1 ml/min Glucose 132 H (74-106) mg/dL Calcium 9.4 (8.5-10.1) mg/dL Total Bilirubin 0.3 (0.2-1.0) mg/dL AST 16 (15-37) IU/L ALT 16 (14-63) IU/L Alkaline Phosphatase 108 (46-116) U/L Total Protein 7.9 (6.4-8.2) g/dL Albumin 3.3 L (3.4-5.0) g/dL Globulin 4.6 H (2.6-4.0) g/dL Albumin/Globulin Ratio 0.7 L (0.9-1.6) Departure - Departure Time of Disposition: 14:24 Disposition: Home, Self-Care 01 Condition: Good Clinical Impression: Creatinine elevation, Transient hypotension - Discharge Information *PRESCRIPTION DRUG MONITORING PROGRAM REVIEWED*: Not Applicable *COPY OF PRESCRIPTION DRUG MONITORING REPORT IN PATIENT BI: Not Applicable Instructions: Hypotension, [id number] Referrals: Robert Quintero EXERCISE INSTRUCT [Primary Care Provider] - 3 Days (For follow-up of elevated creatinine and decreased oral intake.) Forms: ED Department Discharge Additional Instructions: You were seen in the emergency department for low blood pressure at home. Your blood pressure here is normal. Your blood work showed that your hemoglobin had significantly improved, which is good. However your kidney function is a little bit worse than usual. This can be due to dehydration or not drinking enough fluids. I would like for you to be sure that you are drinking more fluids to the point that you are urinating every 1/2-2 hours. I would like for you to see your primary care clinic in the next few days for reevaluation and to have your creatinine (kidney test) rechecked. You also need to follow-up with Dr. Philippe's general surgery clinic to figure out the next step regarding work-up and treatment of your bloody stools. Please return the emergency department immediately if your symptoms worsen or if you feel worse. Thank you for choosing the [facility] emergency department in [place] for your medical needs today. It was a pleasure caring for you. The following information is given to patients seen in the emergency department who are being discharged. This information is to outline your options for follow-up care. We provide all patients seen in our emergency department with a follow-up referral. The need for follow-up, as well as the timing and circumstances, are variable depending upon the specifics of your emergency department visit. If you don't have a primary care physician on staff, we will provide you with a referral. We always advise you to contact your personal physician following an emergency department visit to inform them of the circumstance of the visit and for follow-up with them and/or the need for any referrals to a consulting specialist. The emergency department will also refer you to a specialist when appropriate. This referral assures that you have the opportunity for follow-up care with a specialist. All of these measure are taken in an effort to provide you with optimal care, which includes your follow-up. Under all circumstances we always encourage you to contact your private physician who remains a resource for coordinating your care. When calling for follow-up care, please make the office aware that this follow-up is from your recent emergency room visit. If for any reason you are refused follow-up, please contact the [facility] Emergency Department at and asked to speak to the emergency department charge nurse. If you do not have a primary care physician that is caring for you, you can contact these clinics below to set up an appointment to establish care: [facility] - Primary Care [address] [place] [id number] [facility] [address] [place] [id number] Sepsis Event Note (ED) - Focused Exam Vital Signs: Vital Signs Temp Pulse Resp BP Pulse Ox 06/11/20 13:15 36.3 C 90 19 94/59 L 98
[2020-06-11 14:17] LABS: CARBON DIOXIDE,CO2 32.8 mmol/L (21.0-32.0); POTASSIUM,K 4.5 mmol/L (3.5-5.1)
== END 2020-06-11 14:45 | disposition home or self-care (01) ==
LOC: MW.ED 13:08
DX: I95.9 Hypotension, unspecified (principal); I48.91 Unspecified atrial fibrillation; I25.10 Atherosclerotic heart disease of native coronary artery without angina pectoris; I11.0 Hypertensive heart disease with heart failure; I50.9 Heart failure, unspecified; E78.00 Pure hypercholesterolemia, unspecified; J44.9 Chronic obstructive pulmonary disease, unspecified; K21.9 Gastro-esophageal reflux disease without esophagitis; M10.9 Gout, unspecified; E11.9 Type 2 diabetes mellitus without complications; R79.89 Other specified abnormal findings of blood chemistry; Z79.84 Long term (current) use of oral hypoglycemic drugs; Z79.899 Other long term (current) drug therapy; Z86.73 Personal history of transient ischemic attack (TIA), and cerebral infarction without residual deficits; Z95.1 Presence of aortocoronary bypass graft; Z99.81 Dependence on supplemental oxygen
CPT/HCPCS: 36415; 80053; 85025; 99284

== ENCOUNTER 2020-07-28 17:18 | Inpatient (IN) | payer OTHER, MEDICARE ==
--- NOTE | 2020-07-28 17:27 | EDM.PDOC ---
<Maryjane Rasmussen E - Last Filed: 07/28/20 21:55> ED HPI GENERAL MEDICAL PROBLEM - General Stated Complaint: SOB Time Seen by Provider: 07/28/20 17:21 Source of Information: Reports: Patient History Limitations: Reports: No Limitations - History of Present Illness INITIAL COMMENTS - FREE TEXT/NARRATIVE: HISTORY AND PHYSICAL: History of present illness: Patient is a 80-year-old male who presents to the emergency room with complaints of decreased oral intake, increased shortness of breath, abdominal pain and possible constipation. He states over the past 2-3 days he feels like he has had no appetite and has not been able to eat or drink as much as usual. Patient states he has not had a "good bowel movement" in several days as he has not been eating. He's been trying to take Ensure protein drinks to keep his caloric intake up. He has a baseline of shortness of breath due to his COPD, but states he has had to increase his oxygen (nasal cannula) at times as he becomes short of breath more easy with physical activities. Complaining of left upper quadrant abdominal pain and tenderness to palpation. Denies any recent falls, injuries or hitting his head. Patient denies any fever, chills, headache, change in vision, syncope or near syncope. Denies any chest pain, back pain, hemoptysis, nausea, vomiting, diarrhea or dysuria. Has not noted any blood in urine or stool. He was recently seen by Dr Abdul (cardiology) yesterday and had basic labs and CXR done with no significant findings. Past medical history of coronary artery disease status post CABG, type II diabetes, heart failure with preserved ejection fraction, pulmonary hypertension, CVA, carotid stenosis, COPD on 3 L of oxygen per nasal cannula, A.fib on [facility] and a recent work-up for GI bleed 05/19/20 in which he received blood products (which patient reports has resolved). Review of systems: As per history of present illness and below otherwise all systems reviewed and negative. Past medical history: As per history of present illness and as reviewed below otherwise noncontributory. Surgical history: As per history of present illness and as reviewed below otherwise noncontributory. Social history: See social history for further information Family history: As per history of present illness and as reviewed below otherwise noncontributory. Physical exam: General: Chronically ill appearing 80-year-old male. Alert and orientated x 3. Nontoxic in appearance and in no acute distress. Vital signs are stable and have been reviewed by me. Nursing notes were reviewed. HEENT: Atraumatic, normocephalic, pupils equal and reactive bilaterally, negative for conjunctival pallor or scleral icterus, mucous membranes dry/tacky, TMs normal bilaterally, throat clear, neck supple, nontender, trachea midline. No drooling or trismus noted. No meningeal signs. No hot potato voice noted. Lungs: Diminished throughout bilaterally to auscultation, breath sounds equal bilaterally, chest nontender. Normal work of breathing, no accessory muscles used. Chronic/dependent oxygen usere (3L per n/c) Heart: S1S2, regular rate and rhythm without overt murmur Abdomen: Soft, nondistended, LUQ tenderness. Negative for masses or costovertebral tenderness. Pelvis: Stable nontender. Skin: Intact, warm, dry. No lesions or rashes noted. Hematologic: No petechiae or purpra. Mucosa appropriate color and normal nail bed color and refill. Extremities: Atraumatic, moves all extremities per self without difficulty or deficits, negative for cords or calf pain. Neurovascular unremarkable. Neuro: Awake, alert, oriented. Cranial nerves II through XII unremarkable. Cerebellum unremarkable. Motor and sensory unremarkable throughout. Exam nonfocal. Psychiatric: Mood and affect are appropriate. Normal thought process. Answering questions appropriately. Notes: EKG does appear similar to previous, afib with rate [address] Leon reviewed EKG and documented. Patient did have lab work done on 07/27/[address] Abdul. Today's WBC 7.54 (yesterday was 13.9), Hg 10.2 (yesterday 10.8), Hct 34.2 (yesterday 36.4). Lactate 2.4 (H), reflux ordered. CODE SEPSIS was called; IV fluids running and has already had blood cultures drawn. CMP shows the patient's BUN of 70, (yesterday 55). Creatinine 1.6, (yesterday 1.8). Hypomagnesium noted. Negative troponin. Chest x-ray shows mild interstitial prominence bilaterally, stable -represent pulmonary edema. No acute infiltrate. Patient does have an elevated D-dimer. Please note that the patient had been on Pradaxa in April 2020. His Pradaxa was held due to his GI bleed. He is unsure of how long he was off of this medication but he was restarted on Eliquis a few weeks afterward and has been consistent with his medications. Due to this I will do a CT of the chest to rule out PE. Negative COVID-[address] abd/pelvis shows small-bowel obstruction. Transition point appears to be within the right lower quadrant. There is some high density material within the colon which could represent previously ingested oral contrast material. Several new hypodense lesions in the liver concerning for metastatic disease. Emphysema. Trace right pleural effusion. Coronary artery disease. Chronic pancreatitis. Hyperdense lesions on both kidneys likely represent hemorrhagic cysts however renal CT may be useful for further evaluation. The PE chest shows no pulmonary embolism or pneumonia. Severe emphysema. 1.0 cm pulmonary nodule in the right upper lobe is stable compared to May 19, 2020. Consider PET-CT for further evaluation. Cardiomegaly with coronary artery disease.Trace right pleural effusion. The radiologist called and stated that she is concerned that there might be a mass in the small bowel that causing the obstruction and the Dr Salmon, general surgeon was informed of this patient, he recommends transfer of this patient. Patient Dr Salmon, hospitalist was consulted on this case. I have talked with the patient about today's findings, in addition to providing specific details for plan of care. He is agreeable Diagnostics: CBC, CMP, UA, Lactate w/ reflex, Troponin, Mg, D.Dimer EKG, CXR, blood culture x 2, VBG, chest/abd/pelvis CT Therapeutics: 1 liter NS, Magnesium 2 gm, Solu-medrol Impression: Hypomagnesemia Hypotension Dehydration COPD exacerbation Small bowel obstruction New lesions in the liver (concerning to metastatic disease) Plan: admission with telemetry Definitive disposition and diagnosis as appropriate pending reevaluation and review of above. Duration: Day(s): abdomen Pain Score (Numeric/FACES): 5 - Related Data Allergies Allergy/AdvReac Type Severity Reaction Status Date / Time No Known Allergies Allergy Verified 07/28/20 17:39 Home Meds: Home Meds Albuterol [Proventil HFA] 2 puff INH Q6H PRN 11/05/17 [History] Omeprazole 20 mg PO ACBREAKFAST 11/05/17 [History] Simvastatin [Zocor] 80 mg PO BEDTIME 11/05/17 [History] Tiotropium [Spiriva HandiHaler] 18 mcg INH DAILY 11/05/17 [History] allopurinoL [Zyloprim] 300 mg PO DAILY 11/05/17 [History] metFORMIN HCl [Metformin HCl] 500 mg PO BIDMEALS 11/05/17 [History] Tamsulosin HCl [Flomax] 0.4 mg PO DAILY 07/01/19 [History] Albuterol/Ipratropium [DuoNeb 3.0-0.5 MG/3 ML] 3 ml NEB QID PRN 05/19/20 [Hist ory] Digoxin [Digox] 125 mcg PO DAILY 05/19/20 [History] Glucosamine [Glucosamine Sulfate] 1,000 mg PO DAILY 05/19/20 [History] Potassium Chloride [Klor-Con M20] 20 meq PO DAILY 05/19/20 [History] Torsemide 40 mg PO DAILY 05/19/20 [History] metOLazone [Metolazone] 2.5 mg PO .ONCEWEEKLYMONDAYS 05/19/20 [History] Budesonide/Formoterol Fumarate [Symbicort 160-4.5 Mcg Inhaler] 2 puff INH BID 05/31/20 [History] Furosemide 60 mg PO DAILY 05/31/20 [History] Past Medical History HEENT History: Reports: Glaucoma Other HEENT History: wears glasses for reading, has top and bottom dentures Cardiovascular History: Reports: Afib, CAD, Heart Failure, High Cholesterol, Hypertension, Other (See Below) Respiratory History: Reports: COPD Other Respiratory History: Uses oxygen @ 2L NC and inhalers at home Gastrointestinal History: Reports: GERD, Other (See Below) Genitourinary History: Reports: None Musculoskeletal History: Reports: Gout Neurological History: Reports: CVA Psychiatric History: Reports: None Endocrine/Metabolic History: Reports: Diabetes, Type II Hematologic History: Reports: None Immunologic History: Reports: None Oncologic (Cancer) History: Reports: None Dermatologic History: Reports: None - Infectious Disease History Infectious Disease History: Reports: None - Past Surgical History Head Surgeries/Procedures: Reports: None HEENT Surgical History: Reports: Cataract Surgery, Eye Surgery, Oral Surgery Other HEENT Surgeries/Procedures: eye surgery x3 Cardiovascular Surgical History: Reports: Coronary Artery Bypass Social & Family History - Family History Family Medical History: No Pertinent Family History HEENT: Reports: Cataract, Glaucoma Cardiac: Reports: Afib, High Cholesterol, Hypertension Respiratory: Reports: None GI: Reports: None OBGYN: Reports: Neurological: Reports: CVA Psychiatric: Reports: None Endocrine/Metabolic: Reports: Diabetes, type II Hematologic: Reports: None Immunologic: Reports: None Dermatologic: Reports: None Oncologic: Reports: None - Caffeine Use Caffeine Use: Reports: Coffee Caffeine Use Comment: 1 cup/day coffee - Living Situation & Occupation Living situation: Reports: Occupation: Retired ED ROS GENERAL - Review of Systems Review Of Systems: Comprehensive ROS is negative, except as noted in HPI. ED EXAM, GENERAL - Physical Exam Exam: See Below (See dictation) Departure - Departure Disposition: Admitted As Inpatient 67 Clinical Impression: Small bowel obstruction, Dehydration, Hypomagnesemia, Acute renal failure, Liver lesion COPD (chronic obstructive pulmonary disease) Qualifiers: COPD type: chronic bronchitis - Discharge Information <Jared Caraballo - Last Filed: 07/28/20 23:39> ED HPI GENERAL MEDICAL PROBLEM - History of Present Illness INITIAL COMMENTS - FREE TEXT/NARRATIVE: 10:56 PM: Patient signed out to me. Chart reviewed and case discussed with Dr. Salmon who is agreed for inpatient level of care and admission. Will place NG tube to assist with decompression of small bowel obstruction. 11:30 PM: Procedure note: 14 [place] NG tube placed by Dr. Tompkins after instilling approximately 4 cc of viscous lidocaine into the left naris. NG tube placement was confirmed by auscultation as well as by chest x-ray visualization of NG tube in the gastrum. Course - Vital Signs Last Recorded V/S: Last Vital Signs Temp 97.7 F 07/28/20 17:35 Pulse 83 07/28/20 21:27 Resp 18 07/28/20 21:27 BP 90/58 L 07/28/20 21:36 Pulse Ox 100 07/28/20 21:27 - Orders/Labs/Meds Orders: Active Orders 24 hr Category Date Time Status Patient Status [ADT] Routine ADT 07/28/20 22:59 Active Cardiac Monitoring [RC] . DIRECTED Care 07/28/20 17:28 Active EKG 12 Lead [EKG Documentation Completion] [RC] STAT Care 07/28/20 17:35 Active CULTURE BLOOD [BC] Stat Lab 07/28/20 17:55 Received CULTURE BLOOD [BC] Stat Lab 07/28/20 18:16 Results Sodium Chloride 0.9% [Normal Saline] 500 ml Med 07/28/20 18:00 Active IV STAT Sodium Chloride 0.9% [Saline Flush] Med 07/28/20 17:28 Active 10 ml FLUSH ASDIRECTED PRN Sodium Chloride 0.9% [Saline Flush] Med 07/28/20 18:34 Active 10 ml FLUSH ASDIRECTED PRN Sodium Chloride 0.9% [Saline Flush] Med 07/28/20 17:28 Active 2.5 ml FLUSH ASDIRECTED PRN Sodium Chloride 0.9% [Saline Flush] Med 07/28/20 18:34 Active 2.5 ml FLUSH ASDIRECTED PRN Blood Culture x2 Reflex Set [OM.PC] Stat Oth 07/28/20 17:43 Ordered Saline Lock Insert [OM.PC] Stat Oth 07/28/20 17:28 Ordered Saline Lock Insert [OM.PC] Stat Oth 07/28/20 18:35 Ordered Medication Orders Albuterol/Ipratropium (Duoneb 3.0-0.5 Mg/3 Ml) 3 ml NEB QID PRN PRN Reason: COPD Budesonide/Formoterol Fumarate (Symbicort 160-4.5 Mcg) gm INH BID MARY KATE Sodium Chloride (Normal Saline) 500 mls @ 999 mls/hr IV STAT MARY KATE Last Admin: 07/28/20 18:01 Dose: 999 mls/hr Documented by: MURIJAM Sodium Chloride (Normal Saline) 1,000 mls @ 100 mls/hr IV ASDIRECTED MARY KATE Morphine Sulfate (Morphine) 2 mg IVPUSH Q2H PRN PRN Reason: Pain (severe 7-10) Stop: 07/29/20 23:10 Ondansetron HCl (Zofran) 4 mg IVPUSH Q4H PRN PRN Reason: Nausea Sodium Chloride (Saline Flush) 10 ml FLUSH ASDIRECTED PRN PRN Reason: Keep Vein Open Last Admin: 07/28/20 18:01 Dose: 10 ml Documented by: MURIJAM Sodium Chloride (Saline Flush) 2.5 ml FLUSH ASDIRECTED PRN PRN Reason: Keep Vein Open Last Admin: 07/28/20 18:01 Dose: 2.5 ml Documented by: JOSEPH Sodium Chloride (Saline Flush) 10 ml FLUSH ASDIRECTED PRN PRN Reason: Keep Vein Open Sodium Chloride (Saline Flush) 2.5 ml FLUSH ASDIRECTED PRN PRN Reason: Keep Vein Open Labs: Laboratory Tests 07/28/20 07/28/20 07/28/20 Range/Units 17:55 17:55 17:55 WBC 7.54 (4.0-11.0) K/uL RBC 3.79 L (4.50-5.90) M/uL Hgb 10.2 L (13.0-17.0) g/dL Hct 34.2 L (38.0-50.0) % MCV 90.2 (80.0-98.0) fL MCH 26.9 L (27.0-32.0) pg MCHC 29.8 L (31.0-37.0) g/dL RDW Std Deviation 54.2 (28.0-62.0) fl RDW Coeff of Renetta 16 H (11.0-15.0) % Plt Count 242 (150-400) K/uL MPV 10.50 (7.40-12.00) fL Neut % (Auto) 86.0 H (48.0-80.0) % Lymph % (Auto) 4.1 L (16.0-40.0) % [place] % (Auto) 9.5 (0.0-15.0) % Eos % (Auto) 0.3 (0.0-7.0) % Baso % (Auto) 0.1 (0.0-1.5) % Neut # (Auto) 6.5 H (1.4-5.7) K/uL Lymph # (Auto) 0.3 L (0.6-2.4) K/uL [place] # (Auto) 0.7 (0.0-0.8) K/uL Eos # (Auto) 0.0 (0.0-0.7) K/uL Baso # (Auto) 0.0 (0.0-0.1) K/uL Nucleated RBC % 0.0 /100WBC Nucleated RBCs # 0 K/uL D-Dimer, Quantitative (0.0-0.50) mg/L FEU VBG pH 7.45 H (7.31-7.41) VBG pCO2 52 H (35-45) mmHG VBG pO2 22 L (30-40) mmHG VBG HCO3 36 H (22-30) mEq/L VBG Total CO2 34 L (41-51) mmol/L VBG Base Excess 10.6 H (-3.0-3.0) Lactate (0.20-2.00) mmol/L Sodium 130 L (136-148) mmol/L Potassium 4.5 (3.5-5.1) mmol/L Chloride 89 L (98-107) mmol/L Carbon Dioxide 33.7 H (21.0-32.0) mmol/L BUN 70 H (7.0-18.0) mg/dL Creatinine 1.6 H (0.8-1.3) mg/dL Est Cr Clr Drug Dosing TNP Estimated GFR (MDRD) 41.9 ml/min Glucose 155 H (74-106) mg/dL Calcium 9.4 (8.5-10.1) mg/dL Magnesium (1.8-2.4) mg/dL Total Bilirubin 0.8 (0.2-1.0) mg/dL AST 17 (15-37) IU/L ALT 20 (14-63) IU/L Alkaline Phosphatase 108 (46-116) U/L Troponin I (0.000-0.056) ng/mL Total Protein 7.5 (6.4-8.2) g/dL Albumin 3.4 (3.4-5.0) g/dL Globulin 4.1 H (2.6-4.0) g/dL Albumin/Globulin Ratio 0.8 L (0.9-1.6) Lipase (73-393) U/L Urine Color Urine Appearance Urine pH (5.0-8.0) Ur Specific [place] (1.001-1.035) Urine Protein (NEGATIVE) mg/dL Urine Glucose (UA) (NEGATIVE) mg/dL Urine Ketones (NEGATIVE) mg/dL Urine Occult Blood (NEGATIVE) Urine Nitrite (NEGATIVE) Urine Bilirubin (NEGATIVE) Urine Urobilinogen (<2.0) EU/dL Ur Leukocyte Esterase (NEGATIVE) Influenza Type A RNA (NEGATIVE) Influenza Type B RNA (NEGATIVE) SARS-CoV-2 RNA ([place]) (NEGATIVE) 07/28/20 07/28/20 07/28/20 Range/Units 17:55 17:55 17:55 WBC (4.0-11.0) K/uL RBC (4.50-5.90) M/uL Hgb (13.0-17.0) g/dL Hct (38.0-50.0) % MCV (80.0-98.0) fL MCH (27.0-32.0) pg MCHC (31.0-37.0) g/dL RDW Std Deviation (28.0-62.0) fl RDW Coeff of Renetta (11.0-15.0) % Plt Count (150-400) K/uL MPV (7.40-12.00) fL Neut % (Auto) (48.0-80.0) % Lymph % (Auto) (16.0-40.0) % [place] % (Auto) (0.0-15.0) % Eos % (Auto) (0.0-7.0) % Baso % (Auto) (0.0-1.5) % Neut # (Auto) (1.4-5.7) K/uL Lymph # (Auto) (0.6-2.4) K/uL [place] # (Auto) (0.0-0.8) K/uL Eos # (Auto) (0.0-0.7) K/uL Baso # (Auto) (0.0-0.1) K/uL Nucleated RBC % /100WBC Nucleated RBCs # K/uL D-Dimer, Quantitative 1.96 H (0.0-0.50) mg/L FEU VBG pH (7.31-7.41) VBG pCO2 (35-45) mmHG VBG pO2 (30-40) mmHG VBG HCO3 (22-30) mEq/L VBG Total CO2 (41-51) mmol/L VBG Base Excess (-3.0-3.0) Lactate 2.4 H* (0.20-2.00) mmol/L Sodium (136-148) mmol/L Potassium (3.5-5.1) mmol/L Chloride (98-107) mmol/L Carbon Dioxide (21.0-32.0) mmol/L BUN (7.0-18.0) mg/dL Creatinine (0.8-1.3) mg/dL Est Cr Clr Drug Dosing Estimated GFR (MDRD) ml/min Glucose (74-106) mg/dL Calcium (8.5-10.1) mg/dL Magnesium (1.8-2.4) mg/dL Total Bilirubin (0.2-1.0) mg/dL AST (15-37) IU/L ALT (14-63) IU/L Alkaline Phosphatase (46-116) U/L Troponin I < 0.050 (0.000-0.056) ng/mL Total Protein (6.4-8.2) g/dL Albumin (3.4-5.0) g/dL Globulin (2.6-4.0) g/dL Albumin/Globulin Ratio (0.9-1.6) Lipase 34 L (73-393) U/L Urine Color Urine Appearance Urine pH (5.0-8.0) Ur Specific [place] (1.001-1.035) Urine Protein (NEGATIVE) mg/dL Urine Glucose (UA) (NEGATIVE) mg/dL Urine Ketones (NEGATIVE) mg/dL Urine Occult Blood (NEGATIVE) Urine Nitrite (NEGATIVE) Urine Bilirubin (NEGATIVE) Urine Urobilinogen (<2.0) EU/dL Ur Leukocyte Esterase (NEGATIVE) Influenza Type A RNA (NEGATIVE) Influenza Type B RNA (NEGATIVE) SARS-CoV-2 RNA ([place]) (NEGATIVE) 07/28/20 07/28/20 07/28/20 Range/Units 17:55 18:51 19:28 WBC (4.0-11.0) K/uL RBC (4.50-5.90) M/uL Hgb (13.0-17.0) g/dL Hct (38.0-50.0) % MCV (80.0-98.0) fL MCH (27.0-32.0) pg MCHC (31.0-37.0) g/dL RDW Std Deviation (28.0-62.0) fl RDW Coeff of Renetta (11.0-15.0) % Plt Count (150-400) K/uL MPV (7.40-12.00) fL Neut % (Auto) (48.0-80.0) % Lymph % (Auto) (16.0-40.0) % [place] % (Auto) (0.0-15.0) % Eos % (Auto) (0.0-7.0) % Baso % (Auto) (0.0-1.5) % Neut # (Auto) (1.4-5.7) K/uL Lymph # (Auto) (0.6-2.4) K/uL [place] # (Auto) (0.0-0.8) K/uL Eos # (Auto) (0.0-0.7) K/uL Baso # (Auto) (0.0-0.1) K/uL Nucleated RBC % /100WBC Nucleated RBCs # K/uL D-Dimer, Quantitative (0.0-0.50) mg/L FEU VBG pH (7.31-7.41) VBG pCO2 (35-45) mmHG VBG pO2 (30-40) mmHG VBG HCO3 (22-30) mEq/L VBG Total CO2 (41-51) mmol/L VBG Base Excess (-3.0-3.0) Lactate (0.20-2.00) mmol/L Sodium (136-148) mmol/L Potassium (3.5-5.1) mmol/L Chloride (98-107) mmol/L Carbon Dioxide (21.0-32.0) mmol/L BUN (7.0-18.0) mg/dL Creatinine (0.8-1.3) mg/dL Est Cr Clr Drug Dosing Estimated GFR (MDRD) ml/min Glucose (74-106) mg/dL Calcium (8.5-10.1) mg/dL Magnesium 1.5 L (1.8-2.4) mg/dL Total Bilirubin (0.2-1.0) mg/dL AST (15-37) IU/L ALT (14-63) IU/L Alkaline Phosphatase (46-116) U/L Troponin I (0.000-0.056) ng/mL Total Protein (6.4-8.2) g/dL Albumin (3.4-5.0) g/dL Globulin (2.6-4.0) g/dL Albumin/Globulin Ratio (0.9-1.6) Lipase (73-393) U/L Urine Color YELLOW Urine Appearance CLEAR Urine pH 5.5 (5.0-8.0) Ur Specific [place] 1.010 (1.001-1.035) Urine Protein NEGATIVE (NEGATIVE) mg/dL Urine Glucose (UA) NEGATIVE (NEGATIVE) mg/dL Urine Ketones NEGATIVE (NEGATIVE) mg/dL Urine Occult Blood NEGATIVE (NEGATIVE) Urine Nitrite NEGATIVE (NEGATIVE) Urine Bilirubin NEGATIVE (NEGATIVE) Urine Urobilinogen 0.2 (<2.0) EU/dL Ur Leukocyte Esterase NEGATIVE (NEGATIVE) Influenza Type A RNA NEGATIVE (NEGATIVE) Influenza Type B RNA NEGATIVE (NEGATIVE) SARS-CoV-2 RNA ([place]) NEGATIVE (NEGATIVE) 07/28/20 Range/Units 22:23 WBC (4.0-11.0) K/uL RBC (4.50-5.90) M/uL Hgb (13.0-17.0) g/dL Hct (38.0-50.0) % MCV (80.0-98.0) fL MCH (27.0-32.0) pg MCHC (31.0-37.0) g/dL RDW Std Deviation (28.0-62.0) fl RDW Coeff of Renetta (11.0-15.0) % Plt Count (150-400) K/uL MPV (7.40-12.00) fL Neut % (Auto) (48.0-80.0) % Lymph % (Auto) (16.0-40.0) % [place] % (Auto) (0.0-15.0) % Eos % (Auto) (0.0-7.0) % Baso % (Auto) (0.0-1.5) % Neut # (Auto) (1.4-5.7) K/uL Lymph # (Auto) (0.6-2.4) K/uL [place] # (Auto) (0.0-0.8) K/uL Eos # (Auto) (0.0-0.7) K/uL Baso # (Auto) (0.0-0.1) K/uL Nucleated RBC % /100WBC Nucleated RBCs # K/uL D-Dimer, Quantitative (0.0-0.50) mg/L FEU VBG pH (7.31-7.41) VBG pCO2 (35-45) mmHG VBG pO2 (30-40) mmHG VBG HCO3 (22-30) mEq/L VBG Total CO2 (41-51) mmol/L VBG Base Excess (-3.0-3.0) Lactate 1.3 (0.20-2.00) mmol/L Sodium (136-148) mmol/L Potassium (3.5-5.1) mmol/L Chloride (98-107) mmol/L Carbon Dioxide (21.0-32.0) mmol/L BUN (7.0-18.0) mg/dL Creatinine (0.8-1.3) mg/dL Est Cr Clr Drug Dosing Estimated GFR (MDRD) ml/min Glucose (74-106) mg/dL Calcium (8.5-10.1) mg/dL Magnesium (1.8-2.4) mg/dL Total Bilirubin (0.2-1.0) mg/dL AST (15-37) IU/L ALT (14-63) IU/L Alkaline Phosphatase (46-116) U/L Troponin I (0.000-0.056) ng/mL Total Protein (6.4-8.2) g/dL Albumin (3.4-5.0) g/dL Globulin (2.6-4.0) g/dL Albumin/Globulin Ratio (0.9-1.6) Lipase (73-393) U/L Urine Color Urine Appearance Urine pH (5.0-8.0) Ur Specific [place] (1.001-1.035) Urine Protein (NEGATIVE) mg/dL Urine Glucose (UA) (NEGATIVE) mg/dL Urine Ketones (NEGATIVE) mg/dL Urine Occult Blood (NEGATIVE) Urine Nitrite (NEGATIVE) Urine Bilirubin (NEGATIVE) Urine Urobilinogen (<2.0) EU/dL Ur Leukocyte Esterase (NEGATIVE) Influenza Type A RNA (NEGATIVE) Influenza Type B RNA (NEGATIVE) SARS-CoV-2 RNA ([place]) (NEGATIVE) Meds: Medications Generic Name Dose Route Start Last Admin Trade Name Freq PRN Reason Stop Dose Admin Albuterol/Ipratropium 3 ml 07/28/20 23:08 Duoneb 3.0-0.5 Mg/3 Ml NEB QID PRN COPD Budesonide/Formoterol Fumarate gm 07/29/20 09:00 Symbicort 160-4.5 Mcg INH BID MARY KATE Sodium Chloride 500 mls @ 999 mls/hr 07/28/20 18:00 07/28/20 18:01 Normal Saline IV 999 mls/hr STAT MARY KATE Administration Sodium Chloride 1,000 mls @ 100 mls/hr 07/28/20 23:15 Normal Saline IV ASDIRECTED MARY KATE Morphine Sulfate 2 mg 07/28/20 23:09 Morphine IVPUSH 07/29/20 23:10 Q2H PRN Pain (severe 7-10) Ondansetron HCl 4 mg 07/28/20 23:09 Zofran IVPUSH Q4H PRN Nausea Sodium Chloride 10 ml 07/28/20 17:28 07/28/20 18:01 Saline Flush FLUSH 10 ml ASDIRECTED PRN Administration Keep Vein Open Sodium Chloride 2.5 ml 07/28/20 17:28 07/28/20 18:01 Saline Flush FLUSH 2.5 ml ASDIRECTED PRN Administration Keep Vein Open Sodium Chloride 10 ml 07/28/20 18:34 Saline Flush FLUSH ASDIRECTED PRN Keep Vein Open Sodium Chloride 2.5 ml 07/28/20 18:34 Saline Flush FLUSH ASDIRECTED PRN Keep Vein Open Discontinued Medications Generic Name Dose Route Start Last Admin Trade Name Freq PRN Reason Stop Dose Admin Sodium Chloride 1,000 mls @ 999 mls/hr 07/28/20 18:24 07/28/20 18:57 Normal Saline IV 07/28/20 19:24 999 mls/hr STAT ONE Administration Magnesium Sulfate 2 gm in 50 mls @ 50 mls/hr 07/28/20 19:29 07/28/20 19:37 Magnesium Sulfate In Water Premix IV 07/28/20 20:28 50 mls/hr ONETIME ONE Administration Magnesium Sulfate Confirm 07/28/20 19:28 07/28/20 19:32 Magnesium Sulfate In Water Premix Administered 07/28/20 19:29 Not Given Dose 2 gm in 50 mls @ as directed .ROUTE .STK-MED ONE Sodium Chloride 1,000 mls @ 999 mls/hr 07/28/20 21:58 07/28/20 22:35 Normal Saline IV 07/28/20 22:58 999 mls/hr STAT ONE Administration Iopamidol 75 ml 07/28/20 20:39 07/28/20 20:40 Isovue-300 (61%) IVPUSH 07/28/20 20:40 75 ml ONETIME STA Administration Lidocaine HCl Confirm 07/28/20 23:21 Xylocaine 2% Viscous Administered 07/28/20 23:22 Dose 15 ml .ROUTE .STK-MED ONE Lidocaine HCl 15 ml 07/28/20 23:29 Xylocaine 2% Viscous PO 07/28/20 23:30 ONETIME ONE Magnesium Sulfate 2 gm 07/28/20 19:01 07/28/20 21:27 Magnesium Sulfate 50% IV 07/28/20 19:02 Not Given NOW STA Methylprednisolone Sodium Succinate 125 mg 07/28/20 20:20 07/28/20 21:30 Solu-Medrol IVPUSH 07/28/20 20:21 125 mg ONETIME ONE Administration Departure - Departure Time of Disposition: 22:57 Condition: Fair Sepsis Event Note (ED) - Focused Exam Vital Signs: Vital Signs Temp Pulse Resp BP Pulse Ox 07/28/20 21:36 90/58 L 07/28/20 21:27 83 18 85/51 L 100 07/28/20 19:25 101 H 17 97/50 L 99 07/28/20 19:00 88 104/56 L 100 07/28/20 17:35 97.7 F 113 H 24 H 107/56 L 98 - My Orders Last 24 Hours: My Active Orders 07/28/20 22:59 Patient Status [ADT] Routine - Assessment/Plan Last 24 Hours: My Active Orders 07/28/20 22:59 Patient Status [ADT] Routine
[2020-07-28] MEDS ORDERED: Sodium Chloride 0.9% 10 ML Syringe FLUSH PRN ×2 (17:28→18:34)
[2020-07-28] MEDS ORDERED: Sodium Chloride 0.9% 2.5 ML Syringe FLUSH PRN ×2 (17:28→18:34)
--- NOTE | 2020-07-28 17:52 | PCM.SN.2 ---
- Free Text/Narrative Note: 12-Lead ECG Interpretation Acquired: 5:42 PM Rhythm: Atrial fibrillation with rapid ventricular response Rate: 101 bpm [place]: Normal Intervals: Normal Ectopy: None RV Strain: No obvious RV strain pattern. ST Segments/T-Waves: Very slight ST segment deviation in leads V4 through 6, seen previously Acute Ischemic Changes: None apparent Interpretation: No STEMI, likely digitalis pattern. No significant change from 05/31/2020. No new ischemic pattern observed.
[2020-07-28] MEDS ORDERED: Sodium Chloride 0.9% 500 ML IV SCH (18:00)
[2020-07-28] MEDS ORDERED: Sodium Chloride 0.9% 1,000 ML IV ONE ×2 (18:24→21:58)
[2020-07-28 18:35] LABS: BLOOD UREA NITROGEN,BUN 70 mg/dL (7.0-18.0); CARBON DIOXIDE,CO2 33.7 mmol/L (21.0-32.0); CHLORIDE,CL 89 mmol/L (98-107); GLUCOSE RANDOM 155 mg/dL (74-106); POTASSIUM,K 4.5 mmol/L (3.5-5.1); SODIUM,NA 130 mmol/L (136-148)
[2020-07-28 18:37] LABS: LIPASE 34 U/L (73-393)
--- NOTE | 2020-07-28 18:42 | CR ---
HISTORY: Shortness of breath. COMPARISON: 07/27/2020. FINDINGS: Single portable frontal view of the chest. Mild interstitial prominence bilaterally is stable. This may represent pulmonary edema. No acute infiltrate. Minimal blunting of the right costophrenic angle suggests a small effusion, unchanged. Heart size and is within normal. Median sternotomy. Dictated by Xiomara Sparks MD @ Jul 28 2020 6:38PM Signed by Dr. Xiomara Sparks @ Jul 28 2020 6:41PM
[2020-07-28] MEDS ORDERED: Magnesium Sulfate (4.06 MEQ/ML) 5 GM/10 ML SDV IV STA (19:01)
[2020-07-28] MEDS ORDERED: Magnesium Sulfate/Water 2 GM/50 ML BAG ONE (19:28)
[2020-07-28] MEDS ORDERED: Magnesium Sulfate/Water 2 GM/50 ML BAG IV ONE (19:29)
[2020-07-28 19:55] LABS: CORONAVIRUS COVID-19 NAA NEGATIVE (NEGATIVE); INFLUENZA A NAA NEGATIVE (NEGATIVE); INFLUENZA B NAA NEGATIVE (NEGATIVE)
[2020-07-28] MEDS ORDERED: methylPREDNISolone Sodium Succinate 125 MG/2 ML SDV IVPUSH ONE (20:20)
[2020-07-28] MEDS ORDERED: Iopamidol 612 MG/ML 100 ML Bottle IVPUSH STA (20:39)
--- NOTE | 2020-07-28 21:15 | CT ---
INDICATION: Left upper quadrant pain TECHNIQUE: CT abdomen and pelvis acquired with 75 cc Isovue 300 IV contrast. COMPARISON: CT abdomen pelvis September 11, 2011, chest CT May 19, 2020 FINDINGS: Lower chest: Coronary artery calcifications. Trace right pleural effusion. Emphysema. Liver: There are several new hypodense lesions in the liver measuring to 3.4 cm in size. These measure up to 40 Hounsfield units in density. Spleen: Unremarkable. Pancreas: Small calcifications in the pancreas. Gallbladder and bile ducts: Unremarkable. Adrenal glands: Unremarkable. Kidneys: There are 2 hyperdense lesions on both kidneys measuring up to 2.3 cm in size. These measure 60-76 Hounsfield units in density. GI tract: Multiple loops of dilated small bowel measuring up to 6 mm in diameter. Transition point may be within the right lower quadrant on image 37 series 703. There is some foci of high density within the bowel lumen in this region which could represent undigested pills. There is some high-density material within the colon. Vascular structures: Significant atherosclerotic disease. Lymph nodes: Unremarkable. Miscellaneous: Unremarkable. No free air or significant free fluid. Pelvic Organs: Unremarkable. Bones: Unremarkable for age. IMPRESSION: Small-bowel obstruction. Transition point appears to be within the right lower quadrant. There is some high density material within the colon which could represent previously ingested oral contrast material. Several new hypodense lesions in the liver concerning for metastatic disease. Emphysema. Trace right pleural effusion. Coronary artery disease. Chronic pancreatitis. Hyperdense lesions on both kidneys likely represent hemorrhagic cysts however renal CT may be useful for further evaluation. Please note that all CT scans at this facility use dose modulation, iterative reconstruction, and/or weight-based dosing when appropriate to reduce radiation dose to as low as reasonably achievable. Dictated by Felicia Thomas MD @ Jul 28 2020 9:01PM Signed by Dr. Felicia Thomas @ Jul 28 2020 9:14PM
--- NOTE | 2020-07-28 21:27 | CT ---
INDICATION: Shortness of breath, elevated D-dimer TECHNIQUE: CT chest pulmonary PE protocol acquired with 75 cc Isovue 300 IV contrast. COMPARISON: May 19, 2020 FINDINGS: Cardiovascular structures: Normal vascular enhancement of the pulmonary arteries, no sign of pulmonary embolism. Cardiomegaly. Coronary artery calcifications. No sign of aneurysm in the thoracic aorta. Mediastinum and cheryle: No mass or adenopathy. Lungs: Severe emphysema. 1.0 cm subpleural pulmonary nodule right upper lobe image 204 series 601. Pleura and pericardium: Trace right pleural effusion. Chest wall and axilla: No mass or adenopathy. Upper abdomen: Please see CT abdomen pelvis report for full description. Bones: No significant findings. IMPRESSION: No pulmonary embolism or pneumonia. Severe emphysema. 1.0 cm pulmonary nodule in the right upper lobe is stable compared to May 19, 2021. Consider PET-CT for further evaluation. Cardiomegaly with coronary artery disease. Trace right pleural effusion. Findings discussed with Dr. Rasmussen at 9:25 p.m. on July 28, 2020. Please note that all CT scans at this facility use dose modulation, iterative reconstruction, and/or weight-based dosing when appropriate to reduce radiation dose to as low as reasonably achievable. Dictated by Felicia Thomas MD @ Jul 28 2020 9:14PM Signed by Dr. Felicia Thomas @ Jul 28 2020 9:26PM
--- NOTE | 2020-07-28 23:08 | PCM.HP.2 ---
H&P History of Present Illness - General Date of Service: 07/28/20 Admit Problem/Dx: Admission Diagnosis/Problem Admission Diagnosis/Problem Small bowel obstruction - History of Present Illness Initial Comments - Free Text/Narative: 80 yo male with PMH of COPD on home oxygen (2L), CAD, CHF, a-fib, HTN and DM type II with admission two months ago for GI bleed. Patient presents to the ED with complaints of nausea and not able to eat anything for past two days. Patient reports small amounts of liquid stool passed in the ED. He denies any fevers or chills. He reports chronic shortness of breath. CT scan of abdomen reported small bowel obstruction in right lower quadrant. There were hypodense lesions in the liver concerning for metastatic disease. CT chest was negative for PE but reported severe emphysema and 1 cm nodule in right upper lobe. abdomen Pain Score (Numeric/FACES): 5 - Related Data Allergies/Adverse Reactions: Allergies Allergy/AdvReac Type Severity Reaction Status Date / Time No Known Allergies Allergy Verified 07/28/20 17:39 Home Medications: Home Meds Albuterol [Proventil HFA] 2 puff INH Q6H PRN 11/05/17 [History] Omeprazole 20 mg PO ACBREAKFAST 11/05/17 [History] Simvastatin [Zocor] 80 mg PO BEDTIME 11/05/17 [History] Tiotropium [Spiriva HandiHaler] 18 mcg INH DAILY 11/05/17 [History] allopurinoL [Zyloprim] 300 mg PO DAILY 11/05/17 [History] metFORMIN HCl [Metformin HCl] 500 mg PO BIDMEALS 11/05/17 [History] Tamsulosin HCl [Flomax] 0.4 mg PO DAILY 07/01/19 [History] Albuterol/Ipratropium [DuoNeb 3.0-0.5 MG/3 ML] 3 ml NEB QID PRN 05/19/20 [History] Digoxin [Digox] 125 mcg PO DAILY 05/19/20 [History] Glucosamine [Glucosamine Sulfate] 1,000 mg PO DAILY 05/19/20 [History] Potassium Chloride [Klor-Con M20] 20 meq PO DAILY 05/19/20 [History] Torsemide 40 mg PO DAILY 05/19/20 [History] metOLazone [Metolazone] 2.5 mg PO .ONCEWEEKLYMONDAYS 05/19/20 [History] Budesonide/Formoterol Fumarate [Symbicort 160-4.5 Mcg Inhaler] 2 puff INH BID 05/31/20 [History] Furosemide 60 mg PO DAILY 05/31/20 [History] Past Medical History HEENT History: Reports: Glaucoma Other HEENT History: wears glasses for reading, has top and bottom dentures Cardiovascular History: Reports: Afib, CAD, Heart Failure, High Cholesterol, Hypertension, Other (See Below) Respiratory History: Reports: COPD Other Respiratory History: Uses oxygen @ 2L [place] and inhalers at home Gastrointestinal History: Reports: GERD, Other (See Below) Genitourinary History: Reports: None Musculoskeletal History: Reports: Gout Neurological History: Reports: CVA Psychiatric History: Reports: None Endocrine/Metabolic History: Reports: Diabetes, Type II Hematologic History: Reports: None Immunologic History: Reports: None Oncologic (Cancer) History: Reports: None Dermatologic History: Reports: None - Infectious Disease History Infectious Disease History: Reports: None - Past Surgical History Head Surgeries/Procedures: Reports: None HEENT Surgical History: Reports: Cataract Surgery, Eye Surgery, Oral Surgery Other HEENT Surgeries/Procedures: eye surgery x3 Cardiovascular Surgical History: Reports: Coronary Artery Bypass Social & Family History - Family History Family Medical History: No Pertinent Family History HEENT: Reports: Cataract, Glaucoma Cardiac: Reports: Afib, High Cholesterol, Hypertension Respiratory: Reports: None GI: Reports: None OBGYN: Reports: Neurological: Reports: CVA Psychiatric: Reports: None Endocrine/Metabolic: Reports: Diabetes, type II Hematologic: Reports: None Immunologic: Reports: None Dermatologic: Reports: None Oncologic: Reports: None - Tobacco Use Tobacco Use Status *Q: Never Tobacco User - Caffeine Use Caffeine Use: Reports: Coffee Caffeine Use Comment: 1 cup/day coffee - Recreational Drug Use Recreational Drug Use: No - Living Situation & Occupation Living situation: Reports: Occupation: Retired H&P Review of Systems - Review of Systems: Review Of Systems: Comprehensive ROS is negative, except as noted in HPI. Exam - Exam Exam: See Below - Vital Signs Vital Signs: Last Vital Signs Temp 36.5 C 07/28/20 17:35 Pulse 83 07/28/20 21:27 Resp 18 07/28/20 21:27 BP 90/58 L 07/28/20 21:36 Pulse Ox 100 07/28/20 21:27 Weight: 55.338 kg - Exam General: Alert, Oriented HEENT: Mucosa Moist & [place] Neck: Supple Lungs: Clear to Auscultation, Normal Respiratory Effort Cardiovascular: Regular Rate, Regular Rhythm GI/Abdominal Exam: Normal Bowel Sounds, Soft, Non-Tender Extremities: Non-Tender, No Pedal Edema Skin: Warm, Dry, Intact - Patient Data Lab Results Last 24 hrs: Laboratory Results - last 24 hr 07/28/20 07/28/20 07/28/20 Range/Units 17:55 17:55 17:55 WBC 7.54 (4.0-11.0) K/uL RBC 3.79 L (4.50-5.90) M/uL Hgb 10.2 L (13.0-17.0) g/dL Hct 34.2 L (38.0-50.0) % MCV 90.2 (80.0-98.0) fL MCH 26.9 L (27.0-32.0) pg MCHC 29.8 L (31.0-37.0) g/dL RDW Std Deviation 54.2 (28.0-62.0) fl RDW Coeff of Renetta 16 H (11.0-15.0) % Plt Count 242 (150-400) K/uL MPV 10.50 (7.40-12.00) fL Neut % (Auto) 86.0 H (48.0-80.0) % Lymph % (Auto) 4.1 L (16.0-40.0) % Vance % (Auto) 9.5 (0.0-15.0) % Eos % (Auto) 0.3 (0.0-7.0) % Baso % (Auto) 0.1 (0.0-1.5) % Neut # (Auto) 6.5 H (1.4-5.7) K/uL Lymph # (Auto) 0.3 L (0.6-2.4) K/uL Vance # (Auto) 0.7 (0.0-0.8) K/uL Eos # (Auto) 0.0 (0.0-0.7) K/uL Baso # (Auto) 0.0 (0.0-0.1) K/uL Nucleated RBC % 0.0 /100WBC Nucleated RBCs # 0 K/uL D-Dimer, Quantitative (0.0-0.50) mg/L FEU VBG pH 7.45 H (7.31-7.41) VBG pCO2 52 H (35-45) mmHG VBG pO2 22 L (30-40) mmHG VBG HCO3 36 H (22-30) mEq/L VBG Total CO2 34 L (41-51) mmol/L VBG Base Excess 10.6 H (-3.0-3.0) Lactate (0.20-2.00) mmol/L Sodium 130 L (136-148) mmol/L Potassium 4.5 (3.5-5.1) mmol/L Chloride 89 L (98-107) mmol/L Carbon Dioxide 33.7 H (21.0-32.0) mmol/L BUN 70 H (7.0-18.0) mg/dL Creatinine 1.6 H (0.8-1.3) mg/dL Est Cr Clr Drug Dosing TNP Estimated GFR (MDRD) 41.9 ml/min Glucose 155 H (74-106) mg/dL Calcium 9.4 (8.5-10.1) mg/dL Magnesium (1.8-2.4) mg/dL Total Bilirubin 0.8 (0.2-1.0) mg/dL AST 17 (15-37) IU/L ALT 20 (14-63) IU/L Alkaline Phosphatase 108 (46-116) U/L Troponin I (0.000-0.056) ng/mL Total Protein 7.5 (6.4-8.2) g/dL Albumin 3.4 (3.4-5.0) g/dL Globulin 4.1 H (2.6-4.0) g/dL Albumin/Globulin Ratio 0.8 L (0.9-1.6) Lipase (73-393) U/L Urine Color Urine Appearance Urine pH (5.0-8.0) Ur Specific [place] (1.001-1.035) Urine Protein (NEGATIVE) mg/dL Urine Glucose (UA) (NEGATIVE) mg/dL Urine Ketones (NEGATIVE) mg/dL Urine Occult Blood (NEGATIVE) Urine Nitrite (NEGATIVE) Urine Bilirubin (NEGATIVE) Urine Urobilinogen (<2.0) EU/dL Ur Leukocyte Esterase (NEGATIVE) Influenza Type A RNA (NEGATIVE) Influenza Type B RNA (NEGATIVE) SARS-CoV-2 RNA ([place]) (NEGATIVE) 07/28/20 07/28/20 07/28/20 Range/Units 17:55 17:55 17:55 WBC (4.0-11.0) K/uL RBC (4.50-5.90) M/uL Hgb (13.0-17.0) g/dL Hct (38.0-50.0) % MCV (80.0-98.0) fL MCH (27.0-32.0) pg MCHC (31.0-37.0) g/dL RDW Std Deviation (28.0-62.0) fl RDW Coeff of Renetta (11.0-15.0) % Plt Count (150-400) K/uL MPV (7.40-12.00) fL Neut % (Auto) (48.0-80.0) % Lymph % (Auto) (16.0-40.0) % Vance % (Auto) (0.0-15.0) % Eos % (Auto) (0.0-7.0) % Baso % (Auto) (0.0-1.5) % Neut # (Auto) (1.4-5.7) K/uL Lymph # (Auto) (0.6-2.4) K/uL Vance # (Auto) (0.0-0.8) K/uL Eos # (Auto) (0.0-0.7) K/uL Baso # (Auto) (0.0-0.1) K/uL Nucleated RBC % /100WBC Nucleated RBCs # K/uL D-Dimer, Quantitative 1.96 H (0.0-0.50) mg/L FEU VBG pH (7.31-7.41) VBG pCO2 (35-45) mmHG VBG pO2 (30-40) mmHG VBG HCO3 (22-30) mEq/L VBG Total CO2 (41-51) mmol/L VBG Base Excess (-3.0-3.0) Lactate 2.4 H* (0.20-2.00) mmol/L Sodium (136-148) mmol/L Potassium (3.5-5.1) mmol/L Chloride (98-107) mmol/L Carbon Dioxide (21.0-32.0) mmol/L BUN (7.0-18.0) mg/dL Creatinine (0.8-1.3) mg/dL Est Cr Clr Drug Dosing Estimated GFR (MDRD) ml/min Glucose (74-106) mg/dL Calcium (8.5-10.1) mg/dL Magnesium (1.8-2.4) mg/dL Total Bilirubin (0.2-1.0) mg/dL AST (15-37) IU/L ALT (14-63) IU/L Alkaline Phosphatase (46-116) U/L Troponin I < 0.050 (0.000-0.056) ng/mL Total Protein (6.4-8.2) g/dL Albumin (3.4-5.0) g/dL Globulin (2.6-4.0) g/dL Albumin/Globulin Ratio (0.9-1.6) Lipase 34 L (73-393) U/L Urine Color Urine Appearance Urine pH (5.0-8.0) Ur Specific [place] (1.001-1.035) Urine Protein (NEGATIVE) mg/dL Urine Glucose (UA) (NEGATIVE) mg/dL Urine Ketones (NEGATIVE) mg/dL Urine Occult Blood (NEGATIVE) Urine Nitrite (NEGATIVE) Urine Bilirubin (NEGATIVE) Urine Urobilinogen (<2.0) EU/dL Ur Leukocyte Esterase (NEGATIVE) Influenza Type A RNA (NEGATIVE) Influenza Type B RNA (NEGATIVE) SARS-CoV-2 RNA ([place]) (NEGATIVE) 07/28/20 07/28/20 07/28/20 Range/Units 17:55 18:51 19:28 WBC (4.0-11.0) K/uL RBC (4.50-5.90) M/uL Hgb (13.0-17.0) g/dL Hct (38.0-50.0) % MCV (80.0-98.0) fL MCH (27.0-32.0) pg MCHC (31.0-37.0) g/dL RDW Std Deviation (28.0-62.0) fl RDW Coeff of Renetta (11.0-15.0) % Plt Count (150-400) K/uL MPV (7.40-12.00) fL Neut % (Auto) (48.0-80.0) % Lymph % (Auto) (16.0-40.0) % Vance % (Auto) (0.0-15.0) % Eos % (Auto) (0.0-7.0) % Baso % (Auto) (0.0-1.5) % Neut # (Auto) (1.4-5.7) K/uL Lymph # (Auto) (0.6-2.4) K/uL Vance # (Auto) (0.0-0.8) K/uL Eos # (Auto) (0.0-0.7) K/uL Baso # (Auto) (0.0-0.1) K/uL Nucleated RBC % /100WBC Nucleated RBCs # K/uL D-Dimer, Quantitative (0.0-0.50) mg/L FEU VBG pH (7.31-7.41) VBG pCO2 (35-45) mmHG VBG pO2 (30-40) mmHG VBG HCO3 (22-30) mEq/L VBG Total CO2 (41-51) mmol/L VBG Base Excess (-3.0-3.0) Lactate (0.20-2.00) mmol/L Sodium (136-148) mmol/L Potassium (3.5-5.1) mmol/L Chloride (98-107) mmol/L Carbon Dioxide (21.0-32.0) mmol/L BUN (7.0-18.0) mg/dL Creatinine (0.8-1.3) mg/dL Est Cr Clr Drug Dosing Estimated GFR (MDRD) ml/min Glucose (74-106) mg/dL Calcium (8.5-10.1) mg/dL Magnesium 1.5 L (1.8-2.4) mg/dL Total Bilirubin (0.2-1.0) mg/dL AST (15-37) IU/L ALT (14-63) IU/L Alkaline Phosphatase (46-116) U/L Troponin I (0.000-0.056) ng/mL Total Protein (6.4-8.2) g/dL Albumin (3.4-5.0) g/dL Globulin (2.6-4.0) g/dL Albumin/Globulin Ratio (0.9-1.6) Lipase (73-393) U/L Urine Color YELLOW Urine Appearance CLEAR Urine pH 5.5 (5.0-8.0) Ur Specific [place] 1.010 (1.001-1.035) Urine Protein NEGATIVE (NEGATIVE) mg/dL Urine Glucose (UA) NEGATIVE (NEGATIVE) mg/dL Urine Ketones NEGATIVE (NEGATIVE) mg/dL Urine Occult Blood NEGATIVE (NEGATIVE) Urine Nitrite NEGATIVE (NEGATIVE) Urine Bilirubin NEGATIVE (NEGATIVE) Urine Urobilinogen 0.2 (<2.0) EU/dL Ur Leukocyte Esterase NEGATIVE (NEGATIVE) Influenza Type A RNA NEGATIVE (NEGATIVE) Influenza Type B RNA NEGATIVE (NEGATIVE) SARS-CoV-2 RNA ([place]) NEGATIVE (NEGATIVE) 07/28/20 Range/Units 22:23 WBC (4.0-11.0) K/uL RBC (4.50-5.90) M/uL Hgb (13.0-17.0) g/dL Hct (38.0-50.0) % MCV (80.0-98.0) fL MCH (27.0-32.0) pg MCHC (31.0-37.0) g/dL RDW Std Deviation (28.0-62.0) fl RDW Coeff of Renetta (11.0-15.0) % Plt Count (150-400) K/uL MPV (7.40-12.00) fL Neut % (Auto) (48.0-80.0) % Lymph % (Auto) (16.0-40.0) % Vance % (Auto) (0.0-15.0) % Eos % (Auto) (0.0-7.0) % Baso % (Auto) (0.0-1.5) % Neut # (Auto) (1.4-5.7) K/uL Lymph # (Auto) (0.6-2.4) K/uL Vance # (Auto) (0.0-0.8) K/uL Eos # (Auto) (0.0-0.7) K/uL Baso # (Auto) (0.0-0.1) K/uL Nucleated RBC % /100WBC Nucleated RBCs # K/uL D-Dimer, Quantitative (0.0-0.50) mg/L FEU VBG pH (7.31-7.41) VBG pCO2 (35-45) mmHG VBG pO2 (30-40) mmHG VBG HCO3 (22-30) mEq/L VBG Total CO2 (41-51) mmol/L VBG Base Excess (-3.0-3.0) Lactate 1.3 (0.20-2.00) mmol/L Sodium (136-148) mmol/L Potassium (3.5-5.1) mmol/L Chloride (98-107) mmol/L Carbon Dioxide (21.0-32.0) mmol/L BUN (7.0-18.0) mg/dL Creatinine (0.8-1.3) mg/dL Est Cr Clr Drug Dosing Estimated GFR (MDRD) ml/min Glucose (74-106) mg/dL Calcium (8.5-10.1) mg/dL Magnesium (1.8-2.4) mg/dL Total Bilirubin (0.2-1.0) mg/dL AST (15-37) IU/L ALT (14-63) IU/L Alkaline Phosphatase (46-116) U/L Troponin I (0.000-0.056) ng/mL Total Protein (6.4-8.2) g/dL Albumin (3.4-5.0) g/dL Globulin (2.6-4.0) g/dL Albumin/Globulin Ratio (0.9-1.6) Lipase (73-393) U/L Urine Color Urine Appearance Urine pH (5.0-8.0) Ur Specific [place] (1.001-1.035) Urine Protein (NEGATIVE) mg/dL Urine Glucose (UA) (NEGATIVE) mg/dL Urine Ketones (NEGATIVE) mg/dL Urine Occult Blood (NEGATIVE) Urine Nitrite (NEGATIVE) Urine Bilirubin (NEGATIVE) Urine Urobilinogen (<2.0) EU/dL Ur Leukocyte Esterase (NEGATIVE) Influenza Type A RNA (NEGATIVE) Influenza Type B RNA (NEGATIVE) SARS-CoV-2 RNA ([place]) (NEGATIVE) Result Diagrams: 07/28/20 17:55 07/28/20 17:55 Morales Results Last 24 hrs: Microbiology 07/28/20 18:16 Anaerobic Blood Culture - Final Blood - Venous - Lab Draw Sepsis Event Note - Evaluation Sepsis Screening Result: Possible Sepsis Risk - Focused Exam Vital Signs: Vital Signs Temp Pulse Resp BP Pulse Ox 07/28/20 21:36 90/58 L 07/28/20 21:27 83 18 85/51 L 100 07/28/20 19:25 101 H 17 97/50 L 99 07/28/20 19:00 88 104/56 L 100 07/28/20 17:35 36.5 C 113 H 24 H 107/56 L 98 Problem List Initiated/Reviewed/Updated: Yes Orders Last 24hrs: Active Orders 24 hr Category Date Time Status Patient Status [ADT] Routine ADT 07/28/20 22:59 Active Cardiac Monitoring [RC] . DIRECTED Care 07/28/20 17:28 Active EKG 12 Lead [EKG Documentation Completion] [RC] STAT Care 07/28/20 17:35 Active Gastrointestinal Tube Mgmt [RC] ASDIRECTED Care 07/28/20 23:01 Active Abdomen 1V Upright [CR] Stat Exams 07/28/20 23:01 Ordered Chest 1V Frontal [CR] Stat Exams 07/28/20 23:01 Ordered NG Tube Placement [CR] Stat Exams 07/28/20 23:00 Ordered CULTURE BLOOD [BC] Stat Lab 07/28/20 17:55 Received CULTURE BLOOD [BC] Stat Lab 07/28/20 18:16 Results Sodium Chloride 0.9% [Normal Saline] 500 ml Med 07/28/20 18:00 Active IV STAT Sodium Chloride 0.9% [Saline Flush] Med 07/28/20 17:28 Active 10 ml FLUSH ASDIRECTED PRN Sodium Chloride 0.9% [Saline Flush] Med 07/28/20 18:34 Active 10 ml FLUSH ASDIRECTED PRN Sodium Chloride 0.9% [Saline Flush] Med 07/28/20 17:28 Active 2.5 ml FLUSH ASDIRECTED PRN Sodium Chloride 0.9% [Saline Flush] Med 07/28/20 18:34 Active 2.5 ml FLUSH ASDIRECTED PRN Blood Culture x2 Reflex Set [OM.PC] Stat Oth 07/28/20 17:43 Ordered Nasogastric Orogastric Tube Insertion [OM.PC] Stat Oth 07/28/20 23:00 Ordered Saline Lock Insert [OM.PC] Stat Oth 07/28/20 17:28 Ordered Saline Lock Insert [OM.PC] Stat Oth 07/28/20 18:35 Ordered Medication Orders Sodium Chloride (Normal Saline) 500 mls @ 999 mls/hr IV STAT MARY KATE Last Admin: 07/28/20 18:01 Dose: 999 mls/hr Documented by: JOSEPH Sodium Chloride (Saline Flush) 10 ml FLUSH ASDIRECTED PRN PRN Reason: Keep Vein Open Last Admin: 07/28/20 18:01 Dose: 10 ml Documented by: JOSEPH Sodium Chloride (Saline Flush) 2.5 ml FLUSH ASDIRECTED PRN PRN Reason: Keep Vein Open Last Admin: 07/28/20 18:01 Dose: 2.5 ml Documented by: JOSEPH Sodium Chloride (Saline Flush) 10 ml FLUSH ASDIRECTED PRN PRN Reason: Keep Vein Open Sodium Chloride (Saline Flush) 2.5 ml FLUSH ASDIRECTED PRN PRN Reason: Keep Vein Open Assessment/Plan Comment:: 80 yo male with severe emphysema, CAD, CHF, who is admitted for small bowel obstruction and likely metastatic disease. Patient was offered transfer but refused. Patient does not want aggressive treatment and would prefer palliative care over surgery if needed. We will admit here and try to decompress with NG tube. General surgery has been consulted.
[2020-07-28] MEDS ORDERED: Ondansetron 4 MG/2 ML SDV IVPUSH PRN (23:09)
[2020-07-28] MEDS ORDERED: Morphine 10 MG/ML Syringe IVPUSH PRN (23:09)
[2020-07-28] MEDS ORDERED: Lidocaine 2% Viscous Solution 15 ML Cup ONE (23:21)
[2020-07-28] MEDS ORDERED: Lidocaine 2% Viscous Solution 15 ML Cup PO ONE (23:29)
--- NOTE | 2020-07-28 23:47 | CR ---
INDICATION: Confirm nasogastric, orogastric tube placement TECHNIQUE: Abdominal radiograph 1 view COMPARISON: 07/28/2020 FINDINGS: Bowel: Dilated small bowel loops are noted in the upper abdomen without significant change. NG tube is present with the tip near the gastric fundus. Soft tissue: No evidence of pneumoperitoneum present. No suspicious calcifications noted. The patient is status post median sternotomy with left atrial appendage ligation clip noted. Small right pleural effusion is present. Bone: Unremarkable for age. IMPRESSION: 1. NG tube is present with the tip near the gastric fundus. Dictated by Rocky Gonzalez MD @ 07/28/2020 11:45:20 PM Dictated by: Rocky Gonzalez MD @ 07/28/2020 23:45:22 (Electronically Signed)
[2020-07-29] MEDS: Sodium Chloride 0.9% 1,000 ML IV SCH ×2 (00:30→09:48)
[2020-07-29] MEDS ORDERED: Sodium Chloride 0.9% 500 ML IV ONE (05:34)
[2020-07-29 06:11] LABS: CARBON DIOXIDE,CO2 30.2 mmol/L (21.0-32.0); POTASSIUM,K 3.6 mmol/L (3.5-5.1)
[2020-07-29] MEDS: Albuterol/Ipratropium 3.0-0.5 MG/3 ML Neb Soln NEB PRN ×2 (06:33→15:03)
--- NOTE | 2020-07-29 08:05 | PCM.PN ---
- General Info Date of Service: 07/29/20 Admission Dx/Problem (Free Text): Admission Diagnosis/Problem Admission Diagnosis/Problem Small bowel obstruction Subjective Update: Rainer reports he is feeling improved today reports passing gas and having bowel movement both formed and loose this morning. Reports abdominal pain is nearly gone denies any nausea no chest pain or increased shortness of breath. Functional Status: Reports: Pain Controlled, Ambulating, Urinating - Review of Systems General: Reports: Weakness (Generalized), Fatigue HEENT: Reports: No Symptoms. Denies: Headaches, Sore Throat, Visual Changes Pulmonary: Reports: No Symptoms. Denies: Shortness of Breath, Cough Cardiovascular: Denies: Chest Pain Gastrointestinal: Reports: Abdominal Pain (Improved), Flatus. Denies: Nausea, Vomiting Genitourinary: Reports: No Symptoms. Denies: Dysuria, Frequency, Burning Musculoskeletal: Reports: No Symptoms Skin: Reports: No Symptoms Neurological: Reports: No Symptoms Psychiatric: Reports: No Symptoms - Patient Data Vitals - Most Recent: Last Vital Signs Temp 98.3 F 07/29/20 04:28 Pulse 99 07/29/20 04:28 Resp 18 07/29/20 04:28 BP 70/57 L 07/29/20 04:28 Pulse Ox 97 07/29/20 04:28 Weight - Most Recent: 56.427 kg I&O - Last 24 Hours: Intake & Output 07/28/20 07/29/20 07/29/20 22:59 06:59 14:59 Intake Total 0 Output Total 400 Balance -400 Lab Results Last 24 Hours: Laboratory Results - last 24 hr 07/28/20 07/28/20 07/28/20 Range/Units 17:55 17:55 17:55 WBC 7.54 (4.0-11.0) K/uL RBC 3.79 L (4.50-5.90) M/uL Hgb 10.2 L (13.0-17.0) g/dL Hct 34.2 L (38.0-50.0) % MCV 90.2 (80.0-98.0) fL MCH 26.9 L (27.0-32.0) pg MCHC 29.8 L (31.0-37.0) g/dL RDW Std Deviation 54.2 (28.0-62.0) fl RDW Coeff of Renetta 16 H (11.0-15.0) % Plt Count 242 (150-400) K/uL MPV 10.50 (7.40-12.00) fL Neut % (Auto) 86.0 H (48.0-80.0) % Lymph % (Auto) 4.1 L (16.0-40.0) % [place] % (Auto) 9.5 (0.0-15.0) % Eos % (Auto) 0.3 (0.0-7.0) % Baso % (Auto) 0.1 (0.0-1.5) % Neut # (Auto) 6.5 H (1.4-5.7) K/uL Lymph # (Auto) 0.3 L (0.6-2.4) K/uL [place] # (Auto) 0.7 (0.0-0.8) K/uL Eos # (Auto) 0.0 (0.0-0.7) K/uL Baso # (Auto) 0.0 (0.0-0.1) K/uL Nucleated RBC % 0.0 /100WBC Nucleated RBCs # 0 K/uL D-Dimer, Quantitative (0.0-0.50) mg/L FEU VBG pH 7.45 H (7.31-7.41) VBG pCO2 52 H (35-45) mmHG VBG pO2 22 L (30-40) mmHG VBG HCO3 36 H (22-30) mEq/L VBG Total CO2 34 L (41-51) mmol/L VBG Base Excess 10.6 H (-3.0-3.0) Lactate (0.20-2.00) mmol/L Sodium 130 L (136-148) mmol/L Potassium 4.5 (3.5-5.1) mmol/L Chloride 89 L (98-107) mmol/L Carbon Dioxide 33.7 H (21.0-32.0) mmol/L BUN 70 H (7.0-18.0) mg/dL Creatinine 1.6 H (0.8-1.3) mg/dL Est Cr Clr Drug Dosing TNP Estimated GFR (MDRD) 41.9 ml/min Glucose 155 H (74-106) mg/dL POC Glucose (60-110) mg/dL Calcium 9.4 (8.5-10.1) mg/dL Magnesium (1.8-2.4) mg/dL Total Bilirubin 0.8 (0.2-1.0) mg/dL AST 17 (15-37) IU/L ALT 20 (14-63) IU/L Alkaline Phosphatase 108 (46-116) U/L Troponin I (0.000-0.056) ng/mL Total Protein 7.5 (6.4-8.2) g/dL Albumin 3.4 (3.4-5.0) g/dL Globulin 4.1 H (2.6-4.0) g/dL Albumin/Globulin Ratio 0.8 L (0.9-1.6) Lipase (73-393) U/L Urine Color Urine Appearance Urine pH (5.0-8.0) Ur Specific Ariel (1.001-1.035) Urine Protein (NEGATIVE) mg/dL Urine Glucose (UA) (NEGATIVE) mg/dL Urine Ketones (NEGATIVE) mg/dL Urine Occult Blood (NEGATIVE) Urine Nitrite (NEGATIVE) Urine Bilirubin (NEGATIVE) Urine Urobilinogen (<2.0) EU/dL Ur Leukocyte Esterase (NEGATIVE) Influenza Type A RNA (NEGATIVE) Influenza Type B RNA (NEGATIVE) SARS-CoV-2 RNA ([place]) (NEGATIVE) 07/28/20 07/28/20 07/28/20 Range/Units 17:55 17:55 17:55 WBC (4.0-11.0) K/uL RBC (4.50-5.90) M/uL Hgb (13.0-17.0) g/dL Hct (38.0-50.0) % MCV (80.0-98.0) fL MCH (27.0-32.0) pg MCHC (31.0-37.0) g/dL RDW Std Deviation (28.0-62.0) fl RDW Coeff of Renetta (11.0-15.0) % Plt Count (150-400) K/uL MPV (7.40-12.00) fL Neut % (Auto) (48.0-80.0) % Lymph % (Auto) (16.0-40.0) % [place] % (Auto) (0.0-15.0) % Eos % (Auto) (0.0-7.0) % Baso % (Auto) (0.0-1.5) % Neut # (Auto) (1.4-5.7) K/uL Lymph # (Auto) (0.6-2.4) K/uL [place] # (Auto) (0.0-0.8) K/uL Eos # (Auto) (0.0-0.7) K/uL Baso # (Auto) (0.0-0.1) K/uL Nucleated RBC % /100WBC Nucleated RBCs # K/uL D-Dimer, Quantitative 1.96 H (0.0-0.50) mg/L FEU VBG pH (7.31-7.41) VBG pCO2 (35-45) mmHG VBG pO2 (30-40) mmHG VBG HCO3 (22-30) mEq/L VBG Total CO2 (41-51) mmol/L VBG Base Excess (-3.0-3.0) Lactate 2.4 H* (0.20-2.00) mmol/L Sodium (136-148) mmol/L Potassium (3.5-5.1) mmol/L Chloride (98-107) mmol/L Carbon Dioxide (21.0-32.0) mmol/L BUN (7.0-18.0) mg/dL Creatinine (0.8-1.3) mg/dL Est Cr Clr Drug Dosing Estimated GFR (MDRD) ml/min Glucose (74-106) mg/dL POC Glucose (60-110) mg/dL Calcium (8.5-10.1) mg/dL Magnesium (1.8-2.4) mg/dL Total Bilirubin (0.2-1.0) mg/dL AST (15-37) IU/L ALT (14-63) IU/L Alkaline Phosphatase (46-116) U/L Troponin I < 0.050 (0.000-0.056) ng/mL Total Protein (6.4-8.2) g/dL Albumin (3.4-5.0) g/dL Globulin (2.6-4.0) g/dL Albumin/Globulin Ratio (0.9-1.6) Lipase 34 L (73-393) U/L Urine Color Urine Appearance Urine pH (5.0-8.0) Ur Specific Ariel (1.001-1.035) Urine Protein (NEGATIVE) mg/dL Urine Glucose (UA) (NEGATIVE) mg/dL Urine Ketones (NEGATIVE) mg/dL Urine Occult Blood (NEGATIVE) Urine Nitrite (NEGATIVE) Urine Bilirubin (NEGATIVE) Urine Urobilinogen (<2.0) EU/dL Ur Leukocyte Esterase (NEGATIVE) Influenza Type A RNA (NEGATIVE) Influenza Type B RNA (NEGATIVE) SARS-CoV-2 RNA ([place]) (NEGATIVE) 07/28/20 07/28/20 07/28/20 Range/Units 17:55 18:51 19:28 WBC (4.0-11.0) K/uL RBC (4.50-5.90) M/uL Hgb (13.0-17.0) g/dL Hct (38.0-50.0) % MCV (80.0-98.0) fL MCH (27.0-32.0) pg MCHC (31.0-37.0) g/dL RDW Std Deviation (28.0-62.0) fl RDW Coeff of Renetta (11.0-15.0) % Plt Count (150-400) K/uL MPV (7.40-12.00) fL Neut % (Auto) (48.0-80.0) % Lymph % (Auto) (16.0-40.0) % [place] % (Auto) (0.0-15.0) % Eos % (Auto) (0.0-7.0) % Baso % (Auto) (0.0-1.5) % Neut # (Auto) (1.4-5.7) K/uL Lymph # (Auto) (0.6-2.4) K/uL [place] # (Auto) (0.0-0.8) K/uL Eos # (Auto) (0.0-0.7) K/uL Baso # (Auto) (0.0-0.1) K/uL Nucleated RBC % /100WBC Nucleated RBCs # K/uL D-Dimer, Quantitative (0.0-0.50) mg/L FEU VBG pH (7.31-7.41) VBG pCO2 (35-45) mmHG VBG pO2 (30-40) mmHG VBG HCO3 (22-30) mEq/L VBG Total CO2 (41-51) mmol/L VBG Base Excess (-3.0-3.0) Lactate (0.20-2.00) mmol/L Sodium (136-148) mmol/L Potassium (3.5-5.1) mmol/L Chloride (98-107) mmol/L Carbon Dioxide (21.0-32.0) mmol/L BUN (7.0-18.0) mg/dL Creatinine (0.8-1.3) mg/dL Est Cr Clr Drug Dosing Estimated GFR (MDRD) ml/min Glucose (74-106) mg/dL POC Glucose (60-110) mg/dL Calcium (8.5-10.1) mg/dL Magnesium 1.5 L (1.8-2.4) mg/dL Total Bilirubin (0.2-1.0) mg/dL AST (15-37) IU/L ALT (14-63) IU/L Alkaline Phosphatase (46-116) U/L Troponin I (0.000-0.056) ng/mL Total Protein (6.4-8.2) g/dL Albumin (3.4-5.0) g/dL Globulin (2.6-4.0) g/dL Albumin/Globulin Ratio (0.9-1.6) Lipase (73-393) U/L Urine Color YELLOW Urine Appearance CLEAR Urine pH 5.5 (5.0-8.0) Ur Specific Ariel 1.010 (1.001-1.035) Urine Protein NEGATIVE (NEGATIVE) mg/dL Urine Glucose (UA) NEGATIVE (NEGATIVE) mg/dL Urine Ketones NEGATIVE (NEGATIVE) mg/dL Urine Occult Blood NEGATIVE (NEGATIVE) Urine Nitrite NEGATIVE (NEGATIVE) Urine Bilirubin NEGATIVE (NEGATIVE) Urine Urobilinogen 0.2 (<2.0) EU/dL Ur Leukocyte Esterase NEGATIVE (NEGATIVE) Influenza Type A RNA NEGATIVE (NEGATIVE) Influenza Type B RNA NEGATIVE (NEGATIVE) SARS-CoV-2 RNA ([place]) NEGATIVE (NEGATIVE) 07/28/20 07/29/20 07/29/20 Range/Units 22:23 01:28 05:30 WBC 4.96 (4.0-11.0) K/uL RBC 2.97 L (4.50-5.90) M/uL Hgb 8.0 L (13.0-17.0) g/dL Hct 27.0 L (38.0-50.0) % MCV 90.9 (80.0-98.0) fL MCH 26.9 L (27.0-32.0) pg MCHC 29.6 L (31.0-37.0) g/dL RDW Std Deviation 55.1 (28.0-62.0) fl RDW Coeff of Renetta 16 H (11.0-15.0) % Plt Count 178 (150-400) K/uL MPV 10.50 (7.40-12.00) fL Neut % (Auto) (48.0-80.0) % Lymph % (Auto) (16.0-40.0) % [place] % (Auto) (0.0-15.0) % Eos % (Auto) (0.0-7.0) % Baso % (Auto) (0.0-1.5) % Neut # (Auto) (1.4-5.7) K/uL Lymph # (Auto) (0.6-2.4) K/uL [place] # (Auto) (0.0-0.8) K/uL Eos # (Auto) (0.0-0.7) K/uL Baso # (Auto) (0.0-0.1) K/uL Nucleated RBC % 0.0 /100WBC Nucleated RBCs # 0 K/uL D-Dimer, Quantitative (0.0-0.50) mg/L FEU VBG pH (7.31-7.41) VBG pCO2 (35-45) mmHG VBG pO2 (30-40) mmHG VBG HCO3 (22-30) mEq/L VBG Total CO2 (41-51) mmol/L VBG Base Excess (-3.0-3.0) Lactate 1.3 (0.20-2.00) mmol/L Sodium (136-148) mmol/L Potassium (3.5-5.1) mmol/L Chloride (98-107) mmol/L Carbon Dioxide (21.0-32.0) mmol/L BUN (7.0-18.0) mg/dL Creatinine (0.8-1.3) mg/dL Est Cr Clr Drug Dosing Estimated GFR (MDRD) ml/min Glucose (74-106) mg/dL POC Glucose 161 H (60-110) mg/dL Calcium (8.5-10.1) mg/dL Magnesium (1.8-2.4) mg/dL Total Bilirubin (0.2-1.0) mg/dL AST (15-37) IU/L ALT (14-63) IU/L Alkaline Phosphatase (46-116) U/L Troponin I (0.000-0.056) ng/mL Total Protein (6.4-8.2) g/dL Albumin (3.4-5.0) g/dL Globulin (2.6-4.0) g/dL Albumin/Globulin Ratio (0.9-1.6) Lipase (73-393) U/L Urine Color Urine Appearance Urine pH (5.0-8.0) Ur Specific Ariel (1.001-1.035) Urine Protein (NEGATIVE) mg/dL Urine Glucose (UA) (NEGATIVE) mg/dL Urine Ketones (NEGATIVE) mg/dL Urine Occult Blood (NEGATIVE) Urine Nitrite (NEGATIVE) Urine Bilirubin (NEGATIVE) Urine Urobilinogen (<2.0) EU/dL Ur Leukocyte Esterase (NEGATIVE) Influenza Type A RNA (NEGATIVE) Influenza Type B RNA (NEGATIVE) SARS-CoV-2 RNA ([place]) (NEGATIVE) 07/29/20 07/29/20 07/29/20 Range/Units 05:30 06:38 06:55 WBC (4.0-11.0) K/uL RBC (4.50-5.90) M/uL Hgb (13.0-17.0) g/dL Hct (38.0-50.0) % MCV (80.0-98.0) fL MCH (27.0-32.0) pg MCHC (31.0-37.0) g/dL RDW Std Deviation (28.0-62.0) fl RDW Coeff of Renetta (11.0-15.0) % Plt Count (150-400) K/uL MPV (7.40-12.00) fL Neut % (Auto) (48.0-80.0) % Lymph % (Auto) (16.0-40.0) % [place] % (Auto) (0.0-15.0) % Eos % (Auto) (0.0-7.0) % Baso % (Auto) (0.0-1.5) % Neut # (Auto) (1.4-5.7) K/uL Lymph # (Auto) (0.6-2.4) K/uL [place] # (Auto) (0.0-0.8) K/uL Eos # (Auto) (0.0-0.7) K/uL Baso # (Auto) (0.0-0.1) K/uL Nucleated RBC % /100WBC Nucleated RBCs # K/uL D-Dimer, Quantitative (0.0-0.50) mg/L FEU VBG pH (7.31-7.41) VBG pCO2 (35-45) mmHG VBG pO2 (30-40) mmHG VBG HCO3 (22-30) mEq/L VBG Total CO2 (41-51) mmol/L VBG Base Excess (-3.0-3.0) Lactate 1.0 (0.20-2.00) mmol/L Sodium 134 L (136-148) mmol/L Potassium 3.6 (3.5-5.1) mmol/L Chloride 98 (98-107) mmol/L Carbon Dioxide 30.2 (21.0-32.0) mmol/L BUN 64 H (7.0-18.0) mg/dL Creatinine 1.5 H (0.8-1.3) mg/dL Est Cr Clr Drug Dosing 31.87 Estimated GFR (MDRD) 45.1 ml/min Glucose 156 H (74-106) mg/dL POC Glucose 168 H (60-110) mg/dL Calcium 8.4 L (8.5-10.1) mg/dL Magnesium (1.8-2.4) mg/dL Total Bilirubin 0.4 (0.2-1.0) mg/dL AST 11 L (15-37) IU/L ALT 14 (14-63) IU/L Alkaline Phosphatase 75 (46-116) U/L Troponin I (0.000-0.056) ng/mL Total Protein 6.1 L (6.4-8.2) g/dL Albumin 2.5 L (3.4-5.0) g/dL Globulin 3.6 (2.6-4.0) g/dL Albumin/Globulin Ratio 0.7 L (0.9-1.6) Lipase (73-393) U/L Urine Color Urine Appearance Urine pH (5.0-8.0) Ur Specific Ariel (1.001-1.035) Urine Protein (NEGATIVE) mg/dL Urine Glucose (UA) (NEGATIVE) mg/dL Urine Ketones (NEGATIVE) mg/dL Urine Occult Blood (NEGATIVE) Urine Nitrite (NEGATIVE) Urine Bilirubin (NEGATIVE) Urine Urobilinogen (<2.0) EU/dL Ur Leukocyte Esterase (NEGATIVE) Influenza Type A RNA (NEGATIVE) Influenza Type B RNA (NEGATIVE) SARS-CoV-2 RNA ([place]) (NEGATIVE) Morales Results Last 24 Hours: Microbiology 07/28/20 18:16 Anaerobic Blood Culture - Final Blood - Venous - Lab Draw Med Orders - Current: Current Medications Albuterol/Ipratropium (Duoneb 3.0-0.5 Mg/3 Ml) 3 ml NEB QID PRN PRN Reason: COPD Last Admin: 07/29/20 06:33 Dose: 3 ml Documented by: Sodium Chloride (Normal Saline) 500 mls @ 999 mls/hr IV STAT [facility] Last Admin: 07/28/20 18:01 Dose: 999 mls/hr Documented by: Sodium Chloride (Normal Saline) 1,000 mls @ 100 mls/hr IV ASDIRECTED [facility] Last Admin: 07/29/20 00:30 Dose: 100 mls/hr Documented by: Morphine Sulfate (Morphine) 2 mg IVPUSH Q2H PRN PRN Reason: Pain (severe 7-10) Stop: 07/29/20 23:10 Ondansetron HCl (Zofran) 4 mg IVPUSH Q4H PRN PRN Reason: Nausea Budesonide/Formoterol 160-4.5 Mcg/Puff 6 Gm Inhaler 2 each INH BID [facility] Sodium Chloride (Saline Flush) 10 ml FLUSH ASDIRECTED PRN PRN Reason: Keep Vein Open Last Admin: 07/28/20 18:01 Dose: 10 ml Documented by: Sodium Chloride (Saline Flush) 2.5 ml FLUSH ASDIRECTED PRN PRN Reason: Keep Vein Open Last Admin: 07/28/20 18:01 Dose: 2.5 ml Documented by: Sodium Chloride (Saline Flush) 10 ml FLUSH ASDIRECTED PRN PRN Reason: Keep Vein Open Sodium Chloride (Saline Flush) 2.5 ml FLUSH ASDIRECTED PRN PRN Reason: Keep Vein Open Discontinued Medications Sodium Chloride (Normal Saline) 1,000 mls @ 999 mls/hr IV STAT ONE Stop: 07/28/20 19:24 Last Admin: 07/28/20 18:57 Dose: 999 mls/hr Documented by: Magnesium Sulfate (Magnesium Sulfate In Water Premix) 2 gm in 50 mls @ 50 mls/hr IV ONETIME ONE Stop: 07/28/20 20:28 Last Admin: 07/28/20 19:37 Dose: 50 mls/hr Documented by: Magnesium Sulfate (Magnesium Sulfate In Water Premix) Confirm Administered Dose 2 gm in 50 mls @ as directed .ROUTE .STK-MED ONE Stop: 07/28/20 19:29 Last Admin: 07/28/20 19:32 Dose: Not Given Documented by: Sodium Chloride (Normal Saline) 1,000 mls @ 999 mls/hr IV STAT ONE Stop: 07/28/20 22:58 Last Admin: 07/28/20 22:35 Dose: 999 mls/hr Documented by: Sodium Chloride (Normal Saline) 500 mls @ 999 mls/hr IV BOLUS ONE Stop: 07/29/20 06:04 Last Admin: 07/29/20 05:40 Dose: 999 mls/hr Documented by: Iopamidol (Isovue-300 (61%)) 75 ml IVPUSH ONETIME STA Stop: 07/28/20 20:40 Last Admin: 07/28/20 20:40 Dose: 75 ml Documented by: Lidocaine HCl (Xylocaine 2% Viscous) Confirm Administered Dose 15 ml .ROUTE .STK-MED ONE Stop: 07/28/20 23:22 Last Admin: 07/29/20 04:26 Dose: Not Given Documented by: Lidocaine HCl (Xylocaine 2% Viscous) 15 ml PO ONETIME ONE Stop: 07/28/20 23:30 Last Admin: 07/29/20 04:26 Dose: Not Given Documented by: Magnesium Sulfate (Magnesium Sulfate 50%) 2 gm IV NOW STA Stop: 07/28/20 19:02 Last Admin: 07/28/20 21:27 Dose: Not Given Documented by: Methylprednisolone Sodium Succinate (Solu-Medrol) 125 mg IVPUSH ONETIME ONE Stop: 07/28/20 20:21 Last Admin: 07/28/20 21:30 Dose: 125 mg Documented by: - Exam General: Alert, Oriented, Cooperative, No Acute Distress HEENT: Other (NG tube in place no signs of new breakdown) Lungs: Decreased Breath Sounds (Throughout) Cardiovascular: Regular Rate, Regular Rhythm GI/Abdominal Exam: Normal Bowel Sounds, Soft, Non-Tender, Other (No NG output) Back Exam: Normal Inspection, Full Range of Motion Extremities: Normal Inspection, Normal Range of Motion, Non-Tender, No Pedal Edema Neurological: No New Focal Deficit Psy/Mental Status: Alert, Normal Affect, Normal Mood Sepsis Event Note - Evaluation Sepsis Screening Result: No Definite Risk - Focused Exam Vital Signs: Vital Signs Temp Pulse Resp BP BP Pulse Ox Pulse Ox 07/29/20 04:28 98.3 F 99 18 70/57 L 97 07/29/20 03:01 96 07/29/20 00:30 96 07/29/20 00:20 98.6 F 85 18 73/44 L 96 07/29/20 00:16 97 18 89/58 L 96 07/28/20 23:52 76/50 L 07/28/20 23:49 86 75/48 L 98 07/28/20 23:39 83 79/53 L 99 07/28/20 23:00 88 86/52 L 98 07/28/20 22:06 99 87/46 L 97 07/28/20 21:36 92 90/58 L 90/58 L 98 07/28/20 21:27 83 18 85/51 L 100 - Problem List & Annotations (1) Acute renal failure SNOMED Code(s): 53375256 Code(s): N17.9 - ACUTE KIDNEY FAILURE, UNSPECIFIED Status: Acute Current Visit: Yes (2) Dehydration SNOMED Code(s): 17031686 Code(s): E86.0 - DEHYDRATION Status: Acute Current Visit: Yes (3) Hypomagnesemia SNOMED Code(s): 303490152 Code(s): E83.42 - HYPOMAGNESEMIA Status: Acute Current Visit: Yes (4) Liver lesion SNOMED Code(s): 978512928 Code(s): K76.9 - LIVER DISEASE, UNSPECIFIED Status: Acute Current Visit: Yes (5) Small bowel obstruction SNOMED Code(s): 483155232 Code(s): K56.609 - UNSP INTESTNL OBST, UNSP TO PARTIAL VERSUS COMPLETE OBST Status: Acute Current Visit: Yes (6) COPD (chronic obstructive pulmonary disease) SNOMED Code(s): 45885902 Code(s): J44.9 - CHRONIC OBSTRUCTIVE PULMONARY DISEASE, UNSPECIFIED Status: Chronic Current Visit: Yes Qualifiers: COPD type: chronic bronchitis (7) Congestive heart disease SNOMED Code(s): 33345978 Code(s): I50.9 - HEART FAILURE, UNSPECIFIED Status: Acute Current Visit: No Qualifiers: Heart failure type: combined systolic and diastolic Heart failure chronicity: acute on chronic Qualified Code(s): I50.43 - Acute on chronic combined systolic (congestive) and diastolic (congestive) heart failure (8) Heart failure with preserved ejection fraction SNOMED Code(s): 819323430 Code(s): I50.30 - UNSPECIFIED DIASTOLIC (CONGESTIVE) HEART FAILURE Status: Acute Current Visit: No Qualifiers: Heart failure chronicity: acute on chronic Qualified Code(s): I50.33 - Acute on chronic diastolic (congestive) heart failure (9) History of coronary artery bypass graft SNOMED Code(s): 406275280, 160152745 Code(s): Z95.1 - PRESENCE OF AORTOCORONARY BYPASS GRAFT Status: Acute Current Visit: No (10) Macrocytic anemia SNOMED Code(s): 35533949 Code(s): D53.9 - NUTRITIONAL ANEMIA, UNSPECIFIED Status: Acute Current Visit: No (11) Carotid stenosis Status: Chronic Current Visit: No Qualifiers: Laterality: left Qualified Code(s): I65.22 - Occlusion and stenosis of left carotid artery (12) Coronary arteriosclerosis SNOMED Code(s): 14613200 Code(s): I25.10 - ATHSCL HEART DISEASE OF [place] CORONARY ARTERY W/O ANG PCTRS Status: Chronic Current Visit: No (13) Diabetes mellitus SNOMED Code(s): 29174777 Code(s): E11.9 - TYPE 2 DIABETES MELLITUS WITHOUT COMPLICATIONS Status: Chronic Current Visit: No Qualifiers: Diabetes mellitus type: type 2 Diabetes mellitus correction insulin use: without buttermaker helper use (14) GERD (gastroesophageal reflux disease) SNOMED Code(s): 470666461 Code(s): K21.9 - GASTRO-ESOPHAGEAL REFLUX DISEASE WITHOUT ESOPHAGITIS Status: Chronic Current Visit: No (15) History of CVA (cerebrovascular accident) SNOMED Code(s): 560533937 Code(s): Z86.73 - PRSNL HX OF TIA (TIA), AND CEREB INFRC W/O RESID DEFICITS Status: Chronic Current Visit: No (16) History of atrial fibrillation SNOMED Code(s): 252205107 Code(s): Z86.79 - PERSONAL HISTORY OF OTHER DISEASES OF THE CIRCULATORY SYST EM Status: Chronic Current Visit: No (17) Oxygen dependent SNOMED Code(s): 012583625579 Code(s): Z99.81 - DEPENDENCE ON SUPPLEMENTAL OXYGEN Status: Chronic Current Visit: No (18) S/P CABG (coronary artery bypass graft) SNOMED Code(s): 401050088, 039954839, 808645499 Code(s): Z95.1 - PRESENCE OF AORTOCORONARY BYPASS GRAFT Status: Chronic Current Visit: No - Problem List Review Problem List Initiated/Reviewed/Updated: Yes - My Orders Last 24 Hours: My Active Orders 07/29/20 08:01 MAGNESIUM [CHEM] Routine - Plan Plan:: 80 yo male with severe emphysema, CAD, CHF, who is admitted for small bowel obstruction and likely metastatic disease. 1. Small bowel obstruction -Continue NG tube to low intermittent wall suction -Add bowel movement today and flat and upright shows improvement in distention of small bowel also notes stool throughout the colon. -Continue NG today likely remove in a.m. -Repeat KUB in morning -Continue n.p.o. today 2. Liver lesions -Concern for metastatic disease - Did speak with , and, this afternoon regarding her feelings on pursuing identification of what these lesions are. Rainer requested she make the decision in this. She is okay with further investigation which includes liver biopsy but she would like to stay within town if possible. I will send recommendation to [place] to set up outpatient liver biopsy. 3. Anemia -Known history takes iron daily as seen hematology regarding this. -Hemoglobin is 8.0 today due to history of CAD and previous history of GI bleeding will transfuse 1 unit PRBCs today and repeat labs. 4. CAD/A. fib/hypertension/CHF -Spoke with Dr. Green this morning regarding patient's admission. Will hold Eliquis at this time per his recommendations -Restart torsemide in a.m. -Monitor blood pressures. Blood pressures tend to be on the softer side at baseline. Patient denies any lightheadedness dizziness today. 5. Chronic respiratory failure/oxygen dependent/COPD end-stage -Continue home oxygen -Continue Spiriva as well as as needed albuterol inhaler VTE prophylaxis; SCDs and ambulation CODE STATUS: DNR/DNI. Patient and family were offered transfer yesterday but patient and family are in agreement that no aggressive treatment is wanted. They are discussing palliative care but would like to have liver biopsies to determine what lesions are on CT. Dispo: 2 to 3 days pending improvement
--- NOTE | 2020-07-29 09:08 | CONS ---
DATE OF CONSULTATION: 07/28/2020 DATE OF : 1940 PRIMARY CARE PHYSICIAN: None PCP ER Consult HISTORY OF PRESENT ILLNESS: The patient is a pleasant 80-year-old gentleman who has not really been able to eat for the past 2 days. He said he also had some nausea, but no emesis. He also notes his abdomen is beginning more distended over the last week and having some vague abdominal pains. He says his last bowel movement was yesterday. The patient has multiple medical issues such as COPD with home oxygen, coronary artery disease, congestive heart failure, pulmonary hypertension, atrial fibrillation and diabetes type 2. He was hospitalized back in April for a GI bleed. The patient said at that time he was told he had too many comorbidities to have surgery at this hospital. PAST MEDICAL HISTORY: 1. Severe COPD, on home oxygen. 2. Coronary artery disease. 3. History of heart failure with pulmonary hypertension. 4. Atrial fibrillation. 5. Hypertension. 6. Type 2 diabetes. 7. History of GI bleed. CURRENT HOME MEDICATIONS: 1. Metolazone 2.5 mg p.o. weekly on Mondays. 2. Metformin 500 mg p.o. b.i.d. at meals. 3. Allopurinol 300 mg p.o. daily. 4. Torsemide 40 mg p.o. daily. 5. Spiriva 18 mcg inhaled daily. 6. Flomax 0.4 mg p.o. daily. 7. Zocor 80 mg p.o. at bedtime. 8. Potassium chloride 40 mEq p.o. daily. 9. mg p.o. 10.Furosemid 60 mg p.o. daily. 11.Digoxin 125 mcg p.o. daily. 12.Symbicort inhaler. 13.DuoNebs. 14.Proventil inhaler. ALLERGIES: No known drug allergies. PAST SURGICAL HISTORY: 1. The patient denies any abdominal surgeries. 2. He says he mainly had eye surgeries in the past. 3. Cardiac bypass. FAMILY HISTORY: Noncontributory. SOCIAL HISTORY: Denies tobacco use. Denies illicit drug use. Denies any alcohol use. REVIEW OF SYSTEMS: Complete 12 plus review of systems was done, was negative except for those already stated in HPI. PULMONARY: Severe shortness of breath, on home oxygen. : He does state he has some issues with urination, although it is helped with his Flomax. LABORATORY DATA: White cell count is 7.45, hemoglobin is 10, platelet count is 242. Lactic acid is 1.3. Sodium 130, potassium 4.5, chloride 89, BUN 70, creatinine 1.6, glucose 55. IMAGING: Did review images and radiology report. He does have a dilated small bowel with potentially a transition point in the right lower quadrant. Of concern, there are some new hypodensities lesions in the liver, would be quite concerning actually for a cancerous process. PHYSICAL EXAMINATION: GENERAL: The patient is sitting comfortably in his ER bed. He is alert and oriented, no acute distress. He does have hiccups though. VITAL SIGNS: Temperature is 97.7, pulse is 83, blood pressure is 85/51, saturating 100% on 3 liters nasal cannula. LUNGS: Diminished breath sounds bilaterally. HEART: Regular rate and rhythm, although the patient does have a history of atrial fib currently. ABDOMEN: Distended but soft. Some very minimal tenderness, more in the left lower abdomen to palpation. No rebound. No guarding. EXTREMITIES: He is wearing compression stockings. ASSESSMENT AND PLAN: This is a pleasant 80-year-old gentleman with at least a partial small bowel obstruction. The patient does have new lesions in the liver concerning for metastatic disease. The patient also has no history of abdominal surgeries to form adhesions. I did go over with the patient that treatment of this would be first decompression with NG tube. If it does not work, potentially needs surgery for either lysis of adhesions or evaluation of some type of mechanical obstruction for mass. The patient understands. I did go over with the patient that with his comorbidities, he might be a candidate hospital and might need to be transferred to a tertiary care center. The patient does not want to be transferred. He wants to just try nasal decompression. The patient states that if he needs surgery, he would have to think if he would really want it. The patient will be admitted to the hospitalist service. I have talked to the Medicine team. Surgery will continue to follow. CESAR / GRUPO /[id number]
[2020-07-29] MEDS: Budesonide/Formoterol 160-4.5 MCG/Puff 6 GM Inhaler INH SCH ×2 (10:24→21:24)
--- NOTE | 2020-07-29 12:23 | CR ---
INDICATION: Small-bowel obstruction TECHNIQUE: Upright and supine views. COMPARISON: CT abdomen and pelvis July 28, 2020 FINDINGS: There is improved gaseous distention of multiple dilated loops of small bowel within the central abdomen. There is moderate stool seen throughout the colon. There is no intra-abdominal free air or pathologic calcification. There is no acute osseous abnormality. IMPRESSION: There is improving bowel obstruction from comparison exam with overall decreased dilatation and aeration of dilated central bowel loops. Dictated by Malcolm Cuevas MD @ Jul 29 2020 12:19PM Signed by Dr. Malcolm Cuevas @ Jul 29 2020 12:22PM
--- NOTE | 2020-07-29 13:41 | PN ---
SUBJECTIVE: The patient is resting comfortably in his hospital bed. He is alert and oriented. No acute distress. He says he is feeling much better than yesterday. He did have an NG in place, although per report there has only been minimal out. The patient says he has been passing some gas. This was confirmed by nursing staff. Also, he had some smelly liquid stools. The patient denies any nausea or vomiting. OBJECTIVE: VITAL SIGNS: Temperature is 98.8, pulse is 74, blood pressure is 80/73, satting 93% on 3 L. ABDOMEN: Soft. Still mild distention, but improved from yesterday. The patient said he is not really having any abdominal pain. ASSESSMENT AND PLAN: The patient is a pleasant 80-year-old gentleman, who came in with bloating and nausea, was shown to have at least a partial obstruction on CT scan along with potential new liver lesions. NG has been placed, although not much has come out. The patient is passing flatus, having liquid stool, and is feeling much better, and is less distended on exam. Potentially, he is starting to open up. I did go over with the medicine team that he should continue with decompression for today. Tomorrow, potentially can do contrast study to see if he has opened up. They might think of potentially doing a CT scan, triple phase, to further evaluate those new lesions in the liver because they are highly concerning for malignancy. Did answer the patient's questions. CESAR LOMBARDO /[id number] SALVADOR
[2020-07-29] MEDS: Tiotropium Inhaler 18 MCG Inhalation Powder Cap Kit of 5 INH SCH (13:57)
[2020-07-29] MEDS: ALBUTEROL INH PRN (21:23)
[2020-07-30] MEDS: Albuterol/Ipratropium 3.0-0.5 MG/3 ML Neb Soln NEB PRN ×3 (01:08→13:09)
[2020-07-30 06:55] LABS: CARBON DIOXIDE,CO2 29.7 mmol/L (21.0-32.0); POTASSIUM,K 3.1 mmol/L (3.5-5.1)
[2020-07-30] MEDS: Tiotropium Inhaler 18 MCG Inhalation Powder Cap Kit of 5 INH SCH (08:48)
[2020-07-30] MEDS: ALBUTEROL INH PRN ×2 (08:48→21:00)
[2020-07-30] MEDS: Budesonide/Formoterol 160-4.5 MCG/Puff 6 GM Inhaler INH SCH ×2 (11:23→22:51)
--- NOTE | 2020-07-30 11:55 | CR ---
INDICATION: Small-bowel obstruction, follow-up TECHNIQUE: X-ray abdomen, two views COMPARISON: X-ray abdomen 07/29/2020 and 07/28/2020 FINDINGS: The tip an enteric tube is seen projecting over the mid esophagus. No dilated loops of small bowel are seen. No free air is present below the diaphragm. There is marked increased lucency of the left lung without visualization of the lung markings, which is likely artifactual as the ribs are also not visualized. IMPRESSION: 1. Enteric tube has been retracted with the tip projecting over the mid esophagus. 2. Continued improvement. No dilated loops of small bowel are visualized. 3. Increased lucency over the left lung base is felt to be artifactual as the posterior ribs are also not visualized. However if patient has increasing shortness of breath recommend chest radiograph. Dictated by Charlene Marquez MD @ Jul 30 2020 11:53AM Signed by Dr. Charlene Marquez @ Jul 30 2020 11:53AM
--- NOTE | 2020-07-30 13:45 | PCM.PN ---
- General Info Date of Service: 07/30/20 - Review of Systems Systems Review Comment:: feeling better, had several bowel movements last night - Patient Data Vitals - Most Recent: Last Vital Signs Temp 36.4 C 07/30/20 12:00 Pulse 99 07/30/20 12:00 Resp 20 07/30/20 08:00 BP 112/82 07/30/20 12:00 Pulse Ox 95 07/30/20 12:00 Weight - Most Recent: 55.7 kg I&O - Last 24 Hours: Intake & Output 07/29/20 07/30/20 07/30/20 22:59 06:59 14:59 Intake Total 1174 585 Output Total 600 650 Balance 574 -65 Lab Results Last 24 Hours: Laboratory Results - last 24 hr 07/29/20 07/29/20 07/29/20 Range/Units 10:52 12:20 17:42 WBC (4.0-11.0) K/uL RBC (4.50-5.90) M/uL Hgb 9.5 L (13.0-17.0) g/dL Hct 31.8 L (38.0-50.0) % MCV (80.0-98.0) fL MCH (27.0-32.0) pg MCHC (31.0-37.0) g/dL RDW Std Deviation (28.0-62.0) fl RDW Coeff of Renetta (11.0-15.0) % Plt Count (150-400) K/uL MPV (7.40-12.00) fL Neut % (Auto) (48.0-80.0) % Lymph % (Auto) (16.0-40.0) % [place] % (Auto) (0.0-15.0) % Eos % (Auto) (0.0-7.0) % Baso % (Auto) (0.0-1.5) % Neut # (Auto) (1.4-5.7) K/uL Lymph # (Auto) (0.6-2.4) K/uL [place] # (Auto) (0.0-0.8) K/uL Eos # (Auto) (0.0-0.7) K/uL Baso # (Auto) (0.0-0.1) K/uL Nucleated RBC % /100WBC Nucleated RBCs # K/uL Sodium (136-148) mmol/L Potassium (3.5-5.1) mmol/L Chloride (98-107) mmol/L Carbon Dioxide (21.0-32.0) mmol/L BUN (7.0-18.0) mg/dL Creatinine (0.8-1.3) mg/dL Est Cr Clr Drug Dosing mL/min Estimated GFR (MDRD) ml/min Glucose (74-106) mg/dL POC Glucose 159 H (60-110) mg/dL Calcium (8.5-10.1) mg/dL Magnesium (1.8-2.4) mg/dL Total Bilirubin (0.2-1.0) mg/dL AST (15-37) IU/L ALT (14-63) IU/L Alkaline Phosphatase (46-116) U/L Total Protein (6.4-8.2) g/dL Albumin (3.4-5.0) g/dL Globulin (2.6-4.0) g/dL Albumin/Globulin Ratio (0.9-1.6) Blood Type O POSITIVE Antibody Screen NEGATIVE Crossmatch See Detail 07/29/20 07/29/20 07/30/20 Range/Units 18:04 23:25 05:10 WBC 7.60 (4.0-11.0) K/uL RBC 3.30 L (4.50-5.90) M/uL Hgb 9.1 L (13.0-17.0) g/dL Hct 30.3 L (38.0-50.0) % MCV 91.8 (80.0-98.0) fL MCH 27.6 (27.0-32.0) pg MCHC 30.0 L (31.0-37.0) g/dL RDW Std Deviation 55.1 (28.0-62.0) fl RDW Coeff of Renetta 17 H (11.0-15.0) % Plt Count 184 (150-400) K/uL MPV 10.90 (7.40-12.00) fL Neut % (Auto) 84.5 H (48.0-80.0) % Lymph % (Auto) 5.8 L (16.0-40.0) % [place] % (Auto) 9.7 (0.0-15.0) % Eos % (Auto) 0.0 (0.0-7.0) % Baso % (Auto) 0.0 (0.0-1.5) % Neut # (Auto) 6.4 H (1.4-5.7) K/uL Lymph # (Auto) 0.4 L (0.6-2.4) K/uL [place] # (Auto) 0.7 (0.0-0.8) K/uL Eos # (Auto) 0.0 (0.0-0.7) K/uL Baso # (Auto) 0.0 (0.0-0.1) K/uL Nucleated RBC % 0.0 /100WBC Nucleated RBCs # 0 K/uL Sodium (136-148) mmol/L Potassium (3.5-5.1) mmol/L Chloride (98-107) mmol/L Carbon Dioxide (21.0-32.0) mmol/L BUN (7.0-18.0) mg/dL Creatinine (0.8-1.3) mg/dL Est Cr Clr Drug Dosing mL/min Estimated GFR (MDRD) ml/min Glucose (74-106) mg/dL POC Glucose 138 H 132 H (60-110) mg/dL Calcium (8.5-10.1) mg/dL Magnesium (1.8-2.4) mg/dL Total Bilirubin (0.2-1.0) mg/dL AST (15-37) IU/L ALT (14-63) IU/L Alkaline Phosphatase (46-116) U/L Total Protein (6.4-8.2) g/dL Albumin (3.4-5.0) g/dL Globulin (2.6-4.0) g/dL Albumin/Globulin Ratio (0.9-1.6) Blood Type Antibody Screen Crossmatch 07/30/20 07/30/20 07/30/20 Range/Units 05:10 06:49 12:00 WBC (4.0-11.0) K/uL RBC (4.50-5.90) M/uL Hgb (13.0-17.0) g/dL Hct (38.0-50.0) % MCV (80.0-98.0) fL MCH (27.0-32.0) pg MCHC (31.0-37.0) g/dL RDW Std Deviation (28.0-62.0) fl RDW Coeff of Renetta (11.0-15.0) % Plt Count (150-400) K/uL MPV (7.40-12.00) fL Neut % (Auto) (48.0-80.0) % Lymph % (Auto) (16.0-40.0) % [place] % (Auto) (0.0-15.0) % Eos % (Auto) (0.0-7.0) % Baso % (Auto) (0.0-1.5) % Neut # (Auto) (1.4-5.7) K/uL Lymph # (Auto) (0.6-2.4) K/uL [place] # (Auto) (0.0-0.8) K/uL Eos # (Auto) (0.0-0.7) K/uL Baso # (Auto) (0.0-0.1) K/uL Nucleated RBC % /100WBC Nucleated RBCs # K/uL Sodium 142 (136-148) mmol/L Potassium 3.1 L (3.5-5.1) mmol/L Chloride 105 (98-107) mmol/L Carbon Dioxide 29.7 (21.0-32.0) mmol/L BUN 54 H (7.0-18.0) mg/dL Creatinine 1.3 (0.8-1.3) mg/dL Est Cr Clr Drug Dosing 36.77 mL/min Estimated GFR (MDRD) 53.3 ml/min Glucose 112 H (74-106) mg/dL POC Glucose 121 H 122 H (60-110) mg/dL Calcium 8.8 (8.5-10.1) mg/dL Magnesium 2.4 (1.8-2.4) mg/dL Total Bilirubin 0.4 (0.2-1.0) mg/dL AST 11 L (15-37) IU/L ALT 17 (14-63) IU/L Alkaline Phosphatase 76 (46-116) U/L Total Protein 6.3 L (6.4-8.2) g/dL Albumin 2.7 L (3.4-5.0) g/dL Globulin 3.6 (2.6-4.0) g/dL Albumin/Globulin Ratio 0.8 L (0.9-1.6) Blood Type Antibody Screen Crossmatch [place] Results Last 24 Hours: Microbiology 07/28/20 18:16 Aerobic Blood Culture - Preliminary Blood - Venous - Lab Draw NO GROWTH AFTER 1 DAY Anaerobic Blood Culture - Final 07/28/20 17:55 Aerobic Blood Culture - Preliminary Blood - Venous NO GROWTH AFTER 1 DAY Anaerobic Blood Culture - Preliminary NO GROWTH AFTER 1 DAY Med Orders - Current: Current Medications Albuterol (Ventolin Hfa) 0 gm INH Q6H PRN PRN Reason: Shortness of Breath Last Admin: 07/30/20 08:48 Dose: 2 puff Documented by: Albuterol/Ipratropium (Duoneb 3.0-0.5 Mg/3 Ml) 3 ml NEB QID [facility] Allopurinol (Zyloprim) 300 mg PO DAILY [facility] Digoxin (Lanoxin) 250 mcg PO DAILY [facility] Morphine Sulfate (Morphine) 2 mg IVPUSH Q2H PRN PRN Reason: Pain (severe 7-10) Non-Formulary Medication (Simvastatin [Zocor]) 80 mg PO BEDTIME [facility] Non-Formulary Medication (Omeprazole [Omeprazole]) 20 mg PO ACBREAKFAST [facility] Non-Formulary Medication (Ferrous Gluconate [Iron]) 324 mg PO TID [facility] Ondansetron HCl (Zofran) 4 mg IVPUSH Q4H PRN PRN Reason: Nausea Budesonide/Formoterol 160-4.5 Mcg/Puff 6 Gm Inhaler 2 each INH BID [facility] Last Admin: 07/30/20 11:23 Dose: Not Given Documented by: Sodium Chloride (Saline Flush) 2.5 ml FLUSH ASDIRECTED PRN PRN Reason: Keep Vein Open Last Admin: 07/28/20 18:01 Dose: 2.5 ml Documented by: Tiotropium [place] (Spiriva Handihaler) 18 mcg INH DAILY [facility] Last Admin: 07/30/20 08:48 Dose: 1 inhalation Documented by: Discontinued Medications Albuterol/Ipratropium (Duoneb 3.0-0.5 Mg/3 Ml) 3 ml NEB QID PRN PRN Reason: COPD Last Admin: 07/30/20 13:09 Dose: 3 ml Documented by: Sodium Chloride (Normal Saline) 500 mls @ 999 mls/hr IV STAT MARY KATE Last Admin: 07/28/20 18:01 Dose: 999 mls/hr Documented by: Sodium Chloride (Normal Saline) 1,000 mls @ 999 mls/hr IV STAT ONE Stop: 07/28/20 19:24 Last Admin: 07/28/20 18:57 Dose: 999 mls/hr Documented by: Magnesium Sulfate (Magnesium Sulfate In Water Premix) 2 gm in 50 mls @ 50 mls/hr IV ONETIME ONE Stop: 07/28/20 20:28 Last Admin: 07/28/20 19:37 Dose: 50 mls/hr Documented by: Magnesium Sulfate (Magnesium Sulfate In Water Premix) Confirm Administered Dose 2 gm in 50 mls @ as directed .ROUTE .STK-MED ONE Stop: 07/28/20 19:29 Last Admin: 07/28/20 19:32 Dose: Not Given Documented by: Sodium Chloride (Normal Saline) 1,000 mls @ 999 mls/hr IV STAT ONE Stop: 07/28/20 22:58 Last Admin: 07/28/20 22:35 Dose: 999 mls/hr Documented by: Sodium Chloride (Normal Saline) 1,000 mls @ 100 mls/hr IV ASDIRECTED MARY KATE Last Admin: 07/29/20 09:48 Dose: 100 mls/hr Documented by: Sodium Chloride (Normal Saline) 500 mls @ 999 mls/hr IV BOLUS ONE Stop: 07/29/20 06:04 Last Admin: 07/29/20 05:40 Dose: 999 mls/hr Documented by: Iopamidol (Isovue-300 (61%)) 75 ml IVPUSH ONETIME STA Stop: 07/28/20 20:40 Last Admin: 07/28/20 20:40 Dose: 75 ml Documented by: Lidocaine HCl (Xylocaine 2% Viscous) Confirm Administered Dose 15 ml .ROUTE .STK-MED ONE Stop: 07/28/20 23:22 Last Admin: 07/29/20 04:26 Dose: Not Given Documented by: Lidocaine HCl (Xylocaine 2% Viscous) 15 ml PO ONETIME ONE Stop: 07/28/20 23:30 Last Admin: 07/29/20 04:26 Dose: Not Given Documented by: Magnesium Sulfate (Magnesium Sulfate 50%) 2 gm IV NOW STA Stop: 07/28/20 19:02 Last Admin: 07/28/20 21:27 Dose: Not Given Documented by: Methylprednisolone Sodium Succinate (Solu-Medrol) 125 mg IVPUSH ONETIME ONE Stop: 07/28/20 20:21 Last Admin: 07/28/20 21:30 Dose: 125 mg Documented by: Sodium Chloride (Saline Flush) 10 ml FLUSH ASDIRECTED PRN PRN Reason: Keep Vein Open Last Admin: 07/28/20 18:01 Dose: 10 ml Documented by: Sodium Chloride (Saline Flush) 10 ml FLUSH ASDIRECTED PRN PRN Reason: Keep Vein Open Sodium Chloride (Saline Flush) 2.5 ml FLUSH ASDIRECTED PRN PRN Reason: Keep Vein Open - Exam General: Alert, Oriented Neck: Supple Lungs: Clear to Auscultation, Normal Respiratory Effort Cardiovascular: Regular Rate, Regular Rhythm GI/Abdominal Exam: Soft Extremities: Non-Tender, No Pedal Edema Skin: Warm, Dry, Intact Neurological: No New Focal Deficit Sepsis Event Note - Evaluation Sepsis Screening Result: No Definite Risk - Focused Exam Vital Signs: Vital Signs Temp Pulse Resp BP BP Pulse Ox Pulse Ox 07/30/20 12:00 36.4 C 99 112/82 95 07/30/20 10:00 95 07/30/20 08:00 37.6 C 91 20 102/65 95 07/30/20 04:00 36.3 C 90 16 93/66 95 - Problem List Review Problem List Initiated/Reviewed/Updated: Yes - My Orders Last 24 Hours: My Active Orders 07/30/20 Breakfast Clear Liquid Diet [DIET] 07/30/20 13:45 Digoxin [Lanoxin] 250 mcg PO DAILY 07/30/20 14:00 Ferrous Gluconate [Iron] 324 mg PO TID 07/30/20 18:00 Albuterol/Ipratropium [DuoNeb 3.0-0.5 MG/3 ML] 3 ml NEB QID 07/30/20 21:00 Simvastatin [Zocor] 80 mg PO BEDTIME 07/31/20 07:30 Omeprazole [Omeprazole] 20 mg PO ACBREAKFAST 07/31/20 09:00 allopurinoL [Zyloprim] 300 mg PO DAILY - Plan Plan:: 80 yo male with severe emphysema, CAD, CHF, who is admitted for small bowel obstruction and likely metastatic disease. 1. Small bowel obstruction, abdominal x-ray showed improving bowel gas pattern, NT tube in esophageus -remove NG tube -start clear liquid diet 2. Liver lesions -Concern for metastatic disease - will need [facility] 3. Anemia -hgb 9.1 after one unit of pRBC 4. CAD/A. fib/hypertension/CHF -holding eliquis, restarting torsemide 5. Chronic respiratory failure/oxygen dependent/COPD end-stage -Continue home oxygen -Continue Spiriva albuterol inhaler VTE prophylaxis; SCDs and ambulation CODE STATUS: DNR/DNI. Dispo: 2 to 3 days pending improvement
[2020-07-30] MEDS ORDERED: Potassium Chloride 20 MEQ Tab.ER PO ONE (13:56)
[2020-07-30] MEDS: Allopurinol 300 MG Tab PO SCH (14:11)
[2020-07-30] MEDS: Digoxin 250 MCG Tab PO SCH (14:11)
[2020-07-30] MEDS: FERROUS GLUCONATE 324 MG PO SCH ×2 (14:12→22:50)
[2020-07-30] MEDS: Albuterol/Ipratropium 3.0-0.5 MG/3 ML Neb Soln NEB SCH ×2 (17:22→23:57)
[2020-07-30] MEDS: Simvastatin 40 MG Tab PO SCH (20:17)
[2020-07-31] MEDS: ALBUTEROL INH PRN ×2 (02:33→09:44)
[2020-07-31] MEDS: Albuterol/Ipratropium 3.0-0.5 MG/3 ML Neb Soln NEB SCH ×4 (06:18→23:18)
[2020-07-31] MEDS: Omeprazole 20 MG Cap.CR PO SCH (06:45)
[2020-07-31] MEDS: FERROUS GLUCONATE 324 MG PO SCH (06:45)
[2020-07-31 06:50] LABS: CARBON DIOXIDE,CO2 30.8 mmol/L (21.0-32.0)
[2020-07-31] MEDS ORDERED: Aspirin 325 MG Tab PO ONE (07:03)
[2020-07-31] MEDS ORDERED: Metoprolol Tartrate 25 MG Tab PO ONE (07:04)
[2020-07-31] MEDS: Digoxin 250 MCG Tab PO SCH (09:00)
[2020-07-31] MEDS: Allopurinol 300 MG Tab PO SCH (09:00)
[2020-07-31] MEDS: Tiotropium Inhaler 18 MCG Inhalation Powder Cap Kit of 5 INH SCH (09:02)
--- NOTE | 2020-07-31 09:30 | PCM.PN ---
- General Info Date of Service: 07/31/20 - Review of Systems Systems Review Comment:: patient reported severe left sided chest pain this morning with shortness of breath, which has resolved - Patient Data Vitals - Most Recent: Last Vital Signs Temp 36.6 C 07/31/20 07:36 Pulse 110 H 07/31/20 09:00 Resp 18 07/31/20 07:36 BP 139/53 L 07/31/20 07:39 Pulse Ox 96 07/31/20 07:36 Weight - Most Recent: 158 kg I&O - Last 24 Hours: Intake & Output 07/30/20 07/31/20 07/31/20 22:59 06:59 14:59 Intake Total 830 780 Output Total 950 550 Balance -120 230 Lab Results Last 24 Hours: Laboratory Results - last 24 hr 07/30/20 07/30/20 07/31/20 Range/Units 12:00 17:34 00:22 WBC (4.0-11.0) K/uL RBC (4.50-5.90) M/uL Hgb (13.0-17.0) g/dL Hct (38.0-50.0) % MCV (80.0-98.0) fL MCH (27.0-32.0) pg MCHC (31.0-37.0) g/dL RDW Std Deviation (28.0-62.0) fl RDW Coeff of Renetta (11.0-15.0) % Plt Count (150-400) K/uL MPV (7.40-12.00) fL Neut % (Auto) (48.0-80.0) % Lymph % (Auto) (16.0-40.0) % [place] % (Auto) (0.0-15.0) % Eos % (Auto) (0.0-7.0) % Baso % (Auto) (0.0-1.5) % Neut # (Auto) (1.4-5.7) K/uL Lymph # (Auto) (0.6-2.4) K/uL [place] # (Auto) (0.0-0.8) K/uL Eos # (Auto) (0.0-0.7) K/uL Baso # (Auto) (0.0-0.1) K/uL Nucleated RBC % /100WBC Nucleated RBCs # K/uL Sodium (136-148) mmol/L Potassium (3.5-5.1) mmol/L Chloride (98-107) mmol/L Carbon Dioxide (21.0-32.0) mmol/L BUN (7.0-18.0) mg/dL Creatinine (0.8-1.3) mg/dL Est Cr Clr Drug Dosing mL/min Estimated GFR (MDRD) ml/min Glucose (74-106) mg/dL POC Glucose 122 H 176 H 235 H (60-110) mg/dL Calcium (8.5-10.1) mg/dL Magnesium (1.8-2.4) mg/dL Total Bilirubin (0.2-1.0) mg/dL AST (15-37) IU/L ALT (14-63) IU/L Alkaline Phosphatase (46-116) U/L Troponin I (0.000-0.056) ng/mL Total Protein (6.4-8.2) g/dL Albumin (3.4-5.0) g/dL Globulin (2.6-4.0) g/dL Albumin/Globulin Ratio (0.9-1.6) 07/31/20 07/31/20 07/31/20 Range/Units 06:00 06:00 06:00 WBC 12.02 H (4.0-11.0) K/uL RBC 3.60 L (4.50-5.90) M/uL Hgb 9.8 L (13.0-17.0) g/dL Hct 33.5 L (38.0-50.0) % MCV 93.1 (80.0-98.0) fL MCH 27.2 (27.0-32.0) pg MCHC 29.3 L (31.0-37.0) g/dL RDW Std Deviation 57.8 (28.0-62.0) fl RDW Coeff of Renetta 17 H (11.0-15.0) % Plt Count 191 (150-400) K/uL MPV 10.70 (7.40-12.00) fL Neut % (Auto) 86.9 H (48.0-80.0) % Lymph % (Auto) 4.2 L (16.0-40.0) % [place] % (Auto) 8.7 (0.0-15.0) % Eos % (Auto) 0.2 (0.0-7.0) % Baso % (Auto) 0.0 (0.0-1.5) % Neut # (Auto) 10.4 H (1.4-5.7) K/uL Lymph # (Auto) 0.5 L (0.6-2.4) K/uL [place] # (Auto) 1.1 H (0.0-0.8) K/uL Eos # (Auto) 0.0 (0.0-0.7) K/uL Baso # (Auto) 0.0 (0.0-0.1) K/uL Nucleated RBC % 0.0 /100WBC Nucleated RBCs # 0 K/uL Sodium 137 (136-148) mmol/L Potassium 4.0 (3.5-5.1) mmol/L Chloride 101 (98-107) mmol/L Carbon Dioxide 30.8 (21.0-32.0) mmol/L BUN 44 H (7.0-18.0) mg/dL Creatinine 1.3 (0.8-1.3) mg/dL Est Cr Clr Drug Dosing 36.30 mL/min Estimated GFR (MDRD) 53.3 ml/min Glucose 176 H (74-106) mg/dL POC Glucose (60-110) mg/dL Calcium 9.0 (8.5-10.1) mg/dL Magnesium 2.4 (1.8-2.4) mg/dL Total Bilirubin 0.4 (0.2-1.0) mg/dL AST 25 (15-37) IU/L ALT 28 (14-63) IU/L Alkaline Phosphatase 81 (46-116) U/L Troponin I 0.229 H* (0.000-0.056) ng/mL Total Protein 6.7 (6.4-8.2) g/dL Albumin 2.9 L (3.4-5.0) g/dL Globulin 3.8 (2.6-4.0) g/dL Albumin/Globulin Ratio 0.8 L (0.9-1.6) 07/31/20 Range/Units 06:40 WBC (4.0-11.0) K/uL RBC (4.50-5.90) M/uL Hgb (13.0-17.0) g/dL Hct (38.0-50.0) % MCV (80.0-98.0) fL MCH (27.0-32.0) pg MCHC (31.0-37.0) g/dL RDW Std Deviation (28.0-62.0) fl RDW Coeff of Renetta (11.0-15.0) % Plt Count (150-400) K/uL MPV (7.40-12.00) fL Neut % (Auto) (48.0-80.0) % Lymph % (Auto) (16.0-40.0) % [place] % (Auto) (0.0-15.0) % Eos % (Auto) (0.0-7.0) % Baso % (Auto) (0.0-1.5) % Neut # (Auto) (1.4-5.7) K/uL Lymph # (Auto) (0.6-2.4) K/uL [place] # (Auto) (0.0-0.8) K/uL Eos # (Auto) (0.0-0.7) K/uL Baso # (Auto) (0.0-0.1) K/uL Nucleated RBC % /100WBC Nucleated RBCs # K/uL Sodium (136-148) mmol/L Potassium (3.5-5.1) mmol/L Chloride (98-107) mmol/L Carbon Dioxide (21.0-32.0) mmol/L BUN (7.0-18.0) mg/dL Creatinine (0.8-1.3) mg/dL Est Cr Clr Drug Dosing mL/min Estimated GFR (MDRD) ml/min Glucose (74-106) mg/dL POC Glucose 158 H (60-110) mg/dL Calcium (8.5-10.1) mg/dL Magnesium (1.8-2.4) mg/dL Total Bilirubin (0.2-1.0) mg/dL AST (15-37) IU/L ALT (14-63) IU/L Alkaline Phosphatase (46-116) U/L Troponin I (0.000-0.056) ng/mL Total Protein (6.4-8.2) g/dL Albumin (3.4-5.0) g/dL Globulin (2.6-4.0) g/dL Albumin/Globulin Ratio (0.9-1.6) Morales Results Last 24 Hours: Microbiology 07/28/20 18:16 Aerobic Blood Culture - Preliminary Blood - Venous - Lab Draw NO GROWTH AFTER 2 DAYS Anaerobic Blood Culture - Final 07/28/20 17:55 Aerobic Blood Culture - Preliminary Blood - Venous NO GROWTH AFTER 2 DAYS Anaerobic Blood Culture - Preliminary NO GROWTH AFTER 2 DAYS Med Orders - Current: Current Medications Albuterol (Ventolin Hfa) 0 gm INH Q6H PRN PRN Reason: Shortness of Breath Last Admin: 07/31/20 02:33 Dose: 1 puff Documented by: Albuterol/Ipratropium (Duoneb 3.0-0.5 Mg/3 Ml) 3 ml NEB QID [facility] Last Admin: 07/31/20 06:18 Dose: 3 ml Documented by: Allopurinol (Zyloprim) 300 mg PO DAILY [facility] Last Admin: 07/31/20 09:00 Dose: 300 mg Documented by: Digoxin (Lanoxin) 250 mcg PO DAILY [facility] Last Admin: 07/31/20 09:00 Dose: 250 mcg Documented by: Morphine Sulfate (Morphine) 2 mg IVPUSH Q2H PRN PRN Reason: Pain (severe 7-10) Omeprazole (Omeprazole) 20 mg PO ACBREAKFAST [facility] Last Admin: 07/31/20 06:45 Dose: 20 mg Documented by: Ondansetron HCl (Zofran) 4 mg IVPUSH Q4H PRN PRN Reason: Nausea Budesonide/Formoterol 160-4.5 Mcg/Puff 6 Gm Inhaler 2 each INH BID [facility] Last Admin: 07/30/20 22:51 Dose: Not Given Documented by: Ferrous Gluconate [ (Iron] 324 Mg) 1 each PO TID [facility] Last Admin: 07/31/20 06:45 Dose: Not Given Documented by: Simvastatin (Zocor) 80 mg PO BEDTIME [facility] Last Admin: 07/30/20 20:17 Dose: 80 mg Documented by: Sodium Chloride (Saline Flush) 2.5 ml FLUSH ASDIRECTED PRN PRN Reason: Keep Vein Open Last Admin: 07/28/20 18:01 Dose: 2.5 ml Documented by: Tiotropium [place] (Spiriva Handihaler) 18 mcg INH DAILY [facility] Last Admin: 07/31/20 09:02 Dose: 1 inhalation Documented by: Discontinued Medications Albuterol/Ipratropium (Duoneb 3.0-0.5 Mg/3 Ml) 3 ml NEB QID PRN PRN Reason: COPD Last Admin: 07/30/20 13:09 Dose: 3 ml Documented by: Aspirin (Aspirin) 325 mg PO ONETIME ONE Stop: 07/31/20 07:04 Last Admin: 07/31/20 07:38 Dose: 325 mg Documented by: Sodium Chloride (Normal Saline) 500 mls @ 999 mls/hr IV STAT [facility] Last Admin: 07/28/20 18:01 Dose: 999 mls/hr Documented by: Sodium Chloride (Normal Saline) 1,000 mls @ 999 mls/hr IV STAT ONE Stop: 07/28/20 19:24 Last Admin: 07/28/20 18:57 Dose: 999 mls/hr Documented by: Magnesium Sulfate (Magnesium Sulfate In Water Premix) 2 gm in 50 mls @ 50 mls/hr IV ONETIME ONE Stop: 07/28/20 20:28 Last Admin: 07/28/20 19:37 Dose: 50 mls/hr Documented by: Magnesium Sulfate (Magnesium Sulfate In Water Premix) Confirm Administered Dose 2 gm in 50 mls @ as directed .ROUTE .STK-MED ONE Stop: 07/28/20 19:29 Last Admin: 07/28/20 19:32 Dose: Not Given Documented by: Sodium Chloride (Normal Saline) 1,000 mls @ 999 mls/hr IV STAT ONE Stop: 07/28/20 22:58 Last Admin: 07/28/20 22:35 Dose: 999 mls/hr Documented by: Sodium Chloride (Normal Saline) 1,000 mls @ 100 mls/hr IV ASDIRECTED [facility] Last Admin: 07/29/20 09:48 Dose: 100 mls/hr Documented by: Sodium Chloride (Normal Saline) 500 mls @ 999 mls/hr IV BOLUS ONE Stop: 07/29/20 06:04 Last Admin: 07/29/20 05:40 Dose: 999 mls/hr Documented by: Iopamidol (Isovue-300 (61%)) 75 ml IVPUSH ONETIME STA Stop: 07/28/20 20:40 Last Admin: 07/28/20 20:40 Dose: 75 ml Documented by: Lidocaine HCl (Xylocaine 2% Viscous) Confirm Administered Dose 15 ml .ROUTE .STK-MED ONE Stop: 07/28/20 23:22 Last Admin: 07/29/20 04:26 Dose: Not Given Documented by: Lidocaine HCl (Xylocaine 2% Viscous) 15 ml PO ONETIME ONE Stop: 07/28/20 23:30 Last Admin: 07/29/20 04:26 Dose: Not Given Documented by: Magnesium Sulfate (Magnesium Sulfate 50%) 2 gm IV NOW STA Stop: 07/28/20 19:02 Last Admin: 07/28/20 21:27 Dose: Not Given Documented by: Methylprednisolone Sodium Succinate (Solu-Medrol) 125 mg IVPUSH ONETIME ONE Stop: 07/28/20 20:21 Last Admin: 07/28/20 21:30 Dose: 125 mg Documented by: Metoprolol Tartrate (Lopressor) 25 mg PO ONETIME ONE Stop: 07/31/20 07:05 Last Admin: 07/31/20 07:39 Dose: 25 mg Documented by: Potassium Chloride (Klor-Con M20) 40 meq PO ONETIME ONE Stop: 07/30/20 13:57 Last Admin: 07/30/20 14:10 Dose: 40 meq Documented by: Sodium Chloride (Saline Flush) 10 ml FLUSH ASDIRECTED PRN PRN Reason: Keep Vein Open Last Admin: 07/28/20 18:01 Dose: 10 ml Documented by: Sodium Chloride (Saline Flush) 10 ml FLUSH ASDIRECTED PRN PRN Reason: Keep Vein Open Sodium Chloride (Saline Flush) 2.5 ml FLUSH ASDIRECTED PRN PRN Reason: Keep Vein Open - Exam General: Alert, Oriented Neck: Supple Lungs: Clear to Auscultation, Normal Respiratory Effort Cardiovascular: Regular Rate, Regular Rhythm Extremities: Non-Tender, No Pedal Edema Skin: Warm, Dry, Intact Neurological: No New Focal Deficit Sepsis Event Note - Evaluation Sepsis Screening Result: No Definite Risk - Focused Exam Vital Signs: Vital Signs Temp Pulse Pulse Resp BP BP BP 07/31/20 09:00 110 H 07/31/20 07:39 110 H 139/53 L 07/31/20 07:36 36.6 C 110 H 18 139/53 L 07/31/20 03:00 36.4 C 100 18 95/74 07/30/20 23:00 36.6 C 112 H 16 97/85 Pulse Ox 07/31/20 09:00 07/31/20 07:39 07/31/20 07:36 96 07/31/20 03:00 99 07/30/20 23:00 97 - Problem List Review Problem List Initiated/Reviewed/Updated: Yes - My Orders Last 24 Hours: My Active Orders 07/30/20 14:00 Digoxin [Lanoxin] 250 mcg PO DAILY Patient's Own Medication [Ptom] 1 each PO TID allopurinoL [Zyloprim] 300 mg PO DAILY 07/30/20 18:00 Albuterol/Ipratropium [DuoNeb 3.0-0.5 MG/3 ML] 3 ml NEB QID 07/30/20 21:00 Simvastatin [Zocor] 80 mg PO BEDTIME 07/31/20 05:29 EKG 12 Lead [EKG Documentation Completion] [RC] STAT 07/31/20 07:02 Telemetry Monitoring [Cardiac Monitoring] [RC] Q8H 07/31/20 07:30 Omeprazole 20 mg PO ACBREAKFAST 07/31/20 09:23 CXR [Chest 1V Frontal] [CR] Routine 07/31/20 09:30 Metoprolol Tartrate [Lopressor] 25 mg PO Q12H 07/31/20 10:00 TROPONIN I [CHEM] Routine - Plan Plan:: 80 yo male with severe emphysema, CAD, CHF, who is admitted for small bowel obstruction and likely metastatic disease. 1. Small bowel obstruction, resolving, continue clear liquid diet 2. NSTEMI: patient refused transfer, continue palliative care, ASA, metoprolol, discussed heparin but declined due to history of recent GI bleed 3. Liver lesions -Concern for metastatic disease 4. Anemia -hgb 9.8 after one unit of pRBC 5. CAD/A. fib/hypertension/CHF -holding eliquis, continue torsemide 6. Chronic respiratory failure/oxygen dependent/COPD end-stage -Continue home oxygen -Continue Spiriva albuterol inhaler VTE prophylaxis; SCDs and ambulation CODE STATUS: DNR/DNI. Dispo: likely home Sunday with home care/hospice, spoke with again today who is in agreement with treatment plan
[2020-07-31] MEDS: Budesonide/Formoterol 160-4.5 MCG/Puff 6 GM Inhaler INH SCH ×3 (09:55→21:02)
--- NOTE | 2020-07-31 10:02 | CR ---
HISTORY: Difficulty in breathing. COMPARISON: CT of the chest, 07/28/2020. Chest radiograph, 07/28/2020. TECHNIQUE: Chest one-view. FINDINGS: There is diffuse pulmonary hyperinflation, particularly in the left lung, stable from the recent CT scan. There is no new airspace disease. Median sternotomy changes, with borderline cardiomegaly, and left atrial appendage ligation clip. The osseous structures are intact. twisting press operator leads overlie the patient. IMPRESSION: Stable exam when compared with 07/28/2020. Dictated by Hugo Auguste MD @ Jul 31 2020 9:58AM Signed by Dr. Hugo Auguste @ Jul 31 2020 10:00AM
[2020-07-31] MEDS: Metoprolol Tartrate 25 MG Tab PO SCH ×2 (11:14→20:58)
[2020-07-31] MEDS ORDERED: 50% Dextrose in Water 50 ML Syringe IV PRN (12:37)
[2020-07-31] MEDS ORDERED: Glucagon,Human Recombinant 1 MG Vial IM PRN (12:37)
[2020-07-31] MEDS: Insulin Aspart 100 Units/ML 3 ML Pen SUBCUT SCH ×2 (13:15→18:39)
[2020-07-31] MEDS: Ferrous Sulfate 325 MG Tab PO SCH ×2 (13:16→21:02)
[2020-07-31] MEDS: Albuterol HFA 18 Gm Inhaler INH PRN (15:15)
[2020-07-31] MEDS: Simvastatin 40 MG Tab PO SCH (20:56)
[2020-08-01] MEDS: Albuterol/Ipratropium 3.0-0.5 MG/3 ML Neb Soln NEB SCH ×4 (05:47→23:42)
[2020-08-01] MEDS: Ferrous Sulfate 325 MG Tab PO SCH ×3 (05:49→22:12)
[2020-08-01] MEDS: Insulin Aspart 100 Units/ML 3 ML Pen SUBCUT SCH ×3 (06:29→17:49)
[2020-08-01] MEDS: Omeprazole 20 MG Cap.CR PO SCH (06:34)
[2020-08-01 06:37] LABS: CARBON DIOXIDE,CO2 28.5 mmol/L (21.0-32.0); POTASSIUM,K 4.2 mmol/L (3.5-5.1)
[2020-08-01] MEDS: Digoxin 250 MCG Tab PO SCH (08:30)
[2020-08-01] MEDS: Allopurinol 300 MG Tab PO SCH (08:30)
[2020-08-01] MEDS: Metoprolol Tartrate 25 MG Tab PO SCH ×2 (08:31→20:35)
[2020-08-01] MEDS: Tiotropium Inhaler 18 MCG Inhalation Powder Cap Kit of 5 INH SCH (08:31)
[2020-08-01] MEDS: Budesonide/Formoterol 160-4.5 MCG/Puff 6 GM Inhaler INH SCH ×2 (08:33→20:34)
--- NOTE | 2020-08-01 11:39 | PCM.PN ---
- General Info Date of Service: 08/01/20 - Review of Systems Systems Review Comment:: feeling better, no chest pain, apatite improving - Patient Data Vitals - Most Recent: Last Vital Signs Temp 36.3 C 08/01/20 07:45 Pulse 80 08/01/20 08:31 Resp 21 H 08/01/20 07:45 BP 99/59 L 08/01/20 08:31 Pulse Ox 93 L 08/01/20 07:45 Weight - Most Recent: 59 kg I&O - Last 24 Hours: Intake & Output 07/31/20 08/01/20 08/01/20 22:59 06:59 14:59 Intake Total 880 500 Output Total 320 300 Balance 560 200 Lab Results Last 24 Hours: Laboratory Results - last 24 hr 07/31/20 07/31/20 08/01/20 Range/Units 11:40 18:37 05:45 WBC 10.84 (4.0-11.0) K/uL RBC 3.54 L (4.50-5.90) M/uL Hgb 9.7 L (13.0-17.0) g/dL Hct 32.8 L (38.0-50.0) % MCV 92.7 (80.0-98.0) fL MCH 27.4 (27.0-32.0) pg MCHC 29.6 L (31.0-37.0) g/dL RDW Std Deviation 57.0 (28.0-62.0) fl RDW Coeff of Renetta 17 H (11.0-15.0) % Plt Count 170 (150-400) K/uL MPV 11.00 (7.40-12.00) fL Neut % (Auto) 85.1 H (48.0-80.0) % Lymph % (Auto) 6.5 L (16.0-40.0) % [place] % (Auto) 7.6 (0.0-15.0) % Eos % (Auto) 0.7 (0.0-7.0) % Baso % (Auto) 0.1 (0.0-1.5) % Neut # (Auto) 9.2 H (1.4-5.7) K/uL Lymph # (Auto) 0.7 (0.6-2.4) K/uL [place] # (Auto) 0.8 (0.0-0.8) K/uL Eos # (Auto) 0.1 (0.0-0.7) K/uL Baso # (Auto) 0.0 (0.0-0.1) K/uL Nucleated RBC % 0.0 /100WBC Nucleated RBCs # 0 K/uL Sodium (136-148) mmol/L Potassium (3.5-5.1) mmol/L Chloride (98-107) mmol/L Carbon Dioxide (21.0-32.0) mmol/L BUN (7.0-18.0) mg/dL Creatinine (0.8-1.3) mg/dL Est Cr Clr Drug Dosing mL/min Estimated GFR (MDRD) ml/min Glucose (74-106) mg/dL POC Glucose 207 H 194 H (60-110) mg/dL Calcium (8.5-10.1) mg/dL Magnesium (1.8-2.4) mg/dL Total Bilirubin (0.2-1.0) mg/dL AST (15-37) IU/L ALT (14-63) IU/L Alkaline Phosphatase (46-116) U/L Total Protein (6.4-8.2) g/dL Albumin (3.4-5.0) g/dL Globulin (2.6-4.0) g/dL Albumin/Globulin Ratio (0.9-1.6) 08/01/20 08/01/20 08/01/20 Range/Units 05:45 05:56 11:32 WBC (4.0-11.0) K/uL RBC (4.50-5.90) M/uL Hgb (13.0-17.0) g/dL Hct (38.0-50.0) % MCV (80.0-98.0) fL MCH (27.0-32.0) pg MCHC (31.0-37.0) g/dL RDW Std Deviation (28.0-62.0) fl RDW Coeff of Renetta (11.0-15.0) % Plt Count (150-400) K/uL MPV (7.40-12.00) fL Neut % (Auto) (48.0-80.0) % Lymph % (Auto) (16.0-40.0) % [place] % (Auto) (0.0-15.0) % Eos % (Auto) (0.0-7.0) % Baso % (Auto) (0.0-1.5) % Neut # (Auto) (1.4-5.7) K/uL Lymph # (Auto) (0.6-2.4) K/uL [place] # (Auto) (0.0-0.8) K/uL Eos # (Auto) (0.0-0.7) K/uL Baso # (Auto) (0.0-0.1) K/uL Nucleated RBC % /100WBC Nucleated RBCs # K/uL Sodium 134 L (136-148) mmol/L Potassium 4.2 (3.5-5.1) mmol/L Chloride 99 (98-107) mmol/L Carbon Dioxide 28.5 (21.0-32.0) mmol/L BUN 49 H (7.0-18.0) mg/dL Creatinine 1.5 H (0.8-1.3) mg/dL Est Cr Clr Drug Dosing 37.33 mL/min Estimated GFR (MDRD) 45.1 ml/min Glucose 150 H (74-106) mg/dL POC Glucose 134 H 195 H (60-110) mg/dL Calcium 8.8 (8.5-10.1) mg/dL Magnesium 2.3 (1.8-2.4) mg/dL Total Bilirubin 0.6 (0.2-1.0) mg/dL AST 93 H (15-37) IU/L ALT 113 H (14-63) IU/L Alkaline Phosphatase 86 (46-116) U/L Total Protein 6.0 L (6.4-8.2) g/dL Albumin 2.7 L (3.4-5.0) g/dL Globulin 3.3 (2.6-4.0) g/dL Albumin/Globulin Ratio 0.8 L (0.9-1.6) Morales Results Last 24 Hours: Microbiology 07/28/20 18:16 Aerobic Blood Culture - Preliminary Blood - Venous - Lab Draw NO GROWTH AFTER 3 DAYS Anaerobic Blood Culture - Final 07/28/20 17:55 Aerobic Blood Culture - Preliminary Blood - Venous NO GROWTH AFTER 3 DAYS Anaerobic Blood Culture - Preliminary NO GROWTH AFTER 3 DAYS Med Orders - Current: Current Medications Albuterol (Ventolin Hfa) 0 gm INH Q6HRRT PRN PRN Reason: Shortness of Breath Last Admin: 07/31/20 15:15 Dose: 2 puff Documented by: Albuterol/Ipratropium (Duoneb 3.0-0.5 Mg/3 Ml) 3 ml NEB QID [facility] Last Admin: 08/01/20 05:47 Dose: 3 ml Documented by: Allopurinol (Zyloprim) 300 mg PO DAILY [facility] [place] Last Admin: 08/01/20 08:30 Dose: 300 mg Documented by: Dextrose/Water (Dextrose 50% In Water) 50 ml IV ASDIRECTED PRN PRN Reason: Hypoglycemia Digoxin (Lanoxin) 250 mcg PO DAILY [facility] [place] Last Admin: 08/01/20 08:30 Dose: 250 mcg Documented by: Ferrous Sulfate (Ferrous Sulfate) 325 mg PO TID [facility] [place] Last Admin: 08/01/20 05:49 Dose: 325 mg Documented by: Glucagon (Glucagen) 1 mg IM ASDIRECTED PRN PRN Reason: Hypoglycemia Insulin Aspart (Novolog) 0 unit SUBCUT TIDAC [facility] [place]; Protocol Last Admin: 08/01/20 06:29 Dose: Not Given Documented by: Metoprolol Tartrate (Lopressor) 25 mg PO Q12H [facility] [place] Last Admin: 08/01/20 08:31 Dose: 25 mg Documented by: Morphine Sulfate (Morphine) 2 mg IVPUSH Q2H PRN PRN Reason: Pain (severe 7-10) Omeprazole (Omeprazole) 20 mg PO ACBREAKFAST [facility] [place] Last Admin: 08/01/20 06:34 Dose: 20 mg Documented by: Ondansetron HCl (Zofran) 4 mg IVPUSH Q4H PRN PRN Reason: Nausea Last Admin: 07/31/20 23:38 Dose: 4 mg Documented by: Budesonide/Formoterol 160-4.5 Mcg/Puff 6 Gm Inhaler 2 each INH BID [facility] [place] Last Admin: 08/01/20 08:33 Dose: 2 each Documented by: Simvastatin (Zocor) 80 mg PO BEDTIME [facility] [place] Last Admin: 07/31/20 20:56 Dose: 80 mg Documented by: Sodium Chloride (Saline Flush) 2.5 ml FLUSH ASDIRECTED PRN PRN Reason: Keep Vein Open Last Admin: 07/28/20 18:01 Dose: 2.5 ml Documented by: Tiotropium [place] (Spiriva Handihaler) 18 mcg INH DAILY [facility] Last Admin: 08/01/20 08:31 Dose: 1 inhalation Documented by: Discontinued Medications Albuterol (Ventolin Hfa) 0 gm INH Q6H PRN PRN Reason: Shortness of Breath Last Admin: 07/31/20 09:44 Dose: 1 puff Documented by: Albuterol/Ipratropium (Duoneb 3.0-0.5 Mg/3 Ml) 3 ml NEB QID PRN PRN Reason: COPD Last Admin: 07/30/20 13:09 Dose: 3 ml Documented by: Aspirin (Aspirin) 325 mg PO ONETIME ONE Stop: 07/31/20 07:04 Last Admin: 07/31/20 07:38 Dose: 325 mg Documented by: Sodium Chloride (Normal Saline) 500 mls @ 999 mls/hr IV STAT [facility] [place] Last Admin: 07/28/20 18:01 Dose: 999 mls/hr Documented by: Sodium Chloride (Normal Saline) 1,000 mls @ 999 mls/hr IV STAT ONE Stop: 07/28/20 19:24 Last Admin: 07/28/20 18:57 Dose: 999 mls/hr Documented by: Magnesium Sulfate (Magnesium Sulfate In Water Premix) 2 gm in 50 mls @ 50 mls/hr IV ONETIME ONE Stop: 07/28/20 20:28 Last Admin: 07/28/20 19:37 Dose: 50 mls/hr Documented by: Magnesium Sulfate (Magnesium Sulfate In Water Premix) Confirm Administered Dose 2 gm in 50 mls @ as directed .ROUTE .STK-MED ONE Stop: 07/28/20 19:29 Last Admin: 07/28/20 19:32 Dose: Not Given Documented by: Sodium Chloride (Normal Saline) 1,000 mls @ 999 mls/hr IV STAT ONE Stop: 07/28/20 22:58 Last Admin: 07/28/20 22:35 Dose: 999 mls/hr Documented by: Sodium Chloride (Normal Saline) 1,000 mls @ 100 mls/hr IV ASDIRECTED [facility] [place] Last Admin: 07/29/20 09:48 Dose: 100 mls/hr Documented by: Sodium Chloride (Normal Saline) 500 mls @ 999 mls/hr IV BOLUS ONE Stop: 07/29/20 06:04 Last Admin: 07/29/20 05:40 Dose: 999 mls/hr Documented by: Iopamidol (Isovue-300 (61%)) 75 ml IVPUSH ONETIME STA Stop: 07/28/20 20:40 Last Admin: 07/28/20 20:40 Dose: 75 ml Documented by: Lidocaine HCl (Xylocaine 2% Viscous) Confirm Administered Dose 15 ml .ROUTE .STK-MED ONE Stop: 07/28/20 23:22 Last Admin: 07/29/20 04:26 Dose: Not Given Documented by: Lidocaine HCl (Xylocaine 2% Viscous) 15 ml PO ONETIME ONE Stop: 07/28/20 23:30 Last Admin: 07/29/20 04:26 Dose: Not Given Documented by: Magnesium Sulfate (Magnesium Sulfate 50%) 2 gm IV NOW STA Stop: 07/28/20 19:02 Last Admin: 07/28/20 21:27 Dose: Not Given Documented by: Methylprednisolone Sodium Succinate (Solu-Medrol) 125 mg IVPUSH ONETIME ONE Stop: 07/28/20 20:21 Last Admin: 07/28/20 21:30 Dose: 125 mg Documented by: Metoprolol Tartrate (Lopressor) 25 mg PO ONETIME ONE Stop: 07/31/20 07:05 Last Admin: 07/31/20 07:39 Dose: 25 mg Documented by: Budesonide/Formoterol 160-4.5 Mcg/Puff 6 Gm Inhaler 2 each INH BID [facility] [place] Last Admin: 07/31/20 09:55 Dose: Not Given Documented by: Ferrous Gluconate [ (Iron] 324 Mg) 1 each PO TID [facility] [place] Last Admin: 07/31/20 06:45 Dose: Not Given Documented by: Potassium Chloride (Klor-Con M20) 40 meq PO ONETIME ONE Stop: 07/30/20 13:57 Last Admin: 07/30/20 14:10 Dose: 40 meq Documented by: Sodium Chloride (Saline Flush) 10 ml FLUSH ASDIRECTED PRN PRN Reason: Keep Vein Open Last Admin: 07/28/20 18:01 Dose: 10 ml Documented by: Sodium Chloride (Saline Flush) 10 ml FLUSH ASDIRECTED PRN PRN Reason: Keep Vein Open Sodium Chloride (Saline Flush) 2.5 ml FLUSH ASDIRECTED PRN PRN Reason: Keep Vein Open - Exam General: Alert, Oriented Neck: Supple Lungs: Clear to Auscultation, Normal Respiratory Effort Cardiovascular: Regular Rate, Irregular Rhythm GI/Abdominal Exam: Soft, Non-Tender Skin: Warm, Dry, Intact Neurological: No New Focal Deficit Sepsis Event Note - Evaluation Sepsis Screening Result: No Definite Risk - Focused Exam Vital Signs: Vital Signs Temp Pulse Pulse Resp BP BP BP 08/01/20 08:31 80 99/59 L 08/01/20 08:30 80 08/01/20 07:45 36.3 C 90 21 H 95/50 L 08/01/20 03:00 36.4 C 84 18 98/56 L 07/31/20 23:38 99/53 L Pulse Ox 08/01/20 08:31 08/01/20 08:30 08/01/20 07:45 93 L 08/01/20 03:00 96 07/31/20 23:38 - Problem List Review Problem List Initiated/Reviewed/Updated: Yes - My Orders Last 24 Hours: My Active Orders 07/31/20 11:00 Patient's Own Medication [Ptom] 2 each INH BID 07/31/20 14:00 Ferrous Sulfate 325 mg PO TID 08/01/20 Lunch Soft Diet [DIET] 08/01/20 11:35 Consult to Hospice [CONS] Routine - Plan Plan:: 80 yo male with severe emphysema, CAD, CHF, who is admitted for small bowel obstruction and likely metastatic disease. 1. Small bowel obstruction, resolving, advance to soft diet 2. NSTEMI: continue palliative care, ASA, metoprolol, 3. Liver lesions -Concern for metastatic disease 4. Anemia -hgb 9.8 after one unit of pRBC 5. CAD/A. fib/hypertension/CHF -holding eliquis, holding torsemide due to lower blood pressures and increasing creatinine 6. Chronic respiratory failure/oxygen dependent/COPD end-stage -Continue home oxygen -Continue Spiriva albuterol inhaler VTE prophylaxis; SCDs and ambulation CODE STATUS: DNR/DNI. Dispo: likely home Sunday with hospice
[2020-08-01] MEDS: Albuterol HFA 18 Gm Inhaler INH PRN ×2 (13:20→22:12)
[2020-08-01] MEDS: Simvastatin 40 MG Tab PO SCH (20:35)
[2020-08-01] MEDS ORDERED: guaiFENesin/Dextromethorphan 100-10 MG/5 ML Soln 10 ML Cup PO PRN (23:24)
[2020-08-02] MEDS: Albuterol/Ipratropium 3.0-0.5 MG/3 ML Neb Soln NEB SCH ×3 (06:14→17:24)
[2020-08-02] MEDS: Omeprazole 20 MG Cap.CR PO SCH (06:39)
[2020-08-02] MEDS: Ferrous Sulfate 325 MG Tab PO SCH ×3 (06:39→21:09)
[2020-08-02] MEDS: Tiotropium Inhaler 18 MCG Inhalation Powder Cap Kit of 5 INH SCH (08:04)
[2020-08-02] MEDS: Allopurinol 300 MG Tab PO SCH (08:55)
[2020-08-02] MEDS: Metoprolol Tartrate 25 MG Tab PO SCH ×2 (08:55→21:09)
[2020-08-02] MEDS: Digoxin 250 MCG Tab PO SCH (08:55)
[2020-08-02] MEDS: Budesonide/Formoterol 160-4.5 MCG/Puff 6 GM Inhaler INH SCH ×2 (08:56→21:10)
--- NOTE | 2020-08-02 09:20 | PN ---
SUBJECTIVE: The patient is lying comfortably in his hospital bed. He is alert and oriented, no acute distress. He says he is feeling a lot better. He says he has been passing quite a bit of flatus and has had several bowel movements, some liquidy and some more formed. The patient says he is feeling fairly hungry. He did receive some blood products yesterday for low hemoglobin. He has had very minimal NG output, about 50 mL over the last 24 hours. OBJECTIVE: ABDOMEN: The patient's abdomen is soft and really nondistended today. He has no tenderness in his abdomen. LABORATORY DATA: White cell count is 7.6, hemoglobin is up to 9.1, and platelet count is 184. ASSESSMENT AND PLAN: This is a pleasant 80-year-old gentleman who came in with a partial small bowel obstruction. He has an NG decompression, but the patient has had normal output from his NG. He has been passing gas and having bowel movements. His abdomen is no longer distended, likely partial obstruction has resolved. I did go over with the Medicine team who says that facility does not offer small bowel follow through. We could remove his NG and do a feeding trial or give him a small bit of contrast through the NG and see if it makes into the colon with serial x- rays. I did go over with the patient again that he will need further workup of those new lesions in his liver. Discussed with the medicine team. I will be signing out to Dr. Coelho. CESAR / GRUPO /[id number]
[2020-08-02] MEDS ORDERED: Bisacodyl 10 MG Supp RECTAL ONE (09:27)
[2020-08-02] MEDS: Insulin Aspart 100 Units/ML 3 ML Pen SUBCUT SCH ×3 (09:58→18:09)
--- NOTE | 2020-08-02 10:25 | PCM.PN ---
- General Info Date of Service: 08/02/20 Admission Dx/Problem (Free Text): Admission Diagnosis/Problem Admission Diagnosis/Problem Small bowel obstruction Subjective Update: Feeling okay this morning. Reports feeling constipated but tolerating diet well. No nausea or abdominal pain. Denies any chest pain. Reports baseline shortness of breath no worsening. Feels as though he is increasing in weight and feeling of fluid. Discussed with as well as patient he will be discharged home on hospice. Functional Status: Reports: Pain Controlled, Tolerating Diet, Ambulating, Urinating - Review of Systems General: Reports: Weakness (Generalized). Denies: Fever HEENT: Reports: No Symptoms. Denies: Headaches, Sore Throat, Visual Changes Pulmonary: Reports: Shortness of Breath. Denies: Cough Cardiovascular: Reports: Edema. Denies: Chest Pain, Palpitations Gastrointestinal: Reports: Constipation. Denies: Abdominal Pain, Nausea, Vomiting Genitourinary: Reports: No Symptoms. Denies: Dysuria, Frequency Musculoskeletal: Reports: No Symptoms Skin: Reports: No Symptoms Neurological: Reports: No Symptoms Psychiatric: Reports: No Symptoms - Patient Data Vitals - Most Recent: Last Vital Signs Temp 97.3 F 08/02/20 07:41 Pulse 73 08/02/20 08:55 Resp 18 08/02/20 07:41 BP 95/59 L 08/02/20 08:55 Pulse Ox 98 08/02/20 07:41 Weight - Most Recent: 60.3 kg I&O - Last 24 Hours: Intake & Output 08/01/20 08/02/20 08/02/20 22:59 06:59 14:59 Intake Total 980 550 Output Total 100 350 Balance 880 200 Lab Results Last 24 Hours: Laboratory Results - last 24 hr 08/01/20 08/01/20 08/02/20 Range/Units 11:32 17:38 00:07 POC Glucose 195 H 149 H 126 H (60-110) mg/dL 08/02/20 Range/Units 05:35 POC Glucose 205 H (60-110) mg/dL [place] Results Last 24 Hours: Microbiology 07/28/20 18:16 Aerobic Blood Culture - Preliminary Blood - Venous - Lab Draw NO GROWTH AFTER 4 DAYS Anaerobic Blood Culture - Final 07/28/20 17:55 Aerobic Blood Culture - Preliminary Blood - Venous NO GROWTH AFTER 4 DAYS Anaerobic Blood Culture - Preliminary NO GROWTH AFTER 4 DAYS Med Orders - Current: Current Medications Albuterol (Ventolin Hfa) 0 gm INH Q6HRRT PRN PRN Reason: Shortness of Breath Last Admin: 08/01/20 22:12 Dose: 2 puff Documented by: Albuterol/Ipratropium (Duoneb 3.0-0.5 Mg/3 Ml) 3 ml NEB QID [facility] Last Admin: 08/02/20 06:14 Dose: 3 ml Documented by: Allopurinol (Zyloprim) 300 mg PO DAILY [facility] Last Admin: 08/02/20 08:55 Dose: 300 mg Documented by: Dextrose/Water (Dextrose 50% In Water) 50 ml IV ASDIRECTED PRN PRN Reason: Hypoglycemia Digoxin (Lanoxin) 250 mcg PO DAILY [facility] Last Admin: 08/02/20 08:55 Dose: 250 mcg Documented by: Ferrous Sulfate (Ferrous Sulfate) 325 mg PO TID [facility] Last Admin: 08/02/20 06:39 Dose: 325 mg Documented by: Glucagon (Glucagen) 1 mg IM ASDIRECTED PRN PRN Reason: Hypoglycemia Guaifenesin/Dextromethorphan (Robitussin Dm) 10 ml PO TID PRN PRN Reason: Cough Last Admin: 08/01/20 23:42 Dose: 10 ml Documented by: Insulin Aspart (Novolog) 0 unit SUBCUT TIDAC [facility]; Protocol Last Admin: 08/02/20 09:58 Dose: 2 unit Documented by: Metoprolol Tartrate (Lopressor) 25 mg PO Q12H [facility] Last Admin: 08/02/20 08:55 Dose: 25 mg Documented by: Morphine Sulfate (Morphine) 2 mg IVPUSH Q2H PRN PRN Reason: Pain (severe 7-10) Omeprazole (Omeprazole) 20 mg PO ACBREAKFAST [facility] Last Admin: 08/02/20 06:39 Dose: 20 mg Documented by: Ondansetron HCl (Zofran) 4 mg IVPUSH Q4H PRN PRN Reason: Nausea Last Admin: 07/31/20 23:38 Dose: 4 mg Documented by: Budesonide/Formoterol 160-4.5 Mcg/Puff 6 Gm Inhaler 2 each INH BID [facility] Last Admin: 08/02/20 08:56 Dose: 2 each Documented by: Simvastatin (Zocor) 80 mg PO BEDTIME [facility] Last Admin: 08/01/20 20:35 Dose: 80 mg Documented by: Sodium Chloride (Saline Flush) 2.5 ml FLUSH ASDIRECTED PRN PRN Reason: Keep Vein Open Last Admin: 07/28/20 18:01 Dose: 2.5 ml Documented by: Tiotropium [place] (Spiriva Handihaler) 18 mcg INH DAILY [facility] Last Admin: 08/02/20 08:04 Dose: 1 inhalation Documented by: Discontinued Medications Albuterol (Ventolin Hfa) 0 gm INH Q6H PRN PRN Reason: Shortness of Breath Last Admin: 07/31/20 09:44 Dose: 1 puff Documented by: Albuterol/Ipratropium (Duoneb 3.0-0.5 Mg/3 Ml) 3 ml NEB QID PRN PRN Reason: COPD Last Admin: 07/30/20 13:09 Dose: 3 ml Documented by: Aspirin (Aspirin) 325 mg PO ONETIME ONE Stop: 07/31/20 07:04 Last Admin: 07/31/20 07:38 Dose: 325 mg Documented by: Bisacodyl (Dulcolax) 10 mg RECTAL ONETIME ONE Stop: 08/02/20 09:28 Last Admin: 08/02/20 09:58 Dose: 10 mg Documented by: Sodium Chloride (Normal Saline) 500 mls @ 999 mls/hr IV STAT [facility] Last Admin: 07/28/20 18:01 Dose: 999 mls/hr Documented by: Sodium Chloride (Normal Saline) 1,000 mls @ 999 mls/hr IV STAT ONE Stop: 07/28/20 19:24 Last Admin: 07/28/20 18:57 Dose: 999 mls/hr Documented by: Magnesium Sulfate (Magnesium Sulfate In Water Premix) 2 gm in 50 mls @ 50 mls/hr IV ONETIME ONE Stop: 07/28/20 20:28 Last Admin: 07/28/20 19:37 Dose: 50 mls/hr Documented by: Magnesium Sulfate (Magnesium Sulfate In Water Premix) Confirm Administered Dose 2 gm in 50 mls @ as directed .ROUTE .STK-MED ONE Stop: 07/28/20 19:29 Last Admin: 07/28/20 19:32 Dose: Not Given Documented by: Sodium Chloride (Normal Saline) 1,000 mls @ 999 mls/hr IV STAT ONE Stop: 07/28/20 22:58 Last Admin: 07/28/20 22:35 Dose: 999 mls/hr Documented by: Sodium Chloride (Normal Saline) 1,000 mls @ 100 mls/hr IV ASDIRECTED [facility] Last Admin: 07/29/20 09:48 Dose: 100 mls/hr Documented by: Sodium Chloride (Normal Saline) 500 mls @ 999 mls/hr IV BOLUS ONE Stop: 07/29/20 06:04 Last Admin: 07/29/20 05:40 Dose: 999 mls/hr Documented by: Iopamidol (Isovue-300 (61%)) 75 ml IVPUSH ONETIME STA Stop: 07/28/20 20:40 Last Admin: 07/28/20 20:40 Dose: 75 ml Documented by: Lidocaine HCl (Xylocaine 2% Viscous) Confirm Administered Dose 15 ml .ROUTE .STK-MED ONE Stop: 07/28/20 23:22 Last Admin: 07/29/20 04:26 Dose: Not Given Documented by: Lidocaine HCl (Xylocaine 2% Viscous) 15 ml PO ONETIME ONE Stop: 07/28/20 23:30 Last Admin: 07/29/20 04:26 Dose: Not Given Documented by: Magnesium Sulfate (Magnesium Sulfate 50%) 2 gm IV NOW STA Stop: 07/28/20 19:02 Last Admin: 07/28/20 21:27 Dose: Not Given Documented by: Methylprednisolone Sodium Succinate (Solu-Medrol) 125 mg IVPUSH ONETIME ONE Stop: 07/28/20 20:21 Last Admin: 07/28/20 21:30 Dose: 125 mg Documented by: Metoprolol Tartrate (Lopressor) 25 mg PO ONETIME ONE Stop: 07/31/20 07:05 Last Admin: 07/31/20 07:39 Dose: 25 mg Documented by: Budesonide/Formoterol 160-4.5 Mcg/Puff 6 Gm Inhaler 2 each INH BID [facility] Last Admin: 07/31/20 09:55 Dose: Not Given Documented by: Ferrous Gluconate [ (Iron] 324 Mg) 1 each PO TID [facility] Last Admin: 07/31/20 06:45 Dose: Not Given Documented by: Potassium Chloride (Klor-Con M20) 40 meq PO ONETIME ONE Stop: 07/30/20 13:57 Last Admin: 07/30/20 14:10 Dose: 40 meq Documented by: Sodium Chloride (Saline Flush) 10 ml FLUSH ASDIRECTED PRN PRN Reason: Keep Vein Open Last Admin: 07/28/20 18:01 Dose: 10 ml Documented by: Sodium Chloride (Saline Flush) 10 ml FLUSH ASDIRECTED PRN PRN Reason: Keep Vein Open Sodium Chloride (Saline Flush) 2.5 ml FLUSH ASDIRECTED PRN PRN Reason: Keep Vein Open - Exam Quality Assessment: Supplemental Oxygen General: Alert, Oriented, Cooperative Lungs: Decreased Breath Sounds (Bibasilar) Cardiovascular: Regular Rate, Regular Rhythm GI/Abdominal Exam: Normal Bowel Sounds, Soft, Non-Tender Extremities: Normal Inspection, Normal Range of Motion, Non-Tender, No Pedal Edema Neurological: No New Focal Deficit Psy/Mental Status: Alert, Normal Affect, Normal Mood Sepsis Event Note - Evaluation Sepsis Screening Result: No Definite Risk - Focused Exam Vital Signs: Vital Signs Temp Pulse Pulse Resp BP BP Pulse Ox 08/02/20 08:55 73 95/59 L 08/02/20 07:41 97.3 F 73 18 95/59 L 98 08/02/20 04:00 97.6 F 76 16 96/57 L 96 08/02/20 00:00 97.5 F 75 16 96/59 L 99 - Problem List & Annotations (1) Acute renal failure SNOMED Code(s): 66597805 Code(s): N17.9 - ACUTE KIDNEY FAILURE, UNSPECIFIED Status: Acute Current Visit: Yes (2) Dehydration SNOMED Code(s): 27929609 Code(s): E86.0 - DEHYDRATION Status: Acute Current Visit: Yes (3) Hypomagnesemia SNOMED Code(s): 165335498 Code(s): E83.42 - HYPOMAGNESEMIA Status: Acute Current Visit: Yes (4) Liver lesion SNOMED Code(s): 436680726 Code(s): K76.9 - LIVER DISEASE, UNSPECIFIED Status: Acute Current Visit: Yes (5) Small bowel obstruction SNOMED Code(s): 605100274 Code(s): K56.609 - UNSP INTESTNL OBST, UNSP TO PARTIAL VERSUS COMPLETE OBST Status: Acute Current Visit: Yes (6) COPD (chronic obstructive pulmonary disease) SNOMED Code(s): 88837111 Code(s): J44.9 - CHRONIC OBSTRUCTIVE PULMONARY DISEASE, UNSPECIFIED Status: Chronic Current Visit: Yes Qualifiers: COPD type: chronic bronchitis (7) Congestive heart disease SNOMED Code(s): 00645035 Code(s): I50.9 - HEART FAILURE, UNSPECIFIED Status: Acute Current Visit: No Qualifiers: Heart failure type: combined systolic and diastolic Heart failure chronicity: acute on chronic Qualified Code(s): I50.43 - Acute on chronic combined systolic (congestive) and diastolic (congestive) heart failure (8) Heart failure with preserved ejection fraction SNOMED Code(s): 805146699 Code(s): I50.30 - UNSPECIFIED DIASTOLIC (CONGESTIVE) HEART FAILURE Status: Acute Current Visit: No Qualifiers: Heart failure chronicity: acute on chronic Qualified Code(s): I50.33 - Acute on chronic diastolic (congestive) heart failure (9) History of coronary artery bypass graft SNOMED Code(s): 834436903, 729250435 Code(s): Z95.1 - PRESENCE OF AORTOCORONARY BYPASS GRAFT Status: Acute Current Visit: No (10) Macrocytic anemia SNOMED Code(s): 30606631 Code(s): D53.9 - NUTRITIONAL ANEMIA, UNSPECIFIED Status: Acute Current Visit: No (11) Carotid stenosis Status: Chronic Current Visit: No Qualifiers: Laterality: left Qualified Code(s): I65.22 - Occlusion and stenosis of left carotid artery (12) Coronary arteriosclerosis SNOMED Code(s): 85855809 Code(s): I25.10 - ATHSCL HEART DISEASE OF [place] CORONARY ARTERY W/O ANG PCTRS Status: Chronic Current Visit: No (13) Diabetes mellitus SNOMED Code(s): 67147773 Code(s): E11.9 - TYPE 2 DIABETES MELLITUS WITHOUT COMPLICATIONS Status: Chronic Current Visit: No Qualifiers: Diabetes mellitus type: type 2 Diabetes mellitus intermediate project manager insulin use: without intermediate project manager use (14) GERD (gastroesophageal reflux disease) SNOMED Code(s): 626761774 Code(s): K21.9 - GASTRO-ESOPHAGEAL REFLUX DISEASE WITHOUT ESOPHAGITIS Status: Chronic Current Visit: No (15) History of CVA (cerebrovascular accident) SNOMED Code(s): 964469240 Code(s): Z86.73 - PRSNL HX OF TIA (TIA), AND CEREB INFRC W/O RESID DEFICITS Status: Chronic Current Visit: No (16) History of atrial fibrillation SNOMED Code(s): 897143972 Code(s): Z86.79 - PERSONAL HISTORY OF OTHER DISEASES OF THE CIRCULATORY SYSTEM Status: Chronic Current Visit: No (17) Oxygen dependent SNOMED Code(s): 437709054186 Code(s): Z99.81 - DEPENDENCE ON SUPPLEMENTAL OXYGEN Status: Chronic Current Visit: No (18) S/P CABG (coronary artery bypass graft) SNOMED Code(s): 806025685, 748668136, 750557663 Code(s): Z95.1 - PRESENCE OF AORTOCORONARY BYPASS GRAFT Status: Chronic Current Visit: No (19) NSTEMI (non-ST elevated myocardial infarction) SNOMED Code(s): 27480431 Code(s): I21.4 - NON-ST ELEVATION (NSTEMI) MYOCARDIAL INFARCTION Status: Acute Current Visit: Yes - Problem List Review Problem List Initiated/Reviewed/Updated: Yes - Plan Plan:: 80 yo male with severe emphysema, CAD, CHF, who is admitted for small bowel obstruction and likely metastatic disease. 1. Small bowel obstruction, -Continue soft diet -Dulcolax rectal today 2. NSTEMI: - continue palliative care, -ASA, metoprolol 3. Liver lesions -Concern for metastatic disease 4. Anemia -hgb 9.8 after one unit of pRBC 5. CAD/A. fib/hypertension/CHF -holding eliquis, holding torsemide due to lower blood pressures and increasing creatinine 6. Chronic respiratory failure/oxygen dependent/COPD end-stage -Continue home oxygen -Continue Spiriva albuterol inhaler VTE prophylaxis: SCDs and ambulation CODE STATUS: DNR/DNI/comfort Dispo: Discussed with hospice. They are unable to admit till tomorrow morning we will plan on discharge in a.m. hospice will be reaching out to to discuss needs at home.
--- NOTE | 2020-08-02 12:10 | PCM.SN.2 ---
#1 Interpretation EKG Date: 07/31/20 Time: 08:10 Rhythm: A-Fib Rate (Beats/Min): 116 [place]: RAD-Right [place] Deviation QRS: Normal ST-T: Normal QT: Normal
--- NOTE | 2020-08-02 12:11 | PCM.SN.2 ---
#1 Interpretation EKG Date: 07/31/20 Time: 05:43 Rhythm: A-Fib P-Wave: Absent ST-T: Normal QT: Normal
--- NOTE | 2020-08-02 12:12 | PCM.SN.2 ---
#1 Interpretation EKG Date: 07/31/19 Rhythm: A-Fib Rate (Beats/Min): 107 P-Wave: Absent ST-T: Normal QT: Normal
[2020-08-02] MEDS: Albuterol HFA 18 Gm Inhaler INH PRN (15:44)
[2020-08-02] MEDS: Simvastatin 40 MG Tab PO SCH (21:09)
[2020-08-03] MEDS: Albuterol/Ipratropium 3.0-0.5 MG/3 ML Neb Soln NEB SCH ×2 (00:01→06:07)
[2020-08-03] MEDS: Albuterol HFA 18 Gm Inhaler INH PRN ×2 (02:45→09:14)
[2020-08-03] MEDS: Ferrous Sulfate 325 MG Tab PO SCH (06:35)
[2020-08-03] MEDS: Omeprazole 20 MG Cap.CR PO SCH (06:35)
[2020-08-03] MEDS: Allopurinol 300 MG Tab PO SCH (09:03)
[2020-08-03] MEDS: Tiotropium Inhaler 18 MCG Inhalation Powder Cap Kit of 5 INH SCH (09:04)
[2020-08-03] MEDS: Insulin Aspart 100 Units/ML 3 ML Pen SUBCUT SCH (09:05)
[2020-08-03] MEDS: Digoxin 250 MCG Tab PO SCH (09:06)
[2020-08-03] MEDS: Budesonide/Formoterol 160-4.5 MCG/Puff 6 GM Inhaler INH SCH (09:12)
[2020-08-03] MEDS ORDERED: Bisacodyl 10 MG Supp RECTAL ONE (09:30)
[2020-08-03] MEDS ORDERED: Polyethylene Glycol 3350 Powder 17 GM Packet PO ONE (09:30)
[2020-08-03] MEDS: Metoprolol Tartrate 25 MG Tab PO SCH (09:46)
--- NOTE | 2020-08-03 09:51 | PCM.DCSUM1 ---
Discharge Summary - Discharge Data Discharge Date: 08/03/20 Discharge Disposition: DC/Tfer to Hospice - Home 51 Condition: Stable - Referral to Home Health Primary Care Physician: PCP None - Discharge Diagnosis/Problem(s) (1) Acute renal failure SNOMED Code(s): 38351545 ICD Code: N17.9 - ACUTE KIDNEY FAILURE, UNSPECIFIED Status: Acute (2) Dehydration SNOMED Code(s): 93460252 ICD Code: E86.0 - DEHYDRATION Status: Acute (3) Hypomagnesemia SNOMED Code(s): 405899826 ICD Code: E83.42 - HYPOMAGNESEMIA Status: Acute (4) Liver lesion SNOMED Code(s): 947762085 ICD Code: K76.9 - LIVER DISEASE, UNSPECIFIED Status: Acute (5) Small bowel obstruction SNOMED Code(s): 640321110 ICD Code: K56.609 - UNSP INTESTNL OBST, UNSP TO PARTIAL VERSUS COMPLETE OBST Status: Acute (6) COPD (chronic obstructive pulmonary disease) SNOMED Code(s): 97234565 ICD Code: J44.9 - CHRONIC OBSTRUCTIVE PULMONARY DISEASE, UNSPECIFIED Status: Chronic Qualifiers: COPD type: chronic bronchitis (7) Congestive heart disease SNOMED Code(s): 56290916 ICD Code: I50.9 - HEART FAILURE, UNSPECIFIED Status: Acute Qualifiers: Heart failure type: combined systolic and diastolic Heart failure chronicity: acute on chronic Qualified Code(s): I50.43 - Acute on chronic combined systolic (congestive) and diastolic (congestive) heart failure (8) Heart failure with preserved ejection fraction SNOMED Code(s): 318276668 ICD Code: I50.30 - UNSPECIFIED DIASTOLIC (CONGESTIVE) HEART FAILURE Status: Acute Qualifiers: Heart failure chronicity: acute on chronic Qualified Code(s): I50.33 - Acute on chronic diastolic (congestive) heart failure (9) History of coronary artery bypass graft SNOMED Code(s): 798470428, 405605175 ICD Code: Z95.1 - PRESENCE OF AORTOCORONARY BYPASS GRAFT Status: Acute (10) Macrocytic anemia SNOMED Code(s): 24319490 ICD Code: D53.9 - NUTRITIONAL ANEMIA, UNSPECIFIED Status: Acute (11) Carotid stenosis Status: Chronic Qualifiers: Laterality: left Qualified Code(s): I65.22 - Occlusion and stenosis of left carotid artery (12) Coronary arteriosclerosis SNOMED Code(s): 90674449 ICD Code: I25.10 - ATHSCL HEART DISEASE OF [place] CORONARY ARTERY W/O ANG PCTRS Status: Chronic (13) Diabetes mellitus SNOMED Code(s): 09875663 ICD Code: E11.9 - TYPE 2 DIABETES MELLITUS WITHOUT COMPLICATIONS Status: Chronic Qualifiers: Diabetes mellitus type: type 2 Diabetes mellitus snf insulin use: without snf use (14) GERD (gastroesophageal reflux disease) SNOMED Code(s): 354236141 ICD Code: K21.9 - GASTRO-ESOPHAGEAL REFLUX DISEASE WITHOUT ESOPHAGITIS Status: Chronic (15) History of CVA (cerebrovascular accident) SNOMED Code(s): 050451798 ICD Code: Z86.73 - PRSNL HX OF TIA (TIA), AND CEREB INFRC W/O RESID DEFICITS Status: Chronic (16) History of atrial fibrillation SNOMED Code(s): 990065598 ICD Code: Z86.79 - PERSONAL HISTORY OF OTHER DISEASES OF THE CIRCULATORY SYSTEM Status: Chronic (17) Oxygen dependent SNOMED Code(s): 923368127943 ICD Code: Z99.81 - DEPENDENCE ON SUPPLEMENTAL OXYGEN Status: Chronic (18) S/P CABG (coronary artery bypass graft) SNOMED Code(s): 587049452, 791110666, 826488864 ICD Code: Z95.1 - PRESENCE OF AORTOCORONARY BYPASS GRAFT Status: Chronic (19) NSTEMI (non-ST elevated myocardial infarction) SNOMED Code(s): 65098860 ICD Code: I21.4 - NON-ST ELEVATION (NSTEMI) MYOCARDIAL INFARCTION Status: Acute - Patient Summary/Data Consults: Consultations 07/29/20 13:02 Consult to Physician [CONS] Routine 08/01/20 11:35 Consult to Hospice [CONS] Routine Hospital Course: Admitting diagnoses Small bowel obstruction Dehydration GIRISH Electrolyte abnormalities Liver lesions Discharge diagnoses NSTEMI Small bowel obstruction-resolved Liver lesions Hospice Other PMH: COPD, end-stage CHF CAD History CABG Macrocytic anemia Carotid stenosis Diabetes type 2 GERD History CVA History A. fib Chronic respiratory failure oxygen dependent Consultations: General surgery, Dr. Jaime Salmon Rainer was admitted secondary to abdominal pain and found to have small bowel obstruction. NG was placed and he was treated conservatively. The following day he had bowel movement and was feeling much better. NG was continued for gastric decompression x1 more day. He was feeling improved tolerating soft diet and having bowel movements and passing gas. General surgery was on board and consulted. He woke up 1 day with crushing chest pain and was found to have elevated troponin. No ST segment changes on EKG were noted. Him and discussed aggressive care and felt that they wanted to move towards more palliative and hospice. He was treated medically and had refused heparin due to recent GI bleed. It was discussed with as well as Rainer goals of care. They decided to be discharged home with hospice. Hospice was consulted and home care was initiated. He will be discharged home today with hospice. He is eating well. I will discharge him home with Zofran as needed for nausea as well as a bowel regimen. He will also be given morphine for shortness of breath and pain. Eliquis will be stopped otherwise most home meds will be restarted at this time due to comfort provided by management of CHF. He will be discharged home today in care of as well as hospice to admit this afternoon. He is to keep in contact with hospice as well as PCP for guidance and further care. - Patient Instructions Diet: Regular Diet as Tolerated Activity: No Strenuous Activities, Rest and Relax Today Driving: Do Not Drive Showering/Bathing: May Shower Other/Special Instructions: Hospice to admit in afternoon - Discharge Plan *PRESCRIPTION DRUG MONITORING PROGRAM REVIEWED*: Not Applicable *COPY OF PRESCRIPTION DRUG MONITORING REPORT IN PATIENT BI: Not Applicable Prescriptions/Med Rec: Docusate Sodium [Colace] 100 mg PO BID #60 cap bisacodyL [Dulcolax] 10 mg RC Q72H PRN #15 supp PRN Reason: Constipation Morphine [Morphine 20 MG/ML Soln] 5 mg PO Q4H PRN #1 bottle PRN Reason: pain, shortnessofbreath Ondansetron [Zofran ODT] 4 mg PO Q6H PRN #30 tab.dis PRN Reason: Nausea Home Medications: Home Meds Albuterol [Proventil HFA] 2 puff INH Q6H PRN 11/05/17 [History] Omeprazole 20 mg PO ACBREAKFAST 11/05/17 [History] Simvastatin [Zocor] 80 mg PO BEDTIME 11/05/17 [History] Tiotropium [Spiriva HandiHaler] 18 mcg INH DAILY 11/05/17 [History] allopurinoL [Zyloprim] 300 mg PO DAILY 11/05/17 [History] Tamsulosin HCl [Flomax] 0.4 mg PO DAILY 07/01/19 [History] Albuterol/Ipratropium [DuoNeb 3.0-0.5 MG/3 ML] 3 ml NEB QID PRN 05/19/20 [History] Digoxin [Digox] 250 mcg PO DAILY 05/19/20 [History] Potassium Chloride [Klor-Con M20] 20 meq PO DAILY 05/19/20 [History] metOLazone [Metolazone] 2.5 mg PO .Mondays05/19/20 [History] Budesonide/Formoterol Fumarate [Symbicort 160-4.5 Mcg Inhaler] 2 puff INH BID 05/31/20 [History] Ferrous Gluconate [Iron] 324 mg PO TID 07/29/20 [History] Docusate Sodium [Colace] 100 mg PO BID #60 cap 08/02/20 [Rx] Morphine [Morphine 20 MG/ML Soln] 5 mg PO Q4H PRN #1 bottle 08/02/20 [Rx] Ondansetron [Zofran ODT] 4 mg PO Q6H PRN #30 tab.dis 08/02/20 [Rx] Torsemide 20 mg PO DAILY #0 08/02/20 [Rx] bisacodyL [Dulcolax] 10 mg RC Q72H PRN #15 supp 08/02/20 [Rx] Oxygen Therapy Mode: Room Air Patient Handouts: Docusate Sodium; Senna tablets or capsules, Bisacodyl tablets and capsules, Ondansetron tablets, Bowel Obstruction, [id number], Chronic Obstructive Pulmonary Disease, [id number], Morphine immediate release tablets Referrals: Kwabena Sanchez MD [Ordering Only Provider] - 08/11/20 10:30 am Tiburcio Abdul MD [Physician] - 08/30/20 1:15 pm - Discharge Summary/Plan Comment DC Time >30 min.: No - Patient Data Vitals - Most Recent: Last Vital Signs Temp 98.5 F 08/03/20 07:35 Pulse 92 08/03/20 09:10 Resp 16 08/03/20 07:35 BP 93/60 08/03/20 09:10 Pulse Ox 95 08/03/20 07:35 Weight - Most Recent: 61.3 kg I&O - Last 24 hours: Intake & Output 08/02/20 08/03/20 08/03/20 22:59 06:59 14:59 Intake Total 680 550 Output Total 475 600 Balance 205 -50 Lab Results - Last 24 hrs: Laboratory Results - last 24 hr 08/02/20 08/02/20 08/03/20 Range/Units 11:41 17:35 00:19 POC Glucose 193 H 159 H 167 H (60-110) mg/dL 08/03/20 08/03/20 Range/Units 05:55 07:40 POC Glucose 153 H 154 H (60-110) mg/dL JILLIAN Results - Last 24 hrs: Microbiology 07/28/20 18:16 Aerobic Blood Culture - Final Blood - Venous - Lab Draw NO GROWTH AFTER 5 DAYS Anaerobic Blood Culture - Final 07/28/20 17:55 Aerobic Blood Culture - Final Blood - Venous NO GROWTH AFTER 5 DAYS Anaerobic Blood Culture - Final NO GROWTH AFTER 5 DAYS Med Orders - Current: Current Medications Albuterol (Ventolin Hfa) 0 gm INH Q6HRRT PRN PRN Reason: Shortness of Breath Last Admin: 08/03/20 09:14 Dose: 2 puff Documented by: Albuterol/Ipratropium (Duoneb 3.0-0.5 Mg/3 Ml) 3 ml NEB QID [facility] Last Admin: 08/03/20 06:07 Dose: 3 ml Documented by: Allopurinol (Zyloprim) 300 mg PO DAILY [facility] Last Admin: 08/03/20 09:03 Dose: 300 mg Documented by: Dextrose/Water (Dextrose 50% In Water) 50 ml IV ASDIRECTED PRN PRN Reason: Hypoglycemia Digoxin (Lanoxin) 250 mcg PO DAILY [facility] Last Admin: 08/03/20 09:06 Dose: 250 mcg Documented by: Ferrous Sulfate (Ferrous Sulfate) 325 mg PO TID [facility] Last Admin: 08/03/20 06:35 Dose: 325 mg Documented by: Glucagon (Glucagen) 1 mg IM ASDIRECTED PRN PRN Reason: Hypoglycemia Guaifenesin/Dextromethorphan (Robitussin Dm) 10 ml PO TID PRN PRN Reason: Cough Last Admin: 08/01/20 23:42 Dose: 10 ml Documented by: Insulin Aspart (Novolog) 0 unit SUBCUT TIDAC [facility]; Protocol Last Admin: 08/03/20 09:05 Dose: 1 unit Documented by: Metoprolol Tartrate (Lopressor) 25 mg PO Q12H [facility] Last Admin: 08/03/20 09:46 Dose: Not Given Documented by: Morphine Sulfate (Morphine) 2 mg IVPUSH Q2H PRN PRN Reason: Pain (severe 7-10) Omeprazole (Omeprazole) 20 mg PO ACBREAKFAST [facility] Last Admin: 08/03/20 06:35 Dose: 20 mg Documented by: Ondansetron HCl (Zofran) 4 mg IVPUSH Q4H PRN PRN Reason: Nausea Last Admin: 07/31/20 23:38 Dose: 4 mg Documented by: Budesonide/Formoterol 160-4.5 Mcg/Puff 6 Gm Inhaler 2 each INH BID [facility] Last Admin: 08/03/20 09:12 Dose: 2 each Documented by: Simvastatin (Zocor) 80 mg PO BEDTIME [facility] Last Admin: 08/02/20 21:09 Dose: 80 mg Documented by: Sodium Chloride (Saline Flush) 2.5 ml FLUSH ASDIRECTED PRN PRN Reason: Keep Vein Open Last Admin: 07/28/20 18:01 Dose: 2.5 ml Documented by: Tiotropium [place] (Spiriva Handihaler) 18 mcg INH DAILY [facility] Last Admin: 08/03/20 09:04 Dose: 1 cap Documented by: Discontinued Medications Albuterol (Ventolin Hfa) 0 gm INH Q6H PRN PRN Reason: Shortness of Breath Last Admin: 07/31/20 09:44 Dose: 1 puff Documented by: Albuterol/Ipratropium (Duoneb 3.0-0.5 Mg/3 Ml) 3 ml NEB QID PRN PRN Reason: COPD Last Admin: 07/30/20 13:09 Dose: 3 ml Documented by: Aspirin (Aspirin) 325 mg PO ONETIME ONE Stop: 07/31/20 07:04 Last Admin: 07/31/20 07:38 Dose: 325 mg Documented by: Bisacodyl (Dulcolax) 10 mg RECTAL ONETIME ONE Stop: 08/02/20 09:28 Last Admin: 08/02/20 09:58 Dose: 10 mg Documented by: Bisacodyl (Dulcolax) 10 mg RECTAL ONETIME ONE Stop: 08/03/20 09:31 Last Admin: 08/03/20 09:35 Dose: 10 mg Documented by: Sodium Chloride (Normal Saline) 500 mls @ 999 mls/hr IV STAT [facility]ATE Last Admin: 07/28/20 18:01 Dose: 999 mls/hr Documented by: Sodium Chloride (Normal Saline) 1,000 mls @ 999 mls/hr IV STAT ONE Stop: 07/28/20 19:24 Last Admin: 07/28/20 18:57 Dose: 999 mls/hr Documented by: Magnesium Sulfate (Magnesium Sulfate In Water Premix) 2 gm in 50 mls @ 50 mls/hr IV ONETIME ONE Stop: 07/28/20 20:28 Last Admin: 07/28/20 19:37 Dose: 50 mls/hr Documented by: Magnesium Sulfate (Magnesium Sulfate In Water Premix) Confirm Administered Dose 2 gm in 50 mls @ as directed .ROUTE .STK-MED ONE Stop: 07/28/20 19:29 Last Admin: 07/28/20 19:32 Dose: Not Given Documented by: Sodium Chloride (Normal Saline) 1,000 mls @ 999 mls/hr IV STAT ONE Stop: 07/28/20 22:58 Last Admin: 07/28/20 22:35 Dose: 999 mls/hr Documented by: Sodium Chloride (Normal Saline) 1,000 mls @ 100 mls/hr IV ASDIRECTED [facility] Last Admin: 07/29/20 09:48 Dose: 100 mls/hr Documented by: Sodium Chloride (Normal Saline) 500 mls @ 999 mls/hr IV BOLUS ONE Stop: 07/29/20 06:04 Last Admin: 07/29/20 05:40 Dose: 999 mls/hr Documented by: Iopamidol (Isovue-300 (61%)) 75 ml IVPUSH ONETIME STA Stop: 07/28/20 20:40 Last Admin: 07/28/20 20:40 Dose: 75 ml Documented by: Lidocaine HCl (Xylocaine 2% Viscous) Confirm Administered Dose 15 ml .ROUTE .STK-MED ONE Stop: 07/28/20 23:22 Last Admin: 07/29/20 04:26 Dose: Not Given Documented by: Lidocaine HCl (Xylocaine 2% Viscous) 15 ml PO ONETIME ONE Stop: 07/28/20 23:30 Last Admin: 07/29/20 04:26 Dose: Not Given Documented by: Magnesium Sulfate (Magnesium Sulfate 50%) 2 gm IV NOW STA Stop: 07/28/20 19:02 Last Admin: 07/28/20 21:27 Dose: Not Given Documented by: Methylprednisolone Sodium Succinate (Solu-Medrol) 125 mg IVPUSH ONETIME ONE Stop: 07/28/20 20:21 Last Admin: 07/28/20 21:30 Dose: 125 mg Documented by: Metoprolol Tartrate (Lopressor) 25 mg PO ONETIME ONE Stop: 07/31/20 07:05 Last Admin: 07/31/20 07:39 Dose: 25 mg Documented by: Budesonide/Formoterol 160-4.5 Mcg/Puff 6 Gm Inhaler 2 each INH BID [facility] Last Admin: 07/31/20 09:55 Dose: Not Given Documented by: Ferrous Gluconate [ (Iron] 324 Mg) 1 each PO TID [facility] Last Admin: 07/31/20 06:45 Dose: Not Given Documented by: Polyethylene Glycol (Miralax) 17 gm PO ONETIME ONE Stop: 08/03/20 09:31 Last Admin: 08/03/20 09:35 Dose: 17 gm Documented by: Potassium Chloride (Klor-Con M20) 40 meq PO ONETIME ONE Stop: 07/30/20 13:57 Last Admin: 07/30/20 14:10 Dose: 40 meq Documented by: Sodium Chloride (Saline Flush) 10 ml FLUSH ASDIRECTED PRN PRN Reason: Keep Vein Open Last Admin: 07/28/20 18:01 Dose: 10 ml Documented by: Sodium Chloride (Saline Flush) 10 ml FLUSH ASDIRECTED PRN PRN Reason: Keep Vein Open Sodium Chloride (Saline Flush) 2.5 ml FLUSH ASDIRECTED PRN PRN Reason: Keep Vein Open
== END 2020-08-03 10:00 | disposition hospice, home (50) | DRG 388 ==
LOC: MW.ED 17:18 → MW.MS 22:59
PROVIDERS: ADMIT Internal Medicine; ATTEND Internal Medicine
PROC: 30233N1 Transfusion of Nonautologous Red Blood Cells into Peripheral Vein, Percutaneous Approach (ICD-10-PCS; principal; 2020-07-29)
DX: K56.609 Unspecified intestinal obstruction, unspecified as to partial versus complete obstruction (principal); K56.600 Partial intestinal obstruction, unspecified as to cause; I21.4 Non-ST elevation (NSTEMI) myocardial infarction; I50.43 Acute on chronic combined systolic (congestive) and diastolic (congestive) heart failure; N17.9 Acute kidney failure, unspecified; J42 Unspecified chronic bronchitis; H40.9 Unspecified glaucoma; H54.7 Unspecified visual loss; I48.91 Unspecified atrial fibrillation; J96.10 Chronic respiratory failure, unspecified whether with hypoxia or hypercapnia; Z51.5 Encounter for palliative care; I50.9 Heart failure, unspecified; Z20.822 Contact with and (suspected) exposure to COVID-19; Z66 Do not resuscitate; E86.0 Dehydration; E83.42 Hypomagnesemia; K76.9 Liver disease, unspecified; Z20.828 Contact with and (suspected) exposure to other viral communicable diseases; D53.9 Nutritional anemia, unspecified; I65.22 Occlusion and stenosis of left carotid artery; I25.10 Atherosclerotic heart disease of native coronary artery without angina pectoris; E11.9 Type 2 diabetes mellitus without complications; K21.9 Gastro-esophageal reflux disease without esophagitis; J43.9 Emphysema, unspecified; E78.00 Pure hypercholesterolemia, unspecified; I11.0 Hypertensive heart disease with heart failure; M10.9 Gout, unspecified; Z95.1 Presence of aortocoronary bypass graft; Z99.81 Dependence on supplemental oxygen; Z79.84 Long term (current) use of oral hypoglycemic drugs; Z79.899 Other long term (current) drug therapy; Z86.73 Personal history of transient ischemic attack (TIA), and cerebral infarction without residual deficits
CPT/HCPCS: 0240U; 36415; 36430; 71045; 71275; 74018; 74019; 74177; 80053; 81003; 82803; 82962; 83605; 83690; 83735; 84484; 85014; 85018; 85025; 85027; 85379; 86850; 86900; 86901; 86920; 86921; 86922; 87040; 93005; 94640; 94664; 93010; 99285; A9270-GY; J2405; J2930; J3475; J3535-GY; J7030; J7040; J7620-GY; P9016; Q9967